=== PATIENT | female | born 1940 | race Caucasian/White ===

== ENCOUNTER 2017-04-21 15:05 | Inpatient (IN) | payer MEDICARE ==
[~2017-04-21] VITALS: Ht 162.6 cm; Wt 68.5 kg
[~2017-04-21 15:05] MED LIST: CYCL5TAB PO; HYDR12.56 PO; OXYC-360 PO; SULF500 PO; VERA40TA PO
[2017-04-25] MEDS ORDERED: FERR325T8 PO (09:47)
[2017-04-25] MEDS ORDERED: POTA10CA PO (09:47)
[2017-04-25] MEDS ORDERED: ASAC800T PO (09:47)
[2017-04-25] MEDS ORDERED: HYDR25TA5 PO (09:47)
[2017-04-25] MEDS ORDERED: TIMO0.5S30 EACH EYE (09:47)
[2017-04-25] MEDS ORDERED: VERA180C3 PO (09:47)
[2017-04-25] MEDS ORDERED: CARV6.252 PO (09:47)
[2017-04-25] MEDS ORDERED: ALPR0.25 PO (09:47)
[2017-04-25] MEDS ORDERED: FURO40TA PO (09:47)
[2017-04-25] MEDS ORDERED: SIMV10TA PO (09:47)
[2017-04-25] MEDS ORDERED: CHLORHEXIDINE GLUCONATE 2 % 1 PACK (2 CLOTHS) TOPICAL PRN (10:00)
[2017-04-25] MEDS ORDERED: INSULIN HUMAN REGULAR 1,000 UNITS/10 ML VIAL SQ PRN (10:00)
[2017-04-25] MEDS ORDERED: POVIDONE IODINE 5% (ANTISEPSIS KIT) 4 APPLICATIONS EACH NARE PRN (10:00)
[2017-04-25] MEDS ORDERED: LACTATED RINGER'S 1000 ML IV PRN (10:00)
[2017-04-25] MEDS ORDERED: HEPARIN SODIUM - SQ 10,000 UNITS/ML VIAL SQ PRN (10:00)
[2017-04-25] MEDS ORDERED: METOPROLOL TARTRATE 25 MG TAB PO PRN (10:00)
[2017-04-25] MEDS ORDERED: SODIUM CHLORID 0.9% 500 ML IV PRN (10:00)
[2017-04-25] MEDS ORDERED: ceFAZolin 1,000 MG/NS 100 ML IV SCH ×2 (10:00)
[2017-04-25] MEDS ORDERED: ONDANSETRON HCL 4 MG/2 ML VIAL IV PUSH ONE (10:30)
[2017-04-25] MEDS ORDERED: LACTATED RINGER'S 1000 ML INJ 3,000 ML IV ONE (10:30)
[2017-04-25] MEDS ORDERED: NORMOSOL R INJ 1,000 ML IV ONE (10:30)
[2017-04-25] MEDS ORDERED: ePHEDrine/NS 25 MG/5 ML SYR IV ONE (10:30)
[2017-04-25] MEDS ORDERED: PHENYLEPH/NS 1000 MCG/10 ML SYR IV ONE (10:30)
[2017-04-25] MEDS ORDERED: PROPOFOL 200 MG/20 ML AMP IV ONE (10:30)
[2017-04-25] MEDS ORDERED: ACETAMINOPHEN 1000 MG/100 ML VIAL IV ONE ×2 (10:41→11:21)
[2017-04-25] MEDS ORDERED: SUGAMMADEX SODIUM 200 MG/2 ML VIAL IV PUSH ONE ×2 (11:22)
[2017-04-25] MEDS ORDERED: HYDROmorphone HCL PF 2 MG/ML VIAL ONE (11:22)
[2017-04-25] MEDS ORDERED: DEXAMETHASONE SOD PHOS 4 MG/ML VIAL ONE (11:35)
[2017-04-25] MEDS ORDERED: FAMOTIDINE 20 MG/2 ML VIAL ONE (11:35)
[2017-04-25] MEDS ORDERED: MIDAZOLAM HCL 2 MG/2 ML VIAL ONE (11:35)
[2017-04-25] MEDS: ceFAZolin INJ 1,000 MG VIAL ONE (14:30)
[2017-04-25] MEDS ORDERED: NALOXONE HCL 0.4 MG/ML AMP IV PRN (16:15)
[2017-04-25] MEDS ORDERED: diphenhydrAMINE HCL 25 MG CAP PO PRN (16:15)
--- NOTE | 2017-04-25 16:50 | MP ---
cc: JORDAN ESCOTO DATE OF SURGERY April 25, 2017 PREOPERATIVE DIAGNOSIS Uterine malignancy. POSTOPERATIVE DIAGNOSIS Uterine malignancy involving multiple peritoneal surfaces and mesentery including large positive of invasive disease in the sigmoid colon mesentery. ATTENDING SURGEON Alexandra TURNER ASSISTANCE Dr. Loida Sims ANESTHESIA General. PROCEDURE 1. Open sigmoid resection with primary anastomosis. 2. Open appendectomy. FINDINGS A large deposit of malignancy invading the transverse sigmoid mesocolon with concern for compromise of blood supply or possible impending obstruction. INDICATION FOR PROCEDURE The patient is a 76-year-old female who was recently diagnosed with a large uterine malignancy. The patient was taken to the operating room by Dr. Loida Sims for open hysterectomy and bilateral salpingo-oophorectomy as well as oncologic debulking. Near the completion of his procedure, after these procedures were performed, he noted a large metastatic deposit that was extensively involving the sigmoid colonic mesentery. He asked for intraoperative consultation from Surgical Oncology for evaluation of the mass. On evaluation this mass appeared to be deeply invading the mesentery and there was concern clinically for impending ischemia or obstruction of the sigmoid colon. There was a normal healthy, disease-free sigmoid colon proximal and distal to this area. He felt that resection of this with primary anastomosis was appropriate for this patient and that the patient's goal was of debulking as well as to prevent possible ischemia and obstruction. PROCEDURE After completion of Dr. Sims' hysterectomy (please see his separate dictated note), prior to closure I was asked to come to the operating room suite to evaluate the sigmoid colon. Upon evaluation and after scrubbing and gowning, it was clear that there was a large metastatic deposit involving the sigmoid mesocolon. The colon appeared to be viable. The deposit was deeply invasive and broadly into the mesocolon, almost completely through the mesocolon, concerning for possible impending ischemia as well as obstruction. The mass had contracted the colon down to sort of a kink or almost a stricture type shape and this also appeared to be concerning for impending obstruction as well. I did recommend to Dr. Sims that this be removed for the above reasons and we turned our attention towards resection. We did divide the distal sigmoid and the proximal sigmoid with a blue load on a GI-70 linear stapler cutter. We used the Enseal device to take the mesentery and the mass in the completely. The superior rectal vessel was tied over a Loida clamp. The specimen was passed off for permanent processing as the sigmoid colon. We did easily identify the left ureter and this was out of our field. We did mobilize the white line of Toldt as well but not all the way up to the splenic flexure. We did not mobilize the splenic flexure. We then managed to still have ample bowel to perform primary anastomosis as she had a fairly redundant sigmoid colon. We were able form a [id number]-qb-hebt functional end-to-end anastomosis over the antimesenteric tinea of the proximal and distal sigmoid. This was done with a GI-55 linear stapler cutter with a blue load and the staple defect was closed with a TA staple. We placed crotch sutures proximal and distal on the staple lines. At this point in time, I did assist Dr. Sims with performing a few remaining resections of metastatic deposits along the mesentery and we did perform appendectomy as well. We used the Enseal to divide the appendiceal mesentery and the base of the appendix as it splayed into the cecum. The specimen was passed off for permanent processing. We placed a Z-stitch, followed by a Lembert suture using 3-0 Vicryl suture to close the appendiceal stump. At this point in time we felt that the procedures were complete and we had a good technical result. The anastomosis of the sigmoid colon was widely patent and pink and viable. Evicel was placed along the anastomosis as well as in the pelvis to assist with hemostasis. Dr. Sims did perform the closure at the completion of the procedure. Again, please refer to his separate dictated note, as mentioned above. I was present and scrubbed throughout the entire above procedures. The patient tolerated the procedure well, no apparent complications during this period the operation. MD NICOL Quevedo/GISELLA /3:38 PM /4:30 PM
[2017-04-25] MEDS ORDERED: DO NOT ADM ANY ANTICOAGULANT DRUGS PRN (17:00)
[2017-04-25] MEDS ORDERED: fentaNYL CITRATE 250 MCG/5 ML AMP ONE (17:08)
[2017-04-25] MEDS: D5-1/2 NS + KCL 20 MEQ INJ 1,000 ML IV SCH (17:32)
[2017-04-25] MEDS: MORPHINE SULFATE 30 MG/30 ML PCA IV SCH (17:33)
[2017-04-25] MEDS: KETOROLAC TROMETHAMINE 30 MG/ML (IVP) VIAL IVP SCH (17:47)
[2017-04-25 18:15] LABS: HEMATOCRIT 40.8 % (35.0-46.0); MEAN CELL VOLUME 85.5 FL (80.0-100.0); MEAN CORPUSCULAR HEMOGLOBIN 28.4 PG (27.0-34.0); MEAN CORPUSCULAR HGB CONC 33.2 % (32.0-36.0); PLATELET COUNT 379 TH/MM3 (150-450); RED BLOOD COUNT 4.78 MIL/MM3 (4.00-5.30); RED CELL DISTRIBUTION WIDTH 15.1 % (11.6-17.2); REVIEW FLAG FINAL; WHITE BLOOD COUNT 13.1 TH/MM3 (4.0-11.0)
[2017-04-25 18:44] LABS: BICARBONATE 20.4 MEQ/L (21.0-32.0); POTASSIUM 3.4 MEQ/L (3.5-5.1)
[2017-04-25 20:00] VITALS: BP 97/57; PULSE 76; RESP 17; TEMP 97.6; O2SAT 97
[2017-04-25] MEDS: SODIUM CHLORIDE 0.9% FLUSH 10 ML FLUSH IV FLUSH SCH (20:12)
[2017-04-25] MEDS: ONDANSETRON HCL 4 MG/2 ML VIAL IVP PRN (20:12)
[2017-04-25] MEDS: MESALAMINE HD 800 MG DELAYED RELEASE TAB PO SCH (20:17)
[2017-04-25] MEDS: PCA - TOTAL MG MORPHINE DELIVERED PER SHIFT SCH (22:00)
[2017-04-26] VITALS (8 sets, daily range): BP systolic 95–115; BP diastolic 55–59; PULSE 73–79; RESP 16–18; TEMP 96–97.8; O2SAT 91–98
[2017-04-26] MEDS: KETOROLAC TROMETHAMINE 30 MG/ML (IVP) VIAL IVP SCH ×4 (00:13→18:27)
[2017-04-26] MEDS: PCA - TOTAL MG MORPHINE DELIVERED PER SHIFT SCH ×3 (06:00→22:04)
[2017-04-26] MEDS: D5-1/2 NS + KCL 20 MEQ INJ 1,000 ML IV SCH ×3 (06:12→22:15)
--- NOTE | 2017-04-26 07:14 | MP ---
cc: JORDAN ESCOTO KELLY L. MD EHRINGER, GEORGE P. M.D. DATE OF SURGERY 04/25/2017 PREOPERATIVE DIAGNOSIS Large uterine mass. POSTOPERATIVE DIAGNOSES 1. Large uterine mass with large uterine tumor with invasion into sigmoid mesentery. 2. Metastatic disease in the omentum and mesentery. 3. Dense pelvic adhesions. PROCEDURE Exploratory laparotomy, total abdominal hysterectomy, bilateral salpingo-oophorectomy, extensive lysis of adhesions, omentectomy, resection of intraperitoneal tumor. 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 ANESTHESIA General endotracheal anesthesia ESTIMATED BLOOD LOSS 1100 cc. IV FLUIDS 4000 cc. URINE OUTPUT 200 cc. TRANSFUSION 2 units packed red blood cells. INTRAOPERATIVE CONSULT Dr. Jordan Ecsoto, Surgical Oncology. HISTORY A 76-year-old female who in recent weeks has noticed a sense of pelvic pain, pressure and lower abdominal distension which she felt was changing fairly rapidly. Exam and imaging showed her to have a very large central mass in the pelvis thought to be of probable uterine origin. The ovaries could not be separately visualized. It was solid, multilobulated, complex-appearing and extended to the level of the umbilicus and from one abdominopelvic sidewall to the other sidewall. She denied any vaginal bleeding, spotting or blood-tinged discharge. Imaging did not show any overt evidence of intraperitoneal disease or retroperitoneal disease but there were I believe nodules in the liver and in the lung of an undetermined significance. She was counseled regarding these findings and presents now for surgical management. She is seen in the preoperative holding area where these findings are again reviewed. Questions were answered. She expressed good understanding and agrees to move forward with surgery. FINDINGS The uterus markedly enlarged as described, extends above the level of the umbilicus and extending from sidewall to sidewall, hemorrhagic in appearance. The sigmoid colon was stuck to the posterior fundal region as there was tumor invading into the mesentery of this bowel. There were adhesions to loops of small bowel and colon posteriorly and along the fundus and along the left pelvic sidewall. Additionally the omentum had visible nodules in it, estimated to be about 5-10 mm in diameter. A couple of these were removed and were sent for frozen section analysis showing a high-grade malignancy, not otherwise specified. The small bowel mesentery had implants ranging from 3 mm to approximately 12 mm. The right tube and ovary grossly appeared normal. The left tube and ovary appeared to be distorted or continuous with the uterine mass as they were not clearly from this mass. At the conclusion of the case all grossly detectable tumor had been removed. STATEMENT OF COMPLEXITY/MODIFIER The complexly of this case was significantly increased due to the markedly enlarged uterus as well as extensive adhesions increasing surgical complexly and operative time significantly and modifier should be applied accordingly. PROCEDURE She was taken to the operating room, placed in dorsal lithotomy position after general endotracheal anesthesia was administered. A time-out was undertaken. She was identified by sight recognition and hospital ID braarti and the proposed procedure was reviewed and confirmed. She was carefully positioned in padded Grzegorz stirrups. Her arms were secured out. She was prepped and draped in sterile fashion, a Flannery catheter placed in the bladder. Ioban was placed over the abdomen and midline incision was made from the symphysis to the umbilicus, carried down to the fascia. The fascia was in the midline. The rectus muscles were . The peritoneal cavity was entered and the peritoneal incision was extended the length of the skin incision. Adhesions were taken down with sharp and blunt dissection. The preliminary anatomy was explored with findings as described above. The mass could not be adequately assessed with this incision and the posterior and lateral adhesions precluded mobilization of the mass through the abdominal incision so the incision was extended up and around the left side of the umbilicus and several centimeters above the umbilicus. The left round ligament was able to be identified, doubly suture ligated and transected. The anterior and posterior leaves of the broad ligament were opened. What appeared to be the left infundibulopelvic ligament with the vessels were isolated. The left ureter was identified and retracted posteriorly as the intervening peritoneum was opened. The infundibulopelvic ligament was doubly clamped, cut and doubly suture ligated. The tube and ovary were not clearly visualized and appeared to possibly be involved or replaced by this mass. The right round ligament was able to be identified, doubly suture ligated and transected. The anterior and posterior leaves of the broad ligament were opened. The right ureter was identified. The right infundibulopelvic ligament was isolated. The infundibulopelvic ligament was doubly clamped, cut and suture-ligated. All exposure manipulation was with handheld retractors and moving the large uterus from side to side to try to gain exposure. The vesicouterine peritoneum was dissected off the lower uterine segment and additional lysis of adhesion was carried out posteriorly and along the left fundal region of the mass. It was clear at this point the tumor had invaded through the mass into the sigmoid mesentery but this tissue was with blunt and sharp dissection and lap pads were placed to assist with hemostasis. This now allowed some limited mobility of the uterine mass which was elevated. The posterior peritoneum was opened and the pronounced vasculature was isolated bilaterally. The Enseal vessel-sealing device was used isolating the vessels bilaterally with multiple cautery, multiple sealing which caused the uterus to hugo at least partially and then the uterine vessels were cut. Dissection was carried along the left uterus and markedly dilated lower uterine segment where the cardinal, paracervical and uterosacral ligaments were isolated, doubly-sealed and transected in a stepwise fashion until a curved Wilfrido's clamp could be placed below the cervix at the lateral vaginal angle. The specimen was cut and the corner of the vagina was secured with [id number] 0 Vicryl suture. Attention was directed toward the right side where similarly the vessels were isolated, had been sealed multiple times and were transected. Continuing dissection on the cardinal ligament, some fairly active bleeding ensued. The vessels could not immediately be isolated or secured so lap pads were used to pack against the pelvic sidewall and used the pressure of the large uterus for hemostasis against the right side. Attention was then redirected toward the left where the Enseal was used to secure the tissue below the cervix and across the top of the vagina, dissecting from [id number] distal to the cervix until the cervix remained attached at the right corner and then attention was redirected to the right side where the remaining attachments of the paracervical and uterosacral ligaments were isolated, secured and then transected. This allowed removal of the uterus, both tubes and ovaries and the cervix. It was inspected and the entire cervix had been removed. A pack remained in the right pelvis. Attention was directed toward the abdomen. The omentum was isolated from the transverse colon. Nonvascular attachments were taken down with cautery. Vascular attachments were isolated and secured and transected using the Enseal until the infracolic omentum was removed. It had a few small tumor nodules in it. Inspection of the abdominal anatomy, running the bowel from the ileocecal valve to the ligament of Treitz, nodules were found on the mesentery and at one spot on the wall of the small bowel. These were removed with sharp dissection and the area of small bowel was reinforced with interrupted 3-0 Vicryl sutures. At this point Dr. Jordan Escoto had scrubbed in the case at my request as I had placed consult request with him at the start of the case based on the operative findings. At this point we decided surgical objectives should include resection of the sigmoid colon because of the invasive tumor into its mesentery as well as appendectomy due to some periappendiceal adhesions and Dr. Escoto directed resection and reanastomosis of the sigmoid colon as well as appendectomy. Please see his op note for these this portions of the case. I stayed scrubbed from start to finish and acted as his airplane first officer during his procedures. The pelvis packing was removed and we were able to isolate the bleeders and over-sew that with 3-0 delayed absorbable suture in two locations which rendered the vessels hemostatic and the packs were removed. Inspection and copious irrigation were carried out. All lap pads were removed. There were no remaining foreign objects in the peritoneal cavity. Preliminary counts were correct. Copious irrigation of the pelvis and then hemostatic agents of Surgicel SNoW placed across the vaginal cuff and pelvic sidewalls and Evicel sealant placed across the mesenteric dissection anastomosis and lateral pelvic sidewalls. There was complete hemostasis and it was felt that all reasonable surgical objectives had been completed. There was no remaining detectable tumor and attention was directed toward closing. The abdominal wall was closed with 0 looped PDS in a running continuous modified Smead-Fabian fashion starting at apices and meeting in the midpoint where the sutures were tied. The suture knot was buried between the midline fascial openings. Irrigation of subcutaneous tissue, Shayla's fascia reapproximated with interrupted 2-0 Vicryl sutures and a 3-0 Vicryl subcuticular was used to reapproximate the skin. Steri-Strips and dry sterile dressings were placed over these incisions. Final counts were correct. She was returned to dorsal supine position and was pending reversal of anesthesia when I left the operating room to precede her to the Post-Anesthesia Care Unit. MD RENATA Pink /5:38 PM /6:34 AM
[2017-04-26 08:18] LABS: AUTOMATED NEUTROPHIL # 11.4 TH/MM3 (1.8-7.7); BASOPHIL % 0.3 % (0.0-2.0); HEMATOCRIT 36.9 % (35.0-46.0); HEMO FLAGS DIFF FINAL; LYMPH % 9.9 % (9.0-44.0); LYMPHOCYTE # 1.4 TH/MM3 (1.0-4.8); MEAN CELL VOLUME 83.8 FL (80.0-100.0); MEAN CORPUSCULAR HEMOGLOBIN 27.5 PG (27.0-34.0); MEAN CORPUSCULAR HGB CONC 32.8 % (32.0-36.0); MONO % 7.9 % (0.0-8.0); NEUT % 81.9 % (16.0-70.0); PLATELET COUNT 399 TH/MM3 (150-450); RED BLOOD COUNT 4.41 MIL/MM3 (4.00-5.30); RED CELL DISTRIBUTION WIDTH 14.8 % (11.6-17.2); WHITE BLOOD COUNT 13.9 TH/MM3 (4.0-11.0)
[2017-04-26] MEDS: ONDANSETRON HCL 4 MG/2 ML VIAL IVP PRN ×2 (08:39→15:14)
[2017-04-26] MEDS: HYDROCHLOROTHIAZIDE 25 MG TAB PO SCH (08:40)
[2017-04-26] MEDS: VERAPAMIL HCL 180 MG SUSTAINED RELEASE TAB PO SCH (08:40)
[2017-04-26 08:42] LABS: BICARBONATE 25.6 MEQ/L (21.0-32.0); MAGNESIUM 1.6 MG/DL (1.5-2.5); POTASSIUM 3.6 MEQ/L (3.5-5.1)
[2017-04-26] MEDS: MESALAMINE HD 800 MG DELAYED RELEASE TAB PO SCH ×3 (08:42→18:00)
[2017-04-26] MEDS: CARVEDILOL 6.25 MG TAB PO SCH (08:42)
[2017-04-26] MEDS: FUROSEMIDE 40 MG TAB PO SCH (09:00)
[2017-04-26] MEDS: TIMOLOL MALEATE 0.5% OPHT SOLN 5 ML BTL EACH EYE SCH (09:00)
[2017-04-26] MEDS: PRAVASTATIN SOD 20 MG TAB PO SCH (09:00)
[2017-04-26] MEDS: SODIUM CHLORIDE 0.9% FLUSH 10 ML FLUSH IV FLUSH SCH ×2 (09:04→22:05)
[2017-04-26] MEDS: oxyCODONE/ACETAMINOPHEN 5 MG/325 MG TAB PO PRN ×3 (12:46→22:49)
--- NOTE | 2017-04-26 17:38 | HHI.PR ---
Subjective Subjective Notes Resting in bed Little nausea this afternoon Has been OOB to chair this afternoon Objective Vitals/I&O Vital Signs Date Time Temp Pulse Resp B/P (MAP) Pulse Ox O2 Delivery O2 Flow Rate FiO2 04/26/17 12:00 97.8 74 16 104/56 (72) 96 04/26/17 09:51 Nasal Cannula 1.00 Labs Laboratory Tests Test 04/26/17 07:19 White Blood Count 13.9 Red Blood Count 4.41 Hemoglobin 12.1 Hematocrit 36.9 Mean Corpuscular Volume 83.8 Mean Corpuscular Hemoglobin 27.5 Mean Corpuscular Hemoglobin Concent 32.8 Red Cell Distribution Width 14.8 Platelet Count 399 Mean Platelet Volume 8.5 Neutrophils (%) (Auto) 81.9 Lymphocytes (%) (Auto) 9.9 Monocytes (%) (Auto) 7.9 Eosinophils (%) (Auto) 0.0 Basophils (%) (Auto) 0.3 Neutrophils # (Auto) 11.4 Lymphocytes # (Auto) 1.4 Monocytes # (Auto) 1.1 Eosinophils # (Auto) 0.0 Basophils # (Auto) 0.0 CBC Comment DIFF FINAL Differential Comment Blood Urea Nitrogen 7 Creatinine 0.39 Random Glucose 200 Calcium Level 8.0 Phosphorus Level 3.1 Magnesium Level 1.6 Sodium Level 140 Potassium Level 3.6 Chloride Level 106 Carbon Dioxide Level 25.6 Anion Gap 8 Estimat Glomerular Filtration Rate 159 Cardiovascular: Regular Lungs: Clear Abdomen: Other (abdomen mildly tender; mildly distended; dressing in place without drainage ) Extremities: No edema A/P Assessment and Plan 76 year old female POD1 Exploratory laparotomy, total abdominal hysterectomy, bilateral salpingo-oophorectomy, extensive lysis of adhesions, omentectomy, open sigmoid resection with primary anastomosis and open appendectomy. -Sips of clears only -OOB and tolerated -IVF -VESSEL OPERATOR for pain control -Await pathology report Attending Statement The exam, history, and the medical decision-making described in the above note were completed with the assistance of the mid-level provider. I reviewed and agree with the findings presented. I attest that I had a [id number] encounter with the patient on the same day, and personally performed and documented my assessment and findings in the medical record. Abdominal exam: soft, non-distended, no rebound tenderness, postoperative incisional pain, incisions clean, dry, intact await bowel function Shannon Ocampo Apr 26, 2017 17:38 Blayne Morris MD May 04, 2017 14:47
[2017-04-27] VITALS (8 sets, daily range): BP systolic 96–123; BP diastolic 53–66; PULSE 66–87; RESP 14–18; TEMP 96.2–97.7; O2SAT 90–99
[2017-04-27] MEDS: KETOROLAC TROMETHAMINE 30 MG/ML (IVP) VIAL IVP SCH ×5 (00:12→20:15)
[2017-04-27] MEDS: MORPHINE SULFATE 30 MG/30 ML PCA IV SCH (05:20)
[2017-04-27] MEDS: PCA - TOTAL MG MORPHINE DELIVERED PER SHIFT SCH (05:36)
--- NOTE | 2017-04-27 08:15 | PD.ONC.PN ---
Subjective Subjective Remarks POD #2 pt is resting in bed has been OOB to use bedside commode taking in fluids no n/v OOB to chair X 3 yesterday pain controlled using IS Objective Data Date Time Temp Pulse Resp B/P (MAP) Pulse Ox O2 Delivery O2 Flow Rate FiO2 04/27/17 05:36 18 04/27/17 05:29 19 04/27/17 05:20 17 04/27/17 04:00 97.0 87 17 119/57 (77) 93 04/27/17 00:00 96.7 81 17 105/66 (79) 93 04/26/17 22:04 18 04/26/17 20:36 93 21 04/26/17 20:00 96.0 79 18 98/57 (71) 93 04/26/17 16:00 97.5 78 16 115/55 (75) 91 04/26/17 12:00 97.8 74 16 104/56 (72) 96 04/26/17 09:51 95 Nasal Cannula 1.00 04/26/17 08:46 96.5 76 16 95/59 (71) 97 04/27/17 04/27/17 04/27/17 06:59 14:59 22:59 Intake Total 800 ml Output Total 200 ml Balance 600 ml Result Diagram: 04/26/1771804/26/17718 Administered Medications Medications (Trade) Dose Ordered Sig/Marsha Route PRN Reason Start Time Stop Time Status Last Admin Dose Admin Heparin Sodium (Porcine) (Heparin Inj) 5,000 units NET TRAINER PRN SQ TO OR 04/25/17 10:00 04/25/17 10:07 Cefazolin Sodium 1000 mg/Sodium Chloride 100 ml @ 200 mls/hr NET TRAINER IV 04/25/17 10:00 04/28/17 09:59 04/25/17 10:18 Carvedilol (Coreg) 6.25 mg DAILY PO 04/26/17 09:00 04/26/17 08:42 Hydrochlorothiazide (Hydrodiuril) 25 mg DAILY PO 04/26/17 09:00 04/26/17 08:40 Mesalamine (Asacol Hd Dr) 800 mg TID PO 04/25/17 18:00 04/26/17 18:00 Verapamil HCl (Isoptin Sr) 180 mg DAILY PO 04/26/17 09:00 04/26/17 08:40 Pravastatin Sodium (Pravachol) 20 mg DAILY PO 04/26/17 09:00 04/26/17 09:00 Potassium Chloride/Dextrose/ Sod Cl 1,000 ml @ 100 mls/hr Q10H IV 04/25/17 16:12 04/26/17 22:15 Sodium Chloride (NS Flush) 2 ml BID IV FLUSH 04/25/17 21:00 04/26/17 09:04 Ketorolac Tromethamine (Toradol Inj) 15 mg Q6H IVP 04/25/17 18:00 04/28/17 12:01 04/27/17 05:40 Oxycodone/ Acetaminophen (Percocet 5-325 Mg) 2 tab Q4H PRN PO PAIN SCALE 6 TO 10 04/25/17 16:15 04/26/17 22:49 Ondansetron HCl (Zofran Inj) 4 mg Q6H PRN IVP NAUSEA OR VOMITING 04/25/17 16:15 04/26/17 15:14 Morphine Sulfate (Morphine 1 Mg/ ml CURRICULUM AND INSTRUCTION SPECIALIST) 30 mg UNSCH IV 04/25/17 16:15 04/27/17 05:20 CURRICULUM AND INSTRUCTION SPECIALIST Dosage Infused (Pha) 1 Q8HR .XX 04/25/17 22:00 04/27/17 05:36 Objective Remarks GENERAL: Well-nourished, well-developed patient. SKIN: Warm and dry. HEAD: Normocephalic. EYES: No scleral icterus. No injection or drainage. CARDIOVASCULAR: Regular rate and rhythm without murmurs. RESPIRATORY: Breath sounds equal bilaterally. No accessory muscle use. GASTROINTESTINAL: Abdomen soft, BS X 4, dressing c/d/i EXTREMITIES: teds and scds MUSCULOSKELETAL: Adequate muscle tone. NEUROLOGICAL: No obvious focal deficit. Awake, alert, and oriented x3. PSYCHIATRIC: Appropriate mood and affect; insight and judgment normal. Assessment/Plan Problem List: (1) Postoperative state ICD Codes: Z98.890 - Other specified postprocedural states Plan: POD #2 s/p XLap hyst with BSO, omentectomy with sigmoid resection and reanastomosis D/C IVF full liquid diet today D/C CURRICULUM AND INSTRUCTION SPECIALIST and change to Percocet OOB to chair ambulate today IS at bedside and pt using anticipate discharge in the next 24-48 hours recheck CBC with diff and BMP this AM Attending Statement Discussed with Dr. Sims and he is in agreement with plan of care. Jalil Olivo Apr 27, 2017 08:15
[2017-04-27] MEDS: VERAPAMIL HCL 180 MG SUSTAINED RELEASE TAB PO SCH (08:19)
[2017-04-27] MEDS: CARVEDILOL 6.25 MG TAB PO SCH (08:19)
[2017-04-27] MEDS: MESALAMINE HD 800 MG DELAYED RELEASE TAB PO SCH ×3 (08:19→18:27)
[2017-04-27] MEDS: HYDROCHLOROTHIAZIDE 25 MG TAB PO SCH (08:19)
[2017-04-27] MEDS: oxyCODONE/ACETAMINOPHEN 5 MG/325 MG TAB PO PRN ×2 (08:19→18:30)
[2017-04-27] MEDS: SODIUM CHLORIDE 0.9% FLUSH 10 ML FLUSH IV FLUSH SCH ×2 (08:20→20:12)
[2017-04-27] MEDS: PRAVASTATIN SOD 20 MG TAB PO SCH (09:00)
[2017-04-27] MEDS: TIMOLOL MALEATE 0.5% OPHT SOLN 5 ML BTL EACH EYE SCH (09:00)
[2017-04-27] MEDS: FUROSEMIDE 40 MG TAB PO SCH (09:00)
[2017-04-27 10:10] LABS: AUTOMATED NEUTROPHIL # 12.4 TH/MM3 (1.8-7.7); BASOPHIL # 0.1 TH/MM3 (0-0.2); BASOPHIL % 0.4 % (0.0-2.0); EOSINOPHIL # 0.4 TH/MM3 (0-0.4); EOSINOPHIL % 2.4 % (0.0-4.0); HEMATOCRIT 34.9 % (35.0-46.0); HEMO FLAGS DIFF FINAL; LYMPH % 9.9 % (9.0-44.0); LYMPHOCYTE # 1.6 TH/MM3 (1.0-4.8); MEAN CELL VOLUME 85.3 FL (80.0-100.0); MEAN CORPUSCULAR HEMOGLOBIN 27.1 PG (27.0-34.0); MEAN CORPUSCULAR HGB CONC 31.8 % (32.0-36.0); NEUT % 78.3 % (16.0-70.0); PLATELET COUNT 434 TH/MM3 (150-450); RED BLOOD COUNT 4.08 MIL/MM3 (4.00-5.30); RED CELL DISTRIBUTION WIDTH 15.2 % (11.6-17.2); WHITE BLOOD COUNT 15.8 TH/MM3 (4.0-11.0)
[2017-04-27 10:29] LABS: BICARBONATE 24.2 MEQ/L (21.0-32.0); POTASSIUM 3.7 MEQ/L (3.5-5.1)
--- NOTE | 2017-04-27 11:21 | HHI.PR ---
Subjective Subjective Notes Resting in bed UP a few times overnight due to go to restroom Daughter at bedside Objective Vitals/I&O Vital Signs Date Time Temp Pulse Resp B/P (MAP) Pulse Ox O2 Delivery O2 Flow Rate FiO2 04/27/17 08:00 96.2 78 18 105/55 (72) 90 04/26/17 20:36 21 04/26/17 09:51 Nasal Cannula 1.00 Labs Laboratory Tests Test 04/27/17 09:40 White Blood Count 15.8 Red Blood Count 4.08 Hemoglobin 11.1 Hematocrit 34.9 Mean Corpuscular Volume 85.3 Mean Corpuscular Hemoglobin 27.1 Mean Corpuscular Hemoglobin Concent 31.8 Red Cell Distribution Width 15.2 Platelet Count 434 Mean Platelet Volume 8.0 Neutrophils (%) (Auto) 78.3 Lymphocytes (%) (Auto) 9.9 Monocytes (%) (Auto) 9.0 Eosinophils (%) (Auto) 2.4 Basophils (%) (Auto) 0.4 Neutrophils # (Auto) 12.4 Lymphocytes # (Auto) 1.6 Monocytes # (Auto) 1.4 Eosinophils # (Auto) 0.4 Basophils # (Auto) 0.1 CBC Comment DIFF FINAL Differential Comment Blood Urea Nitrogen 7 Creatinine 0.47 Random Glucose 105 Calcium Level 8.0 Sodium Level 138 Potassium Level 3.7 Chloride Level 106 Carbon Dioxide Level 24.2 Anion Gap 8 Estimat Glomerular Filtration Rate 128 Cardiovascular: Regular Lungs: Clear Abdomen: Other (midline incision with bandage c/d/i; minimally tender; mildly distended ) Extremities: No edema A/P Assessment and Plan 76 year old female POD2 Exploratory laparotomy, total abdominal hysterectomy, bilateral salpingo-oophorectomy, extensive lysis of adhesions, omentectomy, open sigmoid resection with primary anastomosis and open appendectomy. -Clear liquids; advance to fulls as tolerated -OOB and tolerated -IVF -MAINTENANCE GROUNDMAN for pain control -Await pathology report Shannon Ocampo Apr 27, 2017 11:21
[2017-04-27] MEDS: ONDANSETRON HCL 4 MG/2 ML VIAL IVP PRN (12:26)
[2017-04-27] MEDS: SODIUM CHLORIDE 0.9% FLUSH 10 ML FLUSH IV FLUSH PRN (12:28)
[2017-04-28] VITALS (10 sets, daily range): BP systolic 58–142; BP diastolic 45–81; PULSE 79–104; RESP 17–20; TEMP 96.4–100.3; O2SAT 90–96
[2017-04-28] MEDS: KETOROLAC TROMETHAMINE 30 MG/ML (IVP) VIAL IVP SCH ×3 (00:10→14:40)
[2017-04-28] MEDS: oxyCODONE/ACETAMINOPHEN 5 MG/325 MG TAB PO PRN ×3 (07:34→21:36)
[2017-04-28] MEDS: FUROSEMIDE 40 MG TAB PO SCH (09:00)
[2017-04-28] MEDS: TIMOLOL MALEATE 0.5% OPHT SOLN 5 ML BTL EACH EYE SCH (09:00)
[2017-04-28] MEDS: MESALAMINE HD 800 MG DELAYED RELEASE TAB PO SCH ×3 (09:57→18:47)
[2017-04-28] MEDS: HYDROCHLOROTHIAZIDE 25 MG TAB PO SCH (09:58)
[2017-04-28] MEDS: CARVEDILOL 6.25 MG TAB PO SCH (09:58)
[2017-04-28] MEDS: VERAPAMIL HCL 180 MG SUSTAINED RELEASE TAB PO SCH (09:59)
[2017-04-28] MEDS: SODIUM CHLORIDE 0.9% FLUSH 10 ML FLUSH IV FLUSH SCH ×2 (10:03→21:39)
--- NOTE | 2017-04-28 12:20 | HHI.PR ---
Subjective Subjective Notes Resting in bed ERICH nelson Flannery Mrs. Gaytan fell last night but did not have any injuries Objective Vitals/I&O Vital Signs Date Time Temp Pulse Resp B/P (MAP) Pulse Ox O2 Delivery O2 Flow Rate FiO2 04/28/17 08:00 100.3 104 20 127/65 (85) 93 04/27/17 13:00 Nasal Cannula 2.00 04/26/17 20:36 21 Cardiovascular: Regular Lungs: Clear Abdomen: Other (midline incision without any drainage; abdomen soft; minimally tender ) Extremities: No edema A/P Assessment and Plan 76 year old female POD3 Exploratory laparotomy, total abdominal hysterectomy, bilateral salpingo-oophorectomy, extensive lysis of adhesions, omentectomy, open sigmoid resection with primary anastomosis and open appendectomy. -Full liquids -OOB and tolerated--with assistance -PT consult -IVF -CRUDE TESTER for pain control -Await pathology report Shannon OcampoP Apr 28, 2017 12:19
[2017-04-28] MEDS: PRAVASTATIN SOD 20 MG TAB PO SCH (14:40)
[2017-04-29] VITALS (7 sets, daily range): BP systolic 98–149; BP diastolic 48–73; PULSE 82–119; RESP 16–18; TEMP 96.6–99; O2SAT 92–96
[2017-04-29] MEDS ORDERED: FUROSEMIDE 20 MG/2 ML VIAL IV PUSH ONE (08:30)
[2017-04-29] MEDS: TIMOLOL MALEATE 0.5% OPHT SOLN 5 ML BTL EACH EYE SCH (08:30)
--- NOTE | 2017-04-29 09:49 | RADRPT ---
EXAM DATE/TIME: 04/29/2017 09:24 [facility] COMPARISON: No previous studies available for comparison. INDICATIONS : Wheezing. MEDICAL HISTORY : None. SURGICAL HISTORY : Hysterectomy. Mass removed . ENCOUNTER: Subsequent ACUITY: 3 days PAIN SCORE: 0/10 LOCATION: Bilateral chest FINDINGS: Large amount of free air noted below both diaphragms. Small left pleural effusion with mild bibasilar airspace disease. Minimal interstitial prominence exaggerated by low lung volumes. Cardiac and he sa w contours are within normal limits bony thorax is grossly intact. CONCLUSION: 1. Large amount of free air. Patient is reportedly status post exploratory laparoscopy on Tuesday. Deg ree of free air is in the upper limits of expected given postop day #5. 2. Small left pleural effusion with bibasilar airspace disease, likely atelectasis. Findings were personally discussed with Dr. Sims. Dk Haley MD on April 29, 2017 at 9:38 Board Certified Radiologist. This report was verified electronically.
--- NOTE | 2017-04-29 09:55 | HHI.PR ---
Subjective Subjective Notes C/o wheezing Going to CXR today Objective Vitals/I&O Vital Signs Date Time Temp Pulse Resp B/P (MAP) Pulse Ox O2 Delivery O2 Flow Rate FiO2 04/29/17 08:45 92 Nasal Cannula 3.00 04/29/17 08:00 96.7 82 18 118/55 (76) 04/26/17 20:36 21 Cardiovascular: Regular Lungs: Clear Abdomen: Other (midline incision with steri strips in place; abdomen minimally tender; slightly distended ) Extremities: Other (mild BLE edema ) A/P Assessment and Plan 76 year old female POD4 Exploratory laparotomy, total abdominal hysterectomy, bilateral salpingo-oophorectomy, extensive lysis of adhesions, omentectomy, open sigmoid resection with primary anastomosis and open appendectomy. -Continue full liquids -CXR this AM -OOB and tolerated--with assistance -PT consult -IVF -HIGH CLIMBER for pain control Shannon Ocampo Apr 29, 2017 09:55
[2017-04-29] MEDS: SODIUM CHLORIDE 0.9% FLUSH 10 ML FLUSH IV FLUSH SCH ×2 (10:24→21:13)
[2017-04-29] MEDS: PRAVASTATIN SOD 20 MG TAB PO SCH (10:25)
[2017-04-29] MEDS: HYDROCHLOROTHIAZIDE 25 MG TAB PO SCH ×2 (10:25→11:10)
[2017-04-29] MEDS: MESALAMINE HD 800 MG DELAYED RELEASE TAB PO SCH ×3 (10:25→17:34)
[2017-04-29] MEDS: FUROSEMIDE 40 MG TAB PO SCH (10:25)
[2017-04-29] MEDS: VERAPAMIL HCL 180 MG SUSTAINED RELEASE TAB PO SCH (10:25)
[2017-04-29] MEDS: CARVEDILOL 6.25 MG TAB PO SCH (10:26)
--- NOTE | 2017-04-29 12:00 | HHI.FF ---
Face to Face Verification Diagnosis: (1) Postoperative state Physical Therapy Order: Evaluate and Treat, Improve ambulation, Strength and gait training Instructions: Patient is s/p X lap hysterectomy with BSO and small bowel resection with reanastomosis. She had a fall in the hospital and has been receiving PT during her stay. Home Health Nursing Order: Wound care and dressing changes Instructions: wound checks to X Lap incision I have seen patient Eladia Gaytan on 04/29/17. My clinical findings support the need for the requested home health care services because: Deconditioned w/ increased weakness High risk of falls I certify that my clinical findings support that this patient is homebound because: Post-op weakness Jalil Olivo Apr 29, 2017 12:00
--- NOTE | 2017-04-29 12:40 | PD.CONS ---
HPI Service [facility] Hospitalists Consult Requested By Dr. José Reason for Consult Hypoxia Primary Care Physician Sonny Mckeon M.D. Diagnoses: History of Present Illness 76 years old female who was admitted under Dr. José service for hysterectomy, she is POD4 Exploratory laparotomy, total abdominal hysterectomy, bilateral salpingo-oophorectomy, extensive lysis of adhesions, omentectomy, open sigmoid resection with primary anastomosis and open appendectomy, hospitalist service requested to see the patient regarding postop hypoxia, patient told me she quit smoking 33 years ago but she smoked for 15 years about one pack every week, patient also stated she saw Dr. Harrison about 5 years ago for what it looks like she had a pneumonia. Patient stated she does have a degree of COPD, but she does not use inhalers. Chest x-ray has been done which showed a large amount of free air in the abdomen which most likely affected the lung. She does have a dry cough, she is on O2 nasal cannula 3 L, no chest pain , tolerable abdominal sources postop, no fever or chills. She has mild leukocytosis 15,000 mostly postop him I discussed with the patient and her daughter at the bedside Review of Systems All systems reviewed and was positive for what is mentioned in history of present illness otherwise negative Past Family Social History Allergies: Coded Allergies: No Known Allergies (Verified , 04/25/17) Past Medical History Hypertension, hyperlipidemia, anxiety, ulcerative colitis Family History Review with the patient,not aware of significant medical history runs in his family Social History She had a drink on a weekend, quit smoking 33 years ago, no illicit drug abuse Physical Exam Vital Signs Vital Signs Date Time Temp Pulse Resp B/P (MAP) Pulse Ox O2 Delivery O2 Flow Rate FiO2 04/29/17 12:00 96.6 85 18 149/62 (91) 92 04/29/17 08:45 92 Nasal Cannula 3.00 04/29/17 08:00 96.7 82 18 118/55 (76) 94 04/29/17 04:00 98.1 85 16 108/48 (68) 93 04/29/17 00:00 99.0 83 16 98/49 (65) 95 04/28/17 22:35 16 04/28/17 21:43 92 Nasal Cannula 3.00 04/28/17 20:00 96.4 89 17 101/45 (63) 91 04/28/17 16:07 98.3 79 20 142/81 (101) 93 04/28/17 14:37 88/64 (72) 04/28/17 13:25 94 Nasal Cannula 2.00 Physical Exam - - GENERAL: This is a well-nourished, well-developed patient, in no apparent distress. SKIN: No rashes, warm and dry HEAD: Atraumatic. Normocephalic. EYES: Pupils equal round and reactive. Extraocular motions intact. No scleral icterus. ENT: Nose without bleeding, or drainage, Airway patent. NECK: Trachea midline. Supple CARDIOVASCULAR: Regular rate and rhythm without murmurs, gallops, or rubs. RESPIRATORY: Fair air entry bilaterally. No wheezes, rales, or rhonchi. GASTROINTESTINAL: Abdomen longitudinal scar looks clean, minimally distended, nontender to light touch, we avoided deep palpation MUSCULOSKELETAL: Extremities without clubbing, cyanosis, or edema. Pedal pulses appreciated NEUROLOGICAL: Awake and alert. Moves all extremity. Normal speech.no focal neurological deficit Result Diagram: 04/27/17 0940 04/27/17 0940 Imaging Last Impressions Chest X-Ray 04/29/17 0000 Signed Impressions: Service Date/Time: Saturday, April 29, 2017 09:24 - CONCLUSION: 1. Large amount of free air. Patient is reportedly status post exploratory laparoscopy on Tuesday. Degree of free air is in the upper limits of expected given postop day #5. 2. Small left pleural effusion with bibasilar airspace disease, likely atelectasis. Findings were personally discussed with Dr. Sims. Dk Haley MD Assessment and Plan Assessment and Plan 76 years old female who is POD4 Exploratory laparotomy, total abdominal hysterectomy, bilateral salpingo-oophorectomy, extensive lysis of adhesions, omentectomy, open sigmoid resection with primary anastomosis and open appendectomy, having hypoxia mostly due to bilateral atelectasis due to free air in the abdomen, I educated the patient and advised her to frequently used incentive spirometer, will grow monitor her CBC temperature if she produce any cough or phlegm. At this point I don't see need to start any antibiotic, I will order DuoNeb as needed, wean down oxygen, increase ambulation. Discussed Condition With Patient and her daughter Richard Pike MD Apr 29, 2017 12:40
[2017-04-29] MEDS ORDERED: RESP: ALBUTEROL 2.5 MG/IPRATROPIUM 0.5 MG NEB (PRN) NEB (12:45)
[2017-04-29] MEDS ORDERED: PERC5TAB12 PO (15:09)
--- NOTE | 2017-04-29 15:32 | HHI.DS ---
Discharge Summary Admission Date Apr 25, 2017 at 08:40 Discharge Date: Apr 30, 2017 Admitting Diagnosis Endometrial cancer (1) Endometrial cancer Diagnosis: Principal ICD Codes: C54.1 - Malignant neoplasm of endometrium (2) Postoperative state Diagnosis: Principal ICD Codes: Z98.890 - Other specified postprocedural states Procedures X Lap for abdominal hysterectomy with BSO, omentectomy and small bowel resection with reanastomosis. Brief History This is a 76 year old female who was seen and evaluated for pelvic pain. Imaging shown mass to central pelvis thought to be probable uterine origin. She presented for surgery on 04/25/17. CBC/BMP: 04/27/17 0940 04/27/17 0940 Significant Findings Laboratory Tests Test 04/27/17 09:40 White Blood Count 15.8 TH/MM3 (4.0-11.0) Hemoglobin 11.1 GM/DL (11.6-15.3) Hematocrit 34.9 % (35.0-46.0) Mean Corpuscular Hemoglobin Concent 31.8 % (32.0-36.0) Neutrophils (%) (Auto) 78.3 % (16.0-70.0) Monocytes (%) (Auto) 9.0 % (0.0-8.0) Neutrophils # (Auto) 12.4 TH/MM3 (1.8-7.7) Monocytes # (Auto) 1.4 TH/MM3 (0-0.9) Creatinine 0.47 MG/DL (0.50-1.00) Calcium Level 8.0 MG/DL (8.5-10.1) Imaging Last Impressions Chest X-Ray 04/29/17 0000 Signed Impressions: Service Date/Time: Tuesday, April 29, 2017 09:24 - CONCLUSION: 1. Large amount of free air. Patient is reportedly status post exploratory laparoscopy on Tuesday. Degree of free air is in the upper limits of expected given postop day #5. 2. Small left pleural effusion with bibasilar airspace disease, likely atelectasis. Findings were personally discussed with Dr. Sims. Dk Haley MD Hospital Course Patient was seen transferred from PACU to [facility]. She was started on a BUSINESS INFORMATION ANALYST pump for pain but oral Percocet was helping to control her pain better so BUSINESS INFORMATION ANALYST was discontinued on POD #2, IV fluids stopped and Flannery removed. She had little nausea and diet was advance slowly d/t her small bowel resection and reanastomosis. The early moring of POD #3 she was up at aprox 1 am and fell after moving from bedside commode. She had no injury and did not hit or head. During morning rounds on POD #3 Dr. iSms placed an order to replace her Flannery because he was concerned about fluid overload and gave her Lasix. During the night her sats decreased some and she was restarted on 3 liters NC. On POD #4 overall she had improved, Dr. Sims did consult medicine because of her need for oxygen overnight. It is notable medicine team felt that contributing could be her PMH of smoking for 15 years, COPD, and CXR showing large amount of air in the abdomen and small left plural effusion. Dr. Pike felt she did not need ABX and ordered DuoNeb as needed along with giving further education on use of IS in order to wean oxygen. Pt Condition on Discharge: Good Discharge Disposition: Disch w/ Home Health Serv Discharge Instructions DIET: Follow Instructions for: As Tolerated, No Restrictions Activities you can perform: Pelvic Rest Activities to avoid: Lifting/Bending, Strenuous Activity, Sexual Activity Additional Activity Instructio: no lifting/pushing or pulling > 5 pounds Follow up Referrals: Appointment for Follow Up - 2 Weeks with cody New Medications: Oxycodone-Acetaminophen (Percocet) 5-325 mg Tab 1 TAB PO Q4H PRN for PAIN, #24 TAB 0 Refills Continued Medications: Alprazolam (Alprazolam) 0.25 Mg Tab 0.25 MG PO DAILY PRN for ANXIETY, TAB 0 Refills Carvedilol (Carvedilol) 6.25 Mg Tab 6.25 MG PO DAILY, TAB 0 Refills Ferrous Sulfate (Ferrous Sulfate) 325 Mg (65 Mg Iron) Tablet 325 MG PO BIDPC for Nutritional Supplement, #60 TAB 0 Refills Furosemide (Furosemide) 40 Mg Tab 40 MG PO PRN for edema, TAB 0 Refills Hydrochlorothiazide (Hydrochlorothiazide) 25 Mg Tab 25 MG PO DAILY, TAB [address] (Asacol HD) 800 Mg Tab 800 MG PO TID for Ulcerative colitis, TAB 0 Refills Swallow whole. Take on an empty stomach. Potassium Chloride ER (Potassium Chloride ER) 10 Meq Cap 10 MEQ PO DAILY PRN for edema, CAP 0 Refills Simvastatin (Simvastatin) 10 Mg Tab 10 MG PO DAILY for Cholesterol Management, TAB 0 Refills Timolol Opth Drops (Timolol Opth Drops) 0.5 % Soln 1 DROP EACH EYE DAILY for Glaucoma, BOTTLE 0 Refills Verapamil SR (Verapamil SR) 180 Mg Cap 180 MG PO DAILY, CAP 0 Refills Jalil Olivo Apr 29, 2017 15:32
[2017-04-29] MEDS: ONDANSETRON HCL 4 MG/2 ML VIAL IVP PRN (17:32)
[2017-04-29] MEDS: oxyCODONE/ACETAMINOPHEN 5 MG/325 MG TAB PO PRN (17:34)
[2017-04-30] VITALS (7 sets, daily range): BP systolic 99–129; BP diastolic 55–81; PULSE 71–123; RESP 16–18; TEMP 96.4–98; O2SAT 92–95
[2017-04-30] MEDS: oxyCODONE/ACETAMINOPHEN 5 MG/325 MG TAB PO PRN ×2 (06:56→11:13)
[2017-04-30 08:10] LABS: AUTOMATED NEUTROPHIL # 17.4 TH/MM3 (1.8-7.7); BASOPHIL % 0.1 % (0.0-2.0); EOSINOPHIL % 0.1 % (0.0-4.0); HEMATOCRIT 35.7 % (35.0-46.0); LYMPHOCYTE # 1.6 TH/MM3 (1.0-4.8); MEAN CELL VOLUME 83.9 FL (80.0-100.0); MEAN CORPUSCULAR HGB CONC 33.4 % (32.0-36.0); MONO % 3.8 % (0.0-8.0); PLATELET COUNT 590 TH/MM3 (150-450); RED BLOOD COUNT 4.26 MIL/MM3 (4.00-5.30); RED CELL DISTRIBUTION WIDTH 15.5 % (11.6-17.2); WHITE BLOOD COUNT 19.7 TH/MM3 (4.0-11.0)
[2017-04-30 08:17] LABS: HEMO FLAGS AUTO DIFF
[2017-04-30] MEDS: VERAPAMIL HCL 180 MG SUSTAINED RELEASE TAB PO SCH (09:12)
[2017-04-30] MEDS: CARVEDILOL 6.25 MG TAB PO SCH (09:12)
[2017-04-30] MEDS: HYDROCHLOROTHIAZIDE 25 MG TAB PO SCH (09:13)
[2017-04-30] MEDS: MESALAMINE HD 800 MG DELAYED RELEASE TAB PO SCH ×3 (09:13→19:48)
[2017-04-30] MEDS: PRAVASTATIN SOD 20 MG TAB PO SCH (09:14)
[2017-04-30] MEDS: FUROSEMIDE 40 MG TAB PO SCH (09:14)
[2017-04-30] MEDS: SODIUM CHLORIDE 0.9% FLUSH 10 ML FLUSH IV FLUSH SCH ×2 (09:16→20:32)
[2017-04-30] MEDS: TIMOLOL MALEATE 0.5% OPHT SOLN 5 ML BTL EACH EYE SCH (09:17)
--- NOTE | 2017-04-30 09:31 | HHI.PR ---
Subjective Subjective Notes hungry, wants food. reports bloody BM, no nausea Objective Vitals/I&O Vital Signs Date Time Temp Pulse Resp B/P (MAP) Pulse Ox O2 Delivery O2 Flow Rate FiO2 04/30/17 08:10 17 04/30/17 08:00 97.4 123 99/61 (74) 92 04/30/17 03:33 Nasal Cannula 3.00 04/26/17 20:36 21 Labs Laboratory Tests Test 04/30/17 06:22 White Blood Count 19.7 Red Blood Count 4.26 Hemoglobin 11.9 Hematocrit 35.7 Mean Corpuscular Volume 83.9 Mean Corpuscular Hemoglobin 28.0 Mean Corpuscular Hemoglobin Concent 33.4 Red Cell Distribution Width 15.5 Platelet Count 590 Mean Platelet Volume 8.2 Neutrophils (%) (Auto) 88.0 Lymphocytes (%) (Auto) 8.0 Monocytes (%) (Auto) 3.8 Eosinophils (%) (Auto) 0.1 Basophils (%) (Auto) 0.1 Neutrophils # (Auto) 17.4 Lymphocytes # (Auto) 1.6 Monocytes # (Auto) 0.7 Eosinophils # (Auto) 0.0 Basophils # (Auto) 0.0 CBC Comment AUTO DIFF Cardiovascular: Regular Lungs: Clear Abdomen: Non-distended, Post-op tenderness, BS normal Wound Wound : Wound Location: Abdomen Dressing: Dry A/P Assessment and Plan POD5 exp lap doing well advance diet. Osbaldo Shah MD Apr 30, 2017 09:31
[2017-04-30 10:33] LABS: BANDS 18 % (0-6); NEUTROPHIL # MANUAL DIFF 17.7 TH/MM3 (1.8-7.7); OVALOCYTES 1+ (NORMAL); POLYS (SEG NEUTROPHILS) 72 % (16-70); WBC DIFF SAMPLE 100
[2017-04-30 10:34] LABS: PLATELET ESTIMATE SMEAR HIGH (NORMAL); PLATELET MORPHOLOGY NORMAL (NORMAL); SCAN/DIFF FINAL DIFF MANUAL
--- NOTE | 2017-04-30 11:34 | PD.ONC.PN ---
Subjective Subjective Remarks Pt reports blood running down her leg this morning. She feels weak, hasn't been up ambulating much Objective Data Date Time Temp Pulse Resp B/P (MAP) Pulse Ox O2 Delivery O2 Flow Rate FiO2 04/30/17 08:10 17 04/30/17 08:00 97.4 123 18 99/61 (74) 92 04/30/17 04:00 97.1 101 18 129/69 (89) 92 04/30/17 03:33 95 Nasal Cannula 3.00 04/30/17 00:00 96.4 102 18 114/61 (78) 95 04/30/17 00:00 18 04/29/17 20:00 96.6 119 18 105/58 (74) 96 04/29/17 16:00 96.9 88 18 129/73 (91) 92 04/29/17 12:00 96.6 85 18 149/62 (91) 92 04/30/17 04/30/17 04/30/17 07:00 15:00 23:00 Intake Total 120 ml Output Total 100 ml Balance 20 ml Result Diagram: 04/30/17 0622 04/27/17 0940 Laboratory Results Laboratory Tests Test 04/30/17 06:22 White Blood Count 19.7 TH/MM3 Red Blood Count 4.26 MIL/MM3 Hemoglobin 11.9 GM/DL Hematocrit 35.7 % Mean Corpuscular Volume 83.9 FL Mean Corpuscular Hemoglobin 28.0 PG Mean Corpuscular Hemoglobin Concent 33.4 % Red Cell Distribution Width 15.5 % Platelet Count 590 TH/MM3 Mean Platelet Volume 8.2 FL Neutrophils (%) (Auto) 88.0 % Lymphocytes (%) (Auto) 8.0 % Monocytes (%) (Auto) 3.8 % Eosinophils (%) (Auto) 0.1 % Basophils (%) (Auto) 0.1 % Neutrophils # (Auto) 17.4 TH/MM3 Lymphocytes # (Auto) 1.6 TH/MM3 Monocytes # (Auto) 0.7 TH/MM3 Eosinophils # (Auto) 0.0 TH/MM3 Basophils # (Auto) 0.0 TH/MM3 CBC Comment AUTO DIFF Differential Total Cells Counted 100 Neutrophils % (Manual) 72 % Band Neutrophils % 18 % Lymphocytes % 5 % Monocytes % 5 % Neutrophils # (Manual) 17.7 TH/MM3 Differential Comment FINAL DIFF MANUAL Platelet Estimate HIGH Platelet Morphology Comment NORMAL Ovalocytes 1+ Administered Medications Medications (Trade) Dose Ordered Sig/Marsha Route PRN Reason Start Time Stop Time Status Last Admin Dose Admin Heparin Sodium (Porcine) (Heparin Inj) 5,[address] MANAGER PRN SQ TO OR 04/25/17 10:00 04/25/17 10:07 Carvedilol (Coreg) 6.25 mg DAILY PO 04/26/17 09:00 04/30/17 09:12 Furosemide (Lasix) 40 mg DAILY PO 04/26/17 09:00 04/30/17 09:14 Hydrochlorothiazide (Hydrodiuril) 25 mg DAILY PO 04/26/17 09:00 04/30/17 09:13 Mesalamine (Asacol Hd Dr) 800 mg TID PO 04/25/17 18:00 04/30/17 09:13 Timolol Maleate (Timoptic 0.5% Opt Soln) 1 drop DAILY EACH EYE 04/26/17 09:00 04/30/17 09:17 Verapamil HCl (Isoptin Sr) 180 mg DAILY PO 04/26/17 09:00 04/30/17 09:12 Pravastatin Sodium (Pravachol) 20 mg DAILY PO 04/26/17 09:00 04/30/17 09:14 Sodium Chloride (NS Flush) 2 ml UNSCH PRN IV FLUSH FLUSH AFTER USING IV ACCESS 04/25/17 16:15 04/27/17 12:28 Sodium Chloride (NS Flush) 2 ml BID IV FLUSH 04/25/17 21:00 04/30/17 09:16 Oxycodone/ Acetaminophen (Percocet 5-325 Mg) 1 tab Q4H PRN PO PAIN SCALE 1 TO 5 04/25/17 16:15 04/30/17 11:13 Oxycodone/ Acetaminophen (Percocet 5-325 Mg) 2 tab Q4H PRN PO PAIN SCALE 6 TO 10 04/25/17 16:15 04/30/17 06:56 Ondansetron HCl (Zofran Inj) 4 mg Q6H PRN IVP NAUSEA OR VOMITING 04/25/17 16:15 04/29/17 17:32 Objective Remarks GENERAL: Weak appearing older female resting in bed in no acute distress SKIN: Warm and dry. HEAD: Normocephalic. EYES: No injection or drainage. NECK: Supple, trachea midline. CARDIOVASCULAR: Regular rate and rhythm without murmurs. RESPIRATORY: Diminished breath sounds. On 2 L nasal cannula. GASTROINTESTINAL: Abdomen soft, non-tender, nondistended. EXTREMITIES: No cyanosis, or edema. NEUROLOGICAL: No obvious focal deficit. Awake, alert, and oriented x3. Assessment/Plan Plan 1. The patient and her daughter are apprehensive about being discharged today. 2. She reported some bleeding, therefore we will keep her 1 more day and check a CBC in a.m. 3. Will discuss with physical therapy to come see the patient today. 4. Dr. Platt has discussed with Dr. Sims and he is agrees. The exam, history, and the medical decision-making described in the above note were completed with the assistance of the mid-level provider. I reviewed and agree with the findings presented. I attest that I had a [id number] encounter with the patient on the same day, and personally performed and documented my assessment and findings in the medical record. she is frail, on oxygen and not ambulatory. will hold on discharge, proceed with physical therapy , check cbc plat in am and reevaluate in AM. Sarina Swian Apr 30, 2017 11:34 Fady Platt MD May 04, 2017 18:55
[2017-04-30] MEDS: ONDANSETRON HCL 4 MG/2 ML VIAL IVP PRN (12:10)
--- NOTE | 2017-04-30 13:31 | HHI.PR ---
Subjective Remarks Patient resting in bed, still on O2 nasal cannula 1 L, no chest anal dizziness or lightheaded, she told me she was trying to sleep WBC increased to 15.8-19.7 platelet increased to 590 patient is on Lasix and hydrochlorothiazide possible volume depletion Objective Vitals Vital Signs Date Time Temp Pulse Resp B/P (MAP) Pulse Ox O2 Delivery O2 Flow Rate FiO2 04/30/17 12:15 16 04/30/17 12:00 98.0 74 16 103/81 (88) 94 04/30/17 08:10 17 04/30/17 08:00 97.4 123 18 99/61 (74) 92 04/30/17 04:00 97.1 101 18 129/69 (89) 92 04/30/17 03:33 95 Nasal Cannula 3.00 04/30/17 00:00 96.4 102 18 114/61 (78) 95 04/30/17 00:00 18 04/29/17 20:00 96.6 119 18 105/58 (74) 96 04/29/17 16:00 96.9 88 18 129/73 (91) 92 I/O 04/29/17 04/29/17 04/29/17 04/30/17 04/30/17 04/30/17 07:00 15:00 23:00 07:00 15:00 23:00 Intake Total 60 ml 960 ml 240 ml 120 ml Output Total 150 ml 1100 ml 1250 ml 100 ml Balance -90 ml -140 ml -1010 ml 20 ml Intake Oral 60 ml 960 ml 240 ml 120 ml Output Urine Total 150 ml 1100 ml 1250 ml 100 ml # Bowel Movements 0 Result Diagram: 04/30/17 0622 04/27/17 0940 Objective Remarks - - GENERAL: This is a well-nourished, well-developed patient, in no apparent distress. SKIN: No rashes, warm and dry HEAD: Atraumatic. Normocephalic. EYES: Pupils equal round and reactive. Extraocular motions intact. No scleral icterus. ENT: Nose without bleeding, or drainage, Airway patent. NECK: Trachea midline. Supple CARDIOVASCULAR: Regular rate and rhythm without murmurs, gallops, or rubs. RESPIRATORY: Fair air entry bilaterally. No wheezes, rales, or rhonchi. GASTROINTESTINAL: Abdomen longitudinal scar looks clean, minimally distended, nontender to light touch, we avoided deep palpation MUSCULOSKELETAL: Extremities without clubbing, cyanosis, or edema. Pedal pulses appreciated NEUROLOGICAL: Awake and alert. Moves all extremity. Normal speech.no focal neurological deficit A/P Problem List: (1) Endometrial cancer ICD Code: C54.1 - Malignant neoplasm of endometrium (2) Postoperative state ICD Code: Z98.890 - Other specified postprocedural states Assessment and Plan 76 years old female who is POD4 Exploratory laparotomy, total abdominal hysterectomy, bilateral salpingo-oophorectomy, extensive lysis of adhesions, omentectomy, open sigmoid resection with primary anastomosis and open appendectomy, having hypoxia mostly due to bilateral atelectasis due to free air in the abdomen, I educated the patient and advised her to frequently used incentive spirometer, will grow monitor her CBC temperature if she produce any cough or phlegm. Continue DuoNeb as needed, wean down oxygen, increase ambulation. Leukocytosis 19.7: Repeat chest x-ray, possibly post op, no cough or phlegm production Thrombocytosis platelet 590: Possibly volume depletion, patient on Lasix and hydrochlorothiazide, recommending holding it and repeat BMP in a.m. Richard Pike MD Apr 30, 2017 13:31
[2017-05-01] VITALS (10 sets, daily range): BP systolic 86–125; BP diastolic 48–61; PULSE 68–79; RESP 16–20; TEMP 96–97.5; O2SAT 93–95
[2017-05-01] MEDS: ONDANSETRON HCL 4 MG/2 ML VIAL IVP PRN ×3 (04:15→18:33)
[2017-05-01] MEDS: oxyCODONE/ACETAMINOPHEN 5 MG/325 MG TAB PO PRN ×4 (04:17→23:00)
[2017-05-01 07:51] LABS: AUTOMATED NEUTROPHIL # 11.2 TH/MM3 (1.8-7.7); BASOPHIL % 0.3 % (0.0-2.0); EOSINOPHIL # 0.2 TH/MM3 (0-0.4); EOSINOPHIL % 1.4 % (0.0-4.0); LYMPH % 6.1 % (9.0-44.0); LYMPHOCYTE # 0.8 TH/MM3 (1.0-4.8); MEAN CELL VOLUME 83.2 FL (80.0-100.0); MEAN CORPUSCULAR HEMOGLOBIN 27.9 PG (27.0-34.0); MEAN CORPUSCULAR HGB CONC 33.5 % (32.0-36.0); MONO % 4.7 % (0.0-8.0); NEUT % 87.5 % (16.0-70.0); PLATELET COUNT 518 TH/MM3 (150-450); RED BLOOD COUNT 3.97 MIL/MM3 (4.00-5.30); RED CELL DISTRIBUTION WIDTH 15.5 % (11.6-17.2); WHITE BLOOD COUNT 12.8 TH/MM3 (4.0-11.0)
[2017-05-01 08:00] LABS: HEMO FLAGS AUTO DIFF
[2017-05-01 08:13] LABS: BICARBONATE 28.7 MEQ/L (21.0-32.0)
[2017-05-01 08:17] LABS: POTASSIUM 2.2 MEQ/L (3.5-5.1)
[2017-05-01] MEDS: PRAVASTATIN SOD 20 MG TAB PO SCH (09:00)
[2017-05-01] MEDS: TIMOLOL MALEATE 0.5% OPHT SOLN 5 ML BTL EACH EYE SCH (09:20)
[2017-05-01] MEDS: MESALAMINE HD 800 MG DELAYED RELEASE TAB PO SCH ×3 (09:21→18:29)
[2017-05-01] MEDS: CARVEDILOL 6.25 MG TAB PO SCH (09:22)
[2017-05-01] MEDS: VERAPAMIL HCL 180 MG SUSTAINED RELEASE TAB PO SCH (09:22)
[2017-05-01] MEDS: SODIUM CHLORIDE 0.9% FLUSH 10 ML FLUSH IV FLUSH SCH ×2 (09:24→21:00)
[2017-05-01 09:33] LABS: BANDS 27 % (0-6); EOSINOPHILS 1 % (0-4); NEUTROPHIL # MANUAL DIFF 12.2 TH/MM3 (1.8-7.7); OVALOCYTES 1+ (NORMAL); PLATELET ESTIMATE SMEAR HIGH (NORMAL); POLYS (SEG NEUTROPHILS) 68 % (16-70); WBC DIFF SAMPLE 100
[2017-05-01 09:34] LABS: PLATELET MORPHOLOGY NORMAL (NORMAL); SCAN/DIFF FINAL DIFF MANUAL
[2017-05-01] MEDS ORDERED: POTASSIUM CHLORIDE 20 MEQ CONTROLLED RELEASE TAB PO ONE ×2 (09:45→10:45)
[2017-05-01] MEDS ORDERED: POTASSIUM CHLOR 40 MEQ PREMIX 100 ML IV ONE ×2 (09:45→15:30)
--- NOTE | 2017-05-01 09:55 | RADRPT ---
EXAM DATE/TIME: 05/01/2017 09:44 [facility] COMPARISON: CHEST PA & LAT, April 29, 2017, 9:24. INDICATIONS : Short of breath and chest pain. MEDICAL HISTORY : None. SURGICAL HISTORY : None. ENCOUNTER: Subsequent ACUITY: 2 days PAIN SCORE: 2/10 LOCATION: Bilateral chest FINDINGS: PA lateral views the chest again demonstrate a large amount of free air underneath the bilateral hill diaphragms. There is bilateral pleural effusions which appear slightly decreased in size as compared to the prior exam. There is overlying atelectasis present. The lung apices are clear. Heart size is n ormal. Osseous structures are unremarkable. CONCLUSION: Persistent large amount of free air identified within the abdomen. Pleural effusions which are slight ly decreased in size as compared to the prior exam. Rebekah Quick MD on May 01, 2017 at 9:52 Board Certified Radiologist. This report was verified electronically.
--- NOTE | 2017-05-01 11:01 | PD.ONC.PN ---
Subjective Subjective Remarks Patient reports she is no longer wheezing Reports having some left-sided chest discomfort She is waiting on someone to bring her something for pain Lab resulted a potassium of 2.2 this a.m. Objective Data Date Time Temp Pulse Resp B/P (MAP) Pulse Ox O2 Delivery O2 Flow Rate FiO2 05/01/17 07:50 96.0 75 20 125/60 (81) 94 05/01/17 04:00 97.5 75 16 117/61 (79) 93 05/01/17 00:00 96.0 76 16 115/56 (75) 94 04/30/17 20:00 96.4 71 17 107/55 (72) 92 04/30/17 16:00 97.2 95 18 102/77 (85) 95 04/30/17 12:15 16 04/30/17 12:00 98.0 74 16 103/81 (88) 94 05/01/17 05/01/17 05/01/17 07:00 15:00 23:00 Intake Total 360 ml Output Total 1300 ml Balance -940 ml Result Diagram: 05/01/17 0616 05/01/17 0616 Laboratory Results Laboratory Tests Test 05/01/17 06:16 White Blood Count 12.8 TH/MM3 Red Blood Count 3.97 MIL/MM3 Hemoglobin 11.1 GM/DL Hematocrit 33.0 % Mean Corpuscular Volume 83.2 FL Mean Corpuscular Hemoglobin 27.9 PG Mean Corpuscular Hemoglobin Concent 33.5 % Red Cell Distribution Width 15.5 % Platelet Count 518 TH/MM3 Mean Platelet Volume 8.1 FL Neutrophils (%) (Auto) 87.5 % Lymphocytes (%) (Auto) 6.1 % Monocytes (%) (Auto) 4.7 % Eosinophils (%) (Auto) 1.4 % Basophils (%) (Auto) 0.3 % Neutrophils # (Auto) 11.2 TH/MM3 Lymphocytes # (Auto) 0.8 TH/MM3 Monocytes # (Auto) 0.6 TH/MM3 Eosinophils # (Auto) 0.2 TH/MM3 Basophils # (Auto) 0.0 TH/MM3 CBC Comment AUTO DIFF Differential Total Cells Counted 100 Neutrophils % (Manual) 68 % Band Neutrophils % 27 % Monocytes % 4 % Eosinophils % 1 % Neutrophils # (Manual) 12.2 TH/MM3 Differential Comment FINAL DIFF MANUAL Platelet Estimate HIGH Platelet Morphology Comment NORMAL Ovalocytes 1+ Blood Urea Nitrogen 13 MG/DL Creatinine 0.49 MG/DL Random Glucose 104 MG/DL Calcium Level 8.4 MG/DL Sodium Level 136 MEQ/L Potassium Level 2.2 MEQ/L Chloride Level 95 MEQ/L Carbon Dioxide Level 28.7 MEQ/L Anion Gap 12 MEQ/L Estimat Glomerular Filtration Rate 122 ML/MIN Imaging Studies Last 24 hours Impressions Chest X-Ray 05/01/17 0600 Signed Impressions: Service Date/Time: Monday, May 01, 2017 09:44 - CONCLUSION: Persistent large amount of free air identified within the abdomen. Pleural effusions which are slightly decreased in size as compared to the prior exam. Rebekah Quick MD Administered Medications Medications (Trade) Dose Ordered Sig/Marsha Route PRN Reason Start Time Stop Time Status Last Admin Dose Admin Heparin Sodium (Porcine) (Heparin Inj) 5,000 units SAFETY SECURITY OFFICER PRN SQ TO OR 04/25/17 10:00 04/25/17 10:07 Carvedilol (Coreg) 6.25 mg DAILY PO 04/26/17 09:00 05/01/17 09:22 Mesalamine (Asacol Hd Dr) 800 mg TID PO 04/25/17 18:00 05/01/17 09:21 Timolol Maleate (Timoptic 0.5% Opt Soln) 1 drop DAILY EACH EYE 04/26/17 09:00 05/01/17 09:20 Verapamil HCl (Isoptin Sr) 180 mg DAILY PO 04/26/17 09:00 05/01/17 09:22 Pravastatin Sodium (Pravachol) 20 mg DAILY PO 04/26/17 09:00 05/01/17 09:00 Sodium Chloride (NS Flush) 2 ml UNSCH PRN IV FLUSH FLUSH AFTER USING IV ACCESS 04/25/17 16:15 04/27/17 12:28 Sodium Chloride (NS Flush) 2 ml BID IV FLUSH 04/25/17 21:00 05/01/17 09:24 Oxycodone/ Acetaminophen (Percocet 5-325 Mg) 1 tab Q4H PRN PO PAIN SCALE 1 TO 5 04/25/17 16:15 05/01/17 04:17 Oxycodone/ Acetaminophen (Percocet 5-325 Mg) 2 tab Q4H PRN PO PAIN SCALE 6 TO 10 04/25/17 16:15 04/30/17 06:56 Ondansetron HCl (Zofran Inj) 4 mg Q6H PRN IVP NAUSEA OR VOMITING 04/25/17 16:15 05/01/17 04:15 Objective Remarks GENERAL: Weak appearing older female sitting up on bedside commode in no acute distress SKIN: Warm and dry. HEAD: Normocephalic. EYES: No injection or drainage. NECK: Supple, trachea midline. CARDIOVASCULAR: Regular rate and rhythm without murmurs. RESPIRATORY: Diminished breath sounds. On 2 L nasal cannula. GASTROINTESTINAL: Abdomen soft, protuberant. Vertical incision with sutures. No oozing. EXTREMITIES: No cyanosis, or edema. NEUROLOGICAL: No obvious focal deficit. Awake, alert, and oriented x3. Assessment/Plan Plan 1. The patient is with severe hypokalemia and mild left-sided chest pain; we will obtain an EKG and troponin along with repeat electrolytes. 2. Cardiac telemetry, repeat labs, potassium replacement ordered by hospitalist. 3. Monitor for results. Attending Statement The exam, history, and the medical decision-making described in the above note were completed with the assistance of the mid-level provider. I reviewed and agree with the findings presented. I attest that I had a [id number] encounter with the patient on the same day, and personally performed and documented my assessment and findings in the medical record. stronger today. will need K replaced (currently being done) and continued physical therapy. hopefully home in several days. Chest film reviewed and has air under the diaphragm which is unchanged from previous film. Sarina Swain May 01, 2017 11:01 Fady Platt MD May 01, 2017 15:44
[2017-05-01] MEDS ORDERED: POTASSIUM CHLORIDE INJ 40 MEQ in SODIUM CHLORID 0.9% 500 ML INJ 500 ML IV SCH (11:30)
[2017-05-01 12:27] LABS: MAGNESIUM 1.6 MG/DL (1.5-2.5)
[2017-05-01 12:30] LABS: POTASSIUM 2.4 MEQ/L (3.5-5.1)
--- NOTE | 2017-05-01 16:06 | HHI.PR ---
Subjective Remarks patient resting well in bed she looked comfortable still on 2 L nasal cannula Chest x-ray still showing free air under diaphragm, discussed with Dr. Platt Significant hypokalemia today, she denied any diarrhea No fever or chills Objective Vitals Vital Signs Date Time Temp Pulse Resp B/P (MAP) Pulse Ox O2 Delivery O2 Flow Rate FiO2 05/01/17 12:00 14 05/01/17 11:30 97.4 79 20 111/58 (75) 95 05/01/17 07:50 96.0 75 20 125/60 (81) 94 05/01/17 04:00 97.5 75 16 117/61 (79) 93 05/01/17 00:00 96.0 76 16 115/56 (75) 94 04/30/17 20:00 96.4 71 17 107/55 (72) 92 I/O 04/30/17 04/30/17 04/30/17 05/01/17 05/01/17 05/01/17 07:00 15:00 23:00 07:00 15:00 23:00 Intake Total 120 ml 720 ml 240 ml 360 ml Output Total 100 ml 600 ml 1300 ml Balance 20 ml 720 ml -360 ml -940 ml Intake Oral 120 ml 720 ml 240 ml 360 ml Output Urine Total 100 ml 600 ml 1300 ml # Voids 2 # Bowel Movements 0 Result Diagram: 05/01/17 0616 05/01/17 1150 Objective Remarks - - GENERAL: This is a well-nourished, well-developed patient, in no apparent distress. SKIN: No rashes, warm and dry HEAD: Atraumatic. Normocephalic. ENT: Nose without bleeding, or drainage, Airway patent. NECK: Trachea midline. Supple CARDIOVASCULAR: Regular rate and rhythm without murmurs, gallops, or rubs. RESPIRATORY: Decreased breath sounds bibasilar GASTROINTESTINAL: Abdomen longitudinal scar looks clean, minimally distended, nontender to light touch, we avoided deep palpation MUSCULOSKELETAL: Extremities without clubbing, cyanosis, or edema. Pedal pulses appreciated NEUROLOGICAL: Awake and alert. Moves all extremity. Normal speech.no focal neurological deficit A/P Problem List: (1) Endometrial cancer ICD Code: C54.1 - Malignant neoplasm of endometrium (2) Postoperative state ICD Code: Z98.890 - Other specified postprocedural states Assessment and Plan 76 years old female who is POD4 Exploratory laparotomy, total abdominal hysterectomy, bilateral salpingo-oophorectomy, extensive lysis of adhesions, omentectomy, open sigmoid resection with primary anastomosis and open appendectomy, having hypoxia mostly due to bilateral atelectasis due to free air in the abdomen, I educated the patient and advised her to frequently used incentive spirometer, will grow monitor her CBC temperature if she produce any cough or phlegm. Continue DuoNeb as needed, wean down oxygen, increase ambulation. Severe hypokalemia: 2.4, no diarrhea, replace aggressively iv nothing by mouth, will check magnesium level and replace accordingly, repeat BMP in a.m. Leukocytosis trending down 12.2 : Repeat chest x-ray no infiltrate, mostly postop reaction, no cough or phlegm production Thrombocytosis platelet 590>>518: Mostly volume depletion, Lasix and hydrochlorothiazide on hold, monitor CBC and BMP Discussed with Dr. Platt oncologist covering for Richard Elizabeth MD May 01, 2017 16:06
[2017-05-01] MEDS: D5-1/2 NS + KCL 40 MEQ INJ 1,000 ML IV SCH (17:00)
--- NOTE | 2017-05-01 17:29 | HHI.PR ---
Subjective Subjective Notes feels better Objective Vitals/I&O Vital Signs Date Time Temp Pulse Resp B/P (MAP) Pulse Ox O2 Delivery O2 Flow Rate FiO2 05/01/17 15:30 96.9 70 20 94/56 (69) 93 04/30/17 03:33 Nasal Cannula 3.00 Labs Laboratory Tests Test 05/01/17 06:16 05/01/17 11:50 White Blood Count 12.8 Red Blood Count 3.97 Hemoglobin 11.1 Hematocrit 33.0 Mean Corpuscular Volume 83.2 Mean Corpuscular Hemoglobin 27.9 Mean Corpuscular Hemoglobin Concent 33.5 Red Cell Distribution Width 15.5 Platelet Count 518 Mean Platelet Volume 8.1 Neutrophils (%) (Auto) 87.5 Lymphocytes (%) (Auto) 6.1 Monocytes (%) (Auto) 4.7 Eosinophils (%) (Auto) 1.4 Basophils (%) (Auto) 0.3 Neutrophils # (Auto) 11.2 Lymphocytes # (Auto) 0.8 Monocytes # (Auto) 0.6 Eosinophils # (Auto) 0.2 Basophils # (Auto) 0.0 CBC Comment AUTO DIFF Differential Total Cells Counted 100 Neutrophils % (Manual) 68 Band Neutrophils % 27 Monocytes % 4 Eosinophils % 1 Neutrophils # (Manual) 12.2 Differential Comment FINAL DIFF MANUAL Platelet Estimate HIGH Platelet Morphology Comment NORMAL Ovalocytes 1+ Blood Urea Nitrogen 13 Creatinine 0.49 Random Glucose 104 Calcium Level 8.4 Sodium Level 136 Potassium Level 2.2 2.4 Chloride Level 95 Carbon Dioxide Level 28.7 Anion Gap 12 Estimat Glomerular Filtration Rate 122 Magnesium Level 1.6 Troponin I LESS THAN 0.02 Abdomen: Non-distended, Non-tender A/P Assessment and Plan 76yo POD#6 Hysterectomy and colon resection, passing flatus, no BM, abdomen mildly distended, non-surgical. continue OOB, await bowel function. Blayne Morris MD May 01, 2017 17:29
[2017-05-01] MEDS: POTASSIUM CHLOR 20 MEQ PREMIX 100 ML IV SCH (19:16)
[2017-05-02] VITALS (10 sets, daily range): BP systolic 92–133; BP diastolic 55–72; PULSE 69–93; RESP 14–20; TEMP 95.3–99.4; O2SAT 90–94
[2017-05-02] MEDS: POTASSIUM CHLOR 20 MEQ PREMIX 100 ML IV SCH ×2 (00:06→02:37)
[2017-05-02] MEDS: MAGNESIUM SULFATE 1 GM PREMIX 100 ML IV SCH ×2 (05:32→06:36)
[2017-05-02] MEDS: ONDANSETRON HCL 4 MG/2 ML VIAL IVP PRN (06:22)
[2017-05-02] MEDS: oxyCODONE/ACETAMINOPHEN 5 MG/325 MG TAB PO PRN (06:23)
[2017-05-02] MEDS: D5-1/2 NS + KCL 40 MEQ INJ 1,000 ML IV SCH ×3 (07:36→23:19)
--- NOTE | 2017-05-02 08:30 | PD.ONC.PN ---
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: POD #7 pt resting in bed reports last BM was over 24 hours ago abdominal pain and distention denies any N/V denies any fevers concern for anastomotic leak d/t air in abd and distention will get stat CT of ab/pelvis with IV and oral contrast if + for fluid in abd will have IR place drain and start ABX general surgery following Objective Data Date Time Temp Pulse Resp B/P (MAP) Pulse Ox O2 Delivery O2 Flow Rate FiO2 05/02/17 04:16 83 05/02/17 04:00 97.0 86 18 121/65 (83) 92 05/02/17 00:00 76 05/02/17 00:00 95.3 74 20 108/59 (75) 94 05/02/17 00:00 95.3 74 20 108/59 (75) 94 05/01/17 21:00 70 101/53 (69) 05/01/17 20:00 71 05/01/17 20:00 96.1 74 18 94 05/01/17 17:31 93 Nasal Cannula 1.50 05/01/17 15:55 68 05/01/17 15:30 96.9 70 20 94/56 (69) 93 05/01/17 13:22 72 05/01/17 12:00 14 05/01/17 11:30 97.4 79 20 111/58 (75) 95 05/02/17 05/02/17 05/02/17 07:00 15:00 23:00 Intake Total 200 ml Balance 200 ml Result Diagram: 05/01/17 0616 05/01/17 1150 Laboratory Results Laboratory Tests Test 05/01/17 11:50 Potassium Level 2.4 MEQ/L Magnesium Level 1.6 MG/DL Troponin I LESS THAN 0.02 NG/ML Administered Medications Medications (Trade) Dose Ordered Sig/Marsha Route PRN Reason Start Time Stop Time Status Last Admin Dose Admin Heparin Sodium (Porcine) (Heparin Inj) 5,000 units MOTOR GRADER OPERATOR PRN SQ TO OR 04/25/17 10:00 04/25/17 10:07 Carvedilol (Coreg) 6.25 mg DAILY PO 04/26/17 09:00 05/01/17 09:22 Mesalamine (Asacol Hd Dr) 800 mg TID PO 04/25/17 18:00 05/01/17 18:29 Timolol Maleate (Timoptic 0.5% Opth Soln) 1 drop DAILY EACH EYE 04/26/17 09:00 05/01/17 09:20 Verapamil HCl (Isoptin Sr) 180 mg DAILY PO 04/26/17 09:00 05/01/17 09:22 Pravastatin Sodium (Pravachol) 20 mg DAILY PO 04/26/17 09:00 05/01/17 09:00 Sodium Chloride (NS Flush) 2 ml UNSCH PRN IV FLUSH FLUSH AFTER USING IV ACCESS 04/25/17 16:15 04/27/17 12:28 Sodium Chloride (NS Flush) 2 ml BID IV FLUSH 04/25/17 21:00 05/01/17 09:24 Oxycodone/ Acetaminophen (Percocet 5-325 Mg) 1 tab Q4H PRN PO PAIN SCALE 1 TO 5 04/25/17 16:15 05/01/17 18:30 Oxycodone/ Acetaminophen (Percocet 5-325 Mg) 2 tab Q4H PRN PO PAIN SCALE 6 TO 10 04/25/17 16:15 05/02/17 06:23 Ondansetron HCl (Zofran Inj) 4 mg Q6H PRN IVP NAUSEA OR VOMITING 04/25/17 16:15 05/02/17 06:22 Potassium Chloride/Dextrose/ Sod Cl 1,000 ml @ 100 mls/hr Q10H IV 05/01/17 17:00 05/02/17 07:36 Objective Remarks GENERAL: Well-nourished, frail in NAD SKIN: Warm and dry. HEAD: Normocephalic. EYES: No scleral icterus. No injection or drainage. CARDIOVASCULAR: Regular rate and rhythm without murmurs. RESPIRATORY: Breath sounds equal bilaterally. No accessory muscle use. GASTROINTESTINAL: abd distended, + BS x 4 EXTREMITIES:teds MUSCULOSKELETAL: Adequate muscle tone. NEUROLOGICAL: No obvious focal deficit. Awake, alert, and oriented x3. PSYCHIATRIC: Appropriate mood and affect; insight and judgment normal. 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
[2017-05-02] MEDS: SODIUM CHLORIDE 0.9% FLUSH 10 ML FLUSH IV FLUSH SCH ×2 (09:00→21:00)
[2017-05-02] MEDS: VERAPAMIL HCL 180 MG SUSTAINED RELEASE TAB PO SCH (09:07)
[2017-05-02] MEDS: TIMOLOL MALEATE 0.5% OPHT SOLN 5 ML BTL EACH EYE SCH (09:07)
[2017-05-02] MEDS: MESALAMINE HD 800 MG DELAYED RELEASE TAB PO SCH ×3 (09:07→18:55)
[2017-05-02] MEDS: CARVEDILOL 6.25 MG TAB PO SCH (09:07)
[2017-05-02] MEDS: PRAVASTATIN SOD 20 MG TAB PO SCH (09:08)
[2017-05-02] MEDS ORDERED: DIATRIZOATE MEGLUM/DIATRIZOATE SOD 9 ML CUP PO ONE (10:15)
[2017-05-02 11:31] LABS: BICARBONATE 29.7 MEQ/L (21.0-32.0); MAGNESIUM 2.5 MG/DL (1.5-2.5); POTASSIUM 3.8 MEQ/L (3.5-5.1)
--- NOTE | 2017-05-02 11:34 | HHI.PR ---
Subjective Remarks patient sitting on the commode still on oxygen 2 L nasal cannula About to go for CT abdomen rule out leakage due to persistent free air under diaphragm She denied abdominal pain fever chills Objective Vitals Vital Signs Date Time Temp Pulse Resp B/P (MAP) Pulse Ox O2 Delivery O2 Flow Rate FiO2 05/02/17 09:26 97.0 81 16 118/61 (80) 92 05/02/17 08:00 78 05/02/17 04:16 83 05/02/17 04:00 97.0 86 18 121/65 (83) 92 05/02/17 00:00 76 05/02/17 00:00 95.3 74 20 108/59 (75) 94 05/02/17 00:00 95.3 74 20 108/59 (75) 94 05/01/17 21:00 70 101/53 (69) 05/01/17 20:00 71 05/01/17 20:00 96.1 74 18 94 05/01/17 17:31 93 Nasal Cannula 1.50 05/01/17 15:55 68 05/01/17 15:30 96.9 70 20 94/56 (69) 93 05/01/17 13:22 72 05/01/17 12:00 14 I/O 05/01/17 05/01/17 05/01/17 05/02/17 05/02/17 05/02/17 07:00 15:00 23:00 07:00 15:00 23:00 Intake Total 360 ml 720 ml 200 ml Output Total 1300 ml 600 ml 100 ml Balance -940 ml 120 ml 200 ml -100 ml Intake Oral 360 ml 720 ml IV Total 200 ml Output Urine Total 1300 ml 600 ml 100 ml # Voids 5 2 # Bowel Movements 0 Result Diagram: 05/01/17 0616 05/01/17 1150 Objective Remarks - - GENERAL: This is a well-nourished, well-developed patient, in no apparent distress. SKIN: No rashes, warm and dry HEAD: Atraumatic. Normocephalic. ENT: Nose without bleeding, or drainage, Airway patent. NECK: Trachea midline. Supple CARDIOVASCULAR: Regular rate and rhythm without murmurs, gallops, or rubs. RESPIRATORY: Decreased breath sounds bibasilar GASTROINTESTINAL: Abdomen longitudinal scar looks clean, minimally distended, nontender to light touch, we avoided deep palpation MUSCULOSKELETAL: Extremities without clubbing, cyanosis, or edema. Pedal pulses appreciated NEUROLOGICAL: Awake and alert. Moves all extremity. Normal speech.no focal neurological deficit A/P Problem List: (1) Endometrial cancer ICD Code: C54.1 - Malignant neoplasm of endometrium (2) Postoperative state ICD Code: Z98.890 - Other specified postprocedural states Assessment and Plan 76 years old female who is POD4 Exploratory laparotomy, total abdominal hysterectomy, bilateral salpingo-oophorectomy, extensive lysis of adhesions, omentectomy, open sigmoid resection with primary anastomosis and open appendectomy, having hypoxia mostly due to bilateral atelectasis due to free air in the abdomen, I educated the patient and advised her to frequently used incentive spirometer, will grow monitor her CBC temperature if she produce any cough or phlegm. Continue DuoNeb as needed, wean down oxygen, increase ambulation. Severe hypokalemia: 2.4 resolved, 3.8 today, magnesium and phosphorus level within normal range Leukocytosis trending down 12.2 : Repeat chest x-ray no infiltrate, mostly postop reaction, no cough or phlegm production Free air under diaphragm postop: CT of the abdomen and pelvic today, rule out leakage, Dr. José following Thrombocytosis platelet 590>>518: Mostly volume depletion, Lasix and hydrochlorothiazide on hold, monitor CBC and BMP Richard Pike MD May 02, 2017 11:34
--- NOTE | 2017-05-02 13:56 | HHI.PR ---
Subjective Subjective Notes no acute issues, tolerating diet, mild abdominal pain, no bm Objective Vitals/I&O Vital Signs Date Time Temp Pulse Resp B/P (MAP) Pulse Ox O2 Delivery O2 Flow Rate FiO2 05/02/17 13:01 97.0 81 16 118/61 (80) 92 05/02/17 09:45 Nasal Cannula 2.00 Labs Laboratory Tests Test 05/02/17 10:20 Blood Urea Nitrogen 17 Creatinine 0.73 Random Glucose 155 Calcium Level 8.1 Phosphorus Level 2.7 Magnesium Level 2.5 Sodium Level 139 Potassium Level 3.8 Chloride Level 100 Carbon Dioxide Level 29.7 Anion Gap 9 Estimat Glomerular Filtration Rate 77 Cardiovascular: Regular Lungs: Clear Abdomen: Other (soft distended) A/P Assessment and Plan 76yo s/p Hysterectomy and colon resection, passing flatus, no BM, abdomen mildly distended, cxr with large abdominal air wbc trending down PLAN CT a/p pending add abx continue OOB await bowel function. CT showed air and fluid collection in pelvis, discussed with Dr. Sims and Dr. Morris plan for IR drainage. Further discussed with patient and daughter at bedside Will transfer to ICU/ISC for close monitoring, Patent is clinically stable with normal vitals signs. If change in clinical status will take to OR for further intervention. Donn Poon MD May 02, 2017 13:56
--- NOTE | 2017-05-02 16:01 | EKG ---
Date Performed: 05/01/2017 Time Performed: 14:19:42 PTAGE: 76 years EKG: Sinus rhythm POSSIBLE LEFT ATRIAL ENLARGEMENT POSSIBLE INFERIOR MYOCARDIAL INFARCTION , PROBABLY OLD When compare d to previous tracing, prior inferior infarct pattern is Slightly more prominant. BORDERLINE ECG PREVIOUS TRACING : 04/19/2017 11.02 DOCTOR: Solomon Benton Interpretating Date/Time 05/02/2017 16:00:35
[2017-05-02] MEDS ORDERED: IOHEXOL 350 MG/ML 10 ML VIAL (for RAD DIAG) IVCONTRAST ONE (17:03)
--- NOTE | 2017-05-02 17:17 | RADRPT ---
EXAM DATE/TIME: 05/02/2017 16:53 [facility] COMPARISON: CHEST PA & LAT, May 01, 2017, 9:44. INDICATIONS : Evaluate abdominal pain, post surgery 1 week. IV CONTRAST: 80 cc Omnipaque 350 (iohexol) IV ORAL CONTRAST: Prescribed oral contrast ingested. RADIATION DOSE: 11.52 CTDIvol (mGy) MEDICAL HISTORY : Cardiovascular disease. Hypertension. SURGICAL HISTORY : Tubal ligation. Hysterectomy.omentectomy with sigmoid resection ENCOUNTER: Initial ACUITY: 1 day PAIN SCALE: 7/10 LOCATION: abdomen TECHNIQUE: Volumetric scanning of the abdomen and pelvis was performed. Using automated exposure control and ad justment of the mA and/or kV according to patient size, radiation dose was kept as low as reasonably achievable to obtain optimal diagnostic quality images. DICOM format image data is available electro nically for review and comparison. FINDINGS: Small bilateral pleural effusions are noted with minimal changes in both lung base. There is significant pneumoperitoneum as described previously. The liver spleen pancreas unremarkabl e. Gallbladder is distended. There is symmetrical renal function. There is no renal obstruction. In the pelvis there is large abscess adjacent to the staple line with what may be very small amount o f extraluminal contrast. This would be amenable to percutaneous drainage. CONCLUSION: Large pneumoperitoneum with abscess in the pelvis adjacent to the suture line. This would be amenable to percutaneous drainage. Coleman Reardon MD FACR on May 02, 2017 at 17:11 Board Certified Radiologist. This report was verified electronically.
--- NOTE | 2017-05-02 18:23 | PD.RAD ---
Post CT Procedure Prog Note Procedure Date: May 02, 2017 Supervising Radiologist: Hipolito Talbot Plan of Activity See PACS Report for procedural detail/treatment Drainage Procedure Procedure 1 Imaging Guidance: CT Side: Left Procedure Type: Abscess Drainage Procedure: Placement English: 12 Drainage: Suction Fluid Removal (CCs): 15 Fluid Description: Purulent Hipolito Talbot MD May 02, 2017 18:23
[2017-05-02] MEDS: FLUCONAZOLE 400 MG PREMIX BAG 200 ML IV SCH (18:56)
[2017-05-02 21:51] LABS: AUTOMATED NEUTROPHIL # 13.8 TH/MM3 (1.8-7.7); BASOPHIL % 0.1 % (0.0-2.0); EOSINOPHIL # 0.4 TH/MM3 (0-0.4); EOSINOPHIL % 2.4 % (0.0-4.0); HEMATOCRIT 31.6 % (35.0-46.0); LYMPH % 5.9 % (9.0-44.0); LYMPHOCYTE # 0.9 TH/MM3 (1.0-4.8); MEAN CELL VOLUME 83.5 FL (80.0-100.0); MEAN CORPUSCULAR HEMOGLOBIN 27.3 PG (27.0-34.0); MEAN CORPUSCULAR HGB CONC 32.7 % (32.0-36.0); MONO % 3.8 % (0.0-8.0); NEUT % 87.8 % (16.0-70.0); PLATELET COUNT 507 TH/MM3 (150-450); RED BLOOD COUNT 3.78 MIL/MM3 (4.00-5.30); RED CELL DISTRIBUTION WIDTH 16.2 % (11.6-17.2); WHITE BLOOD COUNT 15.7 TH/MM3 (4.0-11.0)
[2017-05-02 22:00] LABS: HEMO FLAGS AUTO DIFF
[2017-05-02 22:34] LABS: BANDS 12 % (0-6); BASOPHILS 1 % (0-2); EOSINOPHILS 1 % (0-4); NEUTROPHIL # MANUAL DIFF 14.9 TH/MM3 (1.8-7.7); POLYS (SEG NEUTROPHILS) 83 % (16-70); WBC DIFF SAMPLE 100
[2017-05-02 22:36] LABS: OVALOCYTES 1+ (NORMAL); PLATELET ESTIMATE SMEAR HIGH (NORMAL); PLATELET MORPHOLOGY NORMAL (NORMAL); SCAN/DIFF FINAL DIFF MANUAL
--- NOTE | 2017-05-02 22:52 | PD.CONS ---
[facility] Service Critical Care Medicine Consult Requested By Primary Care Physician Sonny Mckeon M.D. History of Present Illness 76 years old female who was admitted under Dr. José service for hysterectomy due to Uterine malignancy involving multiple peritoneal surfaces and mesentery including large positive of invasive disease in the sigmoid colon mesentery. She is POD7 Exploratory laparotomy, total abdominal hysterectomy, bilateral salpingo-oophorectomy, extensive lysis of adhesions, omentectomy, open sigmoid resection with primary anastomosis and open appendectomy. Today 05/02 she was doing fairly well, passing flatus, no BM, however her abdomen was mildly distended, KUB documented large abdominal air and CT showed air and fluid collection in pelvis. Dr. Sims and Dr. Morris planed for IR drainage. Review of Systems Constitutional: DENIES: Diaphoretic episodes, Fatigue, Fever, Weight gain, Weight loss, Chills, Dizziness, Change in appetite, Night Sweats Endocrine: DENIES: Abnorml menstrual pattern, Heat/cold intolerance, Polydipsia , Polyuria, Polyphagia Eyes: DENIES: Blurred vision, Diplopia, Eye inflammation, Eye pain, Vision loss , Photosensitivity, Double Vision Ears, nose, mouth, throat: DENIES: Tinnitus, Hearing loss, Vertigo, Nasal discharge, Oral lesions, Throat pain, Hoarseness, Ear Pain, Running Nose, Epistaxis, Sinus Pain, Toothache, Odynophagia Respiratory: DENIES: Apneas, Cough, Snoring, Wheezing, Hemoptysis, Sputum production, Shortness of breath Cardiovascular: DENIES: Chest pain, Palpitations, Syncope, Dyspnea on Exertion , PND, Lower Extremity Edema, Orthopnea, Claudication Gastrointestinal: COMPLAINS OF: Abdominal pain, DENIES: Black stools, Bloody stools, Constipation, Diarrhea, Nausea, Vomiting, Difficulty Swallowing, Anorexia Genitourinary: DENIES: Abnormal vaginal bleeding, Dysmenorrhea, Dyspareunia, Sexual dysfunction, Urinary frequency, Urinary incontinence, Urgency, Hematuria , Dysuria, Nocturia, Vaginal discharge Musculoskeletal: DENIES: Joint pain, Muscle aches, Stiffness, Joint Swelling, Back pain, Neck pain Integumentary: DENIES: Abnormal pigmentation, Pruritus, Rash, Nail changes, Breast masses, Breast skin changes, Nipple discharge Hematologic/lymphatic: DENIES: Bruising, Lymphadenopathy Immunologic/allergic: DENIES: Eczema, Urticaria Neurologic: DENIES: Abnormal gait, Headache, Localized weakness, Paresthesias, Seizures, Speech Problems, Tremor, Poor Balance Psychiatric: DENIES: Anxiety, Confusion, Mood changes, Depression, Hallucinations, Agitation, Suicidal Ideation, Homicidal Ideation, Delusions Past Family Social History Allergies: Coded Allergies: No Known Allergies (Verified , 04/25/17) Past Medical History Hypertension, Hyperlipidemia, Anxiety Ulcerative colitis Past Surgical History Bronchoscopy Colonoscopy Tubal ligation Reported Medications Reported Meds & Active Scripts Active Reported Alprazolam 0.25 Mg Tab 0.25 Mg PO DAILY PRN Furosemide 40 Mg Tab 40 Mg PO PRN Ferrous Sulfate 325 Mg (65 Mg Iron) Tablet 325 Mg PO BIDPC Potassium Chloride ER (Potassium Chloride) 10 Meq Cap 10 Meq PO DAILY PRN Carvedilol 6.25 Mg Tab 6.25 Mg PO DAILY Timolol Opth Drops 0.5 % Soln 1 Drop EACH EYE DAILY Asacol HD (Mesalamine) 800 Mg Tab 800 Mg PO TID Swallow whole. Take on an empty stomach. Simvastatin 10 Mg Tab 10 Mg PO DAILY Hydrochlorothiazide 25 Mg Tab 25 Mg PO DAILY Verapamil SR (Verapamil HCl) 180 Mg Cap 180 Mg PO DAILY Active Ordered Medications Current Medications Medications (Trade) Dose Ordered Sig/Marsha Route PRN Reason Start Time Stop Time Status Last Admin Dose Admin Heparin Sodium (Porcine) (Heparin Inj) 5,000 units IMAGING AIDE PRN SQ TO OR 04/25/17 10:00 04/25/17 10:07 Carvedilol (Coreg) 6.25 mg DAILY PO 04/26/17 09:00 05/02/17 09:07 Mesalamine (Asacol Hd Dr) 800 mg TID PO 04/25/17 18:00 05/02/17 13:18 Timolol Maleate (Timoptic 0.5% Opth Soln) 1 drop DAILY EACH EYE 04/26/17 09:00 05/02/17 09:07 Verapamil HCl (Isoptin Sr) 180 mg DAILY PO 04/26/17 09:00 05/02/17 09:07 Pravastatin Sodium (Pravachol) 20 mg DAILY PO 04/26/17 09:00 05/02/17 09:08 Sodium Chloride (NS Flush) 2 ml UNSCH PRN IV FLUSH FLUSH AFTER USING IV ACCESS 04/25/17 16:15 04/27/17 12:28 Sodium Chloride (NS Flush) 2 ml BID IV FLUSH 04/25/17 21:00 05/01/17 09:24 Oxycodone/ Acetaminophen (Percocet 5-325 Mg) 1 tab Q4H PRN PO PAIN SCALE 1 TO 5 04/25/17 16:15 05/03/17 00:15 Oxycodone/ Acetaminophen (Percocet 5-325 Mg) 2 tab Q4H PRN PO PAIN SCALE 6 TO 10 04/25/17 16:15 05/02/17 06:23 Diphenhydramine HCl (Benadryl) 25 mg Q6H PRN PO ITCHING 04/25/17 16:15 Ondansetron HCl (Zofran Inj) 4 mg Q6H PRN IVP NAUSEA OR VOMITING 04/25/17 16:15 05/02/17 06:22 Lorazepam (Ativan) 0.25 mg Q8H PRN PO ANXIETY 04/25/17 16:15 Calcium Carbonate (Tums Chew) 500 mg Q4H PRN PO HEARTBURN 04/27/17 19:45 Albuterol/ Ipratropium (Duoneb Neb) 1 ampule Q4HR NEB PRN NEB short of breath 04/29/17 12:45 Potassium Chloride/Dextrose/ Sod Cl 1,000 ml @ 100 mls/hr Q10H IV 05/01/17 17:00 05/02/17 23:19 Piperacillin Sod/ Tazobactam Sod 50 ml @ 100 mls/hr Q8H IV 05/02/17 18:00 05/03/17 01:35 Fluconazole/ Sodium Chloride 200 ml @ 100 mls/hr Q24H IV 05/02/17 17:00 05/02/17 18:56 Dextrose (D50w (Vial) Inj) 50 ml UNSCH PRN IV HYPOGLYCEMIA-SEE COMMENTS 05/02/17 23:00 Glucagon (Glucagon Inj) 1 mg UNSCH PRN OTHER HYPOGLYCEMIA-SEE COMMENTS 05/02/17 23:00 Insulin Aspart (NovoLOG SUPPLEMENTAL SCALE) 1 ACHS SLIDING SCALE SQ 05/03/17 07:00 Family History Review with the patient,not aware of significant medical history runs in his family Social History She had a drink on a weekend, quit smoking 33 years ago, no illicit drug abuse Physical Exam Vital Signs Vital Signs Date Time Temp Pulse Resp B/P (MAP) Pulse Ox O2 Delivery O2 Flow Rate FiO2 05/02/17 16:47 97.1 73 16 133/72 (92) 94 05/02/17 13:01 97.0 81 16 118/61 (80) 92 05/02/17 12:00 69 05/02/17 09:45 92 Nasal Cannula 2.00 05/02/17 09:26 97.0 81 16 118/61 (80) 92 05/02/17 08:00 78 05/02/17 04:16 83 05/02/17 04:00 97.0 86 18 121/65 (83) 92 05/02/17 00:00 76 05/02/17 00:00 95.3 74 20 108/59 (75) 94 05/02/17 00:00 95.3 74 20 108/59 (75) 94 Physical Exam GENERAL: Well-nourished, well-developed patient. SKIN: Warm and dry. HEAD: Normocephalic. EYES: No scleral icterus. No injection or drainage. NECK: Supple, trachea midline. No JVD or lymphadenopathy. CARDIOVASCULAR: Regular rate and rhythm without murmurs, gallops, or rubs. RESPIRATORY: Breath sounds equal bilaterally. No accessory muscle use. GASTROINTESTINAL: Abdomen soft, non-tender, nondistended. MUSCULOSKELETAL: No cyanosis, or edema. BACK: Nontender without obvious deformity. NEURO EXAM: GCS: M6 V5 E4 Mental Status: The patient is alert and oriented to person, place, and time with normal speech. Cranial Nerves: Pupils are round, reactive to light. Reflexes: Biceps, patellar, and Achilles are 2/4 bilaterally. No clonus. Sensation: Sensation is intact bilaterally to pain and light touch. Two-point discrimination is intact. Motor: Good muscle tone. Strength is 5/5 bilaterally. Laboratory Laboratory Tests Test 05/02/17 10:20 05/02/17 21:15 Blood Urea Nitrogen 17 Creatinine 0.73 Random Glucose 155 Calcium Level 8.1 Phosphorus Level 2.7 Magnesium Level 2.5 Sodium Level 139 Potassium Level 3.8 Chloride Level 100 Carbon Dioxide Level 29.7 Anion Gap 9 Estimat Glomerular Filtration Rate 77 White Blood Count 15.7 Red Blood Count 3.78 Hemoglobin 10.3 Hematocrit 31.6 Mean Corpuscular Volume 83.5 Mean Corpuscular Hemoglobin 27.3 Mean Corpuscular Hemoglobin Concent 32.7 Red Cell Distribution Width 16.2 Platelet Count 507 Mean Platelet Volume 7.1 Neutrophils (%) (Auto) 87.8 Lymphocytes (%) (Auto) 5.9 Monocytes (%) (Auto) 3.8 Eosinophils (%) (Auto) 2.4 Basophils (%) (Auto) 0.1 Neutrophils # (Auto) 13.8 Lymphocytes # (Auto) 0.9 Monocytes # (Auto) 0.6 Eosinophils # (Auto) 0.4 Basophils # (Auto) 0.0 CBC Comment AUTO DIFF Differential Total Cells Counted 100 Neutrophils % (Manual) 83 Band Neutrophils % 12 Lymphocytes % 2 Monocytes % 1 Eosinophils % 1 Basophils % 1 Neutrophils # (Manual) 14.9 Differential Comment FINAL DIFF MANUAL Platelet Estimate HIGH Platelet Morphology Comment NORMAL Ovalocytes 1+ Date/Time Source Procedure Growth Status 05/02/17 17:50 Abscess Abdomen Gram Stain Pending Received 05/02/17 17:50 Abscess Abdomen Wound Culture Pending Received Result Diagram: 05/02/17 2115 05/02/17 1020 Assessment and Plan Assessment and Plan Uterine malignancy - Status post hysterectomy - Colon resection and other procedures - Postop day 7 - Followed up by hematology oncology OB and general surgery Anastomotic leak with peritonitis - Status post drain placement by IR - Management per Dr. Kern general surgery - Zosyn and Diflucan - Infectious disease consult Hypertension - Currently hypotensive - Aggressive IV fluid resuscitation - Hold all antihypertensive meds Hyperlipidemia - Atorvastatin Anxiety - Lorazepam when necessary Ulcerative colitis - Asacol DVT GI prophylaxis - Teds SCDs - Subcutaneous heparin and Pepcid Critical Care: The total critical care time was 35 minutes. Time to perform other separately billable procedures was not included in the critical care time. Andrez Gutierrez MD May 02, 2017 10:52 pm
[2017-05-02] MEDS ORDERED: DEXTROSE 50% IN WATER 50 ML VIAL(D50) IV PRN (23:00)
[2017-05-02] MEDS ORDERED: GLUCAGON 1 MG/ML VIAL OTHER PRN (23:00)
[2017-05-03] VITALS (16 sets, daily range): BP systolic 88–135; BP diastolic 51–69; PULSE 69–86; RESP 16–24; TEMP 98.1–99.3; O2SAT 90–98
[2017-05-03] MEDS: oxyCODONE/ACETAMINOPHEN 5 MG/325 MG TAB PO PRN (00:15)
[2017-05-03] MEDS: PIPERACIL-TAZO 3.375 GM PREMIX 50 ML IV SCH ×4 (01:35→22:12)
[2017-05-03] MEDS ORDERED: SODIUM CHLOR 0.9% 1000 ML INJ 1,000 ML IV ONE ×3 (02:30)
[2017-05-03] MEDS: LORazepam 0.5 MG TAB PO PRN ×2 (04:02→20:46)
[2017-05-03 05:04] LABS: HEMATOCRIT 27.7 % (35.0-46.0); MEAN CELL VOLUME 84.3 FL (80.0-100.0); MEAN CORPUSCULAR HEMOGLOBIN 27.2 PG (27.0-34.0); MEAN CORPUSCULAR HGB CONC 32.2 % (32.0-36.0); PLATELET COUNT 431 TH/MM3 (150-450); RED BLOOD COUNT 3.29 MIL/MM3 (4.00-5.30); RED CELL DISTRIBUTION WIDTH 16.3 % (11.6-17.2); WHITE BLOOD COUNT 16.2 TH/MM3 (4.0-11.0)
[2017-05-03 05:15] LABS: HEMO FLAGS AUTO DIFF
[2017-05-03 05:27] LABS: BICARBONATE 24.2 MEQ/L (21.0-32.0); POTASSIUM 3.8 MEQ/L (3.5-5.1)
[2017-05-03 05:39] LABS: CALCIUM-PROTEIN CORRECTED 7.9 MG/DL (8.5-10.1)
[2017-05-03 06:34] LABS: BANDS 13 % (0-6); EOSINOPHILS 2 % (0-4); METAMYELOCYTES 3 % (0-1); NEUTROPHIL # MANUAL DIFF 13.9 TH/MM3 (1.8-7.7); POLYS (SEG NEUTROPHILS) 70 % (16-70); WBC DIFF SAMPLE 100
[2017-05-03 06:35] LABS: SCAN/DIFF FINAL DIFF MANUAL
[2017-05-03 06:36] LABS: OVALOCYTES 1+ (NORMAL); PLATELET ESTIMATE SMEAR NORMAL (NORMAL); PLATELET MORPHOLOGY NORMAL (NORMAL); TOXIC VACUOLATION PRESENT (NONE SEEN)
[2017-05-03] MEDS: FAMOTIDINE 20 MG/2 ML VIAL IV PUSH SCH ×2 (06:49→17:18)
[2017-05-03] MEDS: INSULIN ASPART SUPPLEMENTAL SCALE SQ SCH ×4 (06:57→21:00)
[2017-05-03] MEDS: TIMOLOL MALEATE 0.5% OPHT SOLN 5 ML BTL EACH EYE SCH (07:57)
[2017-05-03] MEDS: SODIUM CHLORIDE 0.9% FLUSH 10 ML FLUSH IV FLUSH SCH ×2 (07:58→20:14)
[2017-05-03] MEDS: MESALAMINE HD 800 MG DELAYED RELEASE TAB PO SCH ×3 (07:58→17:18)
[2017-05-03] MEDS: PRAVASTATIN SOD 20 MG TAB PO SCH (08:00)
--- NOTE | 2017-05-03 09:14 | HHI.PR ---
Subjective Subjective Notes hypotension overnight, neurologically appropriate, c/o minimal pain Objective Vitals/I&O Vital Signs Date Time Temp Pulse Resp B/P (MAP) Pulse Ox O2 Delivery O2 Flow Rate FiO2 05/03/17 06:00 69 05/03/17 04:00 98.1 22 88/51 (63) 90 05/03/17 03:30 Nasal Cannula 4.00 Labs Laboratory Tests Test 05/02/17 10:20 05/02/17 21:15 05/03/17 02:50 05/03/17 04:19 Blood Urea Nitrogen 17 9 Creatinine 0.73 0.36 Random Glucose 155 93 Calcium Level 8.1 6.6 Phosphorus Level 2.7 Magnesium Level 2.5 Sodium Level 139 139 Potassium Level 3.8 3.8 Chloride Level 100 110 Carbon Dioxide Level 29.7 24.2 Anion Gap 9 5 Estimat Glomerular Filtration Rate 77 175 White Blood Count 15.7 16.2 Red Blood Count 3.78 3.29 Hemoglobin 10.3 8.9 Hematocrit 31.6 27.7 Mean Corpuscular Volume 83.5 84.3 Mean Corpuscular Hemoglobin 27.3 27.2 Mean Corpuscular Hemoglobin Concent 32.7 32.2 Red Cell Distribution Width 16.2 16.3 Platelet Count 507 431 Mean Platelet Volume 7.1 7.4 Neutrophils (%) (Auto) 87.8 Lymphocytes (%) (Auto) 5.9 Monocytes (%) (Auto) 3.8 Eosinophils (%) (Auto) 2.4 Basophils (%) (Auto) 0.1 Neutrophils # (Auto) 13.8 Lymphocytes # (Auto) 0.9 Monocytes # (Auto) 0.6 Eosinophils # (Auto) 0.4 Basophils # (Auto) 0.0 CBC Comment AUTO DIFF AUTO DIFF Differential Total Cells Counted 100 100 Neutrophils % (Manual) 83 70 Band Neutrophils % 12 13 Lymphocytes % 2 8 Monocytes % 1 4 Eosinophils % 1 2 Basophils % 1 Neutrophils # (Manual) 14.9 13.9 Differential Comment FINAL DIFF MANUAL FINAL DIFF MANUAL Platelet Estimate HIGH NORMAL Platelet Morphology Comment NORMAL NORMAL Ovalocytes 1+ 1+ Nasal Screen MRSA (PCR) MRSA NOT DETECTED Metamyelocytes 3 Toxic Vacuolation PRESENT Total Protein 4.5 Protein Corrected Calcium 7.9 Date/Time Source Procedure Growth Status 05/02/17 17:50 Abscess Abdomen Gram Stain Pending Received 05/02/17 17:50 Abscess Abdomen Wound Culture Pending Received Lungs: Clear Abdomen: Other (distended, piper with gordon brown) A/P Assessment and Plan 76yo s/p Hysterectomy and colon resection, passing flatus, no BM, abdomen mildly distended, cxr with large abdominal air , wbc up, ct with air and abscess s/p ir drain, good uop PLAN npo ivf bolus abx drain to leg bag will discuss operative intervention planning vs observation, Discussed with Donn Sloan MD May 03, 2017 09:14
[2017-05-03] MEDS ORDERED: SODIUM CHLOR 0.9% 250 ML INJ 250 ML IV ONE (09:45)
[2017-05-03] MEDS: DEXT 5%-NACL 0.9% 1000 ML INJ 1,000 ML IV SCH ×2 (10:29→20:14)
--- NOTE | 2017-05-03 10:37 | MB ---
cc: ORESTES POON MD, ANDREW MOLPUS,YUVAL OCONNOR,ISRRAEL Varela M.D. DATE OF CONSULTATION 05/02/2017 REASON FOR CONSULTATION Patient is seen in conjunction with Orestes Poon of general surgery. Our concern was abdominal distension, persistent air in the peritoneal cavity despite being postop day number seven and whereas a white count improved down to 12.9, she was afebrile and hemodynamically stable. She was still feeling poorly and not progressing satisfactorily. Furthermore, there was some purulent feculent drainage from the lower portion of the incision. CT scan was ordered and prior to CT scan. We have also talked about the possible need for re-exploration which may, as we are concerned about an intraperitoneal drainage, the most likely source being and an anastomotic leak given her recent sigmoid resection and reanastomosis. She was counseled in the presence of her daughter regarding the potential need for surgery, potential need for bowel resection, ileostomy or colostomy which could be permanent or may possibly be able to be reduced down the line depending on her status and the status of the metastatic sarcoma. Alternatively, it is hoped in our discussion that interventional radiology could successfully placed a drain to help drain the abscess site and start her on broad-spectrum antibiotics in an effort to try to get her to heal in that regard and an effort to try to prevent additional surgery. She expressed a good understanding and consented and was able to be move forward and have a drain placed by interventional radiology which she tolerated successfully. It has had a high volume of output since then. Currently the bag and approximately 300 cc of purulent feculent fluid in it. PHYSICAL EXAM On exam this morning, 05/03/2017, she is alert and oriented x3. She has some discomfort, but all-in-all was doing reasonably well in no acute distress. VITAL SIGNS: She remains afebrile, temperature 98, pulse 71, blood pressure has varied from 88/51 to 133/72, O2 saturations are 90% while asleep on three liters, 96% while awake. In's and out's 820/1275. LABORATORY DATA The labs this morning showed an H&H of 8.9 and 27.7, white count 16.2. Electrolytes notable for a BUN and creatinine and 9 and 0.36, potassium has been corrected to 3.8, corrected calcium 7.9. PHYSICAL EXAM On exam, she is alert and which x3 in no acute distress. LUNGS: Her lungs are clear. Scant rales at the bases. CARDIOVASCULAR: Regular rate and rhythm. BACK: No CVA tenderness or spinal point tenderness. The drain site is clear. There is less drainage noted from the lower portion of the incision, but the drains itself is removing high volume fluid. EXTREMITIES: No palpable cords. DISCUSSION Time was spent in discussion with her and her daughter reviewing the findings in her case to date, answering questions and discussing plan. Blood cultures will be ordered. Infectious disease consult has been ordered. We will continue physical therapy and she is currently in the intensive care unit with oversight of care by the class b driver. More questions were answered and this note serves as a synopsis for the last 12-24 hours. MD ORLANDO Pink/JACKY /8:27 AM /10:25 AM
--- NOTE | 2017-05-03 10:42 | RADRPT ---
EXAM DATE/TIME: 05/02/2017 17:42 [facility] COMPARISON: No previous studies available for comparison. INDICATIONS : fluid after surgery. MEDICATION(S): 1.) 200 mcg fentanyl (Sublimaze) IV DEVICE(S): 1.) 12 Fr [place] FLUID: Total volume of 13 cc of gordon fluid was removed. Fluid was sent for laboratory ordered studies. MEDICAL HISTORY : Cardiovascular disease. Hypertension. SURGICAL HISTORY : Tubal ligation. Hysterectomy. Omenrtectomy with sigmoid resection ENCOUNTER: Initial ACUITY: 1 day PAIN SCORE: 0/10 LOCATION: pelvis PROCEDURE: 1.) Conscious sedation with continuous EKG and oximetry monitoring. PROCEDURE : 1. CT guided drainage of the abdominal abscess 2. Conscious sedation with continuous EKG and oximetry monitoring. The risks, benefits and alternatives to the procedure were explained and verbal and written consent w as obtained. Using automated exposure control and adjustment of the mA and/or kV according to patient size, radiation dose was kept as low as reasonably achievable to obtain optimal diagnostic quality i mages. The site was prepped in sterile fashion. Full sterile technique was used, including cap, ma sk, sterile gloves and gown and a large sterile sheet. Hand hygiene and 2% chlorhexidine and/or beta dine/alcohol prep was utilized per protocol for cutaneous antisepsis. The skin and subcutaneous tiss ues were infiltrated with local anesthetic solution. DICOM format image data is available electronic ally for review and comparison. Using CT guidance the prescribed site was localized. Drainage was performed using the prescribed cat heter The patient tolerated the procedure well and there were no complications. Conscious sedation was per formed with the prescribed dosages and duration as above in the presence of an independent trained ra diology nurse to assist in the monitoring of the patient. EKG and oximetry remained stable throughou t the procedure. The patient tolerated the procedure well and there were no complications. The patient was sent to pos t anesthesia recovery in stable condition. CONCLUSION: Uncomplicated CT guided drainage. Hipolito Talbot MD on May 03, 2017 at 10:32 Board Certified Radiologist. This report was verified electronically.
--- NOTE | 2017-05-03 15:59 | PD.ID.CON ---
History of Present Illness Service ID Consult Requested By Dr Haywood Reason for Consult peritonitis Primary Care Physician Sonny Mckeon M.D. 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 SHe underwent hysterectomy and salpingoopharectomy by Dr Sims on 04/25 Margins were positive She apparently hs drainage from the lower part of her incision for days No fever + leukocytosis, fluctuating 2 days ago pt had CT to evaluate for her abdominal pain and sitention and it showed large pneumoperitoneum with abscess in the pelvis adjacent to the suture line Sp CT guided showed MANY WBC'S and HEAVY MIXED DELFINO WITH NO PREDOMINANT MORPHOLOGY Pt is on broad spectrum abx Tody pt is afebrile, vss are stable, pt is planned to got o OR for revision of anastomosis Pt has durant placed 2/2 urinary retention Review of Systems Except as stated in HPI: all other systems reviewed are Neg Past Family Social History Allergies: Coded Allergies: ciprofloxacin (Verified Allergy, Unknown, 05/06/17) doxycycline (Verified Allergy, Unknown, 05/06/17) Past Medical History Hypertension, Hyperlipidemia, Anxiety Ulcerative colitis Past Surgical History 04/25/2017 Exploratory laparotomy, total abdominal hysterectomy, bilateral salpingo-oophorectomy, extensive lysis of adhesions, omentectomy, open sigmoid resection with primary anastomosis and open appendectomy. Bronchoscopy Colonoscopy Tubal ligation Active Ordered Medications Medications where reviewed in EMR Antibiotics Include: zosyn fluconazole Family History Reviewed, non contributory Social History She had a drink on a weekend, quit smoking 33 years ago, no illicit drug abuse Physical Exam Vital Signs Vital Signs Date Time Temp Pulse Resp B/P (MAP) Pulse Ox O2 Delivery O2 Flow Rate FiO2 05/03/17 14:00 86 05/03/17 12:00 98.3 77 17 102/58 (73) 93 05/03/17 12:00 77 05/03/17 10:26 98 Nasal Cannula 4.00 05/03/17 10:00 71 05/03/17 08:00 72 05/03/17 08:00 98.2 74 20 92/55 (67) 92 05/03/17 07:00 92 Nasal Cannula 4.00 21 05/03/17 06:00 69 05/03/17 04:00 98.1 71 22 88/51 (63) 90 05/03/17 04:00 71 05/03/17 03:30 94 Nasal Cannula 4.00 05/03/17 02:00 71 05/03/17 01:31 94 Nasal Cannula 4.00 05/03/17 01:00 87 Nasal Cannula 4.00 05/03/17 00:16 96 Nasal Cannula 3.00 05/03/17 00:00 80 05/03/17 00:00 99.3 80 16 92/55 (67) 92 05/02/17 22:30 92 05/02/17 22:30 99.4 93 14 115/62 (79) 90 05/02/17 22:10 90 Nasal Cannula 3.00 05/02/17 16:47 97.1 73 16 133/72 (92) 94 Physical Exam CONSTITUTIONAL/GENERAL: This is an adequately nourished patient, in no apparent distress. Ill appearing but non toxic TUBES/LINES/DRAINS: SKIN: No jaundice, rashes, or lesions. Ecchymoses on upper extremities. No wounds seen anteriorly. Skin temperature appropriate. Not diaphoretic. HEAD: Atraumatic. Normocephalic. EYES: Pupils equal and round and reactive. Extraocular motions intact. No scleral icterus. No injection or drainage. Fundi not examined. ENT: Hearing grossly normal. Nose without bleeding or purulent drainage. Oral mucosae druyish NECK: Trachea midline. Supple, nontender. CARDIOVASCULAR: Regular rate and rhythm without murmurs, gallops, or rubs. No JVD. Peripheral pulses symmetric. RESPIRATORY/CHEST: Symmetric, unlabored respirations. Clear to auscultation. Breath sounds equal bilaterally. No wheezes, rales, or rhonchi. GASTROINTESTINAL: Abdomen fairly soft, quit -tender, modertely distended. No hepato-splenomegaly, or palpable masses. No guarding. Bowel sounds not audible Accordeon drain in place LLQ with purulent feculent material Sh is also draining large amount of purosaungios fluid from the lower aspet of incision with fouls smell stirry strups in place GENITOURINARY: Without palpable bladder distension. Durant catheter in place with clear yellow urine MUSCULOSKELETAL: Extremities without clubbing, cyanosis, + 1 edema. No joint tenderness or effusion noted. No calf tenderness. No mottling or clubbing. NEUROLOGICAL: Awake and alert. Motor and sensory grossly within normal limits. Follows commands. Clear speech. Moves all extremities. PSYCHIATRIC: No obvious anxiety/depression. no apparent hallucinations or other psychotic thought process. Laboratory Laboratory Tests Test 05/02/17 21:15 05/03/17 02:50 05/03/17 04:19 White Blood Count 15.7 16.2 Red Blood Count 3.78 3.29 Hemoglobin 10.3 8.9 Hematocrit 31.6 27.7 Mean Corpuscular Volume 83.5 84.3 Mean Corpuscular Hemoglobin 27.3 27.2 Mean Corpuscular Hemoglobin Concent 32.7 32.2 Red Cell Distribution Width 16.2 16.3 Platelet Count 507 431 Mean Platelet Volume 7.1 7.4 Neutrophils (%) (Auto) 87.8 Lymphocytes (%) (Auto) 5.9 Monocytes (%) (Auto) 3.8 Eosinophils (%) (Auto) 2.4 Basophils (%) (Auto) 0.1 Neutrophils # (Auto) 13.8 Lymphocytes # (Auto) 0.9 Monocytes # (Auto) 0.6 Eosinophils # (Auto) 0.4 Basophils # (Auto) 0.0 CBC Comment AUTO DIFF AUTO DIFF Differential Total Cells Counted 100 100 Neutrophils % (Manual) 83 70 Band Neutrophils % 12 13 Lymphocytes % 2 8 Monocytes % 1 4 Eosinophils % 1 2 Basophils % 1 Neutrophils # (Manual) 14.9 13.9 Differential Comment FINAL DIFF MANUAL FINAL DIFF MANUAL Platelet Estimate HIGH NORMAL Platelet Morphology Comment NORMAL NORMAL Ovalocytes 1+ 1+ Nasal Screen MRSA (PCR) MRSA NOT DETECTED Metamyelocytes 3 Toxic Vacuolation PRESENT Blood Urea Nitrogen 9 Creatinine 0.36 Random Glucose 93 Total Protein 4.5 Calcium Level 6.6 Sodium Level 139 Potassium Level 3.8 Chloride Level 110 Carbon Dioxide Level 24.2 Anion Gap 5 Estimat Glomerular Filtration Rate 175 Protein Corrected Calcium 7.9 Date/Time Source Procedure Growth Status 05/02/17 17:50 Abscess Abdomen Gram Stain - Final Resulted 05/02/17 17:50 Abscess Abdomen Wound Culture Pending Resulted Result Diagram: 05/03/17 0419 05/03/17 0419 Imaging Last Impressions Abscess Drainage CT 05/02/17 0000 Signed Impressions: Service Date/Time: Tuesday, May 02, 2017 17:42 - CONCLUSION: Uncomplicated CT guided drainage. Hipolito Talbot MD Abdomen/Pelvis CT 05/02/17 0000 Signed Impressions: Service Date/Time: Tuesday, May 02, 2017 16:53 - CONCLUSION: Large pneumoperitoneum with abscess in the pelvis adjacent to the suture line. This would be amenable to percutaneous drainage. Coleman Reardon MD FACR Chest X-Ray 05/01/17 0600 Signed Impressions: Service Date/Time: Monday, May 01, 2017 09:44 - CONCLUSION: Persistent large amount of free air identified within the abdomen. Pleural effusions which are slightly decreased in size as compared to the prior exam. Rebekah Quick MD Assessment and Plan Assessment and Plan Leyomyosarcoma of the uterus u=invading sigmoid colon SP resection Margins not cleaned Large intraabdominal abscess IAA, probably related to anastomotic leak - polimicrobial Leukocytosis, bandemia cont broad spectrum abx and antifungals fu clx chk UA, C+S Discussed Condition With Dr Poon RN dgtr @ b/s in details. Multiple questions were answered to full satisfaction Rosalinda Hussein MD May 03, 2017 15:59
[2017-05-03] MEDS: FLUCONAZOLE 400 MG PREMIX BAG 200 ML IV SCH (16:47)
[2017-05-03 17:33] LABS: APTT (PATIENT) 37.3 SEC (24.3-30.1); PROTHROMBIN TIME - PATIENT 11.4 SEC (9.8-11.6)
[2017-05-03 17:44] LABS: AUTOMATED NEUTROPHIL # 14.5 TH/MM3 (1.8-7.7); BASOPHIL % 0.2 % (0.0-2.0); EOSINOPHIL # 0.2 TH/MM3 (0-0.4); EOSINOPHIL % 1.2 % (0.0-4.0); HEMATOCRIT 32.8 % (35.0-46.0); HEMO FLAGS DIFF FINAL; LYMPH % 6.3 % (9.0-44.0); LYMPHOCYTE # 1.1 TH/MM3 (1.0-4.8); MEAN CELL VOLUME 84.2 FL (80.0-100.0); MEAN CORPUSCULAR HEMOGLOBIN 27.4 PG (27.0-34.0); MEAN CORPUSCULAR HGB CONC 32.5 % (32.0-36.0); MONO % 6.1 % (0.0-8.0); NEUT % 86.2 % (16.0-70.0); PLATELET COUNT 493 TH/MM3 (150-450); RED BLOOD COUNT 3.89 MIL/MM3 (4.00-5.30); RED CELL DISTRIBUTION WIDTH 16.7 % (11.6-17.2); WHITE BLOOD COUNT 16.8 TH/MM3 (4.0-11.0)
[2017-05-03 17:52] LABS: ALKALINE PHOSPHATASE 117 U/L (45-117); ALT (GPT) 13 U/L (10-53); ANION GAP 7 MEQ/L (5-15); AST (GOT) 22 U/L (15-37); BICARBONATE 23.6 MEQ/L (21.0-32.0); BLOOD UREA NITROGEN 8 MG/DL (7-18); CHLORIDE 106 MEQ/L (98-107); GLOMERULAR FILTRATION RATE 146 ML/MIN (>89); MAGNESIUM 1.9 MG/DL (1.5-2.5); POTASSIUM 3.8 MEQ/L (3.5-5.1); SODIUM (NA) 137 MEQ/L (136-145); TOTAL BILIRUBIN ADULT 0.3 MG/DL (0.2-1.0)
--- NOTE | 2017-05-03 19:24 | HHI.CCPN ---
Subjective Remarks/Hospital Course 05/02: 76 years old female who was admitted under Dr. José service for hysterectomy due to Uterine malignancy involving multiple peritoneal surfaces and mesentery including large positive of invasive disease in the sigmoid colon mesentery. She is POD7 Exploratory laparotomy, total abdominal hysterectomy, bilateral salpingo-oophorectomy, extensive lysis of adhesions, omentectomy, open sigmoid resection with primary anastomosis and open appendectomy. Today 05/02 she was doing fairly well, passing flatus, no BM, however her abdomen was mildly distended, KUB documented large abdominal air and CT showed air and fluid collection in pelvis. Dr. Sims and Dr. Morris planned for IR drainage. 05/03: Resting in bed comfortably. Feculent material being drained from percutaneous drain is by interventional radiology on 05/02. Denies any shortness of breath. She did receive 3 L crystalloid boluses overnight. Awaiting reexploration for perforated viscus. Antibiotics being managed by ID. Objective Vital Signs Date Time Temp Pulse Resp B/P (MAP) Pulse Ox O2 Delivery O2 Flow Rate FiO2 05/03/17 18:00 82 05/03/17 16:00 98.3 23 127/69 (88) 92 05/03/17 10:26 Nasal Cannula 4.00 05/03/17 07:00 21 Intake and Output 05/03/17 05/03/17 05/04/17 08:00 16:00 00:00 Intake Total 6920 ml 447 ml 1622 ml Output Total 1175 ml 500 ml Balance 5745 ml 447 ml 1122 ml Result Diagram: 05/03/17 1630 05/03/17 1630 Objective Remarks GENERAL: Well-nourished, well-developed patient. SKIN: Warm and dry. HEAD: Normocephalic. EYES: No scleral icterus. No injection or drainage. NECK: Supple, trachea midline. No JVD or lymphadenopathy. CARDIOVASCULAR: Regular rate and rhythm without murmurs, gallops, or rubs. RESPIRATORY: Breath sounds equal bilaterally. No accessory muscle use. GASTROINTESTINAL: Abdomen soft, non-tender, awilda over incision site. Percutaneous drain noted with feculent drainage. MUSCULOSKELETAL: No cyanosis, or edema. BACK: Nontender without obvious deformity. NEURO EXAM: Awake alert oriented 3, grossly nonfocal. A/P Assessment and Plan Uterine malignancy - Status post hysterectomy - Colon resection and other procedures - Postop day 8 - Followed up by hematology oncology , [employer]-onc and general surgery Anastomotic leak with peritonitis - Status post drain placement by IR -Discussed with Dr. Kern general surgery - Dr. Morris planning taking patient to the OR tonight for repair of anastomotic leak and washout. - Zosyn and Diflucan - Infectious disease consulted, Dr. Hussein following. Hypertension - Currently hypotensive - Aggressive IV fluid resuscitation - Hold all antihypertensive meds Hyperlipidemia - Atorvastatin Anxiety - Lorazepam when necessary Ulcerative colitis - Asacol DVT GI prophylaxis - Teds SCDs - Subcutaneous heparin and Pepcid Tulio Ness MD May 03, 2017 19:24
[2017-05-03] MEDS ORDERED: POTASSIUM CHLOR 40 MEQ PREMIX 100 ML IV PRN ×2 (19:30)
[2017-05-03] MEDS ORDERED: POTASSIUM PHOSPHATE INJ 30 MMOL in SODIUM CHLOR 0.9% 250 ML INJ 250 ML IV PRN (19:30)
[2017-05-03] MEDS ORDERED: POTASSIUM CHLORIDE 25 MEQ EFFERVESCENT TAB PO PRN (19:30)
[2017-05-03] MEDS ORDERED: MAGNESIUM OXIDE 400 MG TAB PO PRN (19:30)
[2017-05-03] MEDS ORDERED: SODIUM PHOSPHATE INJ 30 MMOL in SODIUM CHLOR 0.9% 250 ML INJ 240 ML IV PRN (19:30)
[2017-05-03] MEDS ORDERED: POTASSIUM PHOSPHATE MONOBASIC 500 MG TAB PO/TUBE PRN (19:30)
[2017-05-03] MEDS ORDERED: MAGNESIUM SULFATE INJ 2 GM in SODIUM CHLORIDE 0.9% INJ 96 ML IV PRN (19:30)
[2017-05-03] MEDS ORDERED: POTASSIUM PHOSPHATE MONOBASIC 500 MG TAB PO PRN (19:30)
[2017-05-03] MEDS ORDERED: MAGNESIUM SULFATE INJ 4 GM in SODIUM CHLORIDE 0.9% INJ 92 ML IV PRN (19:30)
[2017-05-04] VITALS (14 sets, daily range): BP systolic 101–139; BP diastolic 56–85; PULSE 72–128; RESP 18–35; TEMP 97.6–98.5; O2SAT 92–99
[2017-05-04] MEDS: DEXT 5%-NACL 0.9% 1000 ML INJ 1,000 ML IV SCH ×3 (04:38→19:45)
[2017-05-04] MEDS: FAMOTIDINE 20 MG/2 ML VIAL IV PUSH SCH ×2 (05:14→18:00)
[2017-05-04] MEDS: PIPERACIL-TAZO 3.375 GM PREMIX 50 ML IV SCH ×4 (05:14→22:26)
[2017-05-04 05:41] LABS: AUTOMATED NEUTROPHIL # 12.3 TH/MM3 (1.8-7.7); BASOPHIL % 0.3 % (0.0-2.0); EOSINOPHIL # 0.3 TH/MM3 (0-0.4); EOSINOPHIL % 1.8 % (0.0-4.0); LYMPH % 6.3 % (9.0-44.0); LYMPHOCYTE # 0.9 TH/MM3 (1.0-4.8); MEAN CELL VOLUME 84.6 FL (80.0-100.0); MEAN CORPUSCULAR HGB CONC 31.9 % (32.0-36.0); MONO % 5.3 % (0.0-8.0); NEUT % 86.3 % (16.0-70.0); PLATELET COUNT 481 TH/MM3 (150-450); RED BLOOD COUNT 3.66 MIL/MM3 (4.00-5.30); RED CELL DISTRIBUTION WIDTH 16.6 % (11.6-17.2); WHITE BLOOD COUNT 14.3 TH/MM3 (4.0-11.0)
[2017-05-04 05:54] LABS: HEMO FLAGS AUTO DIFF
[2017-05-04] MEDS: LORazepam 0.5 MG TAB PO PRN ×2 (05:58→08:45)
[2017-05-04 06:09] LABS: BICARBONATE 22.4 MEQ/L (21.0-32.0); CALCIUM-PROTEIN CORRECTED 8.4 MG/DL (8.5-10.1); MAGNESIUM 1.8 MG/DL (1.5-2.5); POTASSIUM 3.7 MEQ/L (3.5-5.1); TOTAL BILIRUBIN ADULT 0.2 MG/DL (0.2-1.0)
[2017-05-04] MEDS: INSULIN ASPART SUPPLEMENTAL SCALE SQ SCH ×4 (06:22→19:57)
[2017-05-04 07:16] LABS: BURR CELLS 1+ (NORMAL); OVALOCYTES 1+ (NORMAL)
[2017-05-04 07:17] LABS: PLATELET ESTIMATE SMEAR HIGH (NORMAL); PLATELET MORPHOLOGY NORMAL (NORMAL); SCAN/DIFF FINAL DIFF MANUAL
[2017-05-04] MEDS: oxyCODONE/ACETAMINOPHEN 5 MG/325 MG TAB PO PRN ×2 (08:44→16:20)
[2017-05-04] MEDS: SODIUM CHLORIDE 0.9% FLUSH 10 ML FLUSH IV FLUSH SCH ×2 (09:00→19:45)
[2017-05-04] MEDS: MESALAMINE HD 800 MG DELAYED RELEASE TAB PO SCH ×3 (09:00→18:00)
--- NOTE | 2017-05-04 09:19 | PD.ONC.PN ---
Subjective Subjective Remarks room service associate/onc progress note POD # 9 Pt seen with daughter at bedside Pt states she is feeling better today, feels hungry Dr. Morris came in and explained to family he feels hopeful that she can heal without additional surgery. he is ok with her getting OOB to chair and clear liquid diet. he opened a small area to lower incision to help drain possible local wound infection vs. possible fistula forming. He requested wound care to follow. Objective Data Date Time Temp Pulse Resp B/P (MAP) Pulse Ox O2 Delivery O2 Flow Rate FiO2 05/04/17 06:00 84 05/04/17 04:03 99 Nasal Cannula 2.00 05/04/17 04:00 76 05/04/17 04:00 98.3 76 21 101/56 (71) 94 05/04/17 02:00 80 05/04/17 00:00 82 05/04/17 00:00 98.5 82 26 137/69 (91) 94 05/03/17 22:00 84 05/03/17 20:00 84 05/03/17 20:00 98.4 84 24 135/65 (88) 94 05/03/17 19:00 94 Nasal Cannula 4.00 05/03/17 18:00 82 05/03/17 16:00 84 05/03/17 16:00 98.3 84 23 127/69 (88) 92 05/03/17 14:00 86 05/03/17 12:00 98.3 77 17 102/58 (73) 93 05/03/17 12:00 77 05/03/17 10:26 98 Nasal Cannula 4.00 05/03/17 10:00 71 05/04/17 05/04/17 05/04/17 06:59 14:59 22:59 Intake Total 1360 ml Output Total 850 ml Balance 510 ml Result Diagram: 05/04/17 0450 05/04/17 0450 Laboratory Results Laboratory Tests Test 05/03/17 16:30 05/04/17 04:50 White Blood Count 16.8 TH/MM3 14.3 TH/MM3 Red Blood Count 3.89 MIL/MM3 3.66 MIL/MM3 Hemoglobin 10.7 GM/DL 9.9 GM/DL Hematocrit 32.8 % 31.0 % Mean Corpuscular Volume 84.2 FL 84.6 FL Mean Corpuscular Hemoglobin 27.4 PG 27.0 PG Mean Corpuscular Hemoglobin Concent 32.5 % 31.9 % Red Cell Distribution Width 16.7 % 16.6 % Platelet Count 493 TH/MM3 481 TH/MM3 Mean Platelet Volume 7.7 FL 7.2 FL Neutrophils (%) (Auto) 86.2 % 86.3 % Lymphocytes (%) (Auto) 6.3 % 6.3 % Monocytes (%) (Auto) 6.1 % 5.3 % Eosinophils (%) (Auto) 1.2 % 1.8 % Basophils (%) (Auto) 0.2 % 0.3 % Neutrophils # (Auto) 14.5 TH/MM3 12.3 TH/MM3 Lymphocytes # (Auto) 1.1 TH/MM3 0.9 TH/MM3 Monocytes # (Auto) 1.0 TH/MM3 0.8 TH/MM3 Eosinophils # (Auto) 0.2 TH/MM3 0.3 TH/MM3 Basophils # (Auto) 0.0 TH/MM3 0.0 TH/MM3 CBC Comment DIFF FINAL AUTO DIFF Differential Comment FINAL DIFF MANUAL Prothrombin Time 11.4 SEC Prothromb Time International Ratio 1.0 RATIO Activated Partial Thromboplast Time 37.3 SEC Blood Urea Nitrogen 8 MG/DL 6 MG/DL Creatinine 0.42 MG/DL 0.36 MG/DL Random Glucose 146 MG/DL 112 MG/DL Total Protein 5.4 GM/DL 4.9 GM/DL Albumin 1.3 GM/DL 1.2 GM/DL Calcium Level 7.5 MG/DL 7.2 MG/DL Phosphorus Level 1.8 MG/DL 2.0 MG/DL Magnesium Level 1.9 MG/DL 1.8 MG/DL Alkaline Phosphatase 117 U/L 110 U/L Aspartate Amino Transf (AST/SGOT) 22 U/L 27 U/L Alanine Aminotransferase (ALT/SGPT) 13 U/L 12 U/L Total Bilirubin 0.3 MG/DL 0.2 MG/DL Sodium Level 137 MEQ/L 140 MEQ/L Potassium Level 3.8 MEQ/L 3.7 MEQ/L Chloride Level 106 MEQ/L 109 MEQ/L Carbon Dioxide Level 23.6 MEQ/L 22.4 MEQ/L Anion Gap 7 MEQ/L 9 MEQ/L Estimat Glomerular Filtration Rate 146 ML/MIN 175 ML/MIN Lactic Acid Level 1.7 mmol/L Platelet Estimate HIGH Platelet Morphology Comment NORMAL Ovalocytes 1+ [place] Cells 1+ Protein Corrected Calcium 8.4 MG/DL Culture Results Microbiology Date/Time Source Procedure Growth Status 05/03/17 16:35 Blood Peripheral Aerobic Blood Culture Pending Received 05/03/17 16:35 Blood Peripheral Anaerobic Blood Culture Pending Received 05/03/17 16:30 Blood Peripheral Aerobic Blood Culture Pending Received 05/03/17 16:30 Blood Peripheral Anaerobic Blood Culture Pending Received 05/02/17 17:50 Abscess Abdomen Gram Stain - Final Resulted 05/02/17 17:50 Abscess Abdomen Wound Culture - Preliminary Resulted 05/02/17 16:00 Wound Abdomen Gram Stain - Final Resulted 05/02/17 16:00 Wound Abdomen Wound Culture - Preliminary Resulted Imaging Studies Last Impressions Abscess Drainage CT 05/02/17 0000 Signed Impressions: Service Date/Time: Tuesday, May 02, 2017 17:42 - CONCLUSION: Uncomplicated CT guided drainage. Hipolito Talbot MD Abdomen/Pelvis CT 05/02/17 0000 Signed Impressions: Service Date/Time: Tuesday, May 02, 2017 16:53 - CONCLUSION: Large pneumoperitoneum with abscess in the pelvis adjacent to the suture line. This would be amenable to percutaneous drainage. Coleman Reardon MD FACR Chest X-Ray 05/01/17 0600 Signed Impressions: Service Date/Time: Monday, May 01, 2017 09:44 - CONCLUSION: Persistent large amount of free air identified within the abdomen. Pleural effusions which are slightly decreased in size as compared to the prior exam. Rebekah Qucik MD Administered Medications Medications (Trade) Dose Ordered Sig/Marsha Route PRN Reason Start Time Stop Time Status Last Admin Dose Admin Carvedilol (Coreg) 6.25 mg DAILY PO 04/26/17 09:00 Future Hold 05/02/17 09:07 Mesalamine (Asacol Hd Dr) 800 mg TID PO 04/25/17 18:00 05/03/17 17:18 Timolol Maleate (Timoptic 0.5% Opt Soln) 1 drop DAILY EACH EYE 04/26/17 09:00 05/03/17 07:57 Verapamil HCl (Isoptin Sr) 180 mg DAILY PO 04/26/17 09:00 Future Hold 05/02/17 09:07 Pravastatin Sodium (Pravachol) 20 mg DAILY PO 04/26/17 09:00 05/03/17 08:00 Sodium Chloride (NS Flush) 2 ml UNSCH PRN IV FLUSH FLUSH AFTER USING IV ACCESS 04/25/17 16:15 04/27/17 12:28 Sodium Chloride (NS Flush) 2 ml BID IV FLUSH 04/25/17 21:00 05/03/17 07:58 Oxycodone/ Acetaminophen (Percocet 5-325 Mg) 1 tab Q4H PRN PO PAIN SCALE 1 TO 5 04/25/17 16:15 05/04/17 08:44 Oxycodone/ Acetaminophen (Percocet 5-325 Mg) 2 tab Q4H PRN PO PAIN SCALE 6 TO 10 04/25/17 16:15 05/02/17 06:23 Ondansetron HCl (Zofran Inj) 4 mg Q6H PRN IVP NAUSEA OR VOMITING 04/25/17 16:15 05/02/17 06:22 Lorazepam (Ativan) 0.25 mg Q8H PRN PO ANXIETY 04/25/17 16:15 05/04/17 08:45 Fluconazole/ Sodium Chloride 200 ml @ 100 mls/hr Q24H IV 05/02/17 17:00 05/03/17 16:47 Famotidine (Pepcid Inj) 20 mg Q12H IV PUSH 05/03/17 06:00 05/04/17 05:14 Dextrose/Sodium Chloride 1,000 ml @ 125 mls/hr Q8H IV 05/03/17 11:00 05/04/17 04:38 Piperacillin Sod/ Tazobactam Sod 50 ml @ 100 mls/hr Q6H IV 05/03/17 17:00 05/17/17 16:59 05/04/17 05:14 Sodium Phosphate 30 mmol/Sodium Chloride 250 ml @ 42 mls/hr UNSCH PRN IV For Phosphorus < 2.5 mg/dL 05/03/17 19:30 05/04/17 08:21 Objective Remarks GENERAL: Well-nourished, well-developed patient. SKIN: Warm and dry. HEAD: Normocephalic. EYES: No scleral icterus. No injection or drainage. CARDIOVASCULAR: Regular rate and rhythm GASTROINTESTINAL: tender, with drain at left abd, midline incision some SS removed, brown mucoid drainage noted from lower aspect EXTREMITIES: scds MUSCULOSKELETAL: Adequate muscle tone. NEUROLOGICAL: No obvious focal deficit. Awake, alert, and oriented x3. PSYCHIATRIC: Appropriate mood and affect; insight and judgment normal. Assessment/Plan Problem List: (1) Postoperative state ICD Codes: Z98.890 - Other specified postprocedural states Plan: POD #9 s/p XLap hyst with BSO, omentectomy with sigmoid resection and reanastomosis anastomotic leak pt with abd drain patent clear liquids and OOB to chair OK per general surgery ABX per iD blood culture pending U/A general surgery following and feels surgery not needed at this time continue supportive care IS at bedside Ok for PT per general surgery Plan POD # 7 X Lap hysterectomy with BSO, omentectomy with bowel resection and reanastomosis Pt with lots of air in abd per xray will have stat CT abd/pelivs with IV and oral contrast treatment based on results of CT PT to help with ambulation, pt at risk for falls low potassium noted over the weekend and replacement given...labs pending IVF Percocet for pain general surgery following Jalil Olivo May 04, 2017 09:19
[2017-05-04] MEDS: TIMOLOL MALEATE 0.5% OPHT SOLN 5 ML BTL EACH EYE SCH (09:49)
[2017-05-04] MEDS: PRAVASTATIN SOD 20 MG TAB PO SCH (09:50)
--- NOTE | 2017-05-04 09:55 | HHI.CCPN ---
Subjective Remarks/Hospital Course 05/02: 76 years old female who was admitted under Dr. José service for hysterectomy due to Uterine malignancy involving multiple peritoneal surfaces and mesentery including large positive of invasive disease in the sigmoid colon mesentery. She is POD7 Exploratory laparotomy, total abdominal hysterectomy, bilateral salpingo-oophorectomy, extensive lysis of adhesions, omentectomy, open sigmoid resection with primary anastomosis and open appendectomy. Today 05/02 she was doing fairly well, passing flatus, no BM, however her abdomen was mildly distended, KUB documented large abdominal air and CT showed air and fluid collection in pelvis. Dr. Sims and Dr. Morris planned for IR drainage. 05/03: Resting in bed comfortably. Feculent material being drained from percutaneous drain is by interventional radiology on 05/02. Denies any shortness of breath. She did receive 3 L crystalloid boluses overnight. Awaiting reexploration for perforated viscus. Antibiotics being managed by ID. 05/04: clinically improving, WBC count is trending down was 16.[address] 14.[address]. Dr[address] Morris recommending continued conservative management at this time. Patient c/o abdominal pain with exam. L accordion drain 125 ml output in 24 hours Objective Vital Signs Date Time Temp Pulse Resp B/P (MAP) Pulse Ox O2 Delivery O2 Flow Rate FiO2 05/04/17 06:00 84 05/04/17 04:03 99 Nasal Cannula 2.00 05/04/17 04:00 98.3 21 101/56 (71) 05/03/17 07:00 21 Intake and Output 05/04/17 05/04/17 05/05/17 08:00 16:00 00:00 Intake Total 1360 ml Output Total 850 ml Balance 510 ml Result Diagram: 05/04/17 0450 05/04/17 0450 Objective Remarks GENERAL: Well-nourished, well-developed patient. Mild distress SKIN: Warm and dry. HEAD: Normocephalic. EYES: No scleral icterus. No injection or drainage. NECK: Supple, trachea midline. No JVD or lymphadenopathy. CARDIOVASCULAR: Regular rate and rhythm without murmurs, gallops, or rubs. RESPIRATORY: Breath sounds equal bilaterally. No accessory muscle use. GASTROINTESTINAL: Abdomen soft, mildly tender to palpation, awilda over incision site. Percutaneous drain noted with feculent drainage. MUSCULOSKELETAL: No cyanosis, or edema. BACK: Nontender without obvious deformity. NEURO EXAM: Awake alert oriented 3, grossly nonfocal. A/P Assessment and Plan Uterine malignancy - Status post hysterectomy - Colon resection and other procedures - Followed up by hematology oncology , [employer]-onc and general surgery Anastomotic leak with peritonitis - Status post drain placement by IR -Discussed with Dr. Kern general surgery - Dr. Morris planning taking patient to the OR tonight for repair of anastomotic leak and washout. - Zosyn and Diflucan - Infectious disease consulted, Dr. Hussein following. Hypertension - Currently hypotensive - Aggressive IV fluid resuscitation - Hold all antihypertensive meds Hyperlipidemia - Atorvastatin Anxiety - Lorazepam when necessary Ulcerative colitis - Asacol DVT GI prophylaxis - Teds SCDs - Subcutaneous heparin and Pepcid Jos Gonzalez MD May 04, 2017 09:55
[2017-05-04] MEDS: FLUCONAZOLE 400 MG PREMIX BAG 200 ML IV SCH (17:00)
--- NOTE | 2017-05-04 17:35 | HHI.PR ---
Subjective Subjective Notes feels better Objective Vitals/I&O Vital Signs Date Time Temp Pulse Resp B/P (MAP) Pulse Ox O2 Delivery O2 Flow Rate FiO2 05/04/17 14:00 82 05/04/17 10:12 94 Nasal Cannula 4.00 05/04/17 04:00 98.3 21 101/56 (71) 05/03/17 07:00 21 Labs Laboratory Tests Test 05/04/17 04:50 White Blood Count 14.3 Red Blood Count 3.66 Hemoglobin 9.9 Hematocrit 31.0 Mean Corpuscular Volume 84.6 Mean Corpuscular Hemoglobin 27.0 Mean Corpuscular Hemoglobin Concent 31.9 Red Cell Distribution Width 16.6 Platelet Count 481 Mean Platelet Volume 7.2 Neutrophils (%) (Auto) 86.3 Lymphocytes (%) (Auto) 6.3 Monocytes (%) (Auto) 5.3 Eosinophils (%) (Auto) 1.8 Basophils (%) (Auto) 0.3 Neutrophils # (Auto) 12.3 Lymphocytes # (Auto) 0.9 Monocytes # (Auto) 0.8 Eosinophils # (Auto) 0.3 Basophils # (Auto) 0.0 CBC Comment AUTO DIFF Differential Comment FINAL DIFF MANUAL Platelet Estimate HIGH Platelet Morphology Comment NORMAL Ovalocytes 1+ [place] Cells 1+ Blood Urea Nitrogen 6 Creatinine 0.36 Random Glucose 112 Total Protein 4.9 Albumin 1.2 Calcium Level 7.2 Phosphorus Level 2.0 Magnesium Level 1.8 Alkaline Phosphatase 110 Aspartate Amino Transf (AST/SGOT) 27 Alanine Aminotransferase (ALT/SGPT) 12 Total Bilirubin 0.2 Sodium Level 140 Potassium Level 3.7 Chloride Level 109 Carbon Dioxide Level 22.4 Anion Gap 9 Estimat Glomerular Filtration Rate 175 Protein Corrected Calcium 8.4 Date/Time Source Procedure Growth Status 05/03/17 16:35 Blood Peripheral Aerobic Blood Culture - Preliminary NO GROWTH IN 1 DAY Resulted 05/03/17 16:35 Blood Peripheral Anaerobic Blood Culture - Preliminary NO GROWTH IN 1 DAY Resulted 05/02/17 17:50 Abscess Abdomen Gram Stain - Final Resulted 05/02/17 17:50 Wound Culture - Preliminary Gram Negative [place] Strep Not A,B D Resulted Abdomen: Non-distended Narrative Exam no peritonitis, drain clear A/P Assessment and Plan 76yo female s/p Hysterectomy and colon resection, stable. - IAA 2/2 anastomotic leak, s/p drain, ABX, doing better - wound infection, opened at bedside, pack TID - OOB - Clears - d/w family , continue non-op management, surgery only if develops worsening sepsis Blayne Morris MD May 04, 2017 17:35
[2017-05-04] MEDS ORDERED: METOPROLOL TARTRATE 5 MG/5 ML VIAL IV PUSH ONE (20:15)
[2017-05-04] MEDS ORDERED: CARVEDILOL 6.25 MG TAB PO ONE (22:00)
[2017-05-05] VITALS (16 sets, daily range): BP systolic 102–119; BP diastolic 56–71; PULSE 71–118; RESP 12–21; TEMP 97.9–98.7; O2SAT 92–98
[2017-05-05] MEDS: DEXT 5%-NACL 0.9% 1000 ML INJ 1,000 ML IV SCH ×3 (04:11→17:27)
[2017-05-05] MEDS: PIPERACIL-TAZO 3.375 GM PREMIX 50 ML IV SCH ×4 (04:56→22:24)
[2017-05-05] MEDS: FAMOTIDINE 20 MG/2 ML VIAL IV PUSH SCH ×2 (04:56→17:26)
[2017-05-05] MEDS: INSULIN ASPART SUPPLEMENTAL SCALE SQ SCH ×4 (06:44→21:00)
--- NOTE | 2017-05-05 07:45 | PD.ONC.PN ---
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 pain controlled. Objective Data Date Time Temp Pulse Resp B/P (MAP) Pulse Ox O2 Delivery O2 Flow Rate FiO2 05/05/17 07:24 94 Nasal Cannula 3.00 05/05/17 06:00 78 05/05/17 04:00 98.1 74 12 111/63 (79) 96 05/05/17 04:00 74 05/05/17 03:34 98 Nasal Cannula 4.00 05/05/17 02:00 86 05/05/17 00:00 72 05/05/17 00:00 97.9 72 12 105/56 (72) 98 05/04/17 22:00 77 05/04/17 20:00 120 05/04/17 20:00 97.9 120 18 132/72 (92) 96 05/04/17 19:00 95 Nasal Cannula 4.00 05/04/17 18:00 128 05/04/17 16:00 97.6 82 21 133/85 (101) 94 05/04/17 16:00 82 05/04/17 14:00 82 05/04/17 12:00 76 05/04/17 12:00 98.3 72 35 139/72 (94) 92 05/04/17 10:12 94 Nasal Cannula 4.00 05/04/17 10:00 84 05/04/17 08:00 98.1 80 22 128/69 (88) 94 05/05/17 05/05/17 05/05/17 07:00 15:00 23:00 Intake Total 1337 ml Output Total 450 ml Balance 887 ml Result Diagram: 05/04/17 0450 05/04/17 0450 Culture Results Microbiology Date/Time Source Procedure Growth Status 05/03/17 16:35 Blood Peripheral Aerobic Blood Culture - Preliminary NO GROWTH IN 1 DAY Resulted 05/03/17 16:35 Blood Peripheral Anaerobic Blood Culture - Preliminary NO GROWTH IN 1 DAY Resulted 05/03/17 16:30 Blood Peripheral Aerobic Blood Culture - Preliminary NO GROWTH IN 1 DAY Resulted 05/03/17 16:30 Blood Peripheral Anaerobic Blood Culture - Preliminary NO GROWTH IN 1 DAY Resulted 05/02/17 17:50 Abscess Abdomen Gram Stain - Final Resulted 05/02/17 17:50 Wound Culture - Preliminary Gram Negative Flako Strep Not A,B D Resulted 05/02/17 16:00 Wound Abdomen Gram Stain - Final Resulted 05/02/17 16:00 Wound Culture - Preliminary Gram Negative Flako Strep Not A,B D Resulted Administered Medications Medications (Trade) Dose Ordered Sig/Marsha Route PRN Reason Start Time Stop Time Status Last Admin Dose Admin Carvedilol (Coreg) 6.25 mg DAILY PO 04/26/17 09:00 Future hold 05/02/17 09:07 Mesalamine (Asacol Hd Dr) 800 mg TID PO 04/25/17 18:00 05/03/17 17:18 Timolol Maleate (Timoptic 0.5% Opt Soln) 1 drop DAILY EACH EYE 04/26/17 09:00 05/04/17 09:49 Verapamil HCl (Isoptin Sr) 180 mg DAILY PO 04/26/17 09:00 Future Hold 05/02/17 09:07 Pravastatin Sodium (Pravachol) 20 mg DAILY PO 04/26/17 09:00 05/04/17 09:50 Sodium Chloride (NS Flush) 2 ml UNSCH PRN IV FLUSH FLUSH AFTER USING IV ACCESS 04/25/17 16:15 04/27/17 12:28 Sodium Chloride (NS Flush) 2 ml BID IV FLUSH 04/25/17 21:00 05/03/17 07:58 Oxycodone/ Acetaminophen (Percocet 5-325 Mg) 1 tab Q4H PRN PO PAIN SCALE 1 TO 5 04/25/17 16:15 05/04/17 08:44 Oxycodone/ Acetaminophen (Percocet 5-325 Mg) 2 tab Q4H PRN PO PAIN SCALE 6 TO 10 04/25/17 16:15 05/04/17 16:20 Ondansetron HCl (Zofran Inj) 4 mg Q6H PRN IVP NAUSEA OR VOMITING 04/25/17 16:15 05/02/17 06:22 Lorazepam (Ativan) 0.25 mg Q8H PRN PO ANXIETY 04/25/17 16:15 05/04/17 05:58 Fluconazole/ Sodium Chloride 200 ml @ 100 mls/hr Q24H IV 05/02/17 17:00 05/04/17 17:00 Famotidine (Pepcid Inj) 20 mg Q12H IV PUSH 05/03/17 06:00 05/05/17 04:56 Dextrose/Sodium Chloride 1,000 ml @ 125 mls/hr Q8H IV 05/03/17 11:00 05/05/17 04:11 Piperacillin Sod/ Tazobactam Sod 50 ml @ 100 mls/hr Q6H IV 05/03/17 17:00 05/17/17 16:59 05/05/17 04:56 Sodium Phosphate 30 mmol/Sodium Chloride 250 ml @ 42 mls/hr UNSCH PRN IV For Phosphorus < 2.5 mg/dL 05/03/17 19:30 05/04/17 08:21 Objective Remarks GENERAL: Well-nourished, well-developed patient. SKIN: Warm and dry. HEAD: Normocephalic. EYES: No scleral icterus. No injection or drainage. CARDIOVASCULAR: Regular rate and rhythm without murmurs. RESPIRATORY: Breath sounds equal bilaterally. No accessory muscle use. GASTROINTESTINAL: Abdomen dressing is clean and dry. drain noted to right abd EXTREMITIES: teds MUSCULOSKELETAL: Adequate muscle tone. NEUROLOGICAL: No obvious focal deficit. Awake, alert, and oriented x3. PSYCHIATRIC: Appropriate mood and affect; insight and judgment normal. Assessment/Plan Problem List: (1) Postoperative state ICD Codes: Z98.890 - Other specified postprocedural states Plan: POD #10 s/p XLap hyst with BSO, omentectomy with sigmoid resection and reanastomosis anastomotic leak pt OOB to chair and PT clear liquids cbc w/ diff, bmp blood culture - X 1 day wound dressing changes TID abd drain ABX, culture shown heavy mixed john ID following Plan 1. The patient and her daughter are apprehensive about being discharged today. 2. She reported some bleeding, therefore we will keep her 1 more day and check a CBC in a.m. 3. Will discuss with physical therapy to come see the patient today. 4. Dr. Platt has discussed with Dr. Sims and he is agrees. The exam, history, and the medical decision-making described in the above note were completed with the assistance of the mid-level provider. I reviewed and agree with the findings presented. I attest that I had a [id number] encounter with the patient on the same day, and personally performed and documented my assessment and findings in the medical record. she is frail, on oxygen and not ambulatory. will hold on discharge, proceed with physical therapy , check cbc plat in am and reevaluate in AM. Jalil Olivo May 05, 2017 07:45
[2017-05-05] MEDS ORDERED: DILTIAZEM HCL 25 MG/5 ML VIAL IV PUSH ONE (08:15)
--- NOTE | 2017-05-05 08:24 | HHI.CCPN ---
Subjective Remarks/Hospital Course 05/02: 76 years old female who was admitted under Dr. José service for hysterectomy due to Uterine malignancy involving multiple peritoneal surfaces and mesentery including large positive of invasive disease in the sigmoid colon mesentery. S/P Exploratory laparotomy, total abdominal hysterectomy, bilateral salpingo-oophorectomy, extensive lysis of adhesions, omentectomy, open sigmoid resection with primary anastomosis and open appendectomy. 05/02 she was doing fairly well, passing flatus, no BM, however her abdomen was mildly distended, KUB documented large abdominal air and CT showed air and fluid collection in pelvis. Dr. Sims and Dr. Morris planned for IR drainage. 05/03: Resting in bed comfortably. Feculent material being drained from percutaneous drain is by interventional radiology on 05/02. Denies any shortness of breath. She did receive 3 L crystalloid boluses overnight. Awaiting reexploration for perforated viscus. Antibiotics being managed by ID. 05/04: clinically improving, WBC count is trending down was 16.8 [address] 14.3. Dr[address] Morris recommending continued conservative management at this time. Patient c/o abdominal pain with exam. L accordion drain 125 ml output in 24 hours 05/05: Patient is a stat she is feeling slightly better pain improving. No labs today. Patient is tachycardic with atrial fibrillation and RVR. Review of her history indicates cardiac dysrhythmia and supra ventricular tachycardia in the past. At home takes carvedilol and verapamil. Not on chronic anticoagulation. Start Cardizem for rate control, increase Coreg to twice a day dosing, consider anticoagulation if persistent. patient requests cardiology consult with Dr. Turcios Objective Vital Signs Date Time Temp Pulse Resp B/P (MAP) Pulse Ox O2 Delivery O2 Flow Rate FiO2 05/05/17 07:24 94 Nasal Cannula 3.00 05/05/17 06:00 78 05/05/17 04:00 98.1 12 111/63 (79) 05/03/17 07:00 21 Intake and Output 05/05/17 05/05/17 05/06/17 08:00 16:00 00:00 Intake Total 1337 ml Output Total 450 ml Balance 887 ml Result Diagram: 05/04/17 0450 05/04/17 0450 Other Results Microbiology Date/Time Source Procedure Growth Status 05/02/17 16:00 Wound Abdomen Gram Stain - Final Complete 05/02/17 16:00 Wound Culture - Final Escherichia Coli Strep Not A,B D Complete Objective Remarks GENERAL: Well-nourished, well-developed patient. Mild distress SKIN: Warm and dry. HEAD: Normocephalic. EYES: No scleral icterus. No injection or drainage. NECK: Supple, trachea midline. No JVD or lymphadenopathy. CARDIOVASCULAR: Atrial fibrillation with RVR without murmurs, gallops, or rubs. RESPIRATORY: Breath sounds equal bilaterally. No accessory muscle use. GASTROINTESTINAL: Abdomen soft, tender to palpation, awilda over incision site- lower wound infection. Percutaneous accordion drain noted with 175 ml output in 24 hrs MUSCULOSKELETAL: No cyanosis, or edema. BACK: Nontender without obvious deformity. NEURO EXAM: Awake alert oriented 3, grossly nonfocal. A/P Assessment and Plan Anastomotic leak with peritonitis - Status post drain placement by IR - Discussed with Dr. Morris 05/04/17. He recommends conservative management at this time unless there is clinical deterioration - Zosyn and Diflucan. Infectious disease consulted, Dr. Hussein following. - E Coli and Strep in abscess culture 05/02. GNR in blood 05/03/17 Uterine malignancy - S/P Exploratory laparotomy, total abdominal hysterectomy, bilateral salpingo- oophorectomy, extensive lysis of adhesions, omentectomy, open sigmoid resection with primary anastomosis and open appendectomy. 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 Vaughan/Dr. Turcios. I placed cardiology consult per patient request - Initiate Cardizem for rate control, check 2-D echo - [id number] score 4, high risk- I have recommended therapeutic anticoagulation-patient requesting cardiology opinion Hypertension - Hypotension has resolved. Carvedilol and verapamil was resume today yesterday , I will increase carvedilol to 6.25 twice a day - IV fluid resuscitation Hyperlipidemia - Atorvastatin Anxiety - Lorazepam when necessary Ulcerative colitis - On mesalamine at home DVT GI prophylaxis - Teds SCDs - Subcutaneous heparin and Pepcid. Recommended therapeutic anticoagulation, patient wants to wait for cardiology input Level 3 Continue ICU care due to ongoing sepsis in atrial fibrillation with RVR Jos Gonzalez MD May 05, 2017 08:24
[2017-05-05] MEDS: TIMOLOL MALEATE 0.5% OPHT SOLN 5 ML BTL EACH EYE SCH (08:46)
[2017-05-05] MEDS: CARVEDILOL 6.25 MG TAB PO SCH ×2 (08:47→20:56)
[2017-05-05] MEDS: SODIUM CHLORIDE 0.9% FLUSH 10 ML FLUSH IV FLUSH SCH ×2 (08:47→21:00)
[2017-05-05] MEDS: MESALAMINE HD 800 MG DELAYED RELEASE TAB PO SCH ×3 (08:47→17:25)
[2017-05-05] MEDS: PRAVASTATIN SOD 20 MG TAB PO SCH (08:48)
[2017-05-05] MEDS ORDERED: DILTIAZEM INJ 125 MG in SODIUM CHLORIDE 0.9% INJ 100 ML IV PRN (09:00)
[2017-05-05] MEDS ORDERED: METOPROLOL TARTRATE 5 MG/5 ML VIAL IV PUSH ONE (09:00)
[2017-05-05 11:52] LABS: AUTOMATED NEUTROPHIL # 13.1 TH/MM3 (1.8-7.7); BASOPHIL # 0.1 TH/MM3 (0-0.2); BASOPHIL % 0.5 % (0.0-2.0); EOSINOPHIL # 0.4 TH/MM3 (0-0.4); EOSINOPHIL % 2.5 % (0.0-4.0); HEMATOCRIT 31.6 % (35.0-46.0); LYMPHOCYTE # 1.2 TH/MM3 (1.0-4.8); MEAN CORPUSCULAR HEMOGLOBIN 27.3 PG (27.0-34.0); MEAN CORPUSCULAR HGB CONC 32.1 % (32.0-36.0); MONO % 4.9 % (0.0-8.0); NEUT % 84.1 % (16.0-70.0); PLATELET COUNT 489 TH/MM3 (150-450); RED BLOOD COUNT 3.72 MIL/MM3 (4.00-5.30); RED CELL DISTRIBUTION WIDTH 16.6 % (11.6-17.2); WHITE BLOOD COUNT 15.5 TH/MM3 (4.0-11.0)
[2017-05-05 11:56] LABS: HEMO FLAGS AUTO DIFF; MAGNESIUM 1.8 MG/DL (1.5-2.5); POTASSIUM 3.5 MEQ/L (3.5-5.1)
[2017-05-05 12:00] LABS: BICARBONATE 20.6 MEQ/L (21.0-32.0); POTASSIUM 3.6 MEQ/L (3.5-5.1)
[2017-05-05 13:02] LABS: CALCIUM-PROTEIN CORRECTED 8.4 MG/DL (8.5-10.1)
[2017-05-05 13:07] LABS: BANDS 5 % (0-6); EOSINOPHILS 4 % (0-4); METAMYELOCYTES 4 % (0-1); MYELOCYTES 3 % (0-0); NEUTROPHIL # MANUAL DIFF 13.5 TH/MM3 (1.8-7.7); POLYS (SEG NEUTROPHILS) 74 % (16-70); PROMYELOCYTES 1 % (0-0); WBC DIFF SAMPLE 100
[2017-05-05 13:09] LABS: ACANTHOCYTES OCC (NORMAL); OVALOCYTES 1+ (NORMAL); PLATELET ESTIMATE SMEAR HIGH (NORMAL)
[2017-05-05 13:10] LABS: PLATELET MORPHOLOGY NORMAL (NORMAL); SCAN/DIFF FINAL DIFF MANUAL
[2017-05-05 14:30] LABS: TOTAL BILIRUBIN ADULT 0.2 MG/DL (0.2-1.0)
--- NOTE | 2017-05-05 14:57 | HHI.PR ---
Subjective Subjective Notes Resting in bed; wants to try some mashed potatoes Daughter at bedside Objective Vitals/I&O Vital Signs Date Time Temp Pulse Resp B/P (MAP) Pulse Ox O2 Delivery O2 Flow Rate FiO2 05/05/17 14:00 75 05/05/17 12:00 98.5 21 115/59 (77) 97 05/05/17 07:24 Nasal Cannula 3.00 05/03/17 07:00 21 Labs Laboratory Tests Test 05/05/17 11:08 White Blood Count 15.5 Red Blood Count 3.72 Hemoglobin 10.2 Hematocrit 31.6 Mean Corpuscular Volume 85.0 Mean Corpuscular Hemoglobin 27.3 Mean Corpuscular Hemoglobin Concent 32.1 Red Cell Distribution Width 16.6 Platelet Count 489 Mean Platelet Volume 7.3 Neutrophils (%) (Auto) 84.1 Lymphocytes (%) (Auto) 8.0 Monocytes (%) (Auto) 4.9 Eosinophils (%) (Auto) 2.5 Basophils (%) (Auto) 0.5 Neutrophils # (Auto) 13.1 Lymphocytes # (Auto) 1.2 Monocytes # (Auto) 0.8 Eosinophils # (Auto) 0.4 Basophils # (Auto) 0.1 CBC Comment AUTO DIFF Differential Total Cells Counted 100 Neutrophils % (Manual) 74 Band Neutrophils % 5 Lymphocytes % 8 Monocytes % 1 Eosinophils % 4 Neutrophils # (Manual) 13.5 Metamyelocytes 4 Myelocytes 3 Promyelocytes 1 Differential Comment FINAL DIFF MANUAL Platelet Estimate HIGH Platelet Morphology Comment NORMAL Ovalocytes 1+ Acanthocytes OCC Blood Urea Nitrogen 6 Creatinine 0.38 Random Glucose 90 Total Protein 5.1 Albumin 1.1 Calcium Level 7.3 Aspartate Amino Transf (AST/SGOT) 28 Total Bilirubin 0.2 Sodium Level 143 Potassium Level 3.6 Chloride Level 112 Carbon Dioxide Level 20.6 Anion Gap 10 Estimat Glomerular Filtration Rate 164 Protein Corrected Calcium 8.4 Magnesium Level 1.8 Date/Time Source Procedure Growth Status 05/03/17 16:35 Blood Peripheral Aerobic Blood Culture - Preliminary NO GROWTH IN 2 DAYS Resulted 05/03/17 16:35 Blood Peripheral Anaerobic Blood Culture - Preliminary NO GROWTH IN 2 DAYS Resulted 05/02/17 17:50 Abscess Abdomen Gram Stain - Final Resulted 05/02/17 17:50 Wound Culture - Preliminary Escherichia Coli Strep Not A,B D Resulted Cardiovascular: Regular Lungs: Clear Abdomen: Other (midline incsiion with packing to open area; wound bed c/d; accordian drain in place without complications; mild tenderness to palpation ) Extremities: No edema A/P Assessment and Plan 76 year old female s/p Exploratory laparotomy, total abdominal hysterectomy, bilateral salpingo-oophorectomy, extensive lysis of adhesions, omentectomy, open sigmoid resection with primary anastomosis and open appendectomy. -Continue full liquids until bowel function returns; okay for mashed potatoes -OOB and tolerated--with assistance -Cardiology following -Continue wound car e -PT consult Attending Statement The exam, history, and the medical decision-making described in the above note were completed with the assistance of the mid-level provider. I reviewed and agree with the findings presented. I attest that I had a [id number] encounter with the patient on the same day, and personally performed and documented my assessment and findings in the medical record. Abdominal exam: stable, no peritonitis, await bowel function Shannon Ocampo May 05, 2017 14:57 Blayne Morris MD Jun 07, 2017 22:53
[2017-05-05] MEDS: oxyCODONE/ACETAMINOPHEN 5 MG/325 MG TAB PO PRN ×2 (15:25→21:05)
--- NOTE | 2017-05-05 16:17 | ECHRPT ---
Indication: Paroxysmal atrial fibrillation CONCLUSIONS The left ventricular systolic function is normal with an estimated ejection fraction in the range of 60-65%. Wall thickness is measured at the upper limits of normal. Normal left ventricular size. There is mild to moderate tricuspid valve regurgitation. The estimated pulmonary arterial pressure is 41 mmHg. A moderate left sided pleural effusion is noted. There is a small pericardial effusion present. BP: 111 / 63 HR: 74 Rhythm: Sinus MEASUREMENTS (Male / Female) Normal Values Technical Quality:Fair 2D ECHO LV Diastolic Diameter PLAX 4.0 cm 4.2 - 5.9 / 3.9 - 5.3 cm LV Systolic Diameter PLAX 2.8 cm IVS Diastolic Thickness 1.2 cm 0.6 - 1.0 / 0.6 - 0.9 cm LVPW Diastolic Thickness 1.2 cm 0.6 - 1.0 / 0.6 - 0.9 cm LV Relative Wall Thickness 0.6 LVOT Diameter 2.0 cm M-MODE Aortic Root Diameter MM 2.6 cm LA Systolic Diameter MM 2.9 cm LA Ao Ratio MM 1.1 AV Cusp Separation MM 1.8 cm DOPPLER AV Peak Velocity 114.0 cm/s AV Peak Gradient 5.2 mmHg LVOT Peak Velocity 84.9 cm/s LVOT Peak Gradient 2.9 mmHg AV Area Cont Eq pk 2.3 cm Mitral E Point Velocity 118.0 cm/s Mitral A Point Velocity 82.9 cm/s Mitral E to A Ratio 1.4 LV E' Lateral Velocity 8.3 cm/s Mitral E to LV E' Lateral Ratio 14.2 LV E' Septal Velocity 9.8 cm/s Mitral E to LV E' Septal Ratio 12.1 TR Peak Velocity 277.0 cm/s TR Peak Gradient 30.7 mmHg PV Peak Velocity 92.3 cm/s PV Peak Gradient 3.4 mmHg FINDINGS LEFT VENTRICLE The left ventricular systolic function is normal with an estimated ejection fraction in the range of 60-65%. Wall thickness is measured at the upper limits of normal. Normal left ventricular size. RIGHT VENTRICLE Normal right ventricular size and systolic function. LEFT ATRIUM The left atrial size is normal. RIGHT ATRIUM The right atrial size is normal. ATRIAL SEPTUM Normal atrial septal thickness without atrial level shunting by limited color doppler interrogation. AORTA The aortic root and proximal ascending aorta are normal in size on limited imaging. MITRAL VALVE Structurally normal mitral valve. No mitral valve stenosis or regurgitation. AORTIC VALVE Trileaflet aortic valve. No aortic valve stenosis or regurgitation. TRICUSPID VALVE There is mild to moderate tricuspid valve regurgitation. The estimated pulmonary arterial pressure is 41 mmHg. PULMONARY VALVE The pulmonary valve is not well visualized. VESSELS The inferior vena cava is normal in size. PERICARDIUM A moderate left sided pleural effusion is noted. There is a small pericardial effusion present. Skyler Almaraz MD, FACC (Electronically Signed) Final Date:05 May 2017 16:15
[2017-05-05] MEDS: FLUCONAZOLE 400 MG PREMIX BAG 200 ML IV SCH (17:26)
[2017-05-05] MEDS ORDERED: DILTIAZEM DRIP 125 MG in NS 125 ML PREMIX DELTONA ONLY IV PRN (17:45)
[2017-05-05] MEDS ORDERED: DILTIAZEM 125 MG/NS 100 ML IV PRN ×2 (17:45)
[2017-05-05] MEDS: LORazepam 0.5 MG TAB PO PRN (18:48)
[2017-05-05 18:58] LABS: HEMATOCRIT 34.2 % (35.0-46.0); MEAN CELL VOLUME 83.3 FL (80.0-100.0); MEAN CORPUSCULAR HEMOGLOBIN 27.3 PG (27.0-34.0); MEAN CORPUSCULAR HGB CONC 32.7 % (32.0-36.0); PLATELET COUNT 507 TH/MM3 (150-450); RED BLOOD COUNT 4.11 MIL/MM3 (4.00-5.30); RED CELL DISTRIBUTION WIDTH 16.3 % (11.6-17.2); REVIEW FLAG FINAL; WHITE BLOOD COUNT 16.3 TH/MM3 (4.0-11.0)
[2017-05-05 19:08] LABS: APTT (PATIENT) 34.1 SEC (24.3-30.1); INTERNATIONAL NORMALIZED RATIO 1.1 RATIO; PROTHROMBIN TIME - PATIENT 11.9 SEC (9.8-11.6)
[2017-05-05] MEDS: HEPARIN-D5W 25,000 U/250 ML 250 ML IV PRN (20:28)
--- NOTE | 2017-05-05 23:04 | MB ---
cc: BERRY DACOSTA MD DATE OF CONSULTATION 05/05/17 DATE OF 39 REASON FOR CONSULTATION I am asked to evaluate patient with atrial fibrillation and rapid ventricular rate. HISTORY OF PRESENT ILLNESS Eladia Gaytan is a pleasant 76 year old woman with past medical history significant for hypertension, hypercholesterolemia, paroxysmal atrial fibrillation and carotid artery disease. She was admitted for abdominal mass. Surgery was performed 04/25/17. A large uterine mass with invasion of the sigmoid colon and omentum and mesentery was found. She reportedly had hysterectomy with sigmoid resection. However, postoperatively she was noted to have anastomotic leak. Last night she went intoaf8 with rapid ventricular rate. She was placed on Cardizem drip for ventricular rate control. She spontaneously converted to sinus rhythm, although intermittently has paroxysms of atrial fibrillation. She denies chest pain suggestive of angina or congestive symptoms of congestive heart failure. Presently, she is asymptomatic sitting in a chair with her daughters at bedside. MEDICATIONS Present, 1. Diltiazem drip 2. Coreg 6.25 mg twice a day 3. Potassium chloride as needed 4. Piperacillin/tazobactam q 6 hrs 5. Femotidine 20 mg q 12 hours 6. Fluconazole q 24 hours 7. Pravastatin 20 mg daily 8. Oxycodone as needed ALLERGIES DOXYCYCLINE CIPROFLOXACIN PAST MEDICAL HISTORY As above. Additionally, 1. History of chronic obstructive pulmonary disease 2. Hyperlipidemia 3. Asthma 4. Colitis PAST SURGICAL HISTORY Status post right carotid endarterectomy SOCIAL HISTORY She does not smoke. She drinks alcohol socially. No illicit drug use. REVIEW OF SYSTEMS As above. 12 point review of systems reviewed and noted. No recent fever, chills, cough or sputum production. No recent gastrointestinal, genitourinary, neurologic symptoms prior to admission. PHYSICAL EXAMINATION VITAL SIGNS: Temperature 98.2, pulse 118, blood pressure 102/71, O2 saturation 93%. HEENT: Anicteric. Pupils equal, round, reactive to light and accommodation. No xanthalmosis. Flat JVD. LUNGS: Clear to auscultation. Irregular rate and rhythm, soft 2/6 systolic murmur left lower systolic border. ABDOMEN: Soft, nontender. EXTREMITIES: Without peripheral edema. LABORATORY DATA Sodium 143, potassium 3.6, chloride 112, BUN 6, creatinine 0.83. Calcium 7.3, magnesium 1.8. Albumin 1.1. IMPRESSION 1. Atrial fibrillation with rapid ventricular rate, spontaneously converted to sinus rhythm. 2. High-risk CHADS vas score based on age, hypertension, history of vascular disease and female gender. 3. Hypertension 4. Hypercholesterolemia 5. Status post extensive surgery, hysterectomy/sigmoid resection for metastatic cancer. PLAN 1. Obtain troponin levels. 2. Start IV Amiodarone with bolus followed by infusion protocol 3. Consider starting IV heparin if okay with ldr nurse and surgery to reduce risk for cerebrovascular accident in light of high risk CHADS vas score and deep venous thrombosis prophylaxis. 4. We will hold Coreg for now and discontinue Cardizem. 5. Verapamil has been placed on hold. Thank you for allowing me to participate in patient's care. Thank you for this consultation. MD JR Paredes/ /5:02 PM /10:32 PM
--- NOTE | 2017-05-05 23:19 | HHI.IDPN ---
Subjective Subjective Remarks richi entry - pt was seen earlier today around [address] guided percutaneous drainage of the abscess on 05/02 No surgery Doing better febrile afebrile WBC up to 15-16 K Antibiotics zosyn fluonazol Allergies: Coded Allergies: No Known Allergies (Verified , 04/25/17) Objective . Vital Signs Date Time Temp Pulse Resp B/P (MAP) Pulse Ox O2 Delivery O2 Flow Rate FiO2 05/05/17 22:05 12 05/05/17 22:00 75 05/05/17 20:00 98.7 82 14 113/62 (79) 96 05/05/17 20:00 72 05/05/17 19:00 97 Nasal Cannula 4.00 05/05/17 18:00 80 05/05/17 16:00 98.6 78 18 119/69 (86) 92 05/05/17 16:00 78 05/05/17 15:00 78 05/05/17 15:00 78 05/05/17 14:00 75 05/05/17 12:00 98.5 78 21 115/59 (77) 97 05/05/17 12:00 78 05/05/17 10:00 80 05/05/17 08:00 98.2 118 14 102/71 (81) 93 05/05/17 08:00 118 05/05/17 07:24 94 Nasal Cannula 3.00 05/05/17 07:00 92 Nasal Cannula 4.00 05/05/17 06:00 78 05/05/17 04:00 98.1 74 12 111/63 (79) 96 05/05/17 04:00 74 05/05/17 03:34 98 Nasal Cannula 4.00 05/05/17 02:00 86 05/05/17 00:00 72 05/05/17 00:00 97.9 72 12 105/56 (72) 98 05/05/17 05/05/17 05/06/17 15:00 23:00 07:00 Intake Total 1855 ml Output Total 350 ml Balance 1505 ml Intake Oral 480 ml IV Total 1375 ml Output Urine Total 325 ml Drainage Total 25 ml # Bowel Movements 0 . Laboratory Tests Test 05/04/17 04:50 05/05/17 11:08 05/05/17 18:25 White Blood Count 14.3 TH/MM3 15.5 TH/MM3 16.3 TH/MM3 Red Blood Count 3.66 MIL/MM3 3.72 MIL/MM3 4.11 MIL/MM3 Hemoglobin 9.9 GM/DL 10.2 GM/DL 11.2 GM/DL Hematocrit 31.0 % 31.6 % 34.2 % Mean Corpuscular Volume 84.6 FL 85.0 FL 83.3 FL Mean Corpuscular Hemoglobin 27.0 PG 27.3 PG 27.3 PG Mean Corpuscular Hemoglobin Concent 31.9 % 32.1 % 32.7 % Red Cell Distribution Width 16.6 % 16.6 % 16.3 % Platelet Count 481 TH/MM3 489 TH/MM3 507 TH/MM3 Mean Platelet Volume 7.2 FL 7.3 FL 7.3 FL Neutrophils (%) (Auto) 86.3 % 84.1 % Lymphocytes (%) (Auto) 6.3 % 8.0 % Monocytes (%) (Auto) 5.3 % 4.9 % Eosinophils (%) (Auto) 1.8 % 2.5 % Basophils (%) (Auto) 0.3 % 0.5 % Neutrophils # (Auto) 12.3 TH/MM3 13.1 TH/MM3 Lymphocytes # (Auto) 0.9 TH/MM3 1.2 TH/MM3 Monocytes # (Auto) 0.8 TH/MM3 0.8 TH/MM3 Eosinophils # (Auto) 0.3 TH/MM3 0.4 TH/MM3 Basophils # (Auto) 0.0 TH/MM3 0.1 TH/MM3 CBC Comment AUTO DIFF AUTO DIFF Differential Comment FINAL DIFF MANUAL FINAL DIFF MANUAL Platelet Estimate HIGH HIGH Platelet Morphology Comment NORMAL NORMAL Ovalocytes 1+ 1+ [place] Cells 1+ Differential Total Cells Counted 100 Neutrophils % (Manual) 74 % Band Neutrophils % 5 % Lymphocytes % 8 % Monocytes % 1 % Eosinophils % 4 % Neutrophils # (Manual) 13.5 TH/MM3 Metamyelocytes 4 % Myelocytes 3 % Promyelocytes 1 % Acanthocytes OCC Laboratory Tests Test 05/04/17 04:50 05/05/17 11:08 Blood Urea Nitrogen 6 MG/DL 6 MG/DL Creatinine 0.36 MG/DL 0.38 MG/DL Random Glucose 112 MG/DL 90 MG/DL Total Protein 4.9 GM/DL 5.1 GM/DL Albumin 1.2 GM/DL 1.1 GM/DL Calcium Level 7.2 MG/DL 7.3 MG/DL Phosphorus Level 2.0 MG/DL Magnesium Level 1.8 MG/DL 1.8 MG/DL Alkaline Phosphatase 110 U/L 106 U/L Aspartate Amino Transf (AST/SGOT) 27 U/L 28 U/L Alanine Aminotransferase (ALT/SGPT) 12 U/L 13 U/L Total Bilirubin 0.2 MG/DL 0.2 MG/DL Sodium Level 140 MEQ/L 143 MEQ/L Potassium Level 3.7 MEQ/L 3.6 MEQ/L Chloride Level 109 MEQ/L 112 MEQ/L Carbon Dioxide Level 22.4 MEQ/L 20.6 MEQ/L Anion Gap 9 MEQ/L 10 MEQ/L Estimat Glomerular Filtration Rate 175 ML/MIN 164 ML/MIN Protein Corrected Calcium 8.4 MG/DL 8.4 MG/DL Troponin I LESS THAN 0.02 NG/ML Microbiology Date/Time Source Procedure Growth Status 05/03/17 16:35 Blood Peripheral Aerobic Blood Culture - Preliminary NO GROWTH IN 2 DAYS Resulted 05/03/17 16:35 Anaerobic Blood Culture - Preliminary Gram Negative [place] Resulted 05/03/17 16:30 Blood Peripheral Aerobic Blood Culture - Preliminary NO GROWTH IN 2 DAYS Resulted 05/03/17 16:30 Anaerobic Blood Culture - Preliminary Gram Negative Flako Resulted Imaging Last Impressions Abscess Drainage CT 05/02/17 0000 Signed Impressions: Service Date/Time: Tuesday, May 02, 2017 17:42 - CONCLUSION: Uncomplicated CT guided drainage. Hipolito Talbot MD Abdomen/Pelvis CT 05/02/17 0000 Signed Impressions: Service Date/Time: Tuesday, May 02, 2017 16:53 - CONCLUSION: Large pneumoperitoneum with abscess in the pelvis adjacent to the suture line. This would be amenable to percutaneous drainage. Coleman Reardon MD FACR Chest X-Ray 05/01/17 0600 Signed Impressions: Service Date/Time: Monday, May 01, 2017 09:44 - CONCLUSION: Persistent large amount of free air identified within the abdomen. Pleural effusions which are slightly decreased in size as compared to the prior exam. Rebekah Quick MD Physical Exam CONSTITUTIONAL/GENERAL: This is an adequately nourished patient, in no apparent distress. Ill appearing but non toxic TUBES/LINES/DRAINS: SKIN: No jaundice, rashes, or lesions. Ecchymoses on upper extremities. No wounds seen anteriorly. Skin temperature appropriate. Not diaphoretic. EYES: Pupils equal and round and reactive. Extraocular motions intact. No scleral icterus. No injection or drainage. Fundi not examined. ENT: Hearing grossly normal. Nose without bleeding or purulent drainage. Oral mucosae druy[place] CARDIOVASCULAR: Regular rate and rhythm without murmurs, gallops, or rubs. No JVD. Peripheral pulses symmetric. RESPIRATORY/CHEST: Symmetric, unlabored respirations. Clear to auscultation. Breath sounds equal bilaterally. No wheezes, rales, or rhonchi. GASTROINTESTINAL: Abdomen fairly soft, quit -tender, moderately distended. No hepato-splenomegaly, or palpable masses. No guarding. Bowel sounds not audible Accordeon drain in place LLQ with purulent feculent material GENITOURINARY: Without palpable bladder distension. Flannery catheter in place with clear yellow urine MUSCULOSKELETAL: Extremities without clubbing, cyanosis, + 1 edema. No joint tenderness or effusion noted. No calf tenderness. No mottling or clubbing. NEUROLOGICAL: Awake and alert. Motor and sensory grossly within normal limits. Follows commands. Clear speech. Moves all extremities. PSYCHIATRIC: No obvious anxiety/depression. no apparent hallucinations or other psychotic thought process. 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 anaerobs cont zosyn dc fluconazole fu blood clx Rosalinda Hussein MD May 05, 2017 23:19
[2017-05-05] MEDS ORDERED: AMIODARONE INJ 450 MG in D5W (EXCEL BAG) INJ 241 ML IV SCH (23:30)
[2017-05-05] MEDS ORDERED: AMIODARONE 150 MG/D5W 97 ML BOLUS 10 MINUTES IV ONE ×2 (23:30)
[2017-05-06] VITALS (18 sets, daily range): BP systolic 103–126; BP diastolic 57–73; PULSE 30–76; RESP 7–17; TEMP 97.3–98.3; O2SAT 95–100
[2017-05-06 01:09] LABS: APTT (PATIENT) 56.9 SEC (24.3-30.1)
[2017-05-06] MEDS: PIPERACIL-TAZO 3.375 GM PREMIX 50 ML IV SCH ×4 (04:07→23:13)
[2017-05-06 04:32] LABS: AUTOMATED NEUTROPHIL # 15.5 TH/MM3 (1.8-7.7); BASOPHIL # 0.1 TH/MM3 (0-0.2); BASOPHIL % 0.7 % (0.0-2.0); EOSINOPHIL # 0.5 TH/MM3 (0-0.4); EOSINOPHIL % 2.5 % (0.0-4.0); HEMATOCRIT 30.1 % (35.0-46.0); HEMO FLAGS AUTO DIFF; LYMPH % 10.7 % (9.0-44.0); LYMPHOCYTE # 2.1 TH/MM3 (1.0-4.8); MEAN CELL VOLUME 82.9 FL (80.0-100.0); MEAN CORPUSCULAR HEMOGLOBIN 27.8 PG (27.0-34.0); MEAN CORPUSCULAR HGB CONC 33.5 % (32.0-36.0); MONO % 5.6 % (0.0-8.0); NEUT % 80.5 % (16.0-70.0); PLATELET COUNT 408 TH/MM3 (150-450); RED BLOOD COUNT 3.63 MIL/MM3 (4.00-5.30); RED CELL DISTRIBUTION WIDTH 16.6 % (11.6-17.2); WHITE BLOOD COUNT 19.3 TH/MM3 (4.0-11.0)
[2017-05-06 05:02] LABS: CORRECTED NUCLEATED RBC 1 /100 WBC (0-0); EOSINOPHILS 5 % (0-4); MYELOCYTES 2 % (0-0); NEUTROPHIL # MANUAL DIFF 14.5 TH/MM3 (1.8-7.7); POLYS (SEG NEUTROPHILS) 73 % (16-70); WBC DIFF SAMPLE 100
[2017-05-06 05:03] LABS: BICARBONATE 20.5 MEQ/L (21.0-32.0); CALCIUM-PROTEIN CORRECTED 8.5 MG/DL (8.5-10.1); MAGNESIUM 1.8 MG/DL (1.5-2.5); OVALOCYTES 1+ (NORMAL); PLATELET ESTIMATE SMEAR NORMAL (NORMAL); PLATELET MORPHOLOGY NORMAL (NORMAL); POTASSIUM 3.4 MEQ/L (3.5-5.1); SCAN/DIFF FINAL DIFF MANUAL; TOTAL BILIRUBIN ADULT 0.2 MG/DL (0.2-1.0)
[2017-05-06] MEDS: FAMOTIDINE 20 MG/2 ML VIAL IV PUSH SCH ×2 (05:51→17:21)
[2017-05-06] MEDS: oxyCODONE/ACETAMINOPHEN 5 MG/325 MG TAB PO PRN (06:39)
[2017-05-06] MEDS: INSULIN ASPART SUPPLEMENTAL SCALE SQ SCH ×4 (07:00→20:46)
--- NOTE | 2017-05-06 07:57 | PD.CARD.PN ---
Subjective Subjective Remarks NO COMPLAINTS OF CHEST PAIN OR SOB TELEMETRY SHOWS SINUS RHYTHM, BRADYCARDIA TROPONIN NEGATIVE FOR ACS X 1 Objective Medications Current Medications Medications (Trade) Dose Ordered Sig/Marsha Route Start Time Stop Time Status Last Admin (Asacol Hd Dr) 800 mg TID PO 04/25/17 18:00 05/05/17 17:25 (Timoptic 0.5% Opth Soln) 1 drop DAILY EACH EYE 04/26/17 09:00 05/05/17 08:46 (Isoptin Sr) 180 mg DAILY PO 04/26/17 09:00 Future Hold 05/02/17 09:07 (Pravachol) 20 mg DAILY PO 04/26/17 09:00 05/05/17 08:48 (NS Flush) 2 ml UNSCH PRN IV FLUSH 04/25/17 16:15 04/27/17 12:28 (NS Flush) 2 ml BID IV FLUSH 04/25/17 21:00 05/05/17 21:00 (Percocet 5-325 Mg) 1 tab Q4H PRN PO 04/25/17 16:15 05/04/17 08:44 (Percocet 5-325 Mg) 2 tab Q4H PRN PO 04/25/17 16:15 05/06/17 06:39 (Benadryl) 25 mg Q6H PRN PO 04/25/17 16:15 (Zofran Inj) 4 mg Q6H PRN IVP 04/25/17 16:15 05/02/17 06:22 (Ativan) 0.25 mg Q8H PRN PO 04/25/17 16:15 05/05/17 18:48 (Tums Chew) 500 mg Q4H PRN PO 04/27/17 19:45 (Duoneb Neb) 1 ampule Q4HR NEB PRN NEB 04/29/17 12:45 (D50w (Vial) Inj) 50 ml UNSCH PRN IV 05/02/17 23:00 (Glucagon Inj) 1 mg UNSCH PRN OTHER 05/02/17 23:00 (NovoLOG SUPPLEMENTAL SCALE) 1 ACHS SLIDING SCALE SQ 05/03/17 07:00 (Pepcid Inj) 20 mg Q12H IV PUSH 05/03/17 06:00 05/06/17 05:51 Dextrose/Sodium Chloride 1,000 ml @ 50 mls/hr Q20H IV 05/03/17 11:00 05/05/17 17:27 Piperacillin Sod/ Tazobactam Sod 50 ml @ 100 mls/hr Q6H IV 05/03/17 17:00 05/17/17 16:59 05/06/17 04:07 Potassium Chloride 100 ml @ 50 mls/hr Q2H PRN IV 05/03/17 19:30 Potassium Chloride 100 ml @ 50 mls/hr Q2H PRN IV 05/03/17 19:30 (K-Lyte Cl Eff) 50 meq UNSCH PRN PO 05/03/17 19:30 Potassium Chloride 100 ml @ 25 mls/hr UNSCH PRN IV 05/03/17 19:30 05/06/17 05:52 Potassium Chloride 100 ml @ 50 mls/hr Q2H PRN IV 05/03/17 19:30 Magnesium Sulfate 4 gm/Sodium Chloride 100 ml @ 50 mls/hr UNSCH PRN IV 05/03/17 19:30 (Mag-Ox) 800 mg UNSCH PRN PO 05/03/17 19:30 Magnesium Sulfate 2 gm/Sodium Chloride 100 ml @ 50 mls/hr UNSCH PRN IV 05/03/17 19:30 (K-Phos) 2,000 mg Q4H PRN PO 05/03/17 19:30 Sodium Phosphate 30 mmol/Sodium Chloride 250 ml @ 42 mls/hr UNSCH PRN IV 05/03/17 19:30 05/04/17 08:21 (K-Phos) 2,000 mg UNSCH PRN PO/TUBE 05/03/17 19:30 Potassium Phosphate 30 mmol/ Sodium Chloride 260 ml @ 42 mls/hr UNSCH PRN IV 05/03/17 19:30 (Coreg) 6.25 mg Q12H PO 05/05/17 09:00 05/05/17 20:56 Heparin Sodium/ Dextrose 250 ml @ 8.424 mls/ hr TITRATE PRN IV 05/05/17 17:00 05/05/17 20:28 Diltiazem HCl 125 mg/Sodium Chloride 125 ml @ 5 mls/hr TITRATE PRN IV 05/05/17 17:45 Amiodarone HCl 450 mg/Dextrose 250 ml @ 33.33 mls/ hr Q7H31M IV 05/05/17 23:30 05/05/17 23:30 Vital Signs / I&O Vital Signs Date Time Temp Pulse Resp B/P (MAP) Pulse Ox O2 Delivery O2 Flow Rate FiO2 05/06/17 07:25 95 Nasal Cannula 3.00 05/06/17 06:00 60 05/06/17 04:00 62 05/06/17 04:00 97.8 62 16 108/68 (81) 99 05/06/17 02:38 97 Nasal Cannula 3.00 05/06/17 02:00 76 05/06/17 00:00 97.7 65 12 103/57 (72) 98 05/06/17 00:00 74 05/05/17 23:38 71 104/65 05/05/17 23:30 78 110/62 05/05/17 23:00 71 05/05/17 23:00 72 05/05/17 22:05 12 05/05/17 22:00 75 05/05/17 20:00 98.7 82 14 113/62 (79) 96 05/05/17 20:00 72 05/05/17 19:00 97 Nasal Cannula 4.00 05/05/17 18:00 80 05/05/17 16:00 98.6 78 18 119/69 (86) 92 05/05/17 16:00 78 05/05/17 15:00 78 05/05/17 15:00 78 05/05/17 14:00 75 05/05/17 12:00 98.5 78 21 115/59 (77) 97 05/05/17 12:00 78 05/05/17 10:00 80 05/05/17 08:00 98.2 118 14 102/71 (81) 93 05/05/17 08:00 118 I/O 05/05/17 05/05/17 05/05/17 05/06/17 05/06/17 05/06/17 06:59 14:59 22:59 06:59 14:59 22:59 Intake Total 1337 ml 1855 ml 360 ml Output Total 450 ml 350 ml 445 ml Balance 887 ml 1505 ml -85 ml Intake Oral 480 ml 360 ml IV Total 1337 ml 1375 ml Output Urine Total 375 ml 325 ml 425 ml Drainage Total 75 ml 25 ml 20 ml # Bowel Movements 0 0 Physical Exam NAD FLAT JVD LUNGS CLEAR REGULAR RATE AND RHYTHM, 1-2/6 LLSB SYSTOLIC MURMUR ABD SOFT EXTR WITHOUT EDEMA Laboratory Laboratory Tests Test 05/05/17 11:08 05/05/17 18:25 05/06/17 00:39 05/06/17 04:11 White Blood Count 15.5 TH/MM3 16.3 TH/MM3 19.3 TH/MM3 Red Blood Count 3.72 MIL/MM3 4.11 MIL/MM3 3.63 MIL/MM3 Hemoglobin 10.2 GM/DL 11.2 GM/DL 10.1 GM/DL Hematocrit 31.6 % 34.2 % 30.1 % Mean Corpuscular Volume 85.0 FL 83.3 FL 82.9 FL Mean Corpuscular Hemoglobin 27.3 PG 27.3 PG 27.8 PG Mean Corpuscular Hemoglobin Concent 32.1 % 32.7 % 33.5 % Red Cell Distribution Width 16.6 % 16.3 % 16.6 % Platelet Count 489 TH/MM3 507 TH/MM3 408 TH/MM3 Mean Platelet Volume 7.3 FL 7.3 FL 7.3 FL Neutrophils (%) (Auto) 84.1 % 80.5 % Lymphocytes (%) (Auto) 8.0 % 10.7 % Monocytes (%) (Auto) 4.9 % 5.6 % Eosinophils (%) (Auto) 2.5 % 2.5 % Basophils (%) (Auto) 0.5 % 0.7 % Neutrophils # (Auto) 13.1 TH/MM3 15.5 TH/MM3 Lymphocytes # (Auto) 1.2 TH/MM3 2.1 TH/MM3 Monocytes # (Auto) 0.8 TH/MM3 1.1 TH/MM3 Eosinophils # (Auto) 0.4 TH/MM3 0.5 TH/MM3 Basophils # (Auto) 0.1 TH/MM3 0.1 TH/MM3 CBC Comment AUTO DIFF AUTO DIFF Differential Total Cells Counted 100 100 Neutrophils % (Manual) 74 % 73 % Band Neutrophils % 5 % Lymphocytes % 8 % 18 % Monocytes % 1 % 2 % Eosinophils % 4 % 5 % Neutrophils # (Manual) 13.5 TH/MM3 14.5 TH/MM3 Metamyelocytes 4 % Myelocytes 3 % 2 % Promyelocytes 1 % Differential Comment FINAL DIFF MANUAL FINAL DIFF MANUAL Platelet Estimate HIGH NORMAL Platelet Morphology Comment NORMAL NORMAL Ovalocytes 1+ 1+ Acanthocytes OCC Blood Urea Nitrogen 6 MG/DL 6 MG/DL Creatinine 0.38 MG/DL 0.33 MG/DL Random Glucose 90 MG/DL 104 MG/DL Total Protein 5.1 GM/DL 4.9 GM/DL Albumin 1.1 GM/DL 1.0 GM/DL Calcium Level 7.3 MG/DL 7.3 MG/DL Alkaline Phosphatase 106 U/L 114 U/L Aspartate Amino Transf (AST/SGOT) 28 U/L 34 U/L Alanine Aminotransferase (ALT/SGPT) 13 U/L 15 U/L Total Bilirubin 0.2 MG/DL 0.2 MG/DL Sodium Level 143 MEQ/L 142 MEQ/L Potassium Level 3.6 MEQ/L 3.4 MEQ/L Chloride Level 112 MEQ/L 111 MEQ/L Carbon Dioxide Level 20.6 MEQ/L 20.5 MEQ/L Anion Gap 10 MEQ/L 11 MEQ/L Estimat Glomerular Filtration Rate 164 ML/MIN 193 ML/MIN Protein Corrected Calcium 8.4 MG/DL 8.5 MG/DL Magnesium Level 1.8 MG/DL 1.8 MG/DL Troponin I LESS THAN 0.02 NG/ML Prothrombin Time 11.9 SEC Prothromb Time International Ratio 1.1 RATIO Activated Partial Thromboplast Time 34.1 SEC 56.9 SEC Nucleated Red Blood Cells 1 /100 WBC Assessment and Plan Assessment and Plan POST-OP PAROXYSMAL ATRIAL FIBRILLATION. REMAINS IN SINUS RHYTHM NEGATIVE TROPONIN FOR ACS HTN CONTROLLED BRADYCARDIA, ASYMPTOMATIC S/P HYSTERECTOMY, COLON RESECTION PLAN: OK TO DC IV AMIODARONE AMIODARONE 200 MG PO BID ON IV HEPARIN HOLD COREG FOR NOW KEEP K+ > 4.5 AND Mg >2.0 Discussed Condition With DAUGHTER Jorge Turcios MD May 06, 2017 07:57
[2017-05-06] MEDS: SODIUM CHLORIDE 0.9% FLUSH 10 ML FLUSH IV FLUSH SCH ×2 (08:20→21:00)
[2017-05-06] MEDS: CARVEDILOL 6.25 MG TAB PO SCH ×2 (08:21→20:46)
[2017-05-06] MEDS: MESALAMINE HD 800 MG DELAYED RELEASE TAB PO SCH ×3 (08:34→17:22)
[2017-05-06] MEDS: AMIODARONE 200 MG TAB PO SCH ×2 (08:34→20:46)
[2017-05-06] MEDS: PRAVASTATIN SOD 20 MG TAB PO SCH (08:34)
[2017-05-06] MEDS: TIMOLOL MALEATE 0.5% OPHT SOLN 5 ML BTL EACH EYE SCH (08:34)
[2017-05-06] MEDS: POTASSIUM CHLOR 20 MEQ PREMIX 100 ML IV PRN (08:35)
--- NOTE | 2017-05-06 11:52 | EKG ---
Date Performed: 05/05/2017 Time Performed: 08:38:56 PTAGE: 76 years EKG: Atrial fibrillation with rapid ventricular response Poor R wave progression - probable norm al variant Anterolateral T wave changes are nonspecific Generalized low QRS voltages, new since prior tracing Abnormal ECG PREVIOUS TRACING : 05/01/2017 14.19 DOCTOR: Kenneth Burt Interpretating Date/Time 05/06/2017 11:50:27
[2017-05-06] MEDS: DEXT 5%-NACL 0.9% 1000 ML INJ 1,000 ML IV SCH (11:54)
[2017-05-06 11:56] LABS: APTT (PATIENT) 61.6 SEC (24.3-30.1)
--- NOTE | 2017-05-06 13:02 | HHI.CCPN ---
Subjective Remarks/Hospital Course 05/02: 76 years old female who was admitted under Dr. José service for hysterectomy due to Uterine malignancy involving multiple peritoneal surfaces and mesentery including large positive of invasive disease in the sigmoid colon mesentery. S/P Exploratory laparotomy, total abdominal hysterectomy, bilateral salpingo-oophorectomy, extensive lysis of adhesions, omentectomy, open sigmoid resection with primary anastomosis and open appendectomy. 05/02 she was doing fairly well, passing flatus, no BM, however her abdomen was mildly distended, KUB documented large abdominal air and CT showed air and fluid collection in pelvis. Dr. Sims and Dr. Morris planned for IR drainage. 05/03: Resting in bed comfortably. Feculent material being drained from percutaneous drain is by interventional radiology on 05/02. Denies any shortness of breath. She did receive 3 L crystalloid boluses overnight. Awaiting reexploration for perforated viscus. Antibiotics being managed by ID. 05/04: clinically improving, WBC count is trending down was 16.[address] 14[address]. [address] Morris recommending continued conservative management at this time. Patient c/o abdominal pain with exam. L accordion drain 125 ml output in 24 hours 05/05: Patient is a stat she is feeling slightly better pain improving. No labs today. Patient is tachycardic with atrial fibrillation and RVR. Review of her history indicates cardiac dysrhythmia and supra ventricular tachycardia in the past. At home takes carvedilol and verapamil. Not on chronic anticoagulation. Start Cardizem for rate control, increase Coreg to twice a day dosing, consider anticoagulation if persistent. patient requests cardiology consult with Dr. Turcios 05/06: Clinically appears to be improving, abdominal pain improved. But WBC count continues to increase yesterday 16.3 today 19.3. Will check CT abd pelvis STAT to evaluate drainage/rule out worsening of intra-abdominal abscess. Discussed with Dr. Hussein. Also left message with Dr. Poon (He in surgery) Objective Vital Signs Date Time Temp Pulse Resp B/P (MAP) Pulse Ox O2 Delivery O2 Flow Rate FiO2 05/06/17 10:00 58 05/06/17 08:00 98.2 7 103/69 (80) 99 05/06/17 07:25 Nasal Cannula 3.00 05/03/17 07:00 21 Intake and Output 05/06/17 05/06/17 05/06/17 07:59 15:59 23:59 Intake Total 375 ml Output Total 445 ml Balance -70 ml Result Diagram: 05/06/1741005/06/17410 Objective Remarks GENERAL: Well-nourished, well-developed patient. No distress SKIN: Warm and dry. HEAD: Normocephalic. EYES: No scleral icterus. No injection or drainage. NECK: Supple, trachea midline. No JVD or lymphadenopathy. CARDIOVASCULAR: Atrial fibrillation with RVR without murmurs, gallops, or rubs. RESPIRATORY: Breath sounds equal bilaterally. No accessory muscle use. GASTROINTESTINAL: Abdomen soft, tender to palpation, awilda over incision site- lower wound infection. Percutaneous accordion drain noted with 45 ml output in 24 hrs, feculent material MUSCULOSKELETAL: No cyanosis, or edema. BACK: Nontender without obvious deformity. NEURO EXAM: Awake alert oriented 3, grossly nonfocal. A/P Assessment and Plan Anastomotic leak with peritonitis - Status post drain placement by IR, now with decreasing drainage, but white count increasing. Concerning for worsening abscess - Check CT of the abdomen and pelvis stat - Discussed with Shannon Ocampo, she will discuss with Dr. Morris. - Continue Zosyn and Diflucan was Dcd 05/05. Infectious disease Dr. Hussein- I have discussed case with her - E Coli, Strep, Haemophilus parainfluenza in abscess culture 05/02. GNR in blood 05/03/17 Uterine malignancy - S/P Exploratory laparotomy, total abdominal hysterectomy, bilateral salpingo- oophorectomy, extensive lysis of adhesions, omentectomy, open sigmoid resection with primary anastomosis and open appendectomy. - Followed up by hematology oncology , [employer]ice-onc and general surgery Atrial fibrillation with rapid ventricular response - Patient's history indicates paroxysmal atrial fibrillation was not on anticoagulation - Appreciate consult from it help desk technician Dr. Turcios. Transition amiodarone IV to PO 200 mg BID - [id number] score 4, high risk- Continue IV Heparin Hypertension - Hypotension has resolved. Carvedilol and verapamil resumed - IV fluid resuscitation Hyperlipidemia - Atorvastatin Anxiety - Lorazepam when necessary Ulcerative colitis - On mesalamine at home DVT GI prophylaxis - Teds SCDs - Subcutaneous heparin and Pepcid. Recommended therapeutic anticoagulation, patient wants to wait for cardiology input Level 3 Continue ICU care due to ongoing sepsis, with worsening white count. Follow-up on CT abdomen pelvis today Jos Gonzalez MD May 06, 2017 13:02
--- NOTE | 2017-05-06 13:52 | RADRPT ---
EXAM DATE/TIME: 05/06/2017 13:06 [facility] COMPARISON: CT ABDOMEN & PELVIS W CONTRAST, May 02, 2017, 16:53. INDICATIONS : Abdominal abscess. ORAL CONTRAST: No oral contrast ingested. RADIATION DOSE: 13.07 CTDIvol (mGy) MEDICAL HISTORY : Cardiovascular disease. Hypertension. Colitis SURGICAL HISTORY : Tubal ligation. ENCOUNTER: Subsequent ACUITY: 3 days PAIN SCALE: 3/10 LOCATION: abdomen. TECHNIQUE: Volumetric scanning of the abdomen and pelvis was performed. Using automated exposure control and ad justment of the mA and/or kV according to patient size, radiation dose was kept as low as reasonably achievable to obtain optimal diagnostic quality images. DICOM format image data is available electro [facility] clinically for review and comparison. FINDINGS: Since the previous examination there has been interval placement of a drainage catheter involving the intraperitoneal aspect of the left lower quadrant with decompression of the air and fluid within the peritoneal space. A small amount of pneumoperitoneum remains. There is a tract that leads to the ant erior abdominal wall wound is filled with some debris. No remaining fluid or abscess observed. Oral c ontrast is seen throughout the colon but I see no extravasation of the contrast a suture line is seen at the sigmoid level. I see no leakage of contrast from that suture line. A small amount of ascitic fluid is seen adjacent to the right lobe of the liver. Moderate-sized bilateral pleural effusions wit h associated atelectasis. The gallbladder is well distended. CONCLUSION: 1. Interval intraperitoneal drainage catheter placement with decompression of the fluid. Small volume pneumoperitoneum remains. 2. No extravasation of the oral contrast to clearly identify perforation of a hollow viscus. 3. Fistula to the anterior abdominal wall wound from the previous collection that was drained. 4. Bilateral pleural effusions with atelectasis. Conrad Raines Jr., MD on May 06, 2017 at 13:45 Board Certified Radiologist. This report was verified electronically.
--- NOTE | 2017-05-06 15:32 | PD.ONC.PN ---
Subjective Subjective Remarks POD # 11 pt is resting in bed with daughter and granddaughter at bedside states she is having less pain but in concerned that with increase in WBC today that drain is not working... small amount of brown fluid noted to drain RN have been repacking and dressing changes to midline abscess she had been OOB to chair. Objective Data Date Time Temp Pulse Resp B/P (MAP) Pulse Ox O2 Delivery O2 Flow Rate FiO2 05/06/17 14:00 65 05/06/17 12:00 98.3 30 11 115/73 (87) 98 05/06/17 12:00 62 05/06/17 10:00 58 05/06/17 08:00 60 05/06/17 08:00 98.2 60 7 103/69 (80) 99 05/06/17 07:25 95 Nasal Cannula 3.00 05/06/17 07:00 61 05/06/17 07:00 99 Nasal Cannula 4.00 05/06/17 07:00 61 05/06/17 06:00 60 05/06/17 04:00 62 05/06/17 04:00 97.8 62 16 108/68 (81) 99 05/06/17 02:38 97 Nasal Cannula 3.00 05/06/17 02:00 76 05/06/17 00:00 97.7 65 12 103/57 (72) 98 05/06/17 00:00 74 05/05/17 23:38 71 104/65 05/05/17 23:30 78 110/62 05/05/17 23:00 71 05/05/17 23:00 72 05/05/17 22:05 12 05/05/17 22:00 75 05/05/17 20:00 98.7 82 14 113/62 (79) 96 05/05/17 20:00 72 05/05/17 19:00 97 Nasal Cannula 4.00 05/05/17 18:00 80 05/05/17 16:00 98.6 78 18 119/69 (86) 92 05/05/17 16:00 78 05/06/17 05/06/17 05/06/17 07:00 15:00 23:00 Intake Total 375 ml Output Total 445 ml Balance -70 ml Result Diagram: 05/06/17 04105/06/17 041 Laboratory Results Laboratory Tests Test 05/05/17 18:25 05/06/17 00:39 05/06/17 04:11 05/06/17 11:10 White Blood Count 16.3 TH/MM3 19.3 TH/MM3 Red Blood Count 4.11 MIL/MM3 3.63 MIL/MM3 Hemoglobin 11.2 GM/DL 10.1 GM/DL Hematocrit 34.2 % 30.1 % Mean Corpuscular Volume 83.3 FL 82.9 FL Mean Corpuscular Hemoglobin 27.3 PG 27.8 PG Mean Corpuscular Hemoglobin Concent 32.7 % 33.5 % Red Cell Distribution Width 16.3 % 16.6 % Platelet Count 507 TH/MM3 408 TH/MM3 Mean Platelet Volume 7.3 FL 7.3 FL Prothrombin Time 11.9 SEC Prothromb Time International Ratio 1.1 RATIO Activated Partial Thromboplast Time 34.1 SEC 56.9 SEC 61.6 SEC Neutrophils (%) (Auto) 80.5 % Lymphocytes (%) (Auto) 10.7 % Monocytes (%) (Auto) 5.6 % Eosinophils (%) (Auto) 2.5 % Basophils (%) (Auto) 0.7 % Neutrophils # (Auto) 15.5 TH/MM3 Lymphocytes # (Auto) 2.1 TH/MM3 Monocytes # (Auto) 1.1 TH/MM3 Eosinophils # (Auto) 0.5 TH/MM3 Basophils # (Auto) 0.1 TH/MM3 CBC Comment AUTO DIFF Differential Total Cells Counted 100 Neutrophils % (Manual) 73 % Lymphocytes % 18 % Monocytes % 2 % Eosinophils % 5 % Neutrophils # (Manual) 14.5 TH/MM3 Myelocytes 2 % Nucleated Red Blood Cells 1 /100 WBC Differential Comment FINAL DIFF MANUAL Platelet Estimate NORMAL Platelet Morphology Comment NORMAL Ovalocytes 1+ Blood Urea Nitrogen 6 MG/DL Creatinine 0.33 MG/DL Random Glucose 104 MG/DL Total Protein 4.9 GM/DL Albumin 1.0 GM/DL Calcium Level 7.3 MG/DL Magnesium Level 1.8 MG/DL Alkaline Phosphatase 114 U/L Aspartate Amino Transf (AST/SGOT) 34 U/L Alanine Aminotransferase (ALT/SGPT) 15 U/L Total Bilirubin 0.2 MG/DL Sodium Level 142 MEQ/L Potassium Level 3.4 MEQ/L Chloride Level 111 MEQ/L Carbon Dioxide Level 20.5 MEQ/L Anion Gap 11 MEQ/L Estimat Glomerular Filtration Rate 193 ML/MIN Protein Corrected Calcium 8.5 MG/DL Culture Results Microbiology Date/Time Source Procedure Growth Status 05/03/17 16:35 Blood Peripheral Aerobic Blood Culture - Preliminary NO GROWTH IN 3 DAYS Resulted 05/03/17 16:35 Anaerobic Blood Culture - Preliminary Gram Negative Flako Resulted 05/03/17 16:30 Blood Peripheral Aerobic Blood Culture - Preliminary NO GROWTH IN 3 DAYS Resulted 05/03/17 16:30 Anaerobic Blood Culture - Preliminary Gram Negative Flako Resulted Imaging Studies Last 24 hours Impressions Abdomen/Pelvis CT 05/06/17 1229 Signed Impressions: Service Date/Time: Saturday, May 06, 2017 13:06 - CONCLUSION: 1. Interval intraperitoneal drainage catheter placement with decompression of the fluid. Small volume pneumoperitoneum remains. 2. No extravasation of the oral contrast to clearly identify perforation of a hollow viscus. 3. Fistula to the anterior abdominal wall wound from the previous collection that was drained. 4. Bilateral pleural effusions with atelectasis. Conrad Raines Jr., MD Administered Medications Medications (Trade) Dose Ordered Sig/Marsha Route PRN Reason Start Time Stop Time Status Last Admin Dose Admin Mesalamine (Asacol Hd Dr) 800 mg TID PO 04/25/17 18:00 05/06/17 11:54 Timolol Maleate (Timoptic 0.5% Opt Sol) 1 drop DAILY EACH EYE 04/26/17 09:00 05/06/17 08:34 Verapamil HCl (Isoptin Sr) 180 mg DAILY PO 04/26/17 09:00 Future Hold 05/02/17 09:07 Pravastatin Sodium (Pravachol) 20 mg DAILY PO 04/26/17 09:00 05/06/17 08:34 Sodium Chloride (NS Flush) 2 ml UNSCH PRN IV FLUSH FLUSH AFTER USING IV ACCESS 04/25/17 16:15 04/27/17 12:28 Sodium Chloride (NS Flush) 2 ml BID IV FLUSH 04/25/17 21:00 05/06/17 08:20 Oxycodone/ Acetaminophen (Percocet 5-325 Mg) 1 tab Q4H PRN PO PAIN SCALE 1 TO 5 04/25/17 16:15 05/04/17 08:44 Oxycodone/ Acetaminophen (Percocet 5-325 Mg) 2 tab Q4H PRN PO PAIN SCALE 6 TO 10 04/25/17 16:15 05/06/17 06:39 Ondansetron HCl (Zofran Inj) 4 mg Q6H PRN IVP NAUSEA OR VOMITING 04/25/17 16:15 05/02/17 06:22 Lorazepam (Ativan) 0.25 mg Q8H PRN PO ANXIETY 04/25/17 16:15 05/05/17 18:48 Famotidine (Pepcid Inj) 20 mg Q12H IV PUSH 05/03/17 06:00 05/06/17 05:51 Dextrose/Sodium Chloride 1,000 ml @ 50 mls/hr Q20H IV 05/03/17 11:00 05/06/17 11:54 Piperacillin Sod/ Tazobactam Sod 50 ml @ 100 mls/hr Q6H IV 05/03/17 17:00 05/17/17 16:59 05/06/17 11:54 Potassium Chloride 100 ml @ 25 mls/hr UNSCH PRN IV For Potassium 3.3 - 3.5 mEq/L 05/03/17 19:30 05/06/17 05:52 Potassium Chloride 100 ml @ 50 mls/hr Q2H PRN IV For Potassium 3.3 - 3.5 mEq/L 05/03/17 19:30 05/06/17 08:35 Sodium Phosphate 30 mmol/Sodium Chloride 250 ml @ 42 mls/hr UNSCH PRN IV For Phosphorus < 2.5 mg/dL 05/03/17 19:30 05/04/17 08:21 Carvedilol (Coreg) 6.25 mg Q12H PO 05/05/17 09:00 05/05/17 20:56 Heparin Sodium/ Dextrose 250 ml @ 8.424 mls/ hr TITRATE PRN IV Coagulation management 05/05/17 17:00 05/05/17 20:28 Amiodarone HCl (Cordarone) 200 mg Q12HR PO 05/06/17 09:00 05/06/17 08:34 Objective Remarks GENERAL: Well-nourished, well-developed patient. SKIN: Warm and dry. HEAD: Normocephalic. EYES: No scleral icterus. No injection or drainage. CARDIOVASCULAR: Regular rate and rhythm RESPIRATORY: Breath sounds equal bilaterally. No accessory muscle use. GASTROINTESTINAL: Abdomen soft, dressing is c/d, drain noted to left abd EXTREMITIES: bilat LE with +1-2 pitting edema MUSCULOSKELETAL: Adequate muscle tone. NEUROLOGICAL: No obvious focal deficit. Awake, alert, and oriented x3.,sleepy PSYCHIATRIC: Appropriate mood and affect; insight and judgment normal. Assessment/Plan Problem List: (1) Postoperative state ICD Codes: Z98.890 - Other specified postprocedural states Plan: POD #11 s/p XLap hyst with BSO, omentectomy with sigmoid resection and reanastomosis anastomotic leak pt OOB to chair and PT overall improvement from surgery standpoint afib overnight changing to oral amiodarone, pt on heparin gtt cardiology following increased WBC with + blood cultures ABX per ID clear liquid diet per general surgery Plan 1. The patient and her daughter are apprehensive about being discharged today. 2. She reported some bleeding, therefore we will keep her 1 more day and check a CBC in a.m. 3. Will discuss with physical therapy to come see the patient today. 4. Dr. Platt has discussed with Dr. Sims and he is agrees. The exam, history, and the medical decision-making described in the above note were completed with the assistance of the mid-level provider. I reviewed and agree with the findings presented. I attest that I had a [id number] encounter with the patient on the same day, and personally performed and documented my assessment and findings in the medical record. she is frail, on oxygen and not ambulatory. will hold on discharge, proceed with physical therapy , check cbc plat in am and reevaluate in AM. Jalil Olivo May 06, 2017 15:32
--- NOTE | 2017-05-06 17:23 | HHI.PR ---
Subjective Subjective Notes Resting in bed ERICH Cruz at bedside Daughter at bedside Objective Vitals/I&O Vital Signs Date Time Temp Pulse Resp B/P (MAP) Pulse Ox O2 Delivery O2 Flow Rate FiO2 05/06/17 14:00 65 05/06/17 12:00 98.3 11 115/73 (87) 98 05/06/17 07:25 Nasal Cannula 3.00 05/03/17 07:00 21 Labs Laboratory Tests Test 05/05/17 18:25 05/06/17 00:39 05/06/17 04:11 05/06/17 11:10 White Blood Count 16.3 19.3 Red Blood Count 4.11 3.63 Hemoglobin 11.2 10.1 Hematocrit 34.2 30.1 Mean Corpuscular Volume 83.3 82.9 Mean Corpuscular Hemoglobin 27.3 27.8 Mean Corpuscular Hemoglobin Concent 32.7 33.5 Red Cell Distribution Width 16.3 16.6 Platelet Count 507 408 Mean Platelet Volume 7.3 7.3 Prothrombin Time 11.9 Prothromb Time International Ratio 1.1 Activated Partial Thromboplast Time 34.1 56.9 61.6 Neutrophils (%) (Auto) 80.5 Lymphocytes (%) (Auto) 10.7 Monocytes (%) (Auto) 5.6 Eosinophils (%) (Auto) 2.5 Basophils (%) (Auto) 0.7 Neutrophils # (Auto) 15.5 Lymphocytes # (Auto) 2.1 Monocytes # (Auto) 1.1 Eosinophils # (Auto) 0.5 Basophils # (Auto) 0.1 CBC Comment AUTO DIFF Differential Total Cells Counted 100 Neutrophils % (Manual) 73 Lymphocytes % 18 Monocytes % 2 Eosinophils % 5 Neutrophils # (Manual) 14.5 Myelocytes 2 Nucleated Red Blood Cells 1 Differential Comment FINAL DIFF MANUAL Platelet Estimate NORMAL Platelet Morphology Comment NORMAL Ovalocytes 1+ Blood Urea Nitrogen 6 Creatinine 0.33 Random Glucose 104 Total Protein 4.9 Albumin 1.0 Calcium Level 7.3 Magnesium Level 1.8 Alkaline Phosphatase 114 Aspartate Amino Transf (AST/SGOT) 34 Alanine Aminotransferase (ALT/SGPT) 15 Total Bilirubin 0.2 Sodium Level 142 Potassium Level 3.4 Chloride Level 111 Carbon Dioxide Level 20.5 Anion Gap 11 Estimat Glomerular Filtration Rate 193 Protein Corrected Calcium 8.5 Date/Time Source Procedure Growth Status 05/03/17 16:35 Blood Peripheral Aerobic Blood Culture - Preliminary NO GROWTH IN 3 DAYS Resulted 05/03/17 16:35 Anaerobic Blood Culture - Preliminary Gram Negative Flako Resulted 05/02/17 17:50 Abscess Abdomen Gram Stain - Final Resulted 05/02/17 17:50 Wound Culture - Preliminary Escherichia Coli Strep Not A,B D Resulted Cardiovascular: Regular Lungs: Clear Abdomen: Other (midline incision with open area----packing removed and replaced ; IR drain with brown drainage ) Extremities: Other (mild BLE edema ) A/P Assessment and Plan 76 year old female s/p Exploratory laparotomy, total abdominal hysterectomy, bilateral salpingo-oophorectomy, extensive lysis of adhesions, omentectomy, open sigmoid resection with primary anastomosis and open appendectomy. -Advance soft diet but avoid seeds, nuts, raw vegetables -OOB and tolerated--with assistance -Cardiology following -Continue wound care -PT consult 7 days a week Attending Statement The exam, history, and the medical decision-making described in the above note were completed with the assistance of the mid-level provider. I reviewed and agree with the findings presented. I attest that I had a [id number] encounter with the patient on the same day, and personally performed and documented my assessment and findings in the medical record. Abdominal exam: stable, no peritonitis, incision clean, dry, intact Shannon Ocampo May 06, 2017 17:23 Blayne Morris MD Jun 07, 2017 22:58
[2017-05-06 22:45] LABS: APTT (PATIENT) 44.1 SEC (24.3-30.1)
--- NOTE | 2017-05-06 22:56 | HHI.IDPN ---
Subjective Subjective Remarks richi Oleary pt was seen earlier today around 1900 afebrile WBC cont to rise now @ 19 K think she feels better co bloating, gas no diarrhea CT showed Interval intraperitoneal drainage catheter placement with decompression of the fluid. Small volume pneumoperitoneum remains. 2. No extravasation of the oral contrast to clearly identify perforation of a hollow viscus. 3. Fistula to the anterior abdominal wall wound from the previous collection that was drained. 4. Bilateral pleural effusions with atelectasis. Not much drainage Antibiotics zosyn Allergies: Coded Allergies: ciprofloxacin (Verified Allergy, Unknown, 05/06/17) doxycycline (Verified Allergy, Unknown, 05/06/17) Objective . Vital Signs Date Time Temp Pulse Resp B/P (MAP) Pulse Ox O2 Delivery O2 Flow Rate FiO2 05/06/17 22:00 76 05/06/17 20:00 70 05/06/17 20:00 97.7 70 17 126/66 (86) 100 05/06/17 19:00 99 Nasal Cannula 4.00 05/06/17 18:00 72 05/06/17 16:00 97.3 71 12 126/66 (86) 99 05/06/17 16:00 71 05/06/17 16:00 71 05/06/17 15:00 70 05/06/17 14:00 65 05/06/17 12:00 98.3 30 11 115/73 (87) 98 05/06/17 12:00 62 05/06/17 10:00 58 05/06/17 08:00 60 05/06/17 08:00 98.2 60 7 103/69 (80) 99 05/06/17 07:25 95 Nasal Cannula 3.00 05/06/17 07:00 61 05/06/17 07:00 99 Nasal Cannula 4.00 05/06/17 07:00 61 05/06/17 06:00 60 05/06/17 04:00 62 05/06/17 04:00 97.8 62 16 108/68 (81) 99 05/06/17 02:38 97 Nasal Cannula 3.00 05/06/17 02:00 76 05/06/17 00:00 97.7 65 12 103/57 (72) 98 05/06/17 00:00 74 05/05/17 23:38 71 104/65 05/05/17 23:30 78 110/62 05/05/17 23:00 71 05/05/17 23:00 72 05/06/17 05/06/17 05/07/17 14:59 22:59 06:59 Intake Total 15 ml 525 ml Output Total 610 ml Balance 15 ml -85 ml Intake Oral 480 ml IV Total 15 ml 45 ml Output Urine Total 600 ml Drainage Total 10 ml # Bowel Movements 0 . Laboratory Tests Test 05/05/17 11:08 05/05/17 18:25 05/06/17 04:11 White Blood Count 15.5 TH/MM3 16.3 TH/MM3 19.3 TH/MM3 Red Blood Count 3.72 MIL/MM3 4.11 MIL/MM3 3.63 MIL/MM3 Hemoglobin 10.2 GM/DL 11.2 GM/DL 10.1 GM/DL Hematocrit 31.6 % 34.2 % 30.1 % Mean Corpuscular Volume 85.0 FL 83.3 FL 82.9 FL Mean Corpuscular Hemoglobin 27.3 PG 27.3 PG 27.8 PG Mean Corpuscular Hemoglobin Concent 32.1 % 32.7 % 33.5 % Red Cell Distribution Width 16.6 % 16.3 % 16.6 % Platelet Count 489 TH/MM3 507 TH/MM3 408 TH/MM3 Mean Platelet Volume 7.3 FL 7.3 FL 7.3 FL Neutrophils (%) (Auto) 84.1 % 80.5 % Lymphocytes (%) (Auto) 8.0 % 10.7 % Monocytes (%) (Auto) 4.9 % 5.6 % Eosinophils (%) (Auto) 2.5 % 2.5 % Basophils (%) (Auto) 0.5 % 0.7 % Neutrophils # (Auto) 13.1 TH/MM3 15.5 TH/MM3 Lymphocytes # (Auto) 1.2 TH/MM3 2.1 TH/MM3 Monocytes # (Auto) 0.8 TH/MM3 1.1 TH/MM3 Eosinophils # (Auto) 0.4 TH/MM3 0.5 TH/MM3 Basophils # (Auto) 0.1 TH/MM3 0.1 TH/MM3 CBC Comment AUTO DIFF AUTO DIFF Differential Total Cells Counted 100 100 Neutrophils % (Manual) 74 % 73 % Band Neutrophils % 5 % Lymphocytes % 8 % 18 % Monocytes % 1 % 2 % Eosinophils % 4 % 5 % Neutrophils # (Manual) 13.5 TH/MM3 14.5 TH/MM3 Metamyelocytes 4 % Myelocytes 3 % 2 % Promyelocytes 1 % Differential Comment FINAL DIFF MANUAL FINAL DIFF MANUAL Platelet Estimate HIGH NORMAL Platelet Morphology Comment NORMAL NORMAL Ovalocytes 1+ 1+ Acanthocytes OCC Nucleated Red Blood Cells 1 /100 WBC Laboratory Tests Test 05/05/17 11:08 05/06/17 04:11 05/06/17 17:25 Blood Urea Nitrogen 6 MG/DL 6 MG/DL Creatinine 0.38 MG/DL 0.33 MG/DL Random Glucose 90 MG/DL 104 MG/DL Total Protein 5.1 GM/DL 4.9 GM/DL Albumin 1.1 GM/DL 1.0 GM/DL Calcium Level 7.3 MG/DL 7.3 MG/DL Alkaline Phosphatase 106 U/L 114 U/L Aspartate Amino Transf (AST/SGOT) 28 U/L 34 U/L Alanine Aminotransferase (ALT/SGPT) 13 U/L 15 U/L Total Bilirubin 0.2 MG/DL 0.2 MG/DL Sodium Level 143 MEQ/L 142 MEQ/L Potassium Level 3.6 MEQ/L 3.4 MEQ/L 3.9 MEQ/L Chloride Level 112 MEQ/L 111 MEQ/L Carbon Dioxide Level 20.6 MEQ/L 20.5 MEQ/L Anion Gap 10 MEQ/L 11 MEQ/L Estimat Glomerular Filtration Rate 164 ML/MIN 193 ML/MIN Protein Corrected Calcium 8.4 MG/DL 8.5 MG/DL Magnesium Level 1.8 MG/DL 1.8 MG/DL Troponin I LESS THAN 0.02 NG/ML Imaging Last Impressions Abdomen/Pelvis CT 05/06/17 1229 Signed Impressions: Service Date/Time: Saturday, May 06, 2017 13:06 - CONCLUSION: 1. Interval intraperitoneal drainage catheter placement with decompression of the fluid. Small volume pneumoperitoneum remains. 2. No extravasation of the oral contrast to clearly identify perforation of a hollow viscus. 3. Fistula to the anterior abdominal wall wound from the previous collection that was drained. 4. Bilateral pleural effusions with atelectasis. Conrad Raines Jr., MD Abscess Drainage CT 05/02/17 0000 Signed Impressions: Service Date/Time: Tuesday, May 02, 2017 17:42 - CONCLUSION: Uncomplicated CT guided drainage. Hipolito Talbot MD Chest X-Ray 05/01/17 0600 Signed Impressions: Service Date/Time: Monday, May 01, 2017 09:44 - CONCLUSION: Persistent large amount of free air identified within the abdomen. Pleural effusions which are slightly decreased in size as compared to the prior exam. Rebekah Quick MD Physical Exam CONSTITUTIONAL/GENERAL: This is an adequately nourished patient, in no apparent distress. Ill appearing but non toxic TUBES/LINES/DRAINS: SKIN: No jaundice, rashes, or lesions. Ecchymoses on upper extremities. No wounds seen anteriorly. Skin temperature appropriate. Not diaphoretic. EYES: Pupils equal and round and reactive. Extraocular motions intact. No scleral icterus. No injection or drainage. Fundi not examined. ENT: Hearing grossly normal. Nose without bleeding or purulent drainage. Oral mucosae druyish CARDIOVASCULAR: Regular rate and rhythm without murmurs, gallops, or rubs. No JVD. Peripheral pulses symmetric. RESPIRATORY/CHEST: Symmetric, unlabored respirations. Clear to auscultation. Breath sounds equal bilaterally. No wheezes, rales, or rhonchi. GASTROINTESTINAL: Abdomen fairly soft, quit -tender, markedly distended. No hepato-splenomegaly, or palpable masses. No guarding. Bowel sounds not audible Accordeon drain in place LLQ with small amount of purulent drainage GENITOURINARY: Without palpable bladder distension. Flannery catheter in place with clear yellow urine MUSCULOSKELETAL: Extremities without clubbing, cyanosis, + 3 worsening edema. No joint tenderness or effusion noted. No calf tenderness. No mottling or clubbing. NEUROLOGICAL: Awake and alert. Motor and sensory grossly within normal limits. Follows commands. Clear speech. Moves all extremities. PSYCHIATRIC: No obvious anxiety/depression. no apparent hallucinations or other psychotic thought process. 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 anaerobs cont zosyn monitor WBC fu blood clx if develops diarrhea will chk stool for C.diff dw Dr Carlos barker pt Rosalinda Hussein MD May 06, 2017 22:56
[2017-05-06] MEDS: HEPARIN-D5W 25,000 U/250 ML 250 ML IV PRN (23:17)
[2017-05-07] VITALS (17 sets, daily range): BP systolic 109–136; BP diastolic 60–80; PULSE 70–88; RESP 10–27; TEMP 97.8–98.4; O2SAT 98–100
[2017-05-07] MEDS: FAMOTIDINE 20 MG/2 ML VIAL IV PUSH SCH ×2 (04:54→17:59)
[2017-05-07] MEDS: PIPERACIL-TAZO 3.375 GM PREMIX 50 ML IV SCH ×4 (04:54→23:29)
[2017-05-07 05:23] LABS: APTT (PATIENT) 61.2 SEC (24.3-30.1)
[2017-05-07] MEDS: INSULIN ASPART SUPPLEMENTAL SCALE SQ SCH ×4 (06:31→20:52)
--- NOTE | 2017-05-07 07:47 | HHI.CCPN ---
Subjective Remarks/Hospital Course 05/02: 76 years old female who was admitted under Dr. José service for hysterectomy due to Uterine malignancy involving multiple peritoneal surfaces and mesentery including large positive of invasive disease in the sigmoid colon mesentery. S/P Exploratory laparotomy, total abdominal hysterectomy, bilateral salpingo-oophorectomy, extensive lysis of adhesions, omentectomy, open sigmoid resection with primary anastomosis and open appendectomy. 05/02 she was doing fairly well, passing flatus, no BM, however her abdomen was mildly distended, KUB documented large abdominal air and CT showed air and fluid collection in pelvis. Dr. Sims and Dr. Morris planned for IR drainage. 05/03: Resting in bed comfortably. Feculent material being drained from percutaneous drain is by interventional radiology on 05/02. Denies any shortness of breath. She did receive 3 L crystalloid boluses overnight. Awaiting reexploration for perforated viscus. Antibiotics being managed by ID. 05/04: clinically improving, WBC count is trending down was 16.[address] 14[address]. [address] Morris recommending continued conservative management at this time. Patient c/o abdominal pain with exam. L accordion drain 125 ml output in 24 hours 05/05: Patient is a stat she is feeling slightly better pain improving. No labs today. Patient is tachycardic with atrial fibrillation and RVR. Review of her history indicates cardiac dysrhythmia and supra ventricular tachycardia in the past. At home takes carvedilol and verapamil. Not on chronic anticoagulation. Start Cardizem for rate control, increase Coreg to twice a day dosing, consider anticoagulation if persistent. patient requests cardiology consult with Dr. Turcios 05/06: Clinically appears to be improving, abdominal pain improved. But WBC count continues to increase yesterday 16.3 today 19.3. Will check CT abd pelvis STAT to evaluate drainage/rule out worsening of intra-abdominal abscess. Discussed with Dr. Hussein. 05/07: Sleeping comfortably. Tmax 98.1. CT 05/06 noted; no leak, collection is well drained. Objective Vital Signs Date Time Temp Pulse Resp B/P (MAP) Pulse Ox O2 Delivery O2 Flow Rate FiO2 05/07/17 06:00 74 05/07/17 04:00 98.1 24 131/80 (97) 99 05/06/17 20:48 Nasal Cannula 3.00 05/03/17 07:00 21 Intake and Output 05/07/17 05/07/17 05/08/17 08:00 16:00 00:00 Intake Total 1601 ml Output Total 700 ml Balance 901 ml Result Diagram: 05/06/17 0411 05/06/17 1725 Objective Remarks GENERAL: Calm, comfortable. No distress SKIN: Warm and dry. HEAD: Normocephalic. EYES: No scleral icterus. No injection or drainage. NECK: Supple, trachea midline. No obstruction or stridor. CARDIOVASCULAR: Atrial fibrillation with RVR without murmurs or rubs. RESPIRATORY: Breath sounds equal bilaterally. No accessory muscle use. GASTROINTESTINAL: Abdomen soft, tender to palpation, awilda over incision site- lower wound infection. Percutaneous accordion drain noted. MUSCULOSKELETAL: No cyanosis, or edema. Well perfused. NEURO EXAM: By report oriented 3, sleeping now, grossly nonfocal. A/P Assessment and Plan Anastomotic leak with peritonitis - Status post drain placement by IR, now with decreasing drainage, but white count increasing. Concerning for worsening abscess - Check CT of the abdomen and pelvis stat - Discussed with Shannon Ocampo, she will discuss with Dr. Morris. - Continue Zosyn and Diflucan was Dcd 05/05. Infectious disease Dr. Hussein- I have discussed case with her - E Coli, Strep, Haemophilus parainfluenza in abscess culture 05/02. GNR in blood 05/03/17 - Continues afebrile Uterine malignancy - S/P Exploratory laparotomy, total abdominal hysterectomy, bilateral salpingo- oophorectomy, extensive lysis of adhesions, omentectomy, open sigmoid resection with primary anastomosis and open appendectomy. - Followed up by hematology oncology , Scheduling Assistant-onc and general surgery Atrial fibrillation with rapid ventricular response - Patient's history indicates paroxysmal atrial fibrillation was not on anticoagulation - Appreciate consult from spray dyer Dr. Turcios. Transition amiodarone IV to PO 200 mg BID - [id number] score 4, high risk- Continue IV Heparin Hypertension - Hypotension has resolved. Carvedilol and verapamil resumed - IV fluid resuscitation Hyperlipidemia - Atorvastatin Nutrition - Calorie count, check prealbumin Anxiety - Lorazepam when necessary Ulcerative colitis - On mesalamine at home DVT GI prophylaxis - Teds SCDs - Subcutaneous heparin and Pepcid. Recommended therapeutic anticoagulation, patient wants to wait for cardiology input Overall plan: Continue ICU care. Follow WBC. Assess nutrition. Casey Freedman MD May 07, 2017 07:47
[2017-05-07] MEDS: SODIUM CHLORIDE 0.9% FLUSH 10 ML FLUSH IV FLUSH SCH ×2 (09:00→20:18)
[2017-05-07] MEDS: TIMOLOL MALEATE 0.5% OPHT SOLN 5 ML BTL EACH EYE SCH (09:45)
[2017-05-07] MEDS: AMIODARONE 200 MG TAB PO SCH ×2 (09:46→20:18)
[2017-05-07] MEDS: MESALAMINE HD 800 MG DELAYED RELEASE TAB PO SCH ×3 (09:46→17:59)
[2017-05-07] MEDS: CARVEDILOL 6.25 MG TAB PO SCH ×2 (09:47→20:18)
[2017-05-07] MEDS: PRAVASTATIN SOD 20 MG TAB PO SCH (09:47)
[2017-05-07] MEDS: DEXT 5%-NACL 0.9% 1000 ML INJ 1,000 ML IV SCH (09:48)
--- NOTE | 2017-05-07 10:59 | PD.CARD.PN ---
Subjective Subjective Remarks NO COMPLAINTS OF CHEST PAIN OR SOB REMAINS IN SINUS RHYTHM WITH APCs NOW TAKING PO AND PASSING GAS Objective Medications Current Medications Medications (Trade) Dose Ordered Sig/Marsha Route Start Time Stop Time Status Last Admin (Asacol Hd Dr) 800 mg TID PO 04/25/17 18:00 05/07/17 09:46 (Timoptic 0.5% Opth Soln) 1 drop DAILY EACH EYE 04/26/17 09:00 05/07/17 09:45 (Isoptin Sr) 180 mg DAILY PO 04/26/17 09:00 Future Hold 05/02/17 09:07 (Pravachol) 20 mg DAILY PO 04/26/17 09:00 05/07/17 09:47 (NS Flush) 2 ml UNSCH PRN IV FLUSH 04/25/17 16:15 04/27/17 12:28 (NS Flush) 2 ml BID IV FLUSH 04/25/17 21:00 05/06/17 08:20 (Percocet 5-325 Mg) 1 tab Q4H PRN PO 04/25/17 16:15 05/04/17 08:44 (Percocet 5-325 Mg) 2 tab Q4H PRN PO 04/25/17 16:15 05/06/17 06:39 (Benadryl) 25 mg Q6H PRN PO 04/25/17 16:15 (Zofran Inj) 4 mg Q6H PRN IVP 04/25/17 16:15 05/02/17 06:22 (Ativan) 0.25 mg Q8H PRN PO 04/25/17 16:15 05/05/17 18:48 (Tums Chew) 500 mg Q4H PRN PO 04/27/17 19:45 (Duoneb Neb) 1 ampule Q4HR NEB PRN NEB 04/29/17 12:45 (D50w (Vial) Inj) 50 ml UNSCH PRN IV 05/02/17 23:00 (Glucagon Inj) 1 mg UNSCH PRN OTHER 05/02/17 23:00 (NovoLOG SUPPLEMENTAL SCALE) 1 ACHS SLIDING SCALE SQ 05/03/17 07:00 (Pepcid Inj) 20 mg Q12H IV PUSH 05/03/17 06:00 05/07/17 04:54 Dextrose/Sodium Chloride 1,000 ml @ 50 mls/hr Q20H IV 05/03/17 11:00 05/06/17 11:54 Piperacillin Sod/ Tazobactam Sod 50 ml @ 100 mls/hr Q6H IV 05/03/17 17:00 05/17/17 16:59 05/07/17 04:54 Potassium Chloride 100 ml @ 50 mls/hr Q2H PRN IV 05/03/17 19:30 Potassium Chloride 100 ml @ 50 mls/hr Q2H PRN IV 05/03/17 19:30 (K-Lyte Cl Eff) 50 meq UNSCH PRN PO 05/03/17 19:30 Potassium Chloride 100 ml @ 25 mls/hr UNSCH PRN IV 05/03/17 19:30 05/06/17 05:52 Potassium Chloride 100 ml @ 50 mls/hr Q2H PRN IV 05/03/17 19:30 05/06/17 08:35 Magnesium Sulfate 4 gm/Sodium Chloride 100 ml @ 50 mls/hr UNSCH PRN IV 05/03/17 19:30 (Mag-Ox) 800 mg UNSCH PRN PO 05/03/17 19:30 Magnesium Sulfate 2 gm/Sodium Chloride 100 ml @ 50 mls/hr UNSCH PRN IV 05/03/17 19:30 (K-Phos) 2,000 mg Q4H PRN PO 05/03/17 19:30 Sodium Phosphate 30 mmol/Sodium Chloride 250 ml @ 42 mls/hr UNSCH PRN IV 05/03/17 19:30 05/04/17 08:21 (K-Phos) 2,000 mg UNSCH PRN PO/TUBE 05/03/17 19:30 Potassium Phosphate 30 mmol/ Sodium Chloride 260 ml @ 42 mls/hr UNSCH PRN IV 05/03/17 19:30 (Coreg) 6.25 mg Q12H PO 05/05/17 09:00 05/07/17 09:47 Heparin Sodium/ Dextrose 250 ml @ 8.424 mls/ hr TITRATE PRN IV 05/05/17 17:00 05/06/17 23:17 (Cordarone) 200 mg Q12HR PO 05/06/17 09:00 05/07/17 09:46 Vital Signs / I&O Vital Signs Date Time Temp Pulse Resp B/P (MAP) Pulse Ox O2 Delivery O2 Flow Rate FiO2 05/07/17 07:00 97 Nasal Cannula 4.00 05/07/17 07:00 73 05/07/17 07:00 73 05/07/17 06:00 74 05/07/17 04:00 98.1 76 24 131/80 (97) 99 05/07/17 04:00 72 05/07/17 02:00 72 05/07/17 00:00 97.8 72 10 128/65 (86) 99 05/07/17 00:00 72 05/06/17 23:00 74 05/06/17 23:00 74 05/06/17 22:00 76 05/06/17 20:48 98 Nasal Cannula 3.00 05/06/17 20:00 70 05/06/17 20:00 97.7 70 17 126/66 (86) 100 05/06/17 19:00 99 Nasal Cannula 4.00 05/06/17 18:00 72 05/06/17 16:00 97.3 71 12 126/66 (86) 99 05/06/17 16:00 71 05/06/17 16:00 71 05/06/17 15:00 70 05/06/17 14:00 65 05/06/17 12:00 98.3 30 11 115/73 (87) 98 05/06/17 12:00 62 I/O 05/06/17 05/06/17 05/06/17 05/07/17 05/07/17 05/07/17 07:00 15:00 23:00 07:00 15:00 23:00 Intake Total 375 ml 525 ml 1901 ml Output Total 445 ml 610 ml 700 ml Balance -70 ml -85 ml 1201 ml Intake Oral 360 ml 480 ml 360 ml IV Total 15 ml 45 ml 1541 ml Output Urine Total 425 ml 600 ml 650 ml Drainage Total 20 ml 10 ml 50 ml # Bowel Movements 0 Physical Exam NAD FLAT JVD LUNGS CLEAR REGULAR RATE AND RHYTHM, 1-2/6 LLSB SYSTOLIC MURMUR ABD SOFT EXTR WITHOUT EDEMA Laboratory Laboratory Tests Test 05/06/17 11:10 05/06/17 17:25 05/06/17 22:02 05/07/17 04:47 Activated Partial Thromboplast Time 61.6 SEC 44.1 SEC 61.2 SEC Potassium Level 3.9 MEQ/L Imaging Laboratory Tests Test 05/05/17 11:08 05/05/17 18:25 05/06/17 00:39 05/06/17 04:11 White Blood Count 15.5 TH/MM3 (4.0-11.0) 16.3 TH/MM3 (4.0-11.0) 19.3 TH/MM3 (4.0-11.0) Red Blood Count 3.72 MIL/MM3 (4.00-5.30) 3.63 MIL/MM3 (4.00-5.30) Hemoglobin 10.2 GM/DL (11.6-15.3) 11.2 GM/DL (11.6-15.3) 10.1 GM/DL (11.6-15.3) Hematocrit 31.6 % (35.0-46.0) 34.2 % (35.0-46.0) 30.1 % (35.0-46.0) Platelet Count 489 TH/MM3 (150-450) 507 TH/MM3 (150-450) Neutrophils (%) (Auto) 84.1 % (16.0-70.0) 80.5 % (16.0-70.0) Lymphocytes (%) (Auto) 8.0 % (9.0-44.0) Neutrophils # (Auto) 13.1 TH/MM3 (1.8-7.7) 15.5 TH/MM3 (1.8-7.7) Neutrophils % (Manual) 74 % (16-70) 73 % (16-70) Lymphocytes % 8 % (9-44) Neutrophils # (Manual) 13.5 TH/MM3 (1.8-7.7) 14.5 TH/MM3 (1.8-7.7) Metamyelocytes 4 % (0-1) Myelocytes 3 % (0-0) 2 % (0-0) Promyelocytes 1 % (0-0) Platelet Estimate HIGH (NORMAL) Ovalocytes 1+ (NORMAL) 1+ (NORMAL) Acanthocytes OCC (NORMAL) Blood Urea Nitrogen 6 MG/DL (7-18) 6 MG/DL (7-18) Creatinine 0.38 MG/DL (0.50-1.00) 0.33 MG/DL (0.50-1.00) Total Protein 5.1 GM/DL (6.4-8.2) 4.9 GM/DL (6.4-8.2) Albumin 1.1 GM/DL (3.4-5.0) 1.0 GM/DL (3.4-5.0) Calcium Level 7.3 MG/DL (8.5-10.1) 7.3 MG/DL (8.5-10.1) Chloride Level 112 MEQ/L (98-107) 111 MEQ/L (98-107) Carbon Dioxide Level 20.6 MEQ/L (21.0-32.0) 20.5 MEQ/L (21.0-32.0) Protein Corrected Calcium 8.4 MG/DL (8.5-10.1) Troponin I LESS THAN 0.02 NG/ML Prothrombin Time 11.9 SEC (9.8-11.6) Activated Partial Thromboplast Time 34.1 SEC (24.3-30.1) 56.9 SEC (24.3-30.1) Monocytes # (Auto) 1.1 TH/MM3 (0-0.9) Eosinophils # (Auto) 0.5 TH/MM3 (0-0.4) Eosinophils % 5 % (0-4) Nucleated Red Blood Cells 1 /100 WBC (0-0) Potassium Level 3.4 MEQ/L (3.5-5.1) Test 05/06/17 11:10 05/06/17 17:25 05/06/17 22:02 05/07/17 04:47 Activated Partial Thromboplast Time 61.6 SEC (24.3-30.1) 44.1 SEC (24.3-30.1) 61.2 SEC (24.3-30.1) Assessment and Plan Assessment and Plan POST-OP PAROXYSMAL ATRIAL FIBRILLATION. REMAINS IN SINUS RHYTHM NEGATIVE TROPONIN FOR ACS HTN CONTROLLED BRADYCARDIA, ASYMPTOMATIC S/P HYSTERECTOMY, COLON RESECTION, BILAT OOPHRECTOMY PLAN: [facility] MEDS REVIEWED, CONTINUE SAME DC IVF, AVOID VOLUME OVERLOAD CONTINUE IV HEPARIN START ORAL ANTICOAG. WHEN OK WITH SURGERY. KEEP K+ > 4.5 AND Mg >2.0 OK TO TRANSFER TO TELEMETRY FLOOR. Jorge Turcios MD May 07, 2017 10:59
[2017-05-07] MEDS: oxyCODONE/ACETAMINOPHEN 5 MG/325 MG TAB PO PRN ×2 (15:50→20:22)
--- NOTE | 2017-05-07 16:38 | HHI.IDPN ---
Subjective Subjective Remarks doing well OOB in a chair on NC O2 she had normal appearing BM today co BLE edema Antibiotics zosyn Allergies: Coded Allergies: ciprofloxacin (Verified Allergy, Unknown, 05/06/17) doxycycline (Verified Allergy, Unknown, 05/06/17) Objective . Vital Signs Date Time Temp Pulse Resp B/P (MAP) Pulse Ox O2 Delivery O2 Flow Rate FiO2 05/07/17 15:00 78 05/07/17 14:00 78 05/07/17 12:42 98 Nasal Cannula 2.00 05/07/17 12:00 70 05/07/17 12:00 98.2 70 20 134/60 (84) 99 05/07/17 10:00 88 05/07/17 08:00 77 05/07/17 08:00 98.4 77 24 136/62 (86) 99 05/07/17 07:00 97 Nasal Cannula 4.00 05/07/17 07:00 73 05/07/17 07:00 73 05/07/17 06:00 74 05/07/17 04:00 98.1 76 24 131/80 (97) 99 05/07/17 04:00 72 05/07/17 02:00 72 05/07/17 00:00 97.8 72 10 128/65 (86) 99 05/07/17 00:00 72 05/06/17 23:00 74 05/06/17 23:00 74 05/06/17 22:00 76 05/06/17 20:48 98 Nasal Cannula 3.00 05/06/17 20:00 70 05/06/17 20:00 97.7 70 17 126/66 (86) 100 05/06/17 19:00 99 Nasal Cannula 4.00 05/06/17 18:00 72 . Laboratory Tests Test 05/05/17 18:25 05/06/17 04:11 White Blood Count 16.3 TH/MM3 19.3 TH/MM3 Red Blood Count 4.11 MIL/MM3 3.63 MIL/MM3 Hemoglobin 11.2 GM/DL 10.1 GM/DL Hematocrit 34.2 % 30.1 % Mean Corpuscular Volume 83.3 FL 82.9 FL Mean Corpuscular Hemoglobin 27.3 PG 27.8 PG Mean Corpuscular Hemoglobin Concent 32.7 % 33.5 % Red Cell Distribution Width 16.3 % 16.6 % Platelet Count 507 TH/MM3 408 TH/MM3 Mean Platelet Volume 7.3 FL 7.3 FL Neutrophils (%) (Auto) 80.5 % Lymphocytes (%) (Auto) 10.7 % Monocytes (%) (Auto) 5.6 % Eosinophils (%) (Auto) 2.5 % Basophils (%) (Auto) 0.7 % Neutrophils # (Auto) 15.5 TH/MM3 Lymphocytes # (Auto) 2.1 TH/MM3 Monocytes # (Auto) 1.1 TH/MM3 Eosinophils # (Auto) 0.5 TH/MM3 Basophils # (Auto) 0.1 TH/MM3 CBC Comment AUTO DIFF Differential Total Cells Counted 100 Neutrophils % (Manual) 73 % Lymphocytes % 18 % Monocytes % 2 % Eosinophils % 5 % Neutrophils # (Manual) 14.5 TH/MM3 Myelocytes 2 % Nucleated Red Blood Cells 1 /100 WBC Differential Comment FINAL DIFF MANUAL Platelet Estimate NORMAL Platelet Morphology Comment NORMAL Ovalocytes 1+ Laboratory Tests Test 05/06/17 04:11 05/06/17 17:25 Blood Urea Nitrogen 6 MG/DL Creatinine 0.33 MG/DL Random Glucose 104 MG/DL Total Protein 4.9 GM/DL Albumin 1.0 GM/DL Calcium Level 7.3 MG/DL Magnesium Level 1.8 MG/DL Alkaline Phosphatase 114 U/L Aspartate Amino Transf (AST/SGOT) 34 U/L Alanine Aminotransferase (ALT/SGPT) 15 U/L Total Bilirubin 0.2 MG/DL Sodium Level 142 MEQ/L Potassium Level 3.4 MEQ/L 3.9 MEQ/L Chloride Level 111 MEQ/L Carbon Dioxide Level 20.5 MEQ/L Anion Gap 11 MEQ/L Estimat Glomerular Filtration Rate 193 ML/MIN Protein Corrected Calcium 8.5 MG/DL Imaging Last Impressions Abdomen/Pelvis CT 05/06/17 1229 Signed Impressions: Service Date/Time: Saturday, May 06, 2017 13:06 - CONCLUSION: 1. Interval intraperitoneal drainage catheter placement with decompression of the fluid. Small volume pneumoperitoneum remains. 2. No extravasation of the oral contrast to clearly identify perforation of a hollow viscus. 3. Fistula to the anterior abdominal wall wound from the previous collection that was drained. 4. Bilateral pleural effusions with atelectasis. Conrad Raines Jr., MD Abscess Drainage CT 05/02/17 0000 Signed Impressions: Service Date/Time: Tuesday, May 02, 2017 17:42 - CONCLUSION: Uncomplicated CT guided drainage. Hipolito aTlbot MD Chest X-Ray 05/01/17 0600 Signed Impressions: Service Date/Time: Monday, May 01, 2017 09:44 - CONCLUSION: Persistent large amount of free air identified within the abdomen. Pleural effusions which are slightly decreased in size as compared to the prior exam. Rebekah Quick MD Physical Exam CONSTITUTIONAL/GENERAL: This is an adequately nourished patient, in no apparent distress. Ill appearing but non toxic TUBES/LINES/DRAINS: SKIN: No jaundice, rashes, or lesions. Skin temperature appropriate. Not diaphoretic. EYES: Pupils equal and round and reactive. Extraocular motions intact. No scleral icterus. No injection or drainage. Fundi not examined. CARDIOVASCULAR: Regular rate and rhythm without murmurs, gallops, or rubs. No JVD. Peripheral pulses symmetric. RESPIRATORY/CHEST: Symmetric, unlabored respirations. Clear to auscultation. Breath sounds equal bilaterally. No wheezes, rales, or rhonchi. GASTROINTESTINAL: Abdomen fairly soft, quit -tender, markedly distended. No hepato-splenomegaly, or palpable masses. No guarding. Bowel sounds very activve Accordeon drain in place LLQ with small amount of purulent drainage GENITOURINARY: Without palpable bladder distension. Flannery catheter in place with clear yellow urine MUSCULOSKELETAL: Extremities without clubbing, cyanosis, + 3- 4 worsening edema. No joint tenderness or effusion noted. No calf tenderness. No mottling or clubbing. NEUROLOGICAL: Awake and alert. Motor and sensory grossly within normal limits. Follows commands. Clear speech. Moves all extremities. PSYCHIATRIC: No obvious anxiety/depression. no apparent hallucinations or other psychotic thought process. 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
[2017-05-07] MEDS: ONDANSETRON HCL 4 MG/2 ML VIAL IVP PRN (17:59)
--- NOTE | 2017-05-07 20:08 | HHI.PR ---
Subjective Subjective Notes upset out fistulae Objective Vitals/I&O Vital Signs Date Time Temp Pulse Resp B/P (MAP) Pulse Ox O2 Delivery O2 Flow Rate FiO2 05/07/17 18:00 72 05/07/17 16:00 97.8 24 109/66 (80) 100 05/07/17 12:42 Nasal Cannula 2.00 05/03/17 07:00 21 Labs Laboratory Tests Test 05/06/17 22:02 05/07/17 04:47 Activated Partial Thromboplast Time 44.1 61.2 Date/Time Source Procedure Growth Status 05/03/17 16:35 Blood Peripheral Aerobic Blood Culture - Preliminary NO GROWTH IN 4 DAYS Resulted 05/03/17 16:35 Anaerobic Blood Culture - Preliminary Gram Negative Flako Resulted 05/02/17 17:50 Abscess Abdomen Gram Stain - Final Complete 05/02/17 17:50 Wound Culture - Final Escherichia Coli Strep Not A,B D Complete Cardiovascular: Regular Lungs: Clear Abdomen: Non-distended, Non-tender Extremities: Perfused Narrative Exam no peritonitis, would with stool A/P Assessment and Plan 76yo female s/p Hysterectomy and colon resection, stable. - colocutaneous fistula, continue ostomy, can DC drain if continue to clog and not lucio - OOB, PT - advance diet - d/w family , continue non-op management at this time Blayne Morris MD May 07, 2017 20:08
[2017-05-08] VITALS (15 sets, daily range): BP systolic 89–124; BP diastolic 58–76; PULSE 64–139; RESP 12–37; TEMP 97.8–98.3; O2SAT 92–98
[2017-05-08 04:40] LABS: AUTOMATED NEUTROPHIL # 8.8 TH/MM3 (1.8-7.7); BASOPHIL # 0.1 TH/MM3 (0-0.2); BASOPHIL % 0.4 % (0.0-2.0); EOSINOPHIL # 0.4 TH/MM3 (0-0.4); EOSINOPHIL % 2.9 % (0.0-4.0); LYMPH % 14.3 % (9.0-44.0); LYMPHOCYTE # 1.8 TH/MM3 (1.0-4.8); MEAN CORPUSCULAR HEMOGLOBIN 27.2 PG (27.0-34.0); MEAN CORPUSCULAR HGB CONC 32.7 % (32.0-36.0); MONO % 12.2 % (0.0-8.0); NEUT % 70.2 % (16.0-70.0); PLATELET COUNT 574 TH/MM3 (150-450); RED BLOOD COUNT 3.62 MIL/MM3 (4.00-5.30); RED CELL DISTRIBUTION WIDTH 16.5 % (11.6-17.2); WHITE BLOOD COUNT 12.6 TH/MM3 (4.0-11.0)
[2017-05-08 04:55] LABS: HEMO FLAGS AUTO DIFF
[2017-05-08 04:56] LABS: APTT (PATIENT) 67.4 SEC (24.3-30.1)
[2017-05-08] MEDS: PIPERACIL-TAZO 3.375 GM PREMIX 50 ML IV SCH ×4 (05:08→22:34)
[2017-05-08] MEDS: FAMOTIDINE 20 MG/2 ML VIAL IV PUSH SCH ×2 (05:08→17:46)
[2017-05-08] MEDS: DEXT 5%-NACL 0.9% 1000 ML INJ 1,000 ML IV SCH ×2 (05:28→06:00)
[2017-05-08] MEDS: INSULIN ASPART SUPPLEMENTAL SCALE SQ SCH ×4 (05:28→21:00)
[2017-05-08 05:34] LABS: EOSINOPHILS 3 % (0-4); METAMYELOCYTES 2 % (0-1); MYELOCYTES 2 % (0-0); NEUTROPHIL # MANUAL DIFF 10.7 TH/MM3 (1.8-7.7); POLYS (SEG NEUTROPHILS) 81 % (16-70); WBC DIFF SAMPLE 100
[2017-05-08 05:35] LABS: OVALOCYTES 1+ (NORMAL); PLATELET ESTIMATE SMEAR HIGH (NORMAL); PLATELET MORPHOLOGY NORMAL (NORMAL); SCAN/DIFF FINAL DIFF MANUAL
--- NOTE | 2017-05-08 08:01 | HHI.CCPN ---
Subjective Remarks/Hospital Course 05/02: 76 years old female who was admitted under Dr. José service for hysterectomy due to Uterine malignancy involving multiple peritoneal surfaces and mesentery including large positive of invasive disease in the sigmoid colon mesentery. S/P Exploratory laparotomy, total abdominal hysterectomy, bilateral salpingo-oophorectomy, extensive lysis of adhesions, omentectomy, open sigmoid resection with primary anastomosis and open appendectomy. 05/02 she was doing fairly well, passing flatus, no BM, however her abdomen was mildly distended, KUB documented large abdominal air and CT showed air and fluid collection in pelvis. Dr. Sims and Dr. Morris planned for IR drainage. 05/03: Resting in bed comfortably. Feculent material being drained from percutaneous drain is by interventional radiology on 05/02. Denies any shortness of breath. She did receive 3 L crystalloid boluses overnight. Awaiting reexploration for perforated viscus. Antibiotics being managed by ID. 05/04: clinically improving, WBC count is trending down was 16.8 [address] 14.3. [address] Morris recommending continued conservative management at this time. Patient c/o abdominal pain with exam. L accordion drain 125 ml output in 24 hours 05/05: Patient is a stat she is feeling slightly better pain improving. No labs today. Patient is tachycardic with atrial fibrillation and RVR. Review of her history indicates cardiac dysrhythmia and supra ventricular tachycardia in the past. At home takes carvedilol and verapamil. Not on chronic anticoagulation. Start Cardizem for rate control, increase Coreg to twice a day dosing, consider anticoagulation if persistent. patient requests cardiology consult with Dr. Turcios 05/06: Clinically appears to be improving, abdominal pain improved. But WBC count continues to increase yesterday 16.3 today 19.3. Will check CT abd pelvis STAT to evaluate drainage/rule out worsening of intra-abdominal abscess. Discussed with Dr. Hussein. 05/07: Sleeping comfortably. Tmax 98.1. CT 05/06 noted; no leak, collection is well drained. 05/08: S/P Hysterectomy and sigmoid colon resection for invasive uterine leiomyosarcoma. Tubes, ovaries, appendix removed as well. Course complicated by pre-existing ulcerative colitis and postop anastomotic colon leak. Major issues now are ID and nutritional support. Drs. Sims and Julisa oncologic surgery, Keenan - ID, Karolina - Cardiology. Tmax 98.4, white count declining. Drainage from lower wound continues, collection bag has been placed. Prealbumin 9. Objective Vital Signs Date Time Temp Pulse Resp B/P (MAP) Pulse Ox O2 Delivery O2 Flow Rate FiO2 05/08/17 06:00 72 05/08/17 04:00 97.9 37 113/61 (78) 96 05/07/17 20:28 Nasal Cannula 1.50 Intake and Output 05/08/17 05/08/17 05/09/17 08:00 16:00 00:00 Intake Total 170 ml Output Total 700 ml Balance -530 ml Result Diagram: 05/08/17 0355 05/06/17 1725 Objective Remarks GENERAL: Calm, comfortable. No distress SKIN: Warm and dry. HEAD: Normocephalic. EYES: No conjunctival icterus. No injection or drainage. NECK: Supple, trachea midline. No obstruction or stridor. CARDIOVASCULAR: Atrial fibrillation, without murmurs or rubs. No JVD. RESPIRATORY: Breath sounds equal bilaterally. No accessory muscle use. Clear garcia. GASTROINTESTINAL: Abdomen soft, moderately tender to palpation. Colon drainage from lower end of wound into ostomy bag. MUSCULOSKELETAL: No cyanosis, trace edema. Well perfused. NEURO EXAM: Oriented 3, sleeping now, grossly nonfocal. A/P Assessment and Plan Anastomotic leak with peritonitis - Status post drain placement by IR, now with decreasing drainage, but white count increasing. Concerning for worsening abscess - Check CT of the abdomen and pelvis stat - Discussed with Shannon Ocampo, she will discuss with Dr. Morris. - Continue Zosyn and Diflucan was Dcd 05/05. Infectious disease Dr. Hussein - E Coli, Strep, Haemophilus parainfluenza in abscess culture 05/02. GNR in blood 05/03/17 - Continues afebrile Uterine malignancy - S/P Exploratory laparotomy, total abdominal hysterectomy, bilateral salpingo- oophorectomy, extensive lysis of adhesions, omentectomy, open sigmoid resection with primary anastomosis and open appendectomy. - Followed up by hematology oncology , Recycling Coordinator-onc and general surgery Atrial fibrillation with rapid ventricular response - Patient's history indicates paroxysmal atrial fibrillation was not on anticoagulation - Appreciate consult from special procedures nurse Dr. Turcios. Transition amiodarone IV to PO 200 mg BID - [id number] score 4, high risk- Continue IV Heparin Hypertension - Hypotension has resolved. Carvedilol and verapamil resumed - IV fluid resuscitation Hyperlipidemia - Atorvastatin Nutrition - Calorie count, check prealbumin Anxiety - Lorazepam when necessary Ulcerative colitis - On mesalamine at home DVT GI prophylaxis - Teds SCDs - Pepcid. Recommended therapeutic anticoagulation, patient wants to wait for cardiology input Overall plan: Nutritional support and antibiotics/ID are major care issues at present. Casey Freedman MD May 08, 2017 08:01
[2017-05-08] MEDS: CARVEDILOL 6.25 MG TAB PO SCH (09:32)
[2017-05-08] MEDS: MESALAMINE HD 800 MG DELAYED RELEASE TAB PO SCH ×3 (09:32→17:44)
[2017-05-08] MEDS: AMIODARONE 200 MG TAB PO SCH ×3 (09:32→20:03)
[2017-05-08] MEDS: TIMOLOL MALEATE 0.5% OPHT SOLN 5 ML BTL EACH EYE SCH (09:33)
[2017-05-08] MEDS: PRAVASTATIN SOD 20 MG TAB PO SCH (09:33)
[2017-05-08] MEDS: SODIUM CHLORIDE 0.9% FLUSH 10 ML FLUSH IV FLUSH SCH ×2 (09:33→20:04)
--- NOTE | 2017-05-08 12:13 | HHI.PR ---
Subjective Subjective Notes a.fib, abdominal pain a bit better, stool coming from vagina, denies chest pain Objective Vitals/I&O Vital Signs Date Time Temp Pulse Resp B/P (MAP) Pulse Ox O2 Delivery O2 Flow Rate FiO2 05/08/17 07:00 73 05/08/17 04:00 97.9 37 113/61 (78) 96 05/07/17 20:28 Nasal Cannula 1.50 Labs Laboratory Tests Test 05/08/17 03:55 White Blood Count 12.6 Red Blood Count 3.62 Hemoglobin 9.8 Hematocrit 30.0 Mean Corpuscular Volume 83.0 Mean Corpuscular Hemoglobin 27.2 Mean Corpuscular Hemoglobin Concent 32.7 Red Cell Distribution Width 16.5 Platelet Count 574 Mean Platelet Volume 6.8 Neutrophils (%) (Auto) 70.2 Lymphocytes (%) (Auto) 14.3 Monocytes (%) (Auto) 12.2 Eosinophils (%) (Auto) 2.9 Basophils (%) (Auto) 0.4 Neutrophils # (Auto) 8.8 Lymphocytes # (Auto) 1.8 Monocytes # (Auto) 1.5 Eosinophils # (Auto) 0.4 Basophils # (Auto) 0.1 CBC Comment AUTO DIFF Differential Total Cells Counted 100 Neutrophils % (Manual) 81 Lymphocytes % 9 Monocytes % 3 Eosinophils % 3 Neutrophils # (Manual) 10.7 Metamyelocytes 2 Myelocytes 2 Differential Comment FINAL DIFF MANUAL Platelet Estimate HIGH Platelet Morphology Comment NORMAL Ovalocytes 1+ Activated Partial Thromboplast Time 67.4 Prealbumin 6 Date/Time Source Procedure Growth Status 05/03/17 16:35 Blood Peripheral Aerobic Blood Culture - Final NO GROWTH IN 5 DAYS Complete 05/03/17 16:35 Anaerobic Blood Culture - Final Prevotella Loescheii Complete 05/02/17 17:50 Abscess Abdomen Gram Stain - Final Complete 05/02/17 17:50 Wound Culture - Final Escherichia Coli Strep Not A,B D Complete Cardiovascular: Irregular Abdomen: Other (soft incisional tenderness, ostomy bag over wound, stool coming from vagina , drain in place) A/P Assessment and Plan 76yo s/p Hysterectomy and colon resection, passing flatus, no BM, abdomen mildly distended, cxr with large abdominal air , wbc up, ct with air and abscess s/p ir drain, good uop, colocutaneous fistula, colovaginal fistula PLAN cardio for a.fib and rate control will make npo for now ostomy bag to anterior incision abx drain to leg bag Discussed with Dr. Morris and call to Dr. Villareal gynaecological oncologist also Donn Poon MD May 08, 2017 12:13
--- NOTE | 2017-05-08 12:24 | PD.CARD.PN ---
Subjective Subjective Remarks WENT INTO ATRIAL FIBRILLATION WITH RAPID VENTRICULAR RATE THIS AM NO COMPLAINTS OF CHEST PAIN OR SOB LOWER EXTREMITY EDEMA NOTED SHE REPORTS "STOOL COMING OUT OF MY VAGINA" Objective Medications Current Medications Medications (Trade) Dose Ordered Sig/Marsha Route Start Time Stop Time Status Last Admin (Asacol Hd Dr) 800 mg TID PO 04/25/17 18:00 05/08/17 09:32 (Timoptic 0.5% Opth Soln) 1 drop DAILY EACH EYE 04/26/17 09:00 05/08/17 09:33 (Isoptin Sr) 180 mg DAILY PO 04/26/17 09:00 Future Hold 05/02/17 09:07 (Pravachol) 20 mg DAILY PO 04/26/17 09:00 05/08/17 09:33 (NS Flush) 2 ml UNSCH PRN IV FLUSH 04/25/17 16:15 04/27/17 12:28 (NS Flush) 2 ml BID IV FLUSH 04/25/17 21:00 05/08/17 09:33 (Percocet 5-325 Mg) 1 tab Q4H PRN PO 04/25/17 16:15 05/07/17 15:50 (Percocet 5-325 Mg) 2 tab Q4H PRN PO 04/25/17 16:15 05/07/17 20:22 (Benadryl) 25 mg Q6H PRN PO 04/25/17 16:15 (Zofran Inj) 4 mg Q6H PRN IVP 04/25/17 16:15 05/07/17 17:59 (Ativan) 0.25 mg Q8H PRN PO 04/25/17 16:15 05/05/17 18:48 (Tums Chew) 500 mg Q4H PRN PO 04/27/17 19:45 (Duoneb Neb) 1 ampule Q4HR NEB PRN NEB 04/29/17 12:45 (D50w (Vial) Inj) 50 ml UNSCH PRN IV 05/02/17 23:00 (Glucagon Inj) 1 mg UNSCH PRN OTHER 05/02/17 23:00 (NovoLOG SUPPLEMENTAL SCALE) 1 ACHS SLIDING SCALE SQ 05/03/17 07:00 (Pepcid Inj) 20 mg Q12H IV PUSH 05/03/17 06:00 05/08/17 05:08 Dextrose/Sodium Chloride 1,000 ml @ 50 mls/hr Q20H IV 05/03/17 11:00 05/06/17 11:54 Piperacillin Sod/ Tazobactam Sod 50 ml @ 100 mls/hr Q6H IV 05/03/17 17:00 05/17/17 16:59 05/08/17 05:08 Potassium Chloride 100 ml @ 50 mls/hr Q2H PRN IV 05/03/17 19:30 Potassium Chloride 100 ml @ 50 mls/hr Q2H PRN IV 05/03/17 19:30 (K-Lyte Cl Eff) 50 meq UNSCH PRN PO 05/03/17 19:30 Potassium Chloride 100 ml @ 25 mls/hr UNSCH PRN IV 05/03/17 19:30 05/06/17 05:52 Potassium Chloride 100 ml @ 50 mls/hr Q2H PRN IV 05/03/17 19:30 05/06/17 08:35 Magnesium Sulfate 4 gm/Sodium Chloride 100 ml @ 50 mls/hr UNSCH PRN IV 05/03/17 19:30 (Mag-Ox) 800 mg UNSCH PRN PO 05/03/17 19:30 Magnesium Sulfate 2 gm/Sodium Chloride 100 ml @ 50 mls/hr UNSCH PRN IV 05/03/17 19:30 (K-Phos) 2,000 mg Q4H PRN PO 05/03/17 19:30 Sodium Phosphate 30 mmol/Sodium Chloride 250 ml @ 42 mls/hr UNSCH PRN IV 05/03/17 19:30 05/04/17 08:21 (K-Phos) 2,000 mg UNSCH PRN PO/TUBE 05/03/17 19:30 Potassium Phosphate 30 mmol/ Sodium Chloride 260 ml @ 42 mls/hr UNSCH PRN IV 05/03/17 19:30 (Coreg) 6.25 mg Q12H PO 05/05/17 09:00 05/08/17 09:32 Heparin Sodium/ Dextrose 250 ml @ 8.424 mls/ hr TITRATE PRN IV 05/05/17 17:00 05/06/17 23:17 (Cordarone) 200 mg Q12HR PO 05/06/17 09:00 05/08/17 09:32 Vital Signs / I&O Vital Signs Date Time Temp Pulse Resp B/P (MAP) Pulse Ox O2 Delivery O2 Flow Rate FiO2 05/08/17 07:00 73 05/08/17 06:00 72 05/08/17 04:00 97.9 86 37 113/61 (78) 96 05/08/17 04:00 74 05/08/17 02:00 74 05/08/17 00:00 76 05/08/17 00:00 98.3 76 12 124/76 (92) 98 05/07/17 23:00 78 05/07/17 22:00 74 05/07/17 20:28 98 Nasal Cannula 1.50 05/07/17 20:00 97.9 84 27 129/67 (87) 100 05/07/17 20:00 84 05/07/17 19:00 100 Nasal Cannula 3.00 05/07/17 18:00 72 05/07/17 16:00 97.8 72 24 109/66 (80) 100 05/07/17 16:00 72 05/07/17 15:00 78 05/07/17 14:00 78 05/07/17 12:42 98 Nasal Cannula 2.00 05/07/17 12:00 70 05/07/17 12:00 98.2 70 20 134/60 (84) 99 I/O 05/07/17 05/07/17 05/07/17 05/08/17 05/08/17 05/08/17 06:59 14:59 22:59 06:59 14:59 22:59 Intake Total 1901 ml 901 ml 220 ml Output Total 700 ml 1010 ml 700 ml Balance 1201 ml -109 ml -480 ml Intake Oral 360 ml 540 ml 120 ml IV Total 1541 ml 361 ml 100 ml Output Urine Total 650 ml 1000 ml 700 ml Drainage Total 50 ml 10 ml # Bowel Movements 2 2 Physical Exam NAD FLAT JVD LUNGS CLEAR IRREGULAR RATE AND RHYTHM, 1-2/6 LLSB SYSTOLIC MURMUR ABD SOFT LOWER EXTR WITH 3+ EDEMA BILAT Laboratory Laboratory Tests Test 05/08/17 03:55 White Blood Count 12.6 TH/MM3 Red Blood Count 3.62 MIL/MM3 Hemoglobin 9.8 GM/DL Hematocrit 30.0 % Mean Corpuscular Volume 83.0 FL Mean Corpuscular Hemoglobin 27.2 PG Mean Corpuscular Hemoglobin Concent 32.7 % Red Cell Distribution Width 16.5 % Platelet Count 574 TH/MM3 Mean Platelet Volume 6.8 FL Neutrophils (%) (Auto) 70.2 % Lymphocytes (%) (Auto) 14.3 % Monocytes (%) (Auto) 12.2 % Eosinophils (%) (Auto) 2.9 % Basophils (%) (Auto) 0.4 % Neutrophils # (Auto) 8.8 TH/MM3 Lymphocytes # (Auto) 1.8 TH/MM3 Monocytes # (Auto) 1.5 TH/MM3 Eosinophils # (Auto) 0.4 TH/MM3 Basophils # (Auto) 0.1 TH/MM3 CBC Comment AUTO DIFF Differential Total Cells Counted 100 Neutrophils % (Manual) 81 % Lymphocytes % 9 % Monocytes % 3 % Eosinophils % 3 % Neutrophils # (Manual) 10.7 TH/MM3 Metamyelocytes 2 % Myelocytes 2 % Differential Comment FINAL DIFF MANUAL Platelet Estimate HIGH Platelet Morphology Comment NORMAL Ovalocytes 1+ Activated Partial Thromboplast Time 67.4 SEC Prealbumin 6 MG/DL Assessment and Plan Assessment and Plan RECURRENT POST-OP PAROXYSMAL ATRIAL FIBRILLATION. 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 CONSIDER GASTROGRAFIN ENEMA VS. EXPL LAP KEEP K+ > 4.0 Discussed Condition With DAUGHTER Jorge Turcios MD May 08, 2017 12:24
[2017-05-08] MEDS: HEPARIN-D5W 25,000 U/250 ML 250 ML IV PRN (12:25)
[2017-05-08] MEDS ORDERED: VERAPAMIL HCL 5 MG/2 ML VIAL IV PUSH ONE (12:45)
[2017-05-08] MEDS: FUROSEMIDE 40 MG/4 ML VIAL IV PUSH SCH (13:41)
[2017-05-08] MEDS: METOPROLOL TARTRATE 25 MG TAB PO SCH ×2 (14:33→20:04)
[2017-05-08] MEDS: oxyCODONE/ACETAMINOPHEN 5 MG/325 MG TAB PO PRN (20:03)
[2017-05-08] MEDS: VERAPAMIL HCL 40 MG TAB PO SCH (22:34)
[2017-05-09] VITALS (15 sets, daily range): BP systolic 113–135; BP diastolic 58–73; PULSE 58–92; RESP 12–22; TEMP 97.6–98.1; O2SAT 94–98
[2017-05-09] MEDS: DEXT 5%-NACL 0.9% 1000 ML INJ 1,000 ML IV SCH (02:00)
[2017-05-09] MEDS: PIPERACIL-TAZO 3.375 GM PREMIX 50 ML IV SCH ×4 (04:52→22:05)
[2017-05-09] MEDS: FAMOTIDINE 20 MG/2 ML VIAL IV PUSH SCH ×2 (04:53→17:30)
[2017-05-09] MEDS: VERAPAMIL HCL 40 MG TAB PO SCH ×3 (04:53→22:00)
[2017-05-09] MEDS: INSULIN ASPART SUPPLEMENTAL SCALE SQ SCH ×4 (05:52→21:00)
[2017-05-09 07:11] LABS: AUTOMATED NEUTROPHIL # 6.2 TH/MM3 (1.8-7.7); BASOPHIL # 0.1 TH/MM3 (0-0.2); BASOPHIL % 0.8 % (0.0-2.0); EOSINOPHIL # 0.3 TH/MM3 (0-0.4); EOSINOPHIL % 3.1 % (0.0-4.0); HEMATOCRIT 30.8 % (35.0-46.0); HEMO FLAGS DIFF FINAL; LYMPH % 18.7 % (9.0-44.0); LYMPHOCYTE # 1.9 TH/MM3 (1.0-4.8); MEAN CELL VOLUME 82.6 FL (80.0-100.0); MEAN CORPUSCULAR HGB CONC 32.7 % (32.0-36.0); MONO % 15.9 % (0.0-8.0); NEUT % 61.5 % (16.0-70.0); PLATELET COUNT 609 TH/MM3 (150-450); RED BLOOD COUNT 3.73 MIL/MM3 (4.00-5.30); RED CELL DISTRIBUTION WIDTH 16.2 % (11.6-17.2)
[2017-05-09 07:27] LABS: APTT (PATIENT) 56.9 SEC (24.3-30.1)
[2017-05-09 07:39] LABS: BICARBONATE 25.8 MEQ/L (21.0-32.0)
[2017-05-09 07:48] LABS: POTASSIUM 2.9 MEQ/L (3.5-5.1)
[2017-05-09] MEDS: POTASSIUM CHLOR 20 MEQ PREMIX 100 ML IV PRN ×3 (08:46→12:30)
[2017-05-09] MEDS: TIMOLOL MALEATE 0.5% OPHT SOLN 5 ML BTL EACH EYE SCH (09:00)
[2017-05-09] MEDS: SODIUM CHLORIDE 0.9% FLUSH 10 ML FLUSH IV FLUSH SCH ×2 (09:00→21:00)
[2017-05-09] MEDS: FUROSEMIDE 40 MG/4 ML VIAL IV PUSH SCH (09:00)
--- NOTE | 2017-05-09 09:10 | HHI.PR ---
Subjective Remarks Patient seen and examined this morning. Her vitals are stable. I've been no fevers. She is saturating 97% on 1 L nasal cannula. States room is cold. Objective Vital Signs Date Time Temp Pulse Resp B/P (MAP) Pulse Ox O2 Delivery O2 Flow Rate FiO2 05/09/17 07:36 97 Nasal Cannula 1.00 05/09/17 06:00 62 05/09/17 04:00 98.0 60 12 135/58 (83) 97 05/09/17 04:00 60 05/09/17 02:00 78 05/09/17 00:00 60 05/09/17 00:00 97.8 60 15 126/63 (84) 97 05/08/17 23:00 90 05/08/17 22:00 64 05/08/17 20:37 98 Nasal Cannula 1.50 05/08/17 20:00 84 05/08/17 20:00 97.8 84 30 123/58 (79) 97 05/08/17 19:00 97 Nasal Cannula 3.00 05/08/17 15:00 130 05/08/17 14:00 128 05/08/17 13:48 98 Nasal Cannula 1.50 05/08/17 12:00 129 05/08/17 12:00 97.9 129 31 89/62 (71) 98 05/08/17 10:00 139 I/O 05/08/17 05/08/17 05/08/17 05/09/17 05/09/17 05/09/17 07:00 15:00 23:00 07:00 15:00 23:00 Intake Total 220 ml 329 ml Output Total 700 ml 675 ml Balance -480 ml -346 ml Intake Oral 120 ml 120 ml IV Total 100 ml 209 ml Output Urine Total 700 ml 400 ml Drainage Total 275 ml # Bowel Movements 2 2 Result Diagram: 05/09/1730 05/09/17 0630 Imaging Last Impressions Abdomen/Pelvis CT 05/06/17 1229 Signed Impressions: Service Date/Time: Saturday, May 06, 2017 13:06 - CONCLUSION: 1. Interval intraperitoneal drainage catheter placement with decompression of the fluid. Small volume pneumoperitoneum remains. 2. No extravasation of the oral contrast to clearly identify perforation of a hollow viscus. 3. Fistula to the anterior abdominal wall wound from the previous collection that was drained. 4. Bilateral pleural effusions with atelectasis. Conrad Raines Jr., MD Abscess Drainage CT 05/02/17 0000 Signed Impressions: Service Date/Time: Tuesday, May 02, 2017 17:42 - CONCLUSION: Uncomplicated CT guided drainage. Hipolito Talbot MD Chest X-Ray 05/01/17 0600 Signed Impressions: Service Date/Time: Monday, May 01, 2017 09:44 - CONCLUSION: Persistent large amount of free air identified within the abdomen. Pleural effusions which are slightly decreased in size as compared to the prior exam. Rebekah Quick MD Procedures X Lap for abdominal hysterectomy with BSO, omentectomy and small bowel resection with reanastomosis. Objective Remarks GENERAL: nad SKIN: Warm and dry. HEAD: Normocephalic. EYES: No scleral icterus. No injection or drainage. NECK: Supple, trachea midline. No JVD or lymphadenopathy. CARDIOVASCULAR: rhythm sounds regular, rate is < 100, ?systolic murmur RESPIRATORY: Breath sounds equal bilaterally. No accessory muscle use. GASTROINTESTINAL: Abdomen soft and tender. Ostomy bag over abdominal incision, gas and stool in bag. MUSCULOSKELETAL: Lower extremity pitting edema, legs diffusely tender to palpation A/P Problem List: (1) HTN (hypertension) ICD Code: I10 - Essential (primary) hypertension (2) HLD (hyperlipidemia) ICD Code: E78.5 - Hyperlipidemia, unspecified (3) Atrial fibrillation with RVR ICD Code: I48.91 - Unspecified atrial fibrillation (4) Uterine cancer ICD Code: C55 - Malignant neoplasm of uterus, part unspecified (5) Endometrial cancer ICD Code: C54.1 - Malignant neoplasm of endometrium (6) Postoperative state ICD Code: Z98.890 - Other specified postprocedural states Assessment and Plan This is a 76-year-old female patient with a 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 Course is uncomplicated due to her pre-existing ulcerative colitis and post anastomic colon leak. Anastomotic leak with peritonitis - Status post strain by IR, due to worsening leukocytosis concern is for abscess. 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 nonsurgical management - Surgeons involved: Dr. Morris, Dr. Poon, Dr. Saucedo and Dr. Sims - Infectious disease ([facility]) is following - blood cultures 05/03: Prevotella loeschelli - abscess culture 05/02: e.coli, strep not A, B, D, haemophilus parainfluenze - Currently on Zosyn - Antibiotic history: Diflucan DC 05/05 Uterine Malignancy - S/P Exploratory laparotomy, total abdominal hysterectomy, bilateral salpingo- oophorectomy, extensive lysis of adhesions, omentectomy, open sigmoid resection with primary anastomosis and open appendectomy. - Followed up by hematology oncology , [facility] and general surgery (Dr. Alexandra ha and Dr. Sims) AFib with RVR - History of paroxysmal A. fib - Has been evaluated by ship mate Dr. Turcios: went into A-Fb with RVR again on 05/08, amiodarone increased to 400 mg PO BID, verapamil 40 mg PO q8, metoprolol tartrate 25 mg BID, lasix 4o mg IV daily, keep K > 4, CHADS VASC 4 cont heparin Hypertension - Continue carvedilol. See above. HLD - Continue atorvastatin Anxiety - Ativan when necessary Ulcerative Colitis - On mesalamine at home HypoK - repleated, goal K> 4 DVT prophy - on heparin drip Discharge Planning No D/C plain at this time. Further workup is underway. Debora Hunter MD May 09, 2017 09:10
[2017-05-09] MEDS ORDERED: BUPIVACAINE LIPOSOME PF 1.3% 20 ML VIAL ONE (09:17)
--- NOTE | 2017-05-09 09:53 | PD.CARD.PN ---
Subjective Subjective Remarks NO COMPLAINTS OF CHEST PAIN OR SOB TELEMETRY SHOWS SINUS RHYTHM LESS LEG EDEMA NOTED SHE REPORTS TO BE GOING TO SURGERY THIS AFTERNOON Objective Medications Current Medications Medications (Trade) Dose Ordered Sig/Marsha Route Start Time Stop Time Status Last Admin (Asacol Hd Dr) 800 mg TID PO 04/25/17 18:00 05/08/17 17:44 (Timoptic 0.5% Opth Soln) 1 drop DAILY EACH EYE 04/26/17 09:00 05/08/17 09:33 (Pravachol) 20 mg DAILY PO 04/26/17 09:00 05/08/17 09:33 (NS Flush) 2 ml UNSCH PRN IV FLUSH 04/25/17 16:15 04/27/17 12:28 (NS Flush) 2 ml BID IV FLUSH 04/25/17 21:00 05/08/17 09:33 (Percocet 5-325 Mg) 1 tab Q4H PRN PO 04/25/17 16:15 05/07/17 15:50 (Percocet 5-325 Mg) 2 tab Q4H PRN PO 04/25/17 16:15 05/08/17 20:03 (Benadryl) 25 mg Q6H PRN PO 04/25/17 16:15 (Zofran Inj) 4 mg Q6H PRN IVP 04/25/17 16:15 05/07/17 17:59 (Ativan) 0.25 mg Q8H PRN PO 04/25/17 16:15 05/05/17 18:48 (Tums Chew) 500 mg Q4H PRN PO 04/27/17 19:45 (Duoneb Neb) 1 ampule Q4HR NEB PRN NEB 04/29/17 12:45 (D50w (Vial) Inj) 50 ml UNSCH PRN IV 05/02/17 23:00 (Glucagon Inj) 1 mg UNSCH PRN OTHER 05/02/17 23:00 (NovoLOG SUPPLEMENTAL SCALE) 1 ACHS SLIDING SCALE SQ 05/03/17 07:00 (Pepcid Inj) 20 mg Q12H IV PUSH 05/03/17 06:00 05/09/17 04:53 Dextrose/Sodium Chloride 1,000 ml @ 50 mls/hr Q20H IV 05/03/17 11:00 05/06/17 11:54 Piperacillin Sod/ Tazobactam Sod 50 ml @ 100 mls/hr Q6H IV 05/03/17 17:00 05/17/17 16:59 05/09/17 04:52 Potassium Chloride 100 ml @ 50 mls/hr Q2H PRN IV 05/03/17 19:30 Potassium Chloride 100 ml @ 50 mls/hr Q2H PRN IV 05/03/17 19:30 05/09/17 08:46 (K-Lyte Cl Eff) 50 meq UNSCH PRN PO 05/03/17 19:30 Potassium Chloride 100 ml @ 25 mls/hr UNSCH PRN IV 05/03/17 19:30 05/06/17 05:52 Potassium Chloride 100 ml @ 50 mls/hr Q2H PRN IV 05/03/17 19:30 05/06/17 08:35 Magnesium Sulfate 4 gm/Sodium Chloride 100 ml @ 50 mls/hr UNSCH PRN IV 05/03/17 19:30 (Mag-Ox) 800 mg UNSCH PRN PO 05/03/17 19:30 Magnesium Sulfate 2 gm/Sodium Chloride 100 ml @ 50 mls/hr UNSCH PRN IV 05/03/17 19:30 (K-Phos) 2,000 mg Q4H PRN PO 05/03/17 19:30 Sodium Phosphate 30 mmol/Sodium Chloride 250 ml @ 42 mls/hr UNSCH PRN IV 05/03/17 19:30 05/04/17 08:21 (K-Phos) 2,000 mg UNSCH PRN PO/TUBE 05/03/17 19:30 Potassium Phosphate 30 mmol/ Sodium Chloride 260 ml @ 42 mls/hr UNSCH PRN IV 05/03/17 19:30 Heparin Sodium/ Dextrose 250 ml @ 8.424 mls/ hr TITRATE PRN IV 05/05/17 17:00 05/08/17 12:25 (Isoptin) 40 mg Q8HR PO 05/08/17 14:00 05/09/17 04:53 (Cordarone) 400 mg Q12HR PO 05/08/17 12:45 05/08/17 20:03 (Lasix Inj) 40 mg DAILY IV PUSH 05/08/17 12:45 05/08/17 13:41 (Lopressor) 25 mg Q12HR PO 05/08/17 12:45 05/08/17 20:04 Vital Signs / I&O Vital Signs Date Time Temp Pulse Resp B/P (MAP) Pulse Ox O2 Delivery O2 Flow Rate FiO2 05/09/17 07:36 97 Nasal Cannula 1.00 05/09/17 06:00 62 05/09/17 04:00 98.0 60 12 135/58 (83) 97 05/09/17 04:00 60 05/09/17 02:00 78 05/09/17 00:00 60 05/09/17 00:00 97.8 60 15 126/63 (84) 97 05/08/17 23:00 90 05/08/17 22:00 64 05/08/17 20:37 98 Nasal Cannula 1.50 05/08/17 20:00 84 05/08/17 20:00 97.8 84 30 123/58 (79) 97 05/08/17 19:00 97 Nasal Cannula 3.00 05/08/17 15:00 130 05/08/17 14:00 128 05/08/17 13:48 98 Nasal Cannula 1.50 05/08/17 12:00 129 05/08/17 12:00 97.9 129 31 89/62 (71) 98 05/08/17 10:00 139 I/O 05/08/17 05/08/17 05/08/17 05/09/17 05/09/17 05/09/17 07:00 15:00 23:00 07:00 15:00 23:00 Intake Total 220 ml 329 ml Output Total 700 ml 675 ml Balance -480 ml -346 ml Intake Oral 120 ml 120 ml IV Total 100 ml 209 ml Output Urine Total 700 ml 400 ml Drainage Total 275 ml # Bowel Movements 2 2 Physical Exam NAD FLAT JVD LUNGS CLEAR REGULAR RATE AND RHYTHM, 1-2/6 LLSB SYSTOLIC MURMUR ABD SOFT LOWER EXTR WITH 2+ EDEMA BILAT Laboratory Laboratory Tests Test 05/09/17 06:30 White Blood Count 10.0 TH/MM3 Red Blood Count 3.73 MIL/MM3 Hemoglobin 10.1 GM/DL Hematocrit 30.8 % Mean Corpuscular Volume 82.6 FL Mean Corpuscular Hemoglobin 27.0 PG Mean Corpuscular Hemoglobin Concent 32.7 % Red Cell Distribution Width 16.2 % Platelet Count 609 TH/MM3 Mean Platelet Volume 6.8 FL Neutrophils (%) (Auto) 61.5 % Lymphocytes (%) (Auto) 18.7 % Monocytes (%) (Auto) 15.9 % Eosinophils (%) (Auto) 3.1 % Basophils (%) (Auto) 0.8 % Neutrophils # (Auto) 6.2 TH/MM3 Lymphocytes # (Auto) 1.9 TH/MM3 Monocytes # (Auto) 1.6 TH/MM3 Eosinophils # (Auto) 0.3 TH/MM3 Basophils # (Auto) 0.1 TH/MM3 CBC Comment DIFF FINAL Differential Comment Activated Partial Thromboplast Time 56.9 SEC Blood Urea Nitrogen 3 MG/DL Creatinine 0.39 MG/DL Random Glucose 100 MG/DL Calcium Level 7.9 MG/DL Sodium Level 143 MEQ/L Potassium Level 2.9 MEQ/L Chloride Level 109 MEQ/L Carbon Dioxide Level 25.8 MEQ/L Anion Gap 8 MEQ/L Estimat Glomerular Filtration Rate 159 ML/MIN Assessment and Plan Assessment and Plan RECURRENT POST-OP PAROXYSMAL ATRIAL FIBRILLATION. BACK IN SINUS RHYTHM NEGATIVE TROPONIN FOR ACS HTN CONTROLLED UTERINE MALIGNANCY, S/P HYSTERECTOMY, COLON RESECTION, BILAT OOPHORECTOMY, OMENTUM RESECTION ANASTOMOTIC LEAK COLO-VAGINAL FISTULA VOLUME OVERLOAD/LOWER EXTREMITY EDEMA, IMPROVED HYPOKALEMIA PLAN: MEDICATIONS REVIEWED, CONTINUE SAME AVOID VOLUME OVERLOAD START SPIRONOLACTONE 25 MG QD RESTART IV HEPARIN POST-OP WHEN OK WITH SURGERY. Jorge Turcios MD May 09, 2017 09:53
[2017-05-09] MEDS: MESALAMINE HD 800 MG DELAYED RELEASE TAB PO SCH ×3 (09:59→18:00)
[2017-05-09] MEDS: METOPROLOL TARTRATE 25 MG TAB PO SCH ×2 (09:59→22:51)
[2017-05-09] MEDS: AMIODARONE 200 MG TAB PO SCH ×2 (09:59→22:51)
[2017-05-09] MEDS: PRAVASTATIN SOD 20 MG TAB PO SCH (09:59)
[2017-05-09] MEDS: SPIRONOLACTONE 25 MG TAB PO SCH (10:00)
[2017-05-09] MEDS ORDERED: SODIUM CHLORIDE 0.9% 20 ML VIAL ONE (10:25)
[2017-05-09] MEDS ORDERED: ceFAZolin INJ 1,000 MG VIAL ONE (10:25)
[2017-05-09] MEDS ORDERED: ePHEDrine/NS 25 MG/5 ML SYR IV ONE (10:50)
[2017-05-09] MEDS ORDERED: PROPOFOL 200 MG/20 ML AMP IV ONE (10:50)
[2017-05-09] MEDS ORDERED: NEOSTIGMINE METHYLSULFATE 10 MG/10 ML VIAL IV PUSH ONE (10:50)
[2017-05-09] MEDS ORDERED: ONDANSETRON HCL 4 MG/2 ML VIAL IV PUSH ONE (10:50)
[2017-05-09] MEDS ORDERED: HYDROmorphone HCL PF 2 MG/ML VIAL ONE (13:34)
[2017-05-09] MEDS ORDERED: MIDAZOLAM HCL 2 MG/2 ML VIAL ONE (13:37)
[2017-05-09] MEDS ORDERED: DO NOT ADM ANY ANTICOAGULANT DRUGS PRN (14:54)
[2017-05-09] MEDS ORDERED: D5-NS + KCL 20 MEQ INJ 1,000 ML ONE (15:14)
[2017-05-09] MEDS ORDERED: NALOXONE HCL 0.4 MG/ML AMP IV PRN (15:15)
[2017-05-09] MEDS ORDERED: *morphine SULFATE 8 MG/ML PERIprocedure ONLY ONE (15:27)
[2017-05-09] MEDS: PCA - TOTAL MG DILAUDID DELIVERED PER SHIFT OTHER SCH ×2 (15:30→22:00)
[2017-05-09] MEDS: HYDROmorphone HCL PCA 6 MG/30 ML IV SCH (15:37)
[2017-05-09] MEDS ORDERED: POTASSIUM CHLORIDE INJ 20 MEQ in DEXT 5%-NACL 0.9% 1000 ML INJ 1,000 ML IV SCH (16:00)
[2017-05-09] MEDS ORDERED: SODIUM CHLORIDE 0.9% FLUSH 10 ML FLUSH IV FLUSH PRN (19:30)
--- NOTE | 2017-05-09 20:06 | RADRPT ---
EXAM DATE/TIME: 05/09/2017 19:19 [place] COMPARISON: CHEST PA & LAT, April 29, 2017, 9:24. CHEST PA & LAT, May 01, 2017, 9:44. INDICATIONS : PICC line placement MEDICAL HISTORY : Cardiovascular disease. Hypertension. Colitis SURGICAL HISTORY : Tubal ligation. ENCOUNTER: Subsequent ACUITY: 1 week PAIN SCORE: Non-responsive. LOCATION: Bilateral chest FINDINGS: A single AP portable semierect view of the chest was obtained and demonstrates interval placement rig ht-sided PICC line with the tip projected over the superior vena cava. A nasogastric tube is in place with the tip in the stomach. Hazy opacity is now noted in both lungs left greater than right. The co stophrenic angles are blunted. The heart size appears at the upper limits of normal. The bony thorax is intact multiple overlying electrocardiogram leads. CONCLUSION: 1. Interval placement of a right-sided PICC line and nasogastric tube. 2. Hazy opacity in both lungs most characteristic of posterior layering effusions left greater than r ight. Lupillo Currie MD on May 09, 2017 at 20:02 Board Certified Radiologist. This report was verified electronically.
[2017-05-10] VITALS (17 sets, daily range): BP systolic 113–137; BP diastolic 58–68; PULSE 61–77; RESP 12–24; TEMP 97.4–98.7; O2SAT 93–99
[2017-05-10] MEDS: D5-NS + KCL 20 MEQ INJ 1,000 ML IV SCH ×3 (01:55→22:35)
[2017-05-10 05:28] LABS: AUTOMATED NEUTROPHIL # 22.8 TH/MM3 (1.8-7.7); BASOPHIL % 0.1 % (0.0-2.0); HEMATOCRIT 31.6 % (35.0-46.0); HEMO FLAGS DIFF FINAL; LYMPHOCYTE # 1.6 TH/MM3 (1.0-4.8); MEAN CELL VOLUME 82.7 FL (80.0-100.0); MEAN CORPUSCULAR HEMOGLOBIN 26.7 PG (27.0-34.0); MEAN CORPUSCULAR HGB CONC 32.3 % (32.0-36.0); MONO % 6.1 % (0.0-8.0); NEUT % 87.8 % (16.0-70.0); PLATELET COUNT 632 TH/MM3 (150-450); RED BLOOD COUNT 3.82 MIL/MM3 (4.00-5.30); RED CELL DISTRIBUTION WIDTH 16.6 % (11.6-17.2)
[2017-05-10] MEDS: PIPERACIL-TAZO 3.375 GM PREMIX 50 ML IV SCH ×4 (05:32→22:35)
[2017-05-10] MEDS: FAMOTIDINE 20 MG/2 ML VIAL IV PUSH SCH ×2 (05:32→18:06)
[2017-05-10] MEDS: VERAPAMIL HCL 40 MG TAB PO SCH ×3 (05:33→21:18)
[2017-05-10 05:44] LABS: BICARBONATE 25.2 MEQ/L (21.0-32.0); POTASSIUM 4.4 MEQ/L (3.5-5.1)
[2017-05-10] MEDS: PCA - TOTAL MG DILAUDID DELIVERED PER SHIFT OTHER SCH ×3 (05:59→22:00)
[2017-05-10] MEDS: INSULIN ASPART SUPPLEMENTAL SCALE SQ SCH ×4 (06:43→21:00)
[2017-05-10] MEDS: ONDANSETRON HCL 4 MG/2 ML VIAL IVP PRN (07:34)
[2017-05-10] MEDS: MESALAMINE HD 800 MG DELAYED RELEASE TAB PO SCH ×3 (07:56→18:00)
[2017-05-10] MEDS: FUROSEMIDE 40 MG/4 ML VIAL IV PUSH SCH (08:38)
[2017-05-10] MEDS: AMIODARONE 200 MG TAB PO SCH ×2 (08:38→21:17)
[2017-05-10] MEDS: METOPROLOL TARTRATE 25 MG TAB PO SCH ×2 (08:38→21:17)
[2017-05-10] MEDS: PRAVASTATIN SOD 20 MG TAB PO SCH (08:38)
[2017-05-10] MEDS: SPIRONOLACTONE 25 MG TAB PO SCH (08:38)
[2017-05-10] MEDS ORDERED: PHENOL 1.4% SOLN 180 ML BTL OROPHARYNG PRN (08:45)
[2017-05-10] MEDS: SODIUM CHLORIDE 0.9% FLUSH 10 ML FLUSH IV FLUSH SCH ×3 (09:00→21:19)
[2017-05-10] MEDS: TIMOLOL MALEATE 0.5% OPHT SOLN 5 ML BTL EACH EYE SCH (09:21)
--- NOTE | 2017-05-10 10:09 | MP ---
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 PROCEDURE 1. Reopening of recent laparotomy. 2. Takedown of colocutaneous and colovaginal fistulas and takedown of previous colo-colon anastomosis and placement of end-colostomy with closure of rectal stump. 3. Abdominal washout. 4. Repair/closure of vaginal cuff. 5. Closure of abdominal wall with retention sutures. 6. Midline back placement of 35 cm x 3 cm x 3 cm wound at the midline. ATTENDING SURGEON MD Alexandra [employer] SPECIALIST MD Lewis ANESTHESIA General and regional TAP block. COMPLICATIONS None. BLOOD LOSS 200 cc. FINDINGS Significant inflammation throughout the abdomen due to surgery two weeks ago. A small hole at the tip of the staple line of the sigmoid colon with approximately 2 mm leak with fistulizing to the vaginal cuff repair which had partially broken down into the midline wound which had partially dehisced at the area of the fistula. No other intraabdominal pathology. INDICATIONS FOR PROCEDURE The patient is a 76-year-old female who had undergone a radical hysterectomy and sigmoid resection two weeks ago for a leiomyosarcoma. The patient initially did well following the surgery, however, she developed increasing white blood cell count and free air on imaging. CT scan did show a pelvic abscess, possible secondary sign of a leak. A CT guided drain was placed and initially she responded well to nonoperative management with CT-guided drainage and antibiotics. Unfortunately the patient did develop, over the last 48 hours, decreasing drainage from her drain as well as colocutaneous fistula to the wound and a colovaginal fascia to the vaginal cuff. After discussion with the patient and a daughter about the clinical situation and options including continued nonoperative management versus reexploration and takedown of the anastomosis and fistula, they did elect to proceed with surgery. The risks, benefits and alternatives were discussed with the patient and daughter including risk of further surgical complications like fistula, wound dehiscence, recurrent infections and significant risk involved with late reoperation after a previous laparotomy. They agreed to the risks and decided to proceed with surgery. I also discussed this with Dr. Lewis MD, who saw the patient as a second opinion and felt the patient would benefit from reoperation as well. PROCEDURE The patient was taken from the intensive care unit down to the operating room, placed in a supine position, placed under general endotracheal anesthesia. The patient's abdomen was prepped and draped after the bandages and the CT-guided drainage was removed. Time-out was performed. The patient's previous incision was reopened from the skin up to the midline and all our previous PDS sutures were completely removed. We were greeted with some purulent material, some feculence and material from the pelvis. We were able to easily lyse the adhesions from the bowel off of the abdominal wall. There was a small enterotomy at the patient's dehiscence area taking this down, which was approximately 2 mm. This was closed completely once we had mobilized the bowel proximal and distal with two layers of 3-0 silk sutures. This was a very tiny, pinhole type enterotomy and this was repaired with good tissue of 3-0 silks primary and followed by Lembert sutures. This was widely patent at that site. We placed a Bookwalter retractor. We again washed out the abdomen including the pelvis. We were able to easily isolate the previous anastomosis as we were able to enter the space with the previous infection and get around distal to the anastomosis. We placed a contour stapler around the distal colon which was about the area where the splaying of the tinea would be, proximal to the rectum. We fired the stapler, had excellent staple line at our distal stump. We were able to mobilize the anastomosis and the descending colon up into our wound. At this point in time we turned attention towards closure. We irrigated out the abdomen with several liters of warm saline. All suctioning drainage was clear. We returned the bowel to normal anatomic position. We placed a 19-Nepali round Can drain looped in the pelvis through a separate stab incision in the right lower quadrant. We sutured this in place with a nylon suture. We made a circular incision on the left of the abdomen with the Bovie electrocautery and divided a cruciate incision through the rectus sheath to spread the rectus muscles and open the posterior rectus sheath. We passed the previous anastomosis of ascending colon out of the patient through the colostomy without difficulty. We did repair the vaginal cuff with three interrupted 2-0 Vicryl sutures and this again was completely intact after our repair. We closed the midline fascia with a single #1 looped PDS suture followed by eight internal retention sutures. The fascia was friable and weakened but this held quite well and we had good primary closure of the abdominal fascia and rectus muscles. We then placed a VAC dressing on the wound in the midline. We had good suction and no leak on our VAC dressing. We placed a bulb to QUENTIN suction. We matured out ostomy after we used Bovie electrocautery to resect the anastomosis completely. We took the proximal descending colon and Brooked this as much as possible. We were limited by the length of immobilization we could performed due to the inflammation in the abdomen and without mobilizing the splenic flexure, but we did have good mucosa up at our skin. We sewed this in place with a 3-0 Vicryl running as well as interrupted sutures. New ostomy appliance was applied. At this point in time the patient was discontinued from the anesthesia, taken to the PACU in stable addition. OF NOTE, the patient did undergo TAP block as well for regional anesthesia. Myself and Dr. Saucedo were present and scrubbed for the entire procedure. No apparent complications. All counts were correct and the patient tolerated the procedure well. MD NICOL Quevdeo/GISELLA /3:20 PM /9:41 AM
--- NOTE | 2017-05-10 10:29 | HHI.PR ---
Subjective Subjective Notes Resting in bed Awaiting arrival of niece who is a Nurse today Daughter at bedside Objective Vitals/I&O Vital Signs Date Time Temp Pulse Resp B/P (MAP) Pulse Ox O2 Delivery O2 Flow Rate FiO2 05/10/17 08:00 98 Nasal Cannula 4.00 05/10/17 06:00 67 05/10/17 05:59 20 05/10/17 04:00 98.7 126/65 (85) Labs Laboratory Tests Test 05/10/17 05:00 White Blood Count 26.0 Red Blood Count 3.82 Hemoglobin 10.2 Hematocrit 31.6 Mean Corpuscular Volume 82.7 Mean Corpuscular Hemoglobin 26.7 Mean Corpuscular Hemoglobin Concent 32.3 Red Cell Distribution Width 16.6 Platelet Count 632 Mean Platelet Volume 6.6 Neutrophils (%) (Auto) 87.8 Lymphocytes (%) (Auto) 6.0 Monocytes (%) (Auto) 6.1 Eosinophils (%) (Auto) 0.0 Basophils (%) (Auto) 0.1 Neutrophils # (Auto) 22.8 Lymphocytes # (Auto) 1.6 Monocytes # (Auto) 1.6 Eosinophils # (Auto) 0.0 Basophils # (Auto) 0.0 CBC Comment DIFF FINAL Differential Comment Blood Urea Nitrogen 4 Creatinine 0.40 Random Glucose 159 Calcium Level 7.5 Sodium Level 143 Potassium Level 4.4 Chloride Level 112 Carbon Dioxide Level 25.2 Anion Gap 6 Estimat Glomerular Filtration Rate 155 Date/Time Source Procedure Growth Status 05/03/17 16:35 Blood Peripheral Aerobic Blood Culture - Final NO GROWTH IN 5 DAYS Complete 05/03/17 16:35 Anaerobic Blood Culture - Final Prevotella Loescheii Complete 05/02/17 17:50 Abscess Abdomen Gram Stain - Final Complete 05/02/17 17:50 Wound Culture - Final Escherichia Coli Strep Not A,B D Complete Cardiovascular: Regular Lungs: Clear Abdomen: Other (midline wound vac in place with good seal; QUENTIN with SS fluid; colostomy with pink stoma---no ouput ) Extremities: Other (see below) Narrative Exam LEFT wrist edema BLE edema A/P Assessment and Plan 76 year old female s/p POD1 ex lap and colostomy; s/p exploratory laparotomy, total abdominal hysterectomy, bilateral salpingo-oophorectomy, extensive lysis of adhesions, omentectomy, open sigmoid resection with primary anastomosis and open appendectomy -NGT to LIWS -NPO -OOB and tolerated--with assistance -Colostomy teaching -Monitor labs -Continue routine QUENTIN care Attending Statement The exam, history, and the medical decision-making described in the above note were completed with the assistance of the mid-level provider. I reviewed and agree with the findings presented. I attest that I had a [id number] encounter with the patient on the same day, and personally performed and documented my assessment and findings in the medical record. Abdominal exam: stable postop exam, soft, non-tender Shannon Ocampo May 10, 2017 10:29 Blayne Morris MD Jun 07, 2017 23:05
[2017-05-10] MEDS: BENZOCAINE 6 MG/MENTHOL 10 MG LOZENGE BUCCAL PRN ×2 (11:48→18:39)
--- NOTE | 2017-05-10 11:55 | PD.WCN.NOT ---
Wound Consult Description: Consult for Ostomy Management/Wound Vac on midline/End Colostomy Communicated with: ERICH Melchor Additional Information: Spoke with ERICH Melchor regarding wound VAC that was placed on 05/09/17. Wound VAC does not need to be changed today POD #1 Ostomy Type: Colostomy Date of Surgery: May 09, 2017 Gillian Wong [facility] May 10, 2017 11:54
--- NOTE | 2017-05-10 14:14 | HHI.PR ---
Subjective Remarks Follow up for peritonitis, uterine malignancy, atrial fibrillation. Patient is currently doing well. NG tube in place. Denies any chest pain, shortness of breath, fever or chills. Currently on nasal cannula. Objective Vitals Vital Signs Date Time Temp Pulse Resp B/P (MAP) Pulse Ox O2 Delivery O2 Flow Rate FiO2 05/10/17 12:00 68 05/10/17 12:00 98.1 68 15 113/58 (76) 97 05/10/17 10:00 72 05/10/17 08:00 98.1 66 12 114/63 (80) 99 05/10/17 08:00 98 Nasal Cannula 4.00 05/10/17 07:01 69 05/10/17 07:00 68 05/10/17 06:00 67 05/10/17 05:59 20 05/10/17 04:00 73 05/10/17 04:00 98.7 73 12 126/65 (85) 99 05/10/17 02:00 72 05/10/17 00:00 66 05/10/17 00:00 98.0 66 12 116/62 (80) 98 05/09/17 23:00 73 05/09/17 22:00 70 05/09/17 22:00 12 05/09/17 20:24 98 Nasal Cannula 4.00 05/09/17 20:00 73 05/09/17 20:00 97.6 73 12 113/73 (86) 98 Arterial Line 05/09/17 19:00 98 Nasal Cannula 4.00 05/09/17 18:00 72 05/09/17 16:00 98.1 92 19 114/65 (81) 94 05/09/17 16:00 72 05/09/17 15:50 97.2 66 12 123/63 (83) 97 Nasal Cannula 4 130/58 (82) 05/09/17 15:45 66 16 119/63 (81) 97 Nasal Cannula 4 05/09/17 15:37 14 05/09/17 15:30 67 16 119/56 (77) 96 Nasal Cannula 4 124/56 (78) 05/09/17 15:15 66 14 115/58 (77) 96 Nasal Cannula 4 05/09/17 15:00 58 05/09/17 15:00 69 13 106/59 (75) 94 Nasal Cannula 4 118/56 (76) 05/09/17 14:54 97.6 68 15 107/59 (75) 94 Nasal Cannula 4 111/52 (71) I/O 05/09/17 05/09/17 05/09/17 05/10/17 05/10/17 05/10/17 07:00 15:00 23:00 07:00 15:00 23:00 Intake Total 329 ml 2250 ml 100 ml 1684 ml 725 ml Output Total 675 ml 450 ml 130 ml 775 ml Balance -346 ml 1800 ml -30 ml 909 ml 725 ml Intake Oral 120 ml 0 ml IV Total 209 ml 150 ml 100 ml 1684 ml 725 ml Other 2100 ml Output Urine Total 400 ml 50 ml 350 ml Gastric Drainage Total 5 ml 125 ml Drainage Total 275 ml 75 ml 300 ml Estimated Blood Loss 250 ml Other 200 ml # Bowel Movements 2 0 Result Diagram: 05/10/17 0500 05/10/17 0500 Imaging Last Impressions Chest X-Ray 05/09/17 0000 Signed Impressions: Service Date/Time: Tuesday, May 09, 2017 19:19 - CONCLUSION: 1. Interval placement of a right-sided PICC line and nasogastric tube. 2. Hazy opacity in both lungs most characteristic of posterior layering effusions left greater than right. Lupillo Currie MD Abdomen/Pelvis CT 05/06/17 1229 Signed Impressions: Service Date/Time: Saturday, May 06, 2017 13:06 - CONCLUSION: 1. Interval intraperitoneal drainage catheter placement with decompression of the fluid. Small volume pneumoperitoneum remains. 2. No extravasation of the oral contrast to clearly identify perforation of a hollow viscus. 3. Fistula to the anterior abdominal wall wound from the previous collection that was drained. 4. Bilateral pleural effusions with atelectasis. Conrad Raines Jr., MD Abscess Drainage CT 05/02/17 0000 Signed Impressions: Service Date/Time: Tuesday, May 02, 2017 17:42 - CONCLUSION: Uncomplicated CT guided drainage. Hipolito Talbot MD Objective Remarks GENERAL: Alert, oriented 3, NAD. SKIN: Warm and dry. HEAD: Normocephalic. EYES: No scleral icterus. No injection or drainage. NECK: Supple, trachea midline. No JVD or lymphadenopathy. CARDIOVASCULAR: Regular rate and rhythm without murmurs, gallops, or rubs. RESPIRATORY: Breath sounds equal bilaterally. No accessory muscle use. GASTROINTESTINAL: Abdomen soft, non-tender, nondistended. MUSCULOSKELETAL: No cyanosis, or edema. BACK: Nontender without obvious deformity. No CVA tenderness. 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 Course is uncomplicated due to her pre-existing ulcerative colitis and post anastomic colon leak. Anastomotic leak with peritonitis - Status post drainage by IR, due to worsening leukocytosis concern is for abscess. 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 - Surgeons involved: Dr. Morris, Dr. Poon, Dr. Saucedo and Dr. Sims - Infectious disease ([facility]) is following - blood cultures 05/03: Prevotella loeschelli - abscess culture 05/02: e.coli, strep not A, B, D, haemophilus parainfluenze - Currently on Zosyn. Will obtain CBC in the AM on 05/11/2017. - Antibiotic history: Diflucan DC 05/05 Uterine Malignancy - S/P Exploratory laparotomy, total abdominal hysterectomy, bilateral salpingo- oophorectomy, extensive lysis of adhesions, omentectomy, open sigmoid resection with primary anastomosis and open appendectomy. - Followed up by hematology oncology , [employer]-onc and general surgery (Dr. Morris all and Dr. Sims) AFib with RVR - History of paroxysmal A. fib - Has been evaluated by risk compliance manager Dr. Turcios: went into A-Fb with RVR again on 05/08, amiodarone 200 mg PO BID, verapamil 40 mg PO q8, metoprolol tartrate 25 mg BID, lasix 4o mg IV daily, keep K > 4, CHADS VASC 4 cont heparin HLD - Continue pravastatin 20 mg daily. Anxiety - Ativan when necessary Ulcerative Colitis - On mesalamine at home HypoK - Replaced, goal K> 4 Full code. Heparin dripMana Galindo DO May 10, 2017 14:14
--- NOTE | 2017-05-10 16:44 | PD.CARD.PN ---
Subjective Subjective Remarks TOLERATED SURGERY WELL NO COMPLAINTS OF CHEST PAIN OR SOB REMAINS IN SINUS RHYTHM Objective Medications Current Medications Medications (Trade) Dose Ordered Sig/Marsha Route Start Time Stop Time Status Last Admin (Asacol Hd Dr) 800 mg TID PO 04/25/17 18:00 05/09/17 09:59 (Timoptic 0.5% Opth Soln) 1 drop DAILY EACH EYE 04/26/17 09:00 05/10/17 09:21 (Pravachol) 20 mg DAILY PO 04/26/17 09:00 05/10/17 08:38 (NS Flush) 2 ml UNSCH PRN IV FLUSH 04/25/17 16:15 04/27/17 12:28 (NS Flush) 2 ml BID IV FLUSH 04/25/17 21:00 05/08/17 09:33 (Percocet 5-325 Mg) 1 tab Q4H PRN PO 04/25/17 16:15 05/07/17 15:50 (Percocet 5-325 Mg) 2 tab Q4H PRN PO 04/25/17 16:15 05/08/17 20:03 (Benadryl) 25 mg Q6H PRN PO 04/25/17 16:15 (Zofran Inj) 4 mg Q6H PRN IVP 04/25/17 16:15 05/10/17 07:34 (Ativan) 0.25 mg Q8H PRN PO 04/25/17 16:15 05/05/17 18:48 (Tums Chew) 500 mg Q4H PRN PO 04/27/17 19:45 (Duoneb Neb) 1 ampule Q4HR NEB PRN NEB 04/29/17 12:45 (D50w (Vial) Inj) 50 ml UNSCH PRN IV 05/02/17 23:00 (Glucagon Inj) 1 mg UNSCH PRN OTHER 05/02/17 23:00 (NovoLOG SUPPLEMENTAL SCALE) 1 ACHS SLIDING SCALE SQ 05/03/17 07:00 (Pepcid Inj) 20 mg Q12H IV PUSH 05/03/17 06:00 05/10/17 05:32 Piperacillin Sod/ Tazobactam Sod 50 ml @ 100 mls/hr Q6H IV 05/03/17 17:00 05/17/17 16:59 05/10/17 11:26 Potassium Chloride 100 ml @ 50 mls/hr Q2H PRN IV 05/03/17 19:30 Potassium Chloride 100 ml @ 50 mls/hr Q2H PRN IV 05/03/17 19:30 05/09/17 12:30 (K-Lyte Cl Eff) 50 meq UNSCH PRN PO 05/03/17 19:30 Potassium Chloride 100 ml @ 25 mls/hr UNSCH PRN IV 05/03/17 19:30 05/06/17 05:52 Potassium Chloride 100 ml @ 50 mls/hr Q2H PRN IV 05/03/17 19:30 05/06/17 08:35 Magnesium Sulfate 4 gm/Sodium Chloride 100 ml @ 50 mls/hr UNSCH PRN IV 05/03/17 19:30 (Mag-Ox) 800 mg UNSCH PRN PO 05/03/17 19:30 Magnesium Sulfate 2 gm/Sodium Chloride 100 ml @ 50 mls/hr UNSCH PRN IV 05/03/17 19:30 (K-Phos) 2,000 mg Q4H PRN PO 05/03/17 19:30 Sodium Phosphate 30 mmol/Sodium Chloride 250 ml @ 42 mls/hr UNSCH PRN IV 05/03/17 19:30 05/04/17 08:21 (K-Phos) 2,000 mg UNSCH PRN PO/TUBE 05/03/17 19:30 Potassium Phosphate 30 mmol/ Sodium Chloride 260 ml @ 42 mls/hr UNSCH PRN IV 05/03/17 19:30 Heparin Sodium/ Dextrose 250 ml @ 8.424 mls/ hr TITRATE PRN IV 05/05/17 17:00 05/08/17 12:25 (Isoptin) 40 mg Q8HR PO 05/08/17 14:00 05/10/17 05:33 (Cordarone) 400 mg Q12HR PO 05/08/17 12:45 05/10/17 08:38 (Lasix Inj) 40 mg DAILY IV PUSH 05/08/17 12:45 05/10/17 08:38 (Lopressor) 25 mg Q12HR PO 05/08/17 12:45 05/10/17 08:38 (Aldactone) 25 mg DAILY PO 05/09/17 10:00 05/10/17 08:38 (Narcan Inj) 0.4 mg UNSCH PRN IV 05/09/17 15:15 (Dilaudid CT TECHNICIAN Inj) 6 mg UNSCH IV 05/09/17 15:15 05/09/17 15:37 CT TECHNICIAN Dosage Infused (Pha) 1 Q8HR OTHER 05/09/17 15:30 05/10/17 14:00 (NS Flush) See Protocol DAILY IV FLUSH 05/10/17 09:00 05/10/17 09:19 (NS Flush) See Protocol UNSCH PRN IV FLUSH 05/09/17 19:30 (Heparin Central Flush) See Protocol DAILY IV FLUSH 05/10/17 09:00 05/10/17 09:19 (Heparin Central Flush) See Protocol UNSCH PRN IV FLUSH 05/09/17 19:30 (NS Flush) UNSCH PRN IV FLUSH 05/09/17 19:30 Potassium Chloride/Dextrose/ Sod Cl 1,000 ml @ 100 mls/hr Q10H IV 05/10/17 02:00 05/10/17 12:33 (Chloraseptic [place]) 2 spray Q2H PRN OROPHARYNG 05/10/17 08:45 (Chloraseptic Willian) 1 lozenge UNSCH PRN BUCCAL 05/10/17 09:30 05/10/17 11:48 Vital Signs / I&O Vital Signs Date Time Temp Pulse Resp B/P (MAP) Pulse Ox O2 Delivery O2 Flow Rate FiO2 05/10/17 15:00 68 05/10/17 14:00 68 05/10/17 14:00 18 05/10/17 12:00 68 05/10/17 12:00 98.1 68 15 113/58 (76) 97 05/10/17 10:00 72 05/10/17 08:00 98.1 66 12 114/63 (80) 99 05/10/17 08:00 98 Nasal Cannula 4.00 05/10/17 07:01 69 05/10/17 07:00 68 05/10/17 06:00 67 05/10/17 05:59 20 05/10/17 04:00 73 05/10/17 04:00 98.7 73 12 126/65 (85) 99 05/10/17 02:00 72 05/10/17 00:00 66 05/10/17 00:00 98.0 66 12 116/62 (80) 98 05/09/17 23:00 73 05/09/17 22:00 70 05/09/17 22:00 12 05/09/17 20:24 98 Nasal Cannula 4.00 05/09/17 20:00 73 05/09/17 20:00 97.6 73 12 113/73 (86) 98 Arterial Line 05/09/17 19:00 98 Nasal Cannula 4.00 05/09/17 18:00 72 I/O 05/09/17 05/09/17 05/09/17 05/10/17 05/10/17 05/10/17 07:00 15:00 23:00 07:00 15:00 23:00 Intake Total 329 ml 2250 ml 100 ml 1684 ml 725 ml 301 ml Output Total 675 ml 450 ml 130 ml 775 ml Balance -346 ml 1800 ml -30 ml 909 ml 725 ml 301 ml Intake Oral 120 ml 0 ml IV Total 209 ml 150 ml 100 ml 1684 ml 725 ml 301 ml Other 2100 ml Output Urine Total 400 ml 50 ml 350 ml Gastric Drainage Total 5 ml 125 ml Drainage Total 275 ml 75 ml 300 ml Estimated Blood Loss 250 ml Other 200 ml # Bowel Movements 2 0 Physical Exam NAD FLAT JVD LUNGS CLEAR REGULAR RATE AND RHYTHM, 1-2/6 LLSB SYSTOLIC MURMUR ABD SOFT LOWER EXTR WITH 2+ EDEMA BILAT Laboratory Laboratory Tests Test 05/10/17 05:00 White Blood Count 26.0 TH/MM3 Red Blood Count 3.82 MIL/MM3 Hemoglobin 10.2 GM/DL Hematocrit 31.6 % Mean Corpuscular Volume 82.7 FL Mean Corpuscular Hemoglobin 26.7 PG Mean Corpuscular Hemoglobin Concent 32.3 % Red Cell Distribution Width 16.6 % Platelet Count 632 TH/MM3 Mean Platelet Volume 6.6 FL Neutrophils (%) (Auto) 87.8 % Lymphocytes (%) (Auto) 6.0 % Monocytes (%) (Auto) 6.1 % Eosinophils (%) (Auto) 0.0 % Basophils (%) (Auto) 0.1 % Neutrophils # (Auto) 22.8 TH/MM3 Lymphocytes # (Auto) 1.6 TH/MM3 Monocytes # (Auto) 1.6 TH/MM3 Eosinophils # (Auto) 0.0 TH/MM3 Basophils # (Auto) 0.0 TH/MM3 CBC Comment DIFF FINAL Differential Comment Blood Urea Nitrogen 4 MG/DL Creatinine 0.40 MG/DL Random Glucose 159 MG/DL Calcium Level 7.5 MG/DL Sodium Level 143 MEQ/L Potassium Level 4.4 MEQ/L Chloride Level 112 MEQ/L Carbon Dioxide Level 25.2 MEQ/L Anion Gap 6 MEQ/L Estimat Glomerular Filtration Rate 155 ML/MIN Imaging Vital Signs Date Time Temp Pulse Resp B/P (MAP) Pulse Ox O2 Delivery O2 Flow Rate FiO2 05/10/17 15:00 68 05/10/17 14:00 68 05/10/17 14:00 18 05/10/17 12:00 68 05/10/17 12:00 98.1 68 15 113/58 (76) 97 05/10/17 10:00 72 05/10/17 08:00 98.1 66 12 114/63 (80) 99 05/10/17 08:00 98 Nasal Cannula 4.00 05/10/17 07:01 69 05/10/17 07:00 68 05/10/17 06:00 67 05/10/17 05:59 20 05/10/17 04:00 73 05/10/17 04:00 98.7 73 12 126/65 (85) 99 05/10/17 02:00 72 05/10/17 00:00 66 05/10/17 00:00 98.0 66 12 116/62 (80) 98 05/09/17 23:00 73 05/09/17 22:00 70 05/09/17 22:00 12 05/09/17 20:24 98 Nasal Cannula 4.00 05/09/17 20:00 73 05/09/17 20:00 97.6 73 12 113/73 (86) 98 Arterial Line 05/09/17 19:00 98 Nasal Cannula 4.00 05/09/17 18:00 72 Assessment and Plan Assessment and Plan RECURRENT POST-OP PAROXYSMAL ATRIAL FIBRILLATION. BACK IN SINUS RHYTHM NEGATIVE TROPONIN FOR ACS HTN CONTROLLED UTERINE MALIGNANCY, S/P HYSTERECTOMY, COLON RESECTION, BILAT OOPHORECTOMY, OMENTUM RESECTION ANASTOMOTIC LEAK, REPAIRED COLO-VAGINAL FISTULA, REPAIRED VOLUME OVERLOAD/LOWER EXTREMITY EDEMA, IMPROVED HYPOKALEMIA, RESOLVED PLAN: MEDICATIONS REVIEWED, CONTINUE SAME WILL DECREASE AMIODARONE 200 MG BID RESTART IV HEPARIN POST-OP WHEN OK WITH SURGERY. Jorge Turcios MD May 10, 2017 16:44
--- NOTE | 2017-05-10 17:30 | HHI.IDPN ---
Subjective Subjective Remarks sp ex lap and colostomy; VAC placement yday Doing OK afebrile off pressors no fever Antibiotics zosyn Allergies: Coded Allergies: ciprofloxacin (Verified Allergy, Unknown, 05/06/17) doxycycline (Verified Allergy, Unknown, 05/06/17) Objective . Vital Signs Date Time Temp Pulse Resp B/P (MAP) Pulse Ox O2 Delivery O2 Flow Rate FiO2 05/10/17 16:00 76 05/10/17 16:00 98.0 76 24 131/63 (85) 94 05/10/17 15:00 68 05/10/17 14:00 68 05/10/17 14:00 18 05/10/17 12:00 68 05/10/17 12:00 98.1 68 15 113/58 (76) 97 05/10/17 10:00 72 05/10/17 08:00 98.1 66 12 114/63 (80) 99 05/10/17 08:00 98 Nasal Cannula 4.00 05/10/17 07:01 69 05/10/17 07:00 68 05/10/17 06:00 67 05/10/17 05:59 20 05/10/17 04:00 73 05/10/17 04:00 98.7 73 12 126/65 (85) 99 05/10/17 02:00 72 05/10/17 00:00 66 05/10/17 00:00 98.0 66 12 116/62 (80) 98 05/09/17 23:00 73 05/09/17 22:00 70 05/09/17 22:00 12 05/09/17 20:24 98 Nasal Cannula 4.00 05/09/17 20:00 73 05/09/17 20:00 97.6 73 12 113/73 (86) 98 Arterial Line 05/09/17 19:00 98 Nasal Cannula 4.00 05/09/17 18:00 72 05/10/17 05/10/17 05/11/17 14:59 22:59 06:59 Intake Total 725 ml 301 ml Balance 725 ml 301 ml IV Total 725 ml 301 ml . Laboratory Tests Test 05/09/17 06:30 05/10/17 05:00 White Blood Count 10.0 TH/MM3 26.0 TH/MM3 Red Blood Count 3.73 MIL/MM3 3.82 MIL/MM3 Hemoglobin 10.1 GM/DL 10.2 GM/DL Hematocrit 30.8 % 31.6 % Mean Corpuscular Volume 82.6 FL 82.7 FL Mean Corpuscular Hemoglobin 27.0 PG 26.7 PG Mean Corpuscular Hemoglobin Concent 32.7 % 32.3 % Red Cell Distribution Width 16.2 % 16.6 % Platelet Count 609 TH/MM3 632 TH/MM3 Mean Platelet Volume 6.8 FL 6.6 FL Neutrophils (%) (Auto) 61.5 % 87.8 % Lymphocytes (%) (Auto) 18.7 % 6.0 % Monocytes (%) (Auto) 15.9 % 6.1 % Eosinophils (%) (Auto) 3.1 % 0.0 % Basophils (%) (Auto) 0.8 % 0.1 % Neutrophils # (Auto) 6.2 TH/MM3 22.8 TH/MM3 Lymphocytes # (Auto) 1.9 TH/MM3 1.6 TH/MM3 Monocytes # (Auto) 1.6 TH/MM3 1.6 TH/MM3 Eosinophils # (Auto) 0.3 TH/MM3 0.0 TH/MM3 Basophils # (Auto) 0.1 TH/MM3 0.0 TH/MM3 CBC Comment DIFF FINAL DIFF FINAL Differential Comment Laboratory Tests Test 05/09/17 06:30 05/10/17 05:00 Blood Urea Nitrogen 3 MG/DL 4 MG/DL Creatinine 0.39 MG/DL 0.40 MG/DL Random Glucose 100 MG/DL 159 MG/DL Calcium Level 7.9 MG/DL 7.5 MG/DL Sodium Level 143 MEQ/L 143 MEQ/L Potassium Level 2.9 MEQ/L 4.4 MEQ/L Chloride Level 109 MEQ/L 112 MEQ/L Carbon Dioxide Level 25.8 MEQ/L 25.2 MEQ/L Anion Gap 8 MEQ/L 6 MEQ/L Estimat Glomerular Filtration Rate 159 ML/MIN 155 ML/MIN Imaging Last Impressions Chest X-Ray 05/09/17 0000 Signed Impressions: Service Date/Time: Tuesday, May 09, 2017 19:19 - CONCLUSION: 1. Interval placement of a right-sided PICC line and nasogastric tube. 2. Hazy opacity in both lungs most characteristic of posterior layering effusions left greater than right. Lupillo Currie MD Abdomen/Pelvis CT 05/06/17 1229 Signed Impressions: Service Date/Time: Saturday, May 06, 2017 13:06 - CONCLUSION: 1. Interval intraperitoneal drainage catheter placement with decompression of the fluid. Small volume pneumoperitoneum remains. 2. No extravasation of the oral contrast to clearly identify perforation of a hollow viscus. 3. Fistula to the anterior abdominal wall wound from the previous collection that was drained. 4. Bilateral pleural effusions with atelectasis. Conrad Raines Jr., MD Abscess Drainage CT 05/02/17 0000 Signed Impressions: Service Date/Time: Tuesday, May 02, 2017 17:42 - CONCLUSION: Uncomplicated CT guided drainage. Hipolito Talbot MD Physical Exam CONSTITUTIONAL/GENERAL: This is an adequately nourished patient, in no apparent distress. Ill appearing but non toxic TUBES/LINES/DRAINS: SKIN: No jaundice, rashes, or lesions. Skin temperature appropriate. Not diaphoretic. EYES: Pupils equal and round and reactive. Extraocular motions intact. No scleral icterus. No injection or drainage. Fundi not examined. CARDIOVASCULAR: Regular rate and rhythm without murmurs, gallops, or rubs. No JVD. Peripheral pulses symmetric. RESPIRATORY/CHEST: Symmetric, unlabored respirations. Clear to auscultation. Breath sounds equal bilaterally. No wheezes, rales, or rhonchi. GASTROINTESTINAL: Abdomen fairly soft, not much distended. No odor VAC in place with serosang dc Stoma pink QUENTIN in place with sertosang dc GENITOURINARY: Without palpable bladder distension. Flannery catheter in place with clear yellow urine MUSCULOSKELETAL: Extremities without clubbing, cyanosis, + improved BLE edema. No joint tenderness or effusion noted. No calf tenderness. No mottling or clubbing. NEUROLOGICAL: Awake and alert. Motor and sensory grossly within normal limits. Follows commands. Clear speech. Moves all extremities. PSYCHIATRIC: No obvious anxiety/depression. no apparent hallucinations or other psychotic thought process. 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 post op cont zosyn fu WBC: if post op should go down rapidly dw RN dw pt Keenan,Rosalinda A. MD May 10, 2017 17:30
[2017-05-10] MEDS: CALCIUM CARBONATE 500 MG CHEWABLE TAB PO PRN ×2 (18:37→21:18)
[2017-05-11] VITALS (16 sets, daily range): BP systolic 117–159; BP diastolic 63–79; PULSE 64–100; RESP 11–27; TEMP 97.4–98.7; O2SAT 95–100
[2017-05-11] MEDS: oxyCODONE/ACETAMINOPHEN 5 MG/325 MG TAB PO PRN ×2 (04:41→13:47)
[2017-05-11] MEDS: FAMOTIDINE 20 MG/2 ML VIAL IV PUSH SCH ×2 (04:41→18:00)
[2017-05-11] MEDS: PIPERACIL-TAZO 3.375 GM PREMIX 50 ML IV SCH ×4 (04:41→22:05)
[2017-05-11] MEDS: VERAPAMIL HCL 40 MG TAB PO SCH ×3 (04:41→21:28)
[2017-05-11] MEDS: PCA - TOTAL MG DILAUDID DELIVERED PER SHIFT OTHER SCH ×2 (04:42→22:00)
[2017-05-11 04:55] LABS: AUTOMATED NEUTROPHIL # 23.5 TH/MM3 (1.8-7.7); BASOPHIL % 0.1 % (0.0-2.0); EOSINOPHIL % 0.1 % (0.0-4.0); HEMATOCRIT 29.6 % (35.0-46.0); LYMPH % 8.8 % (9.0-44.0); LYMPHOCYTE # 2.6 TH/MM3 (1.0-4.8); MEAN CELL VOLUME 82.8 FL (80.0-100.0); MEAN CORPUSCULAR HEMOGLOBIN 27.5 PG (27.0-34.0); MEAN CORPUSCULAR HGB CONC 33.2 % (32.0-36.0); MONO % 10.5 % (0.0-8.0); NEUT % 80.5 % (16.0-70.0); PLATELET COUNT 619 TH/MM3 (150-450); RED BLOOD COUNT 3.57 MIL/MM3 (4.00-5.30); RED CELL DISTRIBUTION WIDTH 16.2 % (11.6-17.2); WHITE BLOOD COUNT 29.1 TH/MM3 (4.0-11.0)
[2017-05-11 04:59] LABS: HEMO FLAGS AUTO DIFF
[2017-05-11] MEDS: INSULIN ASPART SUPPLEMENTAL SCALE SQ SCH ×4 (07:00→21:00)
[2017-05-11] MEDS: FUROSEMIDE 40 MG/4 ML VIAL IV PUSH SCH (08:32)
[2017-05-11] MEDS: AMIODARONE 200 MG TAB PO SCH ×2 (08:33→21:28)
[2017-05-11] MEDS: SPIRONOLACTONE 25 MG TAB PO SCH (08:33)
[2017-05-11] MEDS: PRAVASTATIN SOD 20 MG TAB PO SCH (08:33)
[2017-05-11] MEDS: METOPROLOL TARTRATE 25 MG TAB PO SCH ×2 (08:33→21:29)
[2017-05-11] MEDS: TIMOLOL MALEATE 0.5% OPHT SOLN 5 ML BTL EACH EYE SCH (09:00)
[2017-05-11] MEDS: MESALAMINE HD 800 MG DELAYED RELEASE TAB PO SCH ×3 (09:00→18:00)
[2017-05-11 09:21] LABS: BANDS 2 % (0-6); EOSINOPHILS 1 % (0-4); MYELOCYTES 1 % (0-0); NEUTROPHIL # MANUAL DIFF 25.6 TH/MM3 (1.8-7.7); PLATELET ESTIMATE SMEAR HIGH (NORMAL); PLATELET MORPHOLOGY NORMAL (NORMAL); POLYS (SEG NEUTROPHILS) 85 % (16-70); SCAN/DIFF FINAL DIFF MANUAL; WBC DIFF SAMPLE 100
[2017-05-11 09:22] LABS: OVALOCYTES 1+ (NORMAL)
--- NOTE | 2017-05-11 10:01 | PD.ONC.PN ---
Subjective Subjective Remarks Foot Doctor/Onc pt is resting in bed with granddaughter at bedside states the WILLOW MACHINE TENDER was stopped because it makes her too confused she pulled out her PICC like last evening. Patient tells me that the Percocet 5/325mg help to control her pain was up OOB to chair yesterday for a couple of hours she does not want SNF for rehab once OK to be discharged she would like HH nursing/wound care/PT/OT she does have a lot of family support as well. Objective Data Date Time Temp Pulse Resp B/P (MAP) Pulse Ox O2 Delivery O2 Flow Rate FiO2 05/11/17 08:19 98 Nasal Cannula 4.00 05/11/17 06:00 86 05/11/17 05:41 13 05/11/17 04:42 14 05/11/17 04:00 82 05/11/17 04:00 98.6 82 17 159/73 (101) 95 05/11/17 02:00 68 05/11/17 00:00 100 05/11/17 00:00 97.4 64 11 117/68 (84) 99 05/10/17 23:00 66 05/10/17 22:00 61 05/10/17 22:00 65 05/10/17 22:00 22 05/10/17 21:02 98 Nasal Cannula 4.00 05/10/17 20:00 97.4 74 24 137/68 (91) 93 05/10/17 20:00 74 05/10/17 19:00 99 Nasal Cannula 4.00 05/10/17 18:11 4.00 05/10/17 18:00 77 05/10/17 16:00 76 05/10/17 16:00 98.0 76 24 131/63 (85) 94 05/10/17 15:00 68 05/10/17 14:00 68 05/10/17 14:00 18 05/10/17 12:00 68 05/10/17 12:00 98.1 68 15 113/58 (76) 97 05/10/17 10:00 72 05/11/17 05/11/17 05/11/17 07:00 15:00 23:00 Intake Total 732 ml Output Total 860 ml Balance -128 ml Result Diagram: 05/11/17 0340 05/10/17 0500 Laboratory Results Laboratory Tests Test 05/11/17 03:40 White Blood Count 29.1 TH/MM3 Red Blood Count 3.57 MIL/MM3 Hemoglobin 9.8 GM/DL Hematocrit 29.6 % Mean Corpuscular Volume 82.8 FL Mean Corpuscular Hemoglobin 27.5 PG Mean Corpuscular Hemoglobin Concent 33.2 % Red Cell Distribution Width 16.2 % Platelet Count 619 TH/MM3 Mean Platelet Volume 7.0 FL Neutrophils (%) (Auto) 80.5 % Lymphocytes (%) (Auto) 8.8 % Monocytes (%) (Auto) 10.5 % Eosinophils (%) (Auto) 0.1 % Basophils (%) (Auto) 0.1 % Neutrophils # (Auto) 23.5 TH/MM3 Lymphocytes # (Auto) 2.6 TH/MM3 Monocytes # (Auto) 3.0 TH/MM3 Eosinophils # (Auto) 0.0 TH/MM3 Basophils # (Auto) 0.0 TH/MM3 CBC Comment AUTO DIFF Differential Total Cells Counted 100 Neutrophils % (Manual) 85 % Band Neutrophils % 2 % Lymphocytes % 8 % Monocytes % 3 % Eosinophils % 1 % Neutrophils # (Manual) 25.6 TH/MM3 Myelocytes 1 % Differential Comment FINAL DIFF MANUAL Platelet Estimate HIGH Platelet Morphology Comment NORMAL Ovalocytes 1+ Administered Medications Medications (Trade) Dose Ordered Sig/Marsha Route PRN Reason Start Time Stop Time Status Last Admin Dose Admin Mesalamine (Asacol Hd Dr) 800 mg TID PO 04/25/17 18:00 05/09/17 09:59 [facility] drop DAILY EACH EYE 04/26/17 09:00 05/10/17 09:21 Pravastatin Sodium (Pravachol) 20 mg DAILY PO 04/26/17 09:00 05/11/17 08:33 Sodium Chloride (NS Flush) 2 ml UNSCH PRN IV FLUSH FLUSH AFTER USING IV ACCESS 04/25/17 16:15 04/27/17 12:28 Sodium Chloride (NS Flush) 2 ml BID IV FLUSH 04/25/17 21:00 05/10/17 21:19 Oxycodone/ Acetaminophen (Percocet 5-325 Mg) 1 tab Q4H PRN PO PAIN SCALE 1 TO 5 04/25/17 16:15 05/11/17 04:41 Oxycodone/ Acetaminophen (Percocet 5-325 Mg) 2 tab Q4H PRN PO PAIN SCALE 6 TO 10 04/25/17 16:15 05/08/17 20:03 Ondansetron HCl (Zofran Inj) 4 mg Q6H PRN IVP NAUSEA OR VOMITING 04/25/17 16:15 05/10/17 07:34 Lorazepam (Ativan) 0.25 mg Q8H PRN PO ANXIETY 04/25/17 16:15 05/05/17 18:48 Calcium Carbonate (Tums Chew) 500 mg Q4H PRN PO HEARTBURN 04/27/17 19:45 05/10/17 21:18 Famotidine (Pepcid Inj) 20 mg Q12H IV PUSH 05/03/17 06:00 05/11/17 04:41 Piperacillin Sod/ Tazobactam Sod 50 ml @ 100 mls/hr Q6H IV 05/03/17 17:00 05/17/17 16:59 05/11/17 04:41 Potassium Chloride 100 ml @ 50 mls/hr Q2H PRN IV For Potassium 2.8 - 3.2 mEq/L 05/03/17 19:30 05/09/17 12:30 Potassium Chloride 100 ml @ 25 mls/hr UNSCH PRN IV For Potassium 3.3 - 3.5 mEq/L 05/03/17 19:30 05/06/17 05:52 Potassium Chloride 100 ml @ 50 mls/hr Q2H PRN IV For Potassium 3.3 - 3.5 mEq/L 05/03/17 19:30 05/06/17 08:35 Sodium Phosphate 30 mmol/Sodium Chloride 250 ml @ 42 mls/hr UNSCH PRN IV For Phosphorus < 2.5 mg/dL 05/03/17 19:30 05/04/17 08:21 Heparin Sodium/ Dextrose 250 ml @ 8.424 mls/ hr TITRATE PRN IV Coagulation management 05/05/17 17:00 05/08/17 12:25 Verapamil HCl (Isoptin) 40 mg Q8HR PO 05/08/17 14:00 05/11/17 04:41 Furosemide (Lasix Inj) 40 mg DAILY IV PUSH 05/08/17 12:45 05/11/17 08:32 Metoprolol Tartrate (Lopressor) 25 mg Q12HR PO 05/08/17 12:45 05/11/17 08:33 Spironolactone (Aldactone) 25 mg DAILY PO 05/09/17 10:00 05/11/17 08:33 Hydromorphone HCl (Dilaudid WILLOW MACHINE TENDER Inj) 6 mg UNSCH IV 05/09/17 15:15 05/09/17 15:37 WILLOW MACHINE TENDER Dosage Infused (Pha) 1 Q8HR OTHER 05/09/17 15:30 05/11/17 04:42 Sodium Chloride (NS Flush) See Protocol DAILY IV FLUSH 05/10/17 09:00 05/10/17 09:19 Heparin Sodium (Porcine) (Heparin Central Flush) See Protocol DAILY IV FLUSH 05/10/17 09:00 05/10/17 09:19 Potassium Chloride/Dextrose/ Sod Cl 1,000 ml @ 100 mls/hr Q10H IV 05/10/17 02:00 05/10/17 22:35 Benzocaine/Menthol (Chloraseptic Willian) 1 lozenge UNSCH PRN BUCCAL sore throat 05/10/17 09:30 05/10/17 18:39 Amiodarone HCl (Cordarone) 200 mg Q12HR PO 05/10/17 21:00 05/11/17 08:33 Objective Remarks GENERAL: frail HEAD: Normocephalic. EYES: No scleral icterus. No injection or drainage. CARDIOVASCULAR: Regular rate and rhythm NEUROLOGICAL: No obvious focal deficit. Awake, alert, and oriented x3. PSYCHIATRIC: Appropriate mood and affect; insight and judgment normal. Assessment/Plan Problem List: (1) Postoperative state ICD Codes: Z98.890 - Other specified postprocedural states Plan: POD #16 s/p XLap hyst with BSO, omentectomy with sigmoid resection and reanastomosis anastomotic leak POD #2 for Reopening of recent laparotomy. Takedown of colocutaneous and colovaginal fistulas and takedown of previous colo-colon anastomosis and placement of end-colostomy with closure of rectal stump. Abdominal washout. Repair/closure of vaginal cuff. Closure of abdominal wall. Wound VAC to midline wound and colostomy wound care following replace PICC line to start TPN OOB to chair and physical therapy ID following: PREVOTELLA LOESCHEII bactermnmia -beta lac neg...continue abx per ID abscess culture 05/02: e.coli, strep not A, B, D, haemophilus parainfluenze afib with RVR, currently in NSR cardiology following oral amiodarone Plan 1. The patient and her daughter are apprehensive about being discharged today. 2. She reported some bleeding, therefore we will keep her 1 more day and check a CBC in a.m. 3. Will discuss with physical therapy to come see the patient today. 4. Dr. Platt has discussed with Dr. Sims and he is agrees. The exam, history, and the medical decision-making described in the above note were completed with the assistance of the mid-level provider. I reviewed and agree with the findings presented. I attest that I had a [id number] encounter with the patient on the same day, and personally performed and documented my assessment and findings in the medical record. she is frail, on oxygen and not ambulatory. will hold on discharge, proceed with physical therapy , check cbc plat in am and reevaluate in AM. Jalil Olivo May 11, 2017 10:01
--- NOTE | 2017-05-11 11:05 | HHI.PR ---
Subjective Remarks Follow up for peritonitis, uterine malignancy, atrial fibrillation. Patient is doing well. No acute concerns. Denies any chest pain, SOB, fever, chills. NG tube in place and draining some. Wound vac in place with very minimal drainage. Granddaughter at bedside. Objective Vitals Vital Signs Date Time Temp Pulse Resp B/P (MAP) Pulse Ox O2 Delivery O2 Flow Rate FiO2 05/11/17 08:19 98 Nasal Cannula 4.00 05/11/17 06:00 86 05/11/17 05:41 13 05/11/17 04:42 14 05/11/17 04:00 82 05/11/17 04:00 98.6 82 17 159/73 (101) 95 05/11/17 02:00 68 05/11/17 00:00 100 05/11/17 00:00 97.4 64 11 117/68 (84) 99 05/10/17 23:00 66 05/10/17 22:00 61 05/10/17 22:00 65 05/10/17 22:00 22 05/10/17 21:02 98 Nasal Cannula 4.00 05/10/17 20:00 97.4 74 24 137/68 (91) 93 05/10/17 20:00 74 05/10/17 19:00 99 Nasal Cannula 4.00 05/10/17 18:11 4.00 05/10/17 18:00 77 05/10/17 16:00 76 05/10/17 16:00 98.0 76 24 131/63 (85) 94 05/10/17 15:00 68 05/10/17 14:00 68 05/10/17 14:00 18 05/10/17 12:00 68 05/10/17 12:00 98.1 68 15 113/58 (76) 97 I/O 05/10/17 05/10/17 05/10/17 05/11/17 05/11/17 05/11/17 06:59 14:59 22:59 06:59 14:59 22:59 Intake Total 1684 ml 725 ml 301 ml 732 ml Output Total 775 ml 2050 ml 860 ml Balance 909 ml 725 ml -1749 ml -128 ml IV Total 1684 ml 725 ml 301 ml 732 ml Output Urine Total 350 ml 2050 ml 550 ml Gastric Drainage Total 125 ml 150 ml Drainage Total 300 ml 160 ml # Bowel Movements 0 0 0 Result Diagram: 05/11/17 0340 05/10/17 0500 Imaging Last Impressions Chest X-Ray 05/11/17 0000 Signed Impressions: Service Date/Time: Thursday, May 11, 2017 14:41 - CONCLUSION: Left PICC line catheter tip at the cavoatrial junction. Conrad King MD Abdomen/Pelvis CT 05/11/17 0000 Signed Impressions: Service Date/Time: Thursday, May 11, 2017 10:14 - CONCLUSION: No residual fluid about the lower pelvic drain. Moderate size bilateral pleural effusions and compressive atelectasis, stable. New left lower quadrant hernia/stoma containing a loop of bowel. Conrad King MD Abscess Drainage CT 05/02/17 0000 Signed Impressions: Service Date/Time: Tuesday, May 02, 2017 17:42 - CONCLUSION: Uncomplicated CT guided drainage. Hipolito Talbot MD Objective Remarks GENERAL: Alert, oriented 3, NAD. SKIN: Warm and dry. HEAD: Normocephalic. EYES: No scleral icterus. No injection or drainage. NECK: Supple, trachea midline. No JVD or lymphadenopathy. CARDIOVASCULAR: Regular rate and rhythm without murmurs, gallops, or rubs. RESPIRATORY: Breath sounds equal bilaterally. No accessory muscle use. GASTROINTESTINAL: Abdomen soft, non-tender, nondistended. MUSCULOSKELETAL: No cyanosis, or edema. BACK: Nontender without obvious deformity. No CVA tenderness. 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 Course is uncomplicated due to her pre-existing ulcerative colitis and post anastomic colon leak. Anastomotic leak with peritonitis - Status post drainage by IR, due to worsening leukocytosis concern is for abscess. 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 - Surgeons involved: Dr. Morris, Dr. Poon, Dr. Saucedo and Dr. Sims - Infectious disease ([place]) is following - blood cultures 05/03: Prevotella loeschelli - abscess culture 05/02: e.coli, strep not A, B, D, haemophilus parainfluenze - Currently on Zosyn. CBC indicates elevation of WBC, 26K --> 29K. - Antibiotic history: Diflucan DC 05/05 Bilateral pleural effusion - If WBC does not improve in the next 1-2 days, consider diagnostic and therapeutic thoracentesis to rule out empyema. - Continue supplemental O2 to keep O2 sat > 90%. Uterine Malignancy - S/P Exploratory laparotomy, total abdominal hysterectomy, bilateral salpingo- oophorectomy, extensive lysis of adhesions, omentectomy, open sigmoid resection with primary anastomosis and open appendectomy. - Followed up by hematology oncology , Surface Water Technician-onc and general surgery (Dr. Alexandra ha and Dr. Sims) AFib with RVR - History of paroxysmal A. fib - Has been evaluated by singing messenger Dr. Turcios: went into A-Fb with RVR again on 05/08, amiodarone 200 mg PO BID, verapamil 40 mg PO q8, metoprolol tartrate 25 mg BID, lasix 4o mg IV daily, keep K > 4, CHADS VASC 4 cont heparin HLD - Continue pravastatin 20 mg daily. Anxiety - Ativan when necessary Ulcerative Colitis - On mesalamine at home Hypokalemia - Replaced, goal K> 4 - Patient can likely be transferred to the med/surg floor. However, patient is not ready for discharge yet. Full code. Heparin drip. Mana Goel DO May 11, 2017 11:05
[2017-05-11] MEDS: SODIUM CHLORIDE 0.9% FLUSH 10 ML FLUSH IV FLUSH SCH ×3 (11:41→21:00)
[2017-05-11] MEDS: D5-NS + KCL 20 MEQ INJ 1,000 ML IV SCH ×2 (11:42→19:07)
--- NOTE | 2017-05-11 11:59 | PD.WCN.NOT ---
Wound Consult Description: Consult for Ostomy Management/Wound Vac on midline/End Colostomy Communicated with: Patient Patients granddaughter Additional Information: Patient seen on [address] [place] [address] for ostomy assessment and visualization of wound VAC dressing Neg Pressure Wound Therapy Wound Location Wound Location: Midline abdomen Additonal Information Wound VAC working properly with orders to change Tuesday, , Tuesday Ostomy Type: Colostomy Surgeon: Blayne Morris MD Date of Surgery: May 09, 2017 Educated patient on: Stoma Colostomy output Shape and color of stoma Function of stoma Appliances including barrier and pouch Additional information Patient seen on [address] [place] [address] for ostomy teaching after patient returned to room from CT. Patient states that she will not remember what she is being taught. It was explained to the patient that creative services writer would be seeing her every day Tuesday through Tuesday for teaching and that we would be going over this again tomorrow. Stoma is noted to the left side of abdomen. Stoma is pink, edematous, round, moist with mucus noted to stoma, lumen noted at 5 o'clock and functioning with pink clear liquid noted in pouch with minimal air in pouch. Stoma measures 1 1/2" at this time, appropriate appliance would be to use 2 1/4 ". Gillian Wong [facility] May 11, 2017 11:59
--- NOTE | 2017-05-11 13:56 | HHI.PR ---
Subjective Subjective Notes Resting in bed Granddaughter at bedside ---said Mrs. Gaytan had a rough night with hallucinations and pulled her PICC line out Objective Vitals/I&O Vital Signs Date Time Temp Pulse Resp B/P (MAP) Pulse Ox O2 Delivery O2 Flow Rate FiO2 05/11/17 12:00 98.7 77 17 119/79 (92) 100 05/11/17 08:19 Nasal Cannula 4.00 Labs Laboratory Tests Test 05/11/17 03:40 White Blood Count 29.1 Red Blood Count 3.57 Hemoglobin 9.8 Hematocrit 29.6 Mean Corpuscular Volume 82.8 Mean Corpuscular Hemoglobin 27.5 Mean Corpuscular Hemoglobin Concent 33.2 Red Cell Distribution Width 16.2 Platelet Count 619 Mean Platelet Volume 7.0 Neutrophils (%) (Auto) 80.5 Lymphocytes (%) (Auto) 8.8 Monocytes (%) (Auto) 10.5 Eosinophils (%) (Auto) 0.1 Basophils (%) (Auto) 0.1 Neutrophils # (Auto) 23.5 Lymphocytes # (Auto) 2.6 Monocytes # (Auto) 3.0 Eosinophils # (Auto) 0.0 Basophils # (Auto) 0.0 CBC Comment AUTO DIFF Differential Total Cells Counted 100 Neutrophils % (Manual) 85 Band Neutrophils % 2 Lymphocytes % 8 Monocytes % 3 Eosinophils % 1 Neutrophils # (Manual) 25.6 Myelocytes 1 Differential Comment FINAL DIFF MANUAL Platelet Estimate HIGH Platelet Morphology Comment NORMAL Ovalocytes 1+ Date/Time Source Procedure Growth Status 05/03/17 16:35 Blood Peripheral Aerobic Blood Culture - Final NO GROWTH IN 5 DAYS Complete 05/03/17 16:35 Anaerobic Blood Culture - Final Prevotella Loescheii Complete 05/02/17 17:50 Abscess Abdomen Gram Stain - Final Complete 05/02/17 17:50 Wound Culture - Final Escherichia Coli Strep Not A,B D Complete Cardiovascular: Regular Lungs: Clear Abdomen: Other (abdomen less distended today; minimally tender; colostomy in place with pink stoma; midline incision with wound vac in place ) Extremities: Other (see below) Narrative Exam LEFT wrist edema BLE edema A/P Assessment and Plan 76 year old female s/p POD1 ex lap and colostomy; s/p exploratory laparotomy, total abdominal hysterectomy, bilateral salpingo-oophorectomy, extensive lysis of adhesions, omentectomy, open sigmoid resection with primary anastomosis and open appendectomy -Plan to replace PICC today and start TPN tonight -NGT to LIWS -NPO -OOB and tolerated--with assistance -Colostomy teaching -Monitor labs --WBC elevated today -Continue routine QUENTIN care Attending Statement The exam, history, and the medical decision-making described in the above note were completed with the assistance of the mid-level provider. I reviewed and agree with the findings presented. I attest that I had a [id number] encounter with the patient on the same day, and personally performed and documented my assessment and findings in the medical record. Abdominal exam: stable postop, s/p abdominal washout/colostomy for enterocutaneous fistula Shannon Ocampo May 11, 2017 13:56 Blayne Morris MD Jun 07, 2017 23:14
--- NOTE | 2017-05-11 15:30 | RADRPT ---
EXAM DATE/TIME: 05/11/2017 14:41 [facility] COMPARISON: CHEST SINGLE AP, May 09, 2017, 19:19. INDICATIONS : Post picc placement. MEDICAL HISTORY : Cardiovascular disease. Hypertension colitis SURGICAL HISTORY : None. ENCOUNTER: Initial ACUITY: 3 days PAIN SCORE: 0/10 LOCATION: Bilateral chest FINDINGS: Interval removal of right PICC line and placement of left PICC line with tip projected at the cavoatr ial junction. No evidence pneumothorax. Hazy opacity in the mid and lower lungs bilaterally charact eristic of pleural effusions, stable from prior. Possible consolidative infiltrates in the left lowe r lung with loss of delineation of the left hemidiaphragm. The heart is normal in size. CONCLUSION: Left PICC line catheter tip at the cavoatrial junction. Conrad King MD on May 11, 2017 at 15:28 Board Certified Radiologist. This report was verified electronically.
[2017-05-11] MEDS ORDERED: SODIUM CHLORIDE 0.9% FLUSH 10 ML FLUSH IV FLUSH PRN (16:15)
--- NOTE | 2017-05-11 16:52 | RADRPT ---
EXAM DATE/TIME: 05/11/2017 10:14 [facility] COMPARISON: CT ABDOMEN & PELVIS W/O CONTRAST, May 06, 2017, 13:06. INDICATIONS : Pelvic abscess, evaluate drain ORAL CONTRAST: No oral contrast ingested. RADIATION DOSE: 9.96 CTDIvol (mGy) MEDICAL HISTORY : Hypertension. SURGICAL HISTORY : Tubal ligation. ENCOUNTER: Subsequent ACUITY: 3 days PAIN SCALE: Non-responsive LOCATION: pelvis TECHNIQUE: Volumetric scanning of the abdomen and pelvis was performed. Using automated exposure control and ad justment of the mA and/or kV according to patient size, radiation dose was kept as low as reasonably achievable to obtain optimal diagnostic quality images. DICOM format image data is available electro nically for review and comparison. FINDINGS: Right pelvic drain close to the dependent pelvis. No residual fluid seen about the drain. Loops of small and large bowel are normal in dimension. There is stoma in the left lower quadrant through the abdominal wall, correlating to the location of the prior drain containing fat and a loop of bowel. Flannery catheter in the urinary bladder. No evidence of hydronephrosis there no calcified renal stones . Moderate-sized bilateral pleural effusions similar in size to prior. There is associated consolid ation and atelectasis in the adjacent lower lungs. Gastric tube tip projects within the stomach. Th ere are a few flecks of gas in the nondependent peritoneum. CONCLUSION: No residual fluid about the lower pelvic drain. Moderate size bilateral pleural effusions and compre ssive atelectasis, stable. New left lower quadrant hernia/stoma containing a loop of bowel. Conrad King MD on May 11, 2017 at 16:41 Board Certified Radiologist. This report was verified electronically.
--- NOTE | 2017-05-11 17:39 | HHI.IDPN ---
Subjective Subjective Remarks doing well WBC going up no fever CT showed no IAA. B/l pleural effusions Antibiotics zosyn Allergies: Coded Allergies: ciprofloxacin (Verified Allergy, Unknown, 05/06/17) doxycycline (Verified Allergy, Unknown, 05/06/17) Objective . Vital Signs Date Time Temp Pulse Resp B/P (MAP) Pulse Ox O2 Delivery O2 Flow Rate FiO2 05/11/17 12:00 98.7 77 17 119/79 (92) 100 05/11/17 12:00 77 05/11/17 10:00 80 05/11/17 08:19 98 Nasal Cannula 4.00 05/11/17 08:00 98.0 75 27 129/68 (88) 97 05/11/17 08:00 75 05/11/17 07:00 99 Nasal Cannula 3.00 05/11/17 07:00 75 05/11/17 06:00 86 05/11/17 05:41 13 05/11/17 04:42 14 05/11/17 04:00 82 05/11/17 04:00 98.6 82 17 159/73 (101) 95 05/11/17 02:00 68 05/11/17 00:00 100 05/11/17 00:00 97.4 64 11 117/68 (84) 99 05/10/17 23:00 66 05/10/17 22:00 61 05/10/17 22:00 65 05/10/17 22:00 22 05/10/17 21:02 98 Nasal Cannula 4.00 05/10/17 20:00 97.4 74 24 137/68 (91) 93 05/10/17 20:00 74 05/10/17 19:00 99 Nasal Cannula 4.00 05/10/17 18:11 4.00 05/10/17 18:00 77 05/11/17 05/11/17 05/12/17 15:00 23:00 07:00 Intake Total 1000 ml Balance 1000 ml IV Total 1000 ml . Laboratory Tests Test 05/10/17 05:00 05/11/17 03:40 White Blood Count 26.0 TH/MM3 29.1 TH/MM3 Red Blood Count 3.82 MIL/MM3 3.57 MIL/MM3 Hemoglobin 10.2 GM/DL 9.8 GM/DL Hematocrit 31.6 % 29.6 % Mean Corpuscular Volume 82.7 FL 82.8 FL Mean Corpuscular Hemoglobin 26.7 PG 27.5 PG Mean Corpuscular Hemoglobin Concent 32.3 % 33.2 % Red Cell Distribution Width 16.6 % 16.2 % Platelet Count 632 TH/MM3 619 TH/MM3 Mean Platelet Volume 6.6 FL 7.0 FL Neutrophils (%) (Auto) 87.8 % 80.5 % Lymphocytes (%) (Auto) 6.0 % 8.8 % Monocytes (%) (Auto) 6.1 % 10.5 % Eosinophils (%) (Auto) 0.0 % 0.1 % Basophils (%) (Auto) 0.1 % 0.1 % Neutrophils # (Auto) 22.8 TH/MM3 23.5 TH/MM3 Lymphocytes # (Auto) 1.6 TH/MM3 2.6 TH/MM3 Monocytes # (Auto) 1.6 TH/MM3 3.0 TH/MM3 Eosinophils # (Auto) 0.0 TH/MM3 0.0 TH/MM3 Basophils # (Auto) 0.0 TH/MM3 0.0 TH/MM3 CBC Comment DIFF FINAL AUTO DIFF Differential Comment FINAL DIFF MANUAL Differential Total Cells Counted 100 Neutrophils % (Manual) 85 % Band Neutrophils % 2 % Lymphocytes % 8 % Monocytes % 3 % Eosinophils % 1 % Neutrophils # (Manual) 25.6 TH/MM3 Myelocytes 1 % Platelet Estimate HIGH Platelet Morphology Comment NORMAL Ovalocytes 1+ Laboratory Tests Test 05/10/17 05:00 Blood Urea Nitrogen 4 MG/DL Creatinine 0.40 MG/DL Random Glucose 159 MG/DL Calcium Level 7.5 MG/DL Sodium Level 143 MEQ/L Potassium Level 4.4 MEQ/L Chloride Level 112 MEQ/L Carbon Dioxide Level 25.2 MEQ/L Anion Gap 6 MEQ/L Estimat Glomerular Filtration Rate 155 ML/MIN Imaging Last Impressions Chest X-Ray 05/11/17 0000 Signed Impressions: Service Date/Time: Thursday, May 11, 2017 14:41 - CONCLUSION: Left PICC line catheter tip at the cavoatrial junction. Conrad King MD Abdomen/Pelvis CT 05/06/17 1229 Signed Impressions: Service Date/Time: Saturday, May 06, 2017 13:06 - CONCLUSION: 1. Interval intraperitoneal drainage catheter placement with decompression of the fluid. Small volume pneumoperitoneum remains. 2. No extravasation of the oral contrast to clearly identify perforation of a hollow viscus. 3. Fistula to the anterior abdominal wall wound from the previous collection that was drained. 4. Bilateral pleural effusions with atelectasis. Conrad Raines Jr., MD Abscess Drainage CT 05/02/17 0000 Signed Impressions: Service Date/Time: Tuesday, May 02, 2017 17:42 - CONCLUSION: Uncomplicated CT guided drainage. Hipolito Talbot MD Physical Exam CONSTITUTIONAL/GENERAL: This is an adequately nourished patient, in no apparent distress. Ill appearing but non toxic TUBES/LINES/DRAINS: SKIN: No jaundice, rashes, or lesions. Skin temperature appropriate. Not diaphoretic. EYES: Pupils equal and round and reactive. Extraocular motions intact. No scleral icterus. No injection or drainage. Fundi not examined. CARDIOVASCULAR: Regular rate and rhythm without murmurs, gallops, or rubs. No JVD. Peripheral pulses symmetric. RESPIRATORY/CHEST: Symmetric, unlabored respirations. Clear to auscultation. Breath sounds equal bilaterally. No wheezes, rales, or rhonchi. GASTROINTESTINAL: Minimal BS VAC in place with serosang dc Stoma pink with small amount of serosang dc QUENTIN in place with sertosang dc GENITOURINARY: Without palpable bladder distension. Flannery catheter in place with clear yellow urine MUSCULOSKELETAL: Extremities without clubbing, cyanosis, prominetn 3-4+ BLE edema. No joint tenderness or effusion noted. No calf tenderness. No mottling or clubbing. NEUROLOGICAL: Awake and alert. Motor and sensory grossly within normal limits. Follows commands. Clear speech. Moves all extremities. PSYCHIATRIC: No obvious anxiety/depression. no apparent hallucinations or other psychotic thought process. 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 post op - cont to increase: rickie post op cont zosyn fu WBC: if post op should go down rapidly OK for PICC for TPN BC in case of fever dw RN Rosalinda Yousif pt, MD May 11, 2017 17:39
[2017-05-11] MEDS: CLINIMIX E 4.25/25 2000 mL- >42 mls/hr IV-CENTRAL SCH ×3 (19:21)
[2017-05-11] MEDS: FAT EMULSION 20% INJ 250 ML (Daily over 8 hours) IV-CENTRAL SCH (19:21)
[2017-05-12] VITALS (14 sets, daily range): BP systolic 115–131; BP diastolic 60–82; PULSE 62–82; RESP 16–23; TEMP 97.8–98.8; O2SAT 95–97
[2017-05-12 00:43] LABS: AUTOMATED NEUTROPHIL # 18.8 TH/MM3 (1.8-7.7); BASOPHIL # 0.1 TH/MM3 (0-0.2); BASOPHIL % 0.4 % (0.0-2.0); EOSINOPHIL # 0.4 TH/MM3 (0-0.4); EOSINOPHIL % 1.8 % (0.0-4.0); HEMATOCRIT 25.4 % (35.0-46.0); HEMO FLAGS DIFF FINAL; LYMPH % 8.1 % (9.0-44.0); LYMPHOCYTE # 1.9 TH/MM3 (1.0-4.8); MEAN CORPUSCULAR HEMOGLOBIN 27.9 PG (27.0-34.0); MEAN CORPUSCULAR HGB CONC 33.7 % (32.0-36.0); MONO % 8.3 % (0.0-8.0); NEUT % 81.4 % (16.0-70.0); PLATELET COUNT 473 TH/MM3 (150-450); RED BLOOD COUNT 3.06 MIL/MM3 (4.00-5.30); RED CELL DISTRIBUTION WIDTH 16.5 % (11.6-17.2); WHITE BLOOD COUNT 23.1 TH/MM3 (4.0-11.0)
[2017-05-12] MEDS: D5-NS + KCL 20 MEQ INJ 1,000 ML IV SCH (04:00)
[2017-05-12] MEDS: PIPERACIL-TAZO 3.375 GM PREMIX 50 ML IV SCH ×4 (04:09→21:38)
[2017-05-12] MEDS: PCA - TOTAL MG DILAUDID DELIVERED PER SHIFT OTHER SCH ×2 (05:05→21:39)
[2017-05-12] MEDS: VERAPAMIL HCL 40 MG TAB PO SCH ×3 (05:06→21:38)
[2017-05-12] MEDS: FAMOTIDINE 20 MG/2 ML VIAL IV PUSH SCH ×2 (05:06→18:51)
[2017-05-12] MEDS: oxyCODONE/ACETAMINOPHEN 5 MG/325 MG TAB PO PRN ×4 (05:52→22:44)
[2017-05-12] MEDS: INSULIN ASPART SUPPLEMENTAL SCALE SQ SCH ×4 (06:13→21:00)
--- NOTE | 2017-05-12 08:13 | PD.ONC.PN ---
Subjective Subjective Remarks quality control lab tech/onc progress note pt is sleeping granddaughter at bedside stating pt just got Percocet. She states that Mrs. Gaytan had a much better night last night. no n/v pain controlled with Percocet PICC line placed and TPN started NG tube to LIWS Objective Data Date Time Temp Pulse Resp B/P (MAP) Pulse Ox O2 Delivery O2 Flow Rate FiO2 05/12/17 07:18 96 Nasal Cannula 2.00 05/12/17 06:52 16 05/12/17 06:00 74 05/12/17 04:00 78 05/12/17 04:00 97.9 82 18 131/76 (94) 97 05/12/17 02:00 80 05/12/17 00:00 98.0 72 17 121/71 (88) 95 05/12/17 00:00 72 05/11/17 22:00 70 05/11/17 21:55 96 Nasal Cannula 2.00 05/11/17 20:00 72 05/11/17 20:00 97 Nasal Cannula 2.00 05/11/17 20:00 97.9 72 18 117/63 (81) 97 05/11/17 18:00 73 05/11/17 16:00 98.0 79 27 118/68 (85) 95 05/11/17 16:00 71 05/11/17 15:00 71 05/11/17 14:00 77 05/11/17 12:00 98.7 77 17 119/79 (92) 100 05/11/17 12:00 77 05/11/17 10:00 80 05/11/17 08:19 98 Nasal Cannula 4.00 05/12/17 05/12/17 05/12/17 07:00 15:00 23:00 Intake Total 1296 ml Output Total 1115 ml Balance 181 ml Result Diagram: 05/12/17 0020 05/10/17 0500 Laboratory Results Laboratory Tests Test 05/12/17 00:20 White Blood Count 23.1 TH/MM3 Red Blood Count 3.06 MIL/MM3 Hemoglobin 8.6 GM/DL Hematocrit 25.4 % Mean Corpuscular Volume 83.0 FL Mean Corpuscular Hemoglobin 27.9 PG Mean Corpuscular Hemoglobin Concent 33.7 % Red Cell Distribution Width 16.5 % Platelet Count 473 TH/MM3 Mean Platelet Volume 6.9 FL Neutrophils (%) (Auto) 81.4 % Lymphocytes (%) (Auto) 8.1 % Monocytes (%) (Auto) 8.3 % Eosinophils (%) (Auto) 1.8 % Basophils (%) (Auto) 0.4 % Neutrophils # (Auto) 18.8 TH/MM3 Lymphocytes # (Auto) 1.9 TH/MM3 Monocytes # (Auto) 1.9 TH/MM3 Eosinophils # (Auto) 0.4 TH/MM3 Basophils # (Auto) 0.1 TH/MM3 CBC Comment DIFF FINAL Differential Comment Imaging Studies Last Impressions Chest X-Ray 05/11/17 0000 Signed Impressions: Service Date/Time: Thursday, May 11, 2017 14:41 - CONCLUSION: Left PICC line catheter tip at the cavoatrial junction. Conrad King MD Abdomen/Pelvis CT 05/11/17 0000 Signed Impressions: Service Date/Time: Thursday, May 11, 2017 10:14 - CONCLUSION: No residual fluid about the lower pelvic drain. Moderate size bilateral pleural effusions and compressive atelectasis, stable. New left lower quadrant hernia/stoma containing a loop of bowel. Conrad King MD Abscess Drainage CT 05/02/17 0000 Signed Impressions: Service Date/Time: Tuesday, May 02, 2017 17:42 - CONCLUSION: Uncomplicated CT guided drainage. Hipolito Talbot MD Administered Medications Medications (Trade) Dose Ordered Sig/Marsha Route PRN Reason Start Time Stop Time Status Last Admin Dose Admin Mesalamine (Asacol Hd Dr) 800 mg TID PO 04/25/17 18:00 05/09/17 09:59 Timolol Maleate (Timoptic 0.5% Opth Soln) 1 drop DAILY EACH EYE 04/26/17 09:00 05/10/17 09:21 Pravastatin Sodium (Pravachol) 20 mg DAILY PO 04/26/17 09:00 05/11/17 08:33 Sodium Chloride (NS Flush) 2 ml UNSCH PRN IV FLUSH FLUSH AFTER USING IV ACCESS 04/25/17 16:15 04/27/17 12:28 Sodium Chloride (NS Flush) 2 ml BID IV FLUSH 04/25/17 21:00 05/11/17 11:42 Oxycodone/ Acetaminophen (Percocet 5-325 Mg) 1 tab Q4H PRN PO PAIN SCALE 1 TO 5 04/25/17 16:15 05/12/17 05:52 Oxycodone/ Acetaminophen (Percocet 5-325 Mg) 2 tab Q4H PRN PO PAIN SCALE 6 TO 10 04/25/17 16:15 05/08/17 20:03 Ondansetron HCl (Zofran Inj) 4 mg Q6H PRN IVP NAUSEA OR VOMITING 04/25/17 16:15 05/10/17 07:34 Lorazepam (Ativan) 0.25 mg Q8H PRN PO ANXIETY 04/25/17 16:15 05/05/17 18:48 Calcium Carbonate (Tums Chew) 500 mg Q4H PRN PO HEARTBURN 04/27/17 19:45 05/10/17 21:18 Insulin Aspart (NovoLOG SUPPLEMENTAL SCALE) 1 ACHS SLIDING SCALE SQ 05/03/17 07:00 05/12/17 06:13 Famotidine (Pepcid Inj) 20 mg Q12H IV PUSH 05/03/17 06:00 05/12/17 05:06 Piperacillin Sod/ Tazobactam Sod 50 ml @ 100 mls/hr Q6H IV 05/03/17 17:00 05/17/17 16:59 05/12/17 04:09 Potassium Chloride 100 ml @ 50 mls/hr Q2H PRN IV For Potassium 2.8 - 3.2 mEq/L 05/03/17 19:30 05/09/17 12:30 Potassium Chloride 100 ml @ 25 mls/hr UNSCH PRN IV For Potassium 3.3 - 3.5 mEq/L 05/03/17 19:30 05/06/17 05:52 Potassium Chloride 100 ml @ 50 mls/hr Q2H PRN IV For Potassium 3.3 - 3.5 mEq/L 05/03/17 19:30 05/06/17 08:35 Sodium Phosphate 30 mmol/Sodium Chloride 250 ml @ 42 mls/hr UNSCH PRN IV For Phosphorus < 2.5 mg/dL 05/03/17 19:30 05/04/17 08:21 Heparin Sodium/ Dextrose 250 ml @ 8.424 mls/ hr TITRATE PRN IV Coagulation management 05/05/17 17:00 05/08/17 12:25 Verapamil HCl (Isoptin) 40 mg Q8HR PO 05/08/17 14:00 05/12/17 05:06 Furosemide (Lasix Inj) 40 mg DAILY IV PUSH 05/08/17 12:45 05/11/17 08:32 Metoprolol Tartrate (Lopressor) 25 mg Q12HR PO 05/08/17 12:45 05/11/17 21:29 Spironolactone (Aldactone) 25 mg DAILY PO 05/09/17 10:00 05/11/17 08:33 Hydromorphone HCl (Dilaudid FORM SETTER SUPERVISOR Inj) 6 mg UNSCH IV 05/09/17 15:15 05/09/17 15:37 FORM SETTER SUPERVISOR Dosage Infused (Pha) 1 Q8HR OTHER 05/09/17 15:30 05/11/17 04:42 Sodium Chloride (NS Flush) See Protocol DAILY IV FLUSH 05/10/17 09:00 05/11/17 11:41 Heparin Sodium (Porcine) (Heparin Central Flush) See Protocol DAILY IV FLUSH 05/10/17 09:00 05/10/17 09:19 Potassium Chloride/Dextrose/ Sod Cl 1,000 ml @ 100 mls/hr Q10H IV 05/10/17 02:00 05/11/17 19:07 Benzocaine/Menthol (Chloraseptic Willian) 1 lozenge UNSCH PRN BUCCAL sore throat 05/10/17 09:30 05/10/17 18:39 Amiodarone HCl (Cordarone) 200 mg Q12HR PO 05/10/17 21:00 05/11/17 21:28 Multivitamins 10 ml/Folic Acid 1 mg/Amino Acids/ Electrolytes/ Dextrose 2,010.2 ml @ 83 mls/hr Q24H IV-CENTRAL 05/11/17 20:00 05/11/17 19:21 Fat Emulsion Intravenous 250 ml @ 31.25 mls/ hr Q24H IV-CENTRAL 05/11/17 20:00 05/11/17 19:21 Objective Remarks GENERAL: frail HEAD: Normocephalic. NG tube CARDIOVASCULAR: Regular rate and rhythm NEUROLOGICAL: pt sleeping Assessment/Plan Problem List: (1) Postoperative state Plan: POD #17 s/p XLap hyst with BSO, omentectomy with sigmoid resection and reanastomosis POD #3 for Reopening of recent laparotomy. Takedown of colocutaneous and colovaginal fistulas and takedown of previous colo-colon anastomosis and placement of end-colostomy with closure of rectal stump. Abdominal washout. Repair/closure of vaginal cuff. Closure of abdominal wall. Wound VAC to midline wound and colostomy wound care following general surgery....NG tube to LIWS continue per general surgery PICC line replaced TPN started OOB to chair and physical therapy ID following: PREVOTELLA LOESCHEII bactermnmia WBCs appear to be coming down -beta lac neg...continue abx per ID abscess culture 05/02: e.coli, strep not A, B, D, haemophilus parainfluenze afib with RVR, currently in NSR cardiology following oral amiodarone Plan 1. The patient and her daughter are apprehensive about being discharged today. 2. She reported some bleeding, therefore we will keep her 1 more day and check a CBC in a.m. 3. Will discuss with physical therapy to come see the patient today. 4. Dr. Platt has discussed with Dr. Sims and he is agrees. The exam, history, and the medical decision-making described in the above note were completed with the assistance of the mid-level provider. I reviewed and agree with the findings presented. I attest that I had a [id number] encounter with the patient on the same day, and personally performed and documented my assessment and findings in the medical record. she is frail, on oxygen and not ambulatory. will hold on discharge, proceed with physical therapy , check cbc plat in am and reevaluate in AM. Jalil Olivo May 12, 2017 08:13
[2017-05-12] MEDS: MESALAMINE HD 800 MG DELAYED RELEASE TAB PO SCH ×3 (09:00→18:00)
[2017-05-12] MEDS: TIMOLOL MALEATE 0.5% OPHT SOLN 5 ML BTL EACH EYE SCH (09:59)
[2017-05-12] MEDS: SODIUM CHLORIDE 0.9% FLUSH 10 ML FLUSH IV FLUSH SCH ×4 (10:00→21:38)
[2017-05-12] MEDS: AMIODARONE 200 MG TAB PO SCH ×2 (10:02→21:38)
[2017-05-12] MEDS: FUROSEMIDE 40 MG/4 ML VIAL IV PUSH SCH (10:02)
[2017-05-12] MEDS: SPIRONOLACTONE 25 MG TAB PO SCH (10:02)
[2017-05-12] MEDS: METOPROLOL TARTRATE 25 MG TAB PO SCH ×2 (10:03→21:38)
[2017-05-12] MEDS: PRAVASTATIN SOD 20 MG TAB PO SCH (10:08)
--- NOTE | 2017-05-12 10:47 | HHI.PR ---
Subjective Subjective Notes Resting in bed Niece at bedside Objective Vitals/I&O Vital Signs Date Time Temp Pulse Resp B/P (MAP) Pulse Ox O2 Delivery O2 Flow Rate FiO2 05/12/17 07:18 96 Nasal Cannula 2.00 05/12/17 06:52 16 05/12/17 06:00 74 05/12/17 04:00 97.9 131/76 (94) Labs Laboratory Tests Test 05/12/17 00:20 White Blood Count 23.1 Red Blood Count 3.06 Hemoglobin 8.6 Hematocrit 25.4 Mean Corpuscular Volume 83.0 Mean Corpuscular Hemoglobin 27.9 Mean Corpuscular Hemoglobin Concent 33.7 Red Cell Distribution Width 16.5 Platelet Count 473 Mean Platelet Volume 6.9 Neutrophils (%) (Auto) 81.4 Lymphocytes (%) (Auto) 8.1 Monocytes (%) (Auto) 8.3 Eosinophils (%) (Auto) 1.8 Basophils (%) (Auto) 0.4 Neutrophils # (Auto) 18.8 Lymphocytes # (Auto) 1.9 Monocytes # (Auto) 1.9 Eosinophils # (Auto) 0.4 Basophils # (Auto) 0.1 CBC Comment DIFF FINAL Differential Comment Date/Time Source Procedure Growth Status 05/03/17 16:35 Blood Peripheral Aerobic Blood Culture - Final NO GROWTH IN 5 DAYS Complete 05/03/17 16:35 Anaerobic Blood Culture - Final Prevotella Loescheii Complete 05/02/17 17:50 Abscess Abdomen Gram Stain - Final Complete 05/02/17 17:50 Wound Culture - Final Escherichia Coli Strep Not A,B D Complete Cardiovascular: Regular Lungs: Clear Abdomen: Other (midline incisino with Wound Vac in place---good seal; cololstomy with pink stoma--liquid stool present in bag; abdomen mildly tender; QUENTIN with SS drainage ) Extremities: Other (see below ) Narrative Exam LEFT wrist edema ---- improved BLE edema A/P Assessment and Plan 76 year old female s/p POD3 ex lap and colostomy; s/p exploratory laparotomy, total abdominal hysterectomy, bilateral salpingo-oophorectomy, extensive lysis of adhesions, omentectomy, open sigmoid resection with primary anastomosis and open appendectomy -Continue PICC and TPN -Clamp NGT; connect to LIWS if n/v occur -Start sips of clear liquids -OOB and tolerated--with assistance; PT following -Colostomy teaching -Wound Vac change today -Monitor labs --WBC trending down -Continue routine QUENTIN care Attending Statement The exam, history, and the medical decision-making described in the above note were completed with the assistance of the mid-level provider. I reviewed and agree with the findings presented. I attest that I had a [id number] encounter with the patient on the same day, and personally performed and documented my assessment and findings in the medical record. Abdominal exam: stable postop, wound clean/intact VAC dressing, ostomy pink/ viable Shannon Ocampo May 12, 2017 10:47 Blayne Morris MD Jun 07, 2017 23:18
--- NOTE | 2017-05-12 15:36 | PD.WCN.NOT ---
Wound Consult Description: Received consult for wound VAC dressing change to midline abdominal incision Communicated with: ERICH Wetzel and HERON Vance Neg Pressure Wound Therapy Wound Location Wound Location: Midline abdomen Wound Description Length: ~35 cm Width: ~3cm Depth: ~3cm Wound bed appearance: Wound bed presents with ~50% red tissue, ~30% adipose tissue and ~20% white tissue. Also noted ~6 sutures in wound bed. Wound drainage is minimal and sero- sanguinous without odor. Periwound appearance: Unremarkable Settings Suction: 125 mmHg, Continuous Intensity: Low Other Information: Windowpaned, Mushroomed Foam type: Black Number of pieces: 2 Additonal Information Patient seen on [address] [place] [address] for wound VAC dressing change.Dressing changed with the assistance of Shannon Ocampo and keno writer/runner. Abdominal binder removed to reveal wound VAC dressing in place to midline incision. Removed drape in place using adhesive remover to reveal granufoam stapled to wound margins of incision.Staple removal kit used to remove granufoam dressing from wound bed. Cleansed wound with normal saline.Applied oil emulsion gauze over sutures in wound bed. Skin prep applied to periwound before window paning incision with VAC drape.Applied single strip of granufoam to incision line, with one additional small piece at proximal end of incision. Mushroom cap of granufoam was then applied with Sensi trac pad to proximal end of incision.Stoma paste applied to crevices in periwound to help seal dressing. All granufoam was then covered with VAC drape to seal.Patient tolerated dressing change fairly with some complaints of pain during dressing removal and placement of the sponge.Percocet pain medication was given prior to dressing change. Next dressing change is due on Tuesday05/14/2017. Ostomy Type: Colostomy Surgeon: Blayne Morris MD Date of Surgery: May 09, 2017 Therese Orozco May 12, 2017 15:36
--- NOTE | 2017-05-12 18:04 | PD.CARD.PN ---
Subjective Subjective Remarks CONTINUES TO DO WELL REMAINS IN SINUS RHYTHM NO COMPLAINTS OF CHEST PAIN OR SOB Objective Medications Current Medications Medications (Trade) Dose Ordered Sig/Marsha Route Start Time Stop Time Status Last Admin (Asacol Hd Dr) 800 mg TID PO 04/25/17 18:00 05/09/17 09:59 (Timoptic 0.5% Opth Soln) 1 drop DAILY EACH EYE 04/26/17 09:00 05/12/17 09:59 (Pravachol) 20 mg DAILY PO 04/26/17 09:00 05/12/17 10:08 (NS Flush) 2 ml UNSCH PRN IV FLUSH 04/25/17 16:15 04/27/17 12:28 (NS Flush) 2 ml BID IV FLUSH 04/25/17 21:00 05/12/17 10:01 (Percocet 5-325 Mg) 1 tab Q4H PRN PO 04/25/17 16:15 05/12/17 13:10 (Percocet 5-325 Mg) 2 tab Q4H PRN PO 04/25/17 16:15 05/08/17 20:03 (Benadryl) 25 mg Q6H PRN PO 04/25/17 16:15 (Zofran Inj) 4 mg Q6H PRN IVP 04/25/17 16:15 05/10/17 07:34 (Ativan) 0.25 mg Q8H PRN PO 04/25/17 16:15 05/05/17 18:48 (Tums Chew) 500 mg Q4H PRN PO 04/27/17 19:45 05/10/17 21:18 (Duoneb Neb) 1 ampule Q4HR NEB PRN NEB 04/29/17 12:45 (D50w (Vial) Inj) 50 ml UNSCH PRN IV 05/02/17 23:00 (Glucagon Inj) 1 mg UNSCH PRN OTHER 05/02/17 23:00 (NovoLOG SUPPLEMENTAL SCALE) 1 ACHS SLIDING SCALE SQ 05/03/17 07:00 05/12/17 11:14 (Pepcid Inj) 20 mg Q12H IV PUSH 05/03/17 06:00 05/12/17 05:06 Piperacillin Sod/ Tazobactam Sod 50 ml @ 100 mls/hr Q6H IV 05/03/17 17:00 05/17/17 16:59 05/12/17 10:08 Potassium Chloride 100 ml @ 50 mls/hr Q2H PRN IV 05/03/17 19:30 Potassium Chloride 100 ml @ 50 mls/hr Q2H PRN IV 05/03/17 19:30 05/09/17 12:30 (K-Lyte Cl Eff) 50 meq UNSCH PRN PO 05/03/17 19:30 Potassium Chloride 100 ml @ 25 mls/hr UNSCH PRN IV 05/03/17 19:30 05/06/17 05:52 Potassium Chloride 100 ml @ 50 mls/hr Q2H PRN IV 05/03/17 19:30 05/06/17 08:35 Magnesium Sulfate 4 gm/Sodium Chloride 100 ml @ 50 mls/hr UNSCH PRN IV 05/03/17 19:30 (Mag-Ox) 800 mg UNSCH PRN PO 05/03/17 19:30 Magnesium Sulfate 2 gm/Sodium Chloride 100 ml @ 50 mls/hr UNSCH PRN IV 05/03/17 19:30 (K-Phos) 2,000 mg Q4H PRN PO 05/03/17 19:30 Sodium Phosphate 30 mmol/Sodium Chloride 250 ml @ 42 mls/hr UNSCH PRN IV 05/03/17 19:30 05/04/17 08:21 (K-Phos) 2,000 mg UNSCH PRN PO/TUBE 05/03/17 19:30 Potassium Phosphate 30 mmol/ Sodium Chloride 260 ml @ 42 mls/hr UNSCH PRN IV 05/03/17 19:30 Heparin Sodium/ Dextrose 250 ml @ 8.424 mls/ hr TITRATE PRN IV 05/05/17 17:00 05/08/17 12:25 (Isoptin) 40 mg Q8HR PO 05/08/17 14:00 05/12/17 13:10 (Lasix Inj) 40 mg DAILY IV PUSH 05/08/17 12:45 05/12/17 10:02 (Lopressor) 25 mg Q12HR PO 05/08/17 12:45 05/12/17 10:03 (Aldactone) 25 mg DAILY PO 05/09/17 10:00 05/12/17 10:02 (Narcan Inj) 0.4 mg UNSCH PRN IV 05/09/17 15:15 (Dilaudid TRANSCRIPT EVALUATOR Inj) 6 mg UNSCH IV 05/09/17 15:15 05/09/17 15:37 TRANSCRIPT EVALUATOR Dosage Infused (Pha) 1 Q8HR OTHER 05/09/17 15:30 05/11/17 04:42 (NS Flush) See Protocol DAILY IV FLUSH 05/10/17 09:00 05/12/17 10:01 (NS Flush) See Protocol UNSCH PRN IV FLUSH 05/09/17 19:30 (Heparin Central Flush) See Protocol DAILY IV FLUSH 05/10/17 09:00 05/10/17 09:19 (Heparin Central Flush) See Protocol UNSCH PRN IV FLUSH 05/09/17 19:30 (NS Flush) UNSCH PRN IV FLUSH 05/09/17 19:30 (Chloraseptic [place]) 2 spray Q2H PRN OROPHARYNG 05/10/17 08:45 (Chloraseptic Willian) 1 lozenge UNSCH PRN BUCCAL 05/10/17 09:30 05/10/17 18:39 (Cordarone) 200 mg Q12HR PO 05/10/17 21:00 05/12/17 10:02 Multivitamins 10 ml/Folic Acid 1 mg/Amino Acids/ Electrolytes/ Dextrose 2,010.2 ml @ 83 mls/hr Q24H IV-CENTRAL 05/11/17 20:00 05/11/17 19:21 Fat Emulsion Intravenous 250 ml @ 31.25 mls/ hr Q24H IV-CENTRAL 05/11/17 20:00 05/11/17 19:21 (NS Flush) See Protocol DAILY IV FLUSH 05/12/17 09:00 05/12/17 10:00 (NS Flush) See Protocol UNSCH PRN IV FLUSH 05/11/17 16:15 (Heparin Central Flush) See Protocol DAILY IV FLUSH 05/12/17 09:00 (Heparin Central Flush) See Protocol UNSCH PRN IV FLUSH 05/11/17 16:15 (NS Flush) UNSCH PRN IV FLUSH 05/11/17 16:15 Vital Signs / I&O Vital Signs Date Time Temp Pulse Resp B/P (MAP) Pulse Ox O2 Delivery O2 Flow Rate FiO2 05/12/17 14:00 68 05/12/17 12:00 69 05/12/17 12:00 97.8 69 23 115/60 (78) 97 05/12/17 10:00 67 05/12/17 08:00 97.8 75 16 125/63 (83) 97 05/12/17 08:00 75 05/12/17 07:18 96 Nasal Cannula 2.00 05/12/17 07:00 97 Nasal Cannula 2.00 05/12/17 06:52 16 05/12/17 06:00 74 05/12/17 04:00 78 05/12/17 04:00 97.9 82 18 131/76 (94) 97 05/12/17 02:00 80 05/12/17 00:00 98.0 72 17 121/71 (88) 95 05/12/17 00:00 72 05/11/17 22:00 70 05/11/17 21:55 96 Nasal Cannula 2.00 05/11/17 20:00 72 05/11/17 20:00 97 Nasal Cannula 2.00 05/11/17 20:00 97.9 72 18 117/63 (81) 97 05/11/17 18:00 73 I/O 05/11/17 05/11/17 05/11/17 05/12/17 05/12/17 05/12/17 07:00 15:00 23:00 07:00 15:00 23:00 Intake Total 782 ml 1000 ml 732 ml 1346 ml 520 ml Output Total 860 ml 2990 ml 1115 ml Balance -78 ml 1000 ml -2258 ml 231 ml 520 ml IV Total 782 ml 1000 ml 732 ml 265 ml 520 ml TPN/PPN 831 ml Lipid 250 ml Output Urine Total 550 ml 2800 ml 1000 ml Gastric Drainage Total 150 ml 25 ml 20 ml Drainage Total 160 ml 165 ml 95 ml # Bowel Movements 0 0 0 Physical Exam NAD FLAT JVD LUNGS CLEAR REGULAR RATE AND RHYTHM, 1-2/6 LLSB SYSTOLIC MURMUR ABD SOFT LOWER EXTR WITH 2+ EDEMA BILAT Laboratory Laboratory Tests Test 05/12/17 00:20 White Blood Count 23.1 TH/MM3 Red Blood Count 3.06 MIL/MM3 Hemoglobin 8.6 GM/DL Hematocrit 25.4 % Mean Corpuscular Volume 83.0 FL Mean Corpuscular Hemoglobin 27.9 PG Mean Corpuscular Hemoglobin Concent 33.7 % Red Cell Distribution Width 16.5 % Platelet Count 473 TH/MM3 Mean Platelet Volume 6.9 FL Neutrophils (%) (Auto) 81.4 % Lymphocytes (%) (Auto) 8.1 % Monocytes (%) (Auto) 8.3 % Eosinophils (%) (Auto) 1.8 % Basophils (%) (Auto) 0.4 % Neutrophils # (Auto) 18.8 TH/MM3 Lymphocytes # (Auto) 1.9 TH/MM3 Monocytes # (Auto) 1.9 TH/MM3 Eosinophils # (Auto) 0.4 TH/MM3 Basophils # (Auto) 0.1 TH/MM3 CBC Comment DIFF FINAL Differential Comment Assessment and Plan Assessment and Plan RECURRENT POST-OP PAROXYSMAL ATRIAL FIBRILLATION. BACK IN SINUS RHYTHM NEGATIVE TROPONIN FOR ACS HTN CONTROLLED UTERINE MALIGNANCY, S/P HYSTERECTOMY, COLON RESECTION, BILAT OOPHORECTOMY, OMENTUM RESECTION ANASTOMOTIC LEAK, REPAIRED COLO-VAGINAL FISTULA, REPAIRED VOLUME OVERLOAD/LOWER EXTREMITY EDEMA, REMAINS HYPOKALEMIA, RESOLVED PLAN: MEDICATIONS REVIEWED, CONTINUE SAME RESTART IV HEPARIN POST-OP WHEN OK WITH SURGERY. OK TO START WARFARIN 5 MG QD WHEN OK WITH SURGERY GOAL INR 2-3 I=Os NEGATIVE FLUID BALANCE SBP AND CREATININE TOLERATES. Jorge Turcios MD May 12, 2017 18:04
--- NOTE | 2017-05-12 19:30 | HHI.PR ---
Subjective Remarks Follow up for peritonitis, uterine malignancy, atrial fibrillation. Patient is currently doing well, resting in bed. She is on TPN. Has been afebrile. Objective Vitals Vital Signs Date Time Temp Pulse Resp B/P (MAP) Pulse Ox O2 Delivery O2 Flow Rate FiO2 05/12/17 18:00 69 05/12/17 16:00 62 05/12/17 16:00 98.0 69 22 123/82 (96) 96 05/12/17 14:00 68 05/12/17 12:00 69 05/12/17 12:00 97.8 69 23 115/60 (78) 97 05/12/17 10:00 67 05/12/17 08:00 97.8 75 16 125/63 (83) 97 05/12/17 08:00 75 05/12/17 07:18 96 Nasal Cannula 2.00 05/12/17 07:00 97 Nasal Cannula 2.00 05/12/17 06:52 16 05/12/17 06:00 74 05/12/17 04:00 78 05/12/17 04:00 97.9 82 18 131/76 (94) 97 05/12/17 02:00 80 05/12/17 00:00 98.0 72 17 121/71 (88) 95 05/12/17 00:00 72 05/11/17 22:00 70 05/11/17 21:55 96 Nasal Cannula 2.00 05/11/17 20:00 72 05/11/17 20:00 97 Nasal Cannula 2.00 05/11/17 20:00 97.9 72 18 117/63 (81) 97 I/O 05/11/17 05/11/17 05/11/17 05/12/17 05/12/17 05/12/17 07:00 15:00 23:00 07:00 15:00 23:00 Intake Total 782 ml 1000 ml 732 ml 1346 ml 520 ml Output Total 860 ml 2990 ml 1115 ml 4020 ml Balance -78 ml 1000 ml -2258 ml 231 ml 520 ml -4020 ml IV Total 782 ml 1000 ml 732 ml 265 ml 520 ml TPN/PPN 831 ml Lipid 250 ml Output Urine Total 550 ml 2800 ml 1000 ml 3900 ml Stool Total 35 ml Gastric Drainage Total 150 ml 25 ml 20 ml 0 ml Drainage Total 160 ml 165 ml 95 ml 85 ml # Bowel Movements 0 0 0 Result Diagram: 05/12/17 0020 05/10/17 0500 Imaging Last Impressions Chest X-Ray 05/11/17 0000 Signed Impressions: Service Date/Time: Thursday, May 11, 2017 14:41 - CONCLUSION: Left PICC line catheter tip at the cavoatrial junction. Conrad King MD Abdomen/Pelvis CT 05/11/17 0000 Signed Impressions: Service Date/Time: Thursday, May 11, 2017 10:14 - CONCLUSION: No residual fluid about the lower pelvic drain. Moderate size bilateral pleural effusions and compressive atelectasis, stable. New left lower quadrant hernia/stoma containing a loop of bowel. Conrad King MD Abscess Drainage CT 05/02/17 0000 Signed Impressions: Service Date/Time: Tuesday, May 02, 2017 17:42 - CONCLUSION: Uncomplicated CT guided drainage. Hipolito Talbot MD Objective Remarks GENERAL: Alert, oriented 3, NAD. SKIN: Warm and dry. HEAD: Normocephalic. EYES: No scleral icterus. No injection or drainage. NECK: Supple, trachea midline. No JVD or lymphadenopathy. CARDIOVASCULAR: Regular rate and rhythm without murmurs, gallops, or rubs. RESPIRATORY: Breath sounds equal bilaterally. No accessory muscle use. GASTROINTESTINAL: Abdomen soft, non-tender, nondistended. MUSCULOSKELETAL: No cyanosis, or edema. BACK: Nontender without obvious deformity. No CVA tenderness. 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 Course is uncomplicated due to her pre-existing ulcerative colitis and post anastomic colon leak. Anastomotic leak with peritonitis - Status post drainage by IR, due to worsening leukocytosis concern is for abscess. 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 - Surgeons involved: Dr. Morris, Dr. Poon, Dr. Saucedo and Dr. Sims - Infectious disease ([facility]) is following - blood cultures 05/03: Prevotella loeschelli - abscess culture 05/02: e.coli, strep not A, B, D, haemophilus parainfluenze - Currently on Zosyn. CBC indicates WBC, 26K --> 29K --> 23K. - Antibiotic history: Diflucan DC 05/05 Bilateral pleural effusion - Continue supplemental O2 to keep O2 sat > 90%. Uterine Malignancy - S/P Exploratory laparotomy, total abdominal hysterectomy, bilateral salpingo- oophorectomy, extensive lysis of adhesions, omentectomy, open sigmoid resection with primary anastomosis and open appendectomy. - Followed up by hematology oncology , Vice Chairman-onc and general surgery (Dr. Alexandra ha and Dr. Sims) AFib with RVR - History of paroxysmal A. fib - Has been evaluated by receiving specialist Dr. Turcios: went into A-Fb with RVR again on 05/08, amiodarone 200 mg PO BID, verapamil 40 mg PO q8, metoprolol tartrate 25 mg BID, lasix 4o mg IV daily, keep K > 4, CHADS VASC 4 cont heparin Will discuss with Surgery to see if we can start Warfarin to transition from Heparin. HLD - Continue pravastatin 20 mg daily. Anxiety - Ativan when necessary Ulcerative Colitis - On mesalamine at home Hypokalemia - Replaced, goal K> 4 Full code. Heparin drip. Mana Goel DO May 12, 2017 19:29
[2017-05-12] MEDS: CLINIMIX E 4.25/25 2000 mL- >42 mls/hr IV-CENTRAL SCH ×3 (21:39)
[2017-05-12] MEDS: FAT EMULSION 20% INJ 250 ML (Daily over 8 hours) IV-CENTRAL SCH (21:39)
[2017-05-13] VITALS (13 sets, daily range): BP systolic 94–125; BP diastolic 58–70; PULSE 65–76; RESP 14–22; TEMP 96.8–98.1; O2SAT 93–99
[2017-05-13] MEDS: PIPERACIL-TAZO 3.375 GM PREMIX 50 ML IV SCH ×4 (05:53→23:00)
[2017-05-13] MEDS: VERAPAMIL HCL 40 MG TAB PO SCH ×3 (05:53→23:46)
[2017-05-13] MEDS: FAMOTIDINE 20 MG/2 ML VIAL IV PUSH SCH ×2 (05:53→17:33)
[2017-05-13] MEDS: PCA - TOTAL MG DILAUDID DELIVERED PER SHIFT OTHER SCH ×3 (05:53→22:00)
[2017-05-13] MEDS: LORazepam 0.5 MG TAB PO PRN ×2 (06:34→22:14)
[2017-05-13] MEDS: INSULIN ASPART SUPPLEMENTAL SCALE SQ SCH ×4 (06:48→21:00)
[2017-05-13] MEDS: TIMOLOL MALEATE 0.5% OPHT SOLN 5 ML BTL EACH EYE SCH (08:48)
[2017-05-13] MEDS: SODIUM CHLORIDE 0.9% FLUSH 10 ML FLUSH IV FLUSH SCH ×4 (08:49→21:00)
[2017-05-13] MEDS: FUROSEMIDE 40 MG/4 ML VIAL IV PUSH SCH (08:49)
[2017-05-13] MEDS: SPIRONOLACTONE 25 MG TAB PO SCH (08:50)
[2017-05-13] MEDS: METOPROLOL TARTRATE 25 MG TAB PO SCH ×2 (08:50→22:13)
[2017-05-13] MEDS: MESALAMINE HD 800 MG DELAYED RELEASE TAB PO SCH ×3 (08:50→17:33)
[2017-05-13] MEDS: PRAVASTATIN SOD 20 MG TAB PO SCH (08:50)
[2017-05-13] MEDS: AMIODARONE 200 MG TAB PO SCH ×2 (08:50→22:12)
--- NOTE | 2017-05-13 10:37 | HHI.PR ---
Subjective Subjective Notes Resting in bed Was up to chair for 2-3 hours yesterday Objective Vitals/I&O Vital Signs Date Time Temp Pulse Resp B/P (MAP) Pulse Ox O2 Delivery O2 Flow Rate FiO2 05/13/17 08:09 97 Nasal Cannula 2.00 05/13/17 08:00 71 05/13/17 08:00 98.1 20 107/60 (76) Labs Date/Time Source Procedure Growth Status 05/03/17 16:35 Blood Peripheral Aerobic Blood Culture - Final NO GROWTH IN 5 DAYS Complete 05/03/17 16:35 Anaerobic Blood Culture - Final Prevotella Loescheii Complete 05/02/17 17:50 Abscess Abdomen Gram Stain - Final Complete 05/02/17 17:50 Wound Culture - Final Escherichia Coli Strep Not A,B D Complete Cardiovascular: Regular Lungs: Clear Abdomen: Other (midline incision--- wound vac in place with good seal; QUENTIN with SS fluid; colostomy in place with liquid stool in bag; minimally tender ) Extremities: Other (see below ) Narrative Exam LEFT wrist edema ---- improved BLE edema A/P Assessment and Plan 76 year old female s/p POD4 ex lap and colostomy; s/p exploratory laparotomy, total abdominal hysterectomy, bilateral salpingo-oophorectomy, extensive lysis of adhesions, omentectomy, open sigmoid resection with primary anastomosis and open appendectomy -Continue PICC and TPN -Continue clear liquids -OOB and tolerated--with assistance; PT following -Colostomy teaching -Wound Vac change tomorrow---pain medication available -Labs tomorrow -Continue routine QUENTIN care -Transfer to N Attending Statement The exam, history, and the medical decision-making described in the above note were completed with the assistance of the mid-level provider. I reviewed and agree with the findings presented. I attest that I had a [id number] encounter with the patient on the same day, and personally performed and documented my assessment and findings in the medical record. Abdominal exam: stable, no peritonitis, ostomy pink viable pain ok, OOB with PT/OT Shannon Ocampo May 13, 2017 10:37 Blayne Morris MD Jun 07, 2017 23:23
--- NOTE | 2017-05-13 13:31 | PD.WCN.NOT ---
Wound Consult Description: Received consult for wound VAC dressing change to midline abdominal incision Consult placed for Ostomy Management per Dr Morris Communicated with: Patient Recommendation: Observe staff open, empty, and close pouch Practice opening and closing pouch provided in Colostomy kit Practice attaching barrier to pouch provided in Colostomy kit Write down any questions you may have for log getter to answer on Tuesday Additional Information: Patient seen on [address] [place] [address] for ostomy and appliance assessment. Ostomy Type: Colostomy Surgeon: Blayne Morris MD Date of Surgery: May 09, 2017 Complete: Starter [facility] ([facility] Education materials ([facility] with education materials and practice wafer and pouches), Rx (Left on chart) Educated patient on: Stoma color and size Effluent Peristomal skin care Emptying effluent from pouch when 1/3-1/2 full How to open and close practice pouch provided in kit How to attach practice barrier to practice pouch provided in kit Writing questions down for health science writer to answer on Tuesday05/17/17 Potential foods that can cause blockages [email or web address] for swim suit options Additional information Patient seen on [facility] for left lower sided colostomy and appliance assessment. Patient states that she read the booklet left for her yesterday and has a few questions that were answered. Pouch was removed from low pressure adaptor for patient and health science writer to assess stoma and measure for wafer size to be obtained for next appliance change. Stoma is red, round, edematous, moist, functioning with green soft effluent noted to pouch with lumen at 5 o'clock. Barrier is intact and noted without leaks. Stoma measures between 1 1/2" and 1 3 /4". 2 appliances in size 2 1/4" were ordered from [facility]. [facility]. Script left on chart for wafer and pouch sizes with order numbers. Patient to be followed up on Tuesday05/17/17 for further teaching and possible appliance change. Gillian Wong [facility] May 13, 2017 13:31
[2017-05-13] MEDS: oxyCODONE/ACETAMINOPHEN 5 MG/325 MG TAB PO PRN (15:14)
--- NOTE | 2017-05-13 20:58 | HHI.PR ---
Subjective Remarks Follow up for peritonitis, uterine malignancy, atrial fibrillation. Patient is doing much better today. NG Tube out. Granddaughter at bedside. No fever, chills. Objective Vitals Vital Signs Date Time Temp Pulse Resp B/P (MAP) Pulse Ox O2 Delivery O2 Flow Rate FiO2 05/13/17 18:00 68 05/13/17 16:00 97.9 67 20 105/60 (75) 95 05/13/17 16:00 67 05/13/17 14:00 68 05/13/17 12:00 66 05/13/17 12:00 98.1 76 22 94/59 (71) 93 05/13/17 10:00 67 05/13/17 08:09 97 Nasal Cannula 2.00 05/13/17 08:00 71 05/13/17 08:00 98.1 71 20 107/60 (76) 99 05/13/17 07:00 99 Nasal Cannula 2.00 05/13/17 06:00 73 05/13/17 04:00 97.8 69 15 125/65 (85) 97 05/13/17 04:00 69 05/13/17 02:00 65 05/13/17 00:00 65 05/13/17 00:00 97.8 65 14 112/58 (76) 97 05/12/17 23:44 17 05/12/17 22:00 71 05/12/17 21:41 97 Nasal Cannula 2.00 I/O 05/12/17 05/12/17 05/12/17 05/13/17 05/13/17 05/13/17 07:00 15:00 23:00 07:00 15:00 23:00 Intake Total 1346 ml 520 ml 1227 ml 1032 ml Output Total 1115 ml 4020 ml 1530 ml 3380 ml Balance 231 ml 520 ml -4020 ml -303 ml -2348 ml IV Total 265 ml 520 ml 98 ml 100 ml TPN/PPN 831 ml 879 ml 932 ml Lipid 250 ml 250 ml Output Urine Total 1000 ml 3900 ml 1450 ml 3250 ml Stool Total 35 ml 50 ml 100 ml Gastric Drainage Total 20 ml 0 ml Drainage Total 95 ml 85 ml 30 ml 30 ml # Bowel Movements 0 Result Diagram: 05/12/17 0020 05/10/17 0500 Imaging Last Impressions Chest X-Ray 05/11/17 0000 Signed Impressions: Service Date/Time: Thursday, May 11, 2017 14:41 - CONCLUSION: Left PICC line catheter tip at the cavoatrial junction. Conrad King MD Abdomen/Pelvis CT 05/11/17 0000 Signed Impressions: Service Date/Time: Thursday, May 11, 2017 10:14 - CONCLUSION: No residual fluid about the lower pelvic drain. Moderate size bilateral pleural effusions and compressive atelectasis, stable. New left lower quadrant hernia/stoma containing a loop of bowel. Conrad King MD Abscess Drainage CT 05/02/17 0000 Signed Impressions: Service Date/Time: Tuesday, May 02, 2017 17:42 - CONCLUSION: Uncomplicated CT guided drainage. Hipolito Talbot MD Objective Remarks GENERAL: Alert, oriented 3, NAD. SKIN: Warm and dry. HEAD: Normocephalic. EYES: No scleral icterus. No injection or drainage. NECK: Supple, trachea midline. No JVD or lymphadenopathy. CARDIOVASCULAR: Regular rate and rhythm without murmurs, gallops, or rubs. RESPIRATORY: Breath sounds equal bilaterally. No accessory muscle use. GASTROINTESTINAL: Abdomen soft, non-tender, nondistended. MUSCULOSKELETAL: No cyanosis, or edema. BACK: Nontender without obvious deformity. No CVA tenderness. 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 Course is uncomplicated due to her pre-existing ulcerative colitis and post anastomic colon leak. Anastomotic leak with peritonitis - Status post drainage by IR, due to worsening leukocytosis concern is for abscess. 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 - Surgeons involved: Dr. Morris, Dr. Poon, Dr. Saucedo and Dr. Sims - Infectious disease ([facility]) is following - blood cultures 05/03: Prevotella loeschelli - abscess culture 05/02: e.coli, strep not A, B, D, haemophilus parainfluenze - Currently on Zosyn. CBC indicates WBC, 26K --> 29K --> 23K. - Antibiotic history: Diflucan DC 05/05 Bilateral pleural effusion - Continue supplemental O2 to keep O2 sat > 90%. Uterine Malignancy - S/P Exploratory laparotomy, total abdominal hysterectomy, bilateral salpingo- oophorectomy, extensive lysis of adhesions, omentectomy, open sigmoid resection with primary anastomosis and open appendectomy. - Followed up by hematology oncology , Head And Neck Surgeon-onc and general surgery (Dr. Alexandra ha and Dr. Sims) AFib with RVR - History of paroxysmal A. fib - Has been evaluated by newspaper editor managing Dr. Turcios: went into A-Fb with RVR again on 05/08, amiodarone 200 mg PO BID, verapamil 40 mg PO q8, metoprolol tartrate 25 mg BID, lasix 4o mg IV daily, keep K > 4, CHADS VASC 3-4. - Given patient's [id number] score of 3 to 4, it would be reasonable to wait for oral anti-coagulation. - Bridging with SQ Lovenox or heparin drip may not be necessary. - Bridging would be okay if she had higher [id number] score. - When patient is able to tolerate oral intake, I would advocate for Apixaban 5mg BID. HLD - Continue pravastatin 20 mg daily. Anxiety - Ativan when necessary Ulcerative Colitis - On mesalamine at home Hypokalemia - Replaced, goal K> 4 Full code. Currently patient is not on heparin drip. We will start heparin SQ for DVT prophylaxis on 05/14/2017. Discussed with patient's family members, RN, General surgery. Mana Goel DO May 13, 2017 20:58
[2017-05-13] MEDS: FAT EMULSION 20% INJ 250 ML (Daily over 8 hours) IV-CENTRAL SCH (22:10)
[2017-05-13] MEDS: CLINIMIX E 4.25/25 2000 mL- >42 mls/hr IV-CENTRAL SCH ×3 (22:10)
[2017-05-14] VITALS (10 sets, daily range): BP systolic 102–155; BP diastolic 57–74; PULSE 69–84; RESP 16–18; TEMP 96.7–97.7; O2SAT 93–95
[2017-05-14] MEDS: PIPERACIL-TAZO 3.375 GM PREMIX 50 ML IV SCH ×4 (05:42→22:39)
[2017-05-14] MEDS: PCA - TOTAL MG DILAUDID DELIVERED PER SHIFT OTHER SCH ×3 (05:42→20:34)
[2017-05-14] MEDS: VERAPAMIL HCL 40 MG TAB PO SCH ×3 (05:42→20:34)
[2017-05-14] MEDS: FAMOTIDINE 20 MG/2 ML VIAL IV PUSH SCH ×2 (06:09→18:08)
[2017-05-14] MEDS: INSULIN ASPART SUPPLEMENTAL SCALE SQ SCH ×4 (06:12→20:32)
[2017-05-14 06:21] LABS: AUTOMATED NEUTROPHIL # 14.4 TH/MM3 (1.8-7.7); BASOPHIL # 0.2 TH/MM3 (0-0.2); BASOPHIL % 0.8 % (0.0-2.0); EOSINOPHIL # 0.7 TH/MM3 (0-0.4); EOSINOPHIL % 3.7 % (0.0-4.0); HEMATOCRIT 26.5 % (35.0-46.0); LYMPH % 10.3 % (9.0-44.0); MEAN CELL VOLUME 83.2 FL (80.0-100.0); MEAN CORPUSCULAR HEMOGLOBIN 26.6 PG (27.0-34.0); MONO % 10.7 % (0.0-8.0); NEUT % 74.5 % (16.0-70.0); PLATELET COUNT 532 TH/MM3 (150-450); RED BLOOD COUNT 3.19 MIL/MM3 (4.00-5.30); RED CELL DISTRIBUTION WIDTH 16.7 % (11.6-17.2); WHITE BLOOD COUNT 19.4 TH/MM3 (4.0-11.0)
[2017-05-14 06:23] LABS: HEMO FLAGS AUTO DIFF
[2017-05-14 06:58] LABS: ALT (GPT) 11 U/L (10-53); ANION GAP 7 MEQ/L (5-15); AST (GOT) 14 U/L (15-37); BICARBONATE 29.8 MEQ/L (21.0-32.0); BLOOD UREA NITROGEN 10 MG/DL (7-18); CHLORIDE 104 MEQ/L (98-107); GLOMERULAR FILTRATION RATE 150 ML/MIN (>89); POTASSIUM 3.5 MEQ/L (3.5-5.1); SODIUM (NA) 141 MEQ/L (136-145)
[2017-05-14 07:01] LABS: ALKALINE PHOSPHATASE 65 U/L (45-117); TOTAL BILIRUBIN ADULT 0.1 MG/DL (0.2-1.0)
--- NOTE | 2017-05-14 08:03 | PD.CARD.PN ---
Subjective Subjective Remarks CONTINUES TO REMAIN STABLE NO COMPLAINTS OF CHEST PAIN OR SOB HAS SOME ABDOMINAL DISCOMFORT REMAINS IN SINUS RHYTHM Objective Medications Current Medications Medications (Trade) Dose Ordered Sig/Marsha Route Start Time Stop Time Status Last Admin (Asacol Hd Dr) 800 mg TID PO 04/25/17 18:00 05/13/17 17:33 (Timoptic 0.5% Opth Soln) 1 drop DAILY EACH EYE 04/26/17 09:00 05/13/17 08:48 (Pravachol) 20 mg DAILY PO 04/26/17 09:00 05/13/17 08:50 (NS Flush) 2 ml UNSCH PRN IV FLUSH 04/25/17 16:15 04/27/17 12:28 (NS Flush) 2 ml BID IV FLUSH 04/25/17 21:00 05/13/17 21:00 (Percocet 5-325 Mg) 1 tab Q4H PRN PO 04/25/17 16:15 05/12/17 22:44 (Percocet 5-325 Mg) 2 tab Q4H PRN PO 04/25/17 16:15 05/13/17 15:14 (Benadryl) 25 mg Q6H PRN PO 04/25/17 16:15 (Zofran Inj) 4 mg Q6H PRN IVP 04/25/17 16:15 05/10/17 07:34 (Ativan) 0.25 mg Q8H PRN PO 04/25/17 16:15 05/13/17 22:14 (Tums Chew) 500 mg Q4H PRN PO 04/27/17 19:45 05/10/17 21:18 (Duoneb Neb) 1 ampule Q4HR NEB PRN NEB 04/29/17 12:45 (D50w (Vial) Inj) 50 ml UNSCH PRN IV 05/02/17 23:00 (Glucagon Inj) 1 mg UNSCH PRN OTHER 05/02/17 23:00 (NovoLOG SUPPLEMENTAL SCALE) 1 ACHS SLIDING SCALE SQ 05/03/17 07:00 05/12/17 11:14 (Pepcid Inj) 20 mg Q12H IV PUSH 05/03/17 06:00 05/14/17 06:09 Piperacillin Sod/ Tazobactam Sod 50 ml @ 100 mls/hr Q6H IV 05/03/17 17:00 05/17/17 16:59 05/14/17 05:42 Potassium Chloride 100 ml @ 50 mls/hr Q2H PRN IV 05/03/17 19:30 Potassium Chloride 100 ml @ 50 mls/hr Q2H PRN IV 05/03/17 19:30 05/09/17 12:30 (K-Lyte Cl Eff) 50 meq UNSCH PRN PO 05/03/17 19:30 Potassium Chloride 100 ml @ 25 mls/hr UNSCH PRN IV 05/03/17 19:30 05/06/17 05:52 Potassium Chloride 100 ml @ 50 mls/hr Q2H PRN IV 05/03/17 19:30 05/06/17 08:35 Magnesium Sulfate 4 gm/Sodium Chloride 100 ml @ 50 mls/hr UNSCH PRN IV 05/03/17 19:30 (Mag-Ox) 800 mg UNSCH PRN PO 05/03/17 19:30 Magnesium Sulfate 2 gm/Sodium Chloride 100 ml @ 50 mls/hr UNSCH PRN IV 05/03/17 19:30 (K-Phos) 2,000 mg Q4H PRN PO 05/03/17 19:30 Sodium Phosphate 30 mmol/Sodium Chloride 250 ml @ 42 mls/hr UNSCH PRN IV 05/03/17 19:30 05/04/17 08:21 (K-Phos) 2,000 mg UNSCH PRN PO/TUBE 05/03/17 19:30 Potassium Phosphate 30 mmol/ Sodium Chloride 260 ml @ 42 mls/hr UNSCH PRN IV 05/03/17 19:30 Heparin Sodium/ Dextrose 250 ml @ 8.424 mls/ hr TITRATE PRN IV 05/05/17 17:00 05/08/17 12:25 (Isoptin) 40 mg Q8HR PO 05/08/17 14:00 05/14/17 05:42 (Lasix Inj) 40 mg DAILY IV PUSH 05/08/17 12:45 05/13/17 08:49 (Lopressor) 25 mg Q12HR PO 05/08/17 12:45 05/13/17 22:13 (Aldactone) 25 mg DAILY PO 05/09/17 10:00 05/13/17 08:50 (Narcan Inj) 0.4 mg UNSCH PRN IV 05/09/17 15:15 (Dilaudid NURSE OB Inj) 6 mg UNSCH IV 05/09/17 15:15 05/09/17 15:37 NURSE OB Dosage Infused (Pha) 1 Q8HR OTHER 05/09/17 15:30 05/11/17 04:42 (NS Flush) See Protocol DAILY IV FLUSH 05/10/17 09:00 05/13/17 08:49 (NS Flush) See Protocol UNSCH PRN IV FLUSH 05/09/17 19:30 (Heparin Central Flush) See Protocol DAILY IV FLUSH 05/10/17 09:00 05/13/17 08:49 (Heparin Central Flush) See Protocol UNSCH PRN IV FLUSH 05/09/17 19:30 (NS Flush) UNSCH PRN IV FLUSH 05/09/17 19:30 (Chloraseptic [place]) 2 spray Q2H PRN OROPHARYNG 05/10/17 08:45 (Chloraseptic [place]) 1 lozenge UNSCH PRN BUCCAL 05/10/17 09:30 05/10/17 18:39 (Cordarone) 200 mg Q12HR PO 05/10/17 21:00 05/13/17 22:12 Multivitamins 10 ml/Folic Acid 1 mg/Amino Acids/ Electrolytes/ Dextrose 2,010.2 ml @ 83 mls/hr Q24H IV-CENTRAL 05/11/17 20:00 05/13/17 22:10 Fat Emulsion Intravenous 250 ml @ 31.25 mls/ hr Q24H IV-CENTRAL 05/11/17 20:00 05/13/17 22:10 (NS Flush) See Protocol DAILY IV FLUSH 05/12/17 09:00 05/13/17 08:49 (NS Flush) See Protocol UNSCH PRN IV FLUSH 05/11/17 16:15 (Heparin Central Flush) See Protocol DAILY IV FLUSH 05/12/17 09:00 (Heparin Central Flush) See Protocol UNSCH PRN IV FLUSH 05/11/17 16:15 (NS Flush) UNSCH PRN IV FLUSH 05/11/17 16:15 (Morphine Inj) 2 mg Q6HR PRN IV PUSH 05/12/17 19:30 Vital Signs / I&O Vital Signs Date Time Temp Pulse Resp B/P (MAP) Pulse Ox O2 Delivery O2 Flow Rate FiO2 05/14/17 04:00 96.9 84 16 155/74 (101) 93 05/14/17 00:05 97.7 75 16 112/57 (75) 94 05/13/17 22:02 97 Nasal Cannula 2.00 05/13/17 20:00 96.8 73 16 124/70 (88) 94 05/13/17 18:00 68 05/13/17 16:00 97.9 67 20 105/60 (75) 95 05/13/17 16:00 67 05/13/17 14:00 68 05/13/17 12:00 66 05/13/17 12:00 98.1 76 22 94/59 (71) 93 05/13/17 10:00 67 05/13/17 08:09 97 Nasal Cannula 2.00 05/13/17 08:00 71 05/13/17 08:00 98.1 71 20 107/60 (76) 99 I/O 05/13/17 05/13/17 05/13/17 05/14/17 05/14/17 05/14/17 07:00 15:00 23:00 07:00 15:00 23:00 Intake Total 1227 ml 1032 ml Output Total 1530 ml 3380 ml 1200 ml Balance -303 ml -2348 ml -1200 ml IV Total 98 ml 100 ml TPN/PPN 879 ml 932 ml Lipid 250 ml Output Urine Total 1450 ml 3250 ml 1200 ml Stool Total 50 ml 100 ml Drainage Total 30 ml 30 ml Physical Exam NAD FLAT JVD LUNGS CLEAR REGULAR RATE AND RHYTHM, 1-2/6 LLSB SYSTOLIC MURMUR ABD SOFT LOWER EXTR WITH 1+ EDEMA BILAT Laboratory Laboratory Tests Test 05/14/17 06:00 White Blood Count 19.4 TH/MM3 Red Blood Count 3.19 MIL/MM3 Hemoglobin 8.5 GM/DL Hematocrit 26.5 % Mean Corpuscular Volume 83.2 FL Mean Corpuscular Hemoglobin 26.6 PG Mean Corpuscular Hemoglobin Concent 32.0 % Red Cell Distribution Width 16.7 % Platelet Count 532 TH/MM3 Mean Platelet Volume 6.6 FL Neutrophils (%) (Auto) 74.5 % Lymphocytes (%) (Auto) 10.3 % Monocytes (%) (Auto) 10.7 % Eosinophils (%) (Auto) 3.7 % Basophils (%) (Auto) 0.8 % Neutrophils # (Auto) 14.4 TH/MM3 Lymphocytes # (Auto) 2.0 TH/MM3 Monocytes # (Auto) 2.1 TH/MM3 Eosinophils # (Auto) 0.7 TH/MM3 Basophils # (Auto) 0.2 TH/MM3 CBC Comment AUTO DIFF Blood Urea Nitrogen 10 MG/DL Creatinine 0.41 MG/DL Random Glucose 112 MG/DL Total Protein 5.2 GM/DL Albumin 1.2 GM/DL Calcium Level 7.9 MG/DL Alkaline Phosphatase 65 U/L Aspartate Amino Transf (AST/SGOT) 14 U/L Alanine Aminotransferase (ALT/SGPT) 11 U/L Total Bilirubin 0.1 MG/DL Sodium Level 141 MEQ/L Potassium Level 3.5 MEQ/L Chloride Level 104 MEQ/L Carbon Dioxide Level 29.8 MEQ/L Anion Gap 7 MEQ/L Estimat Glomerular Filtration Rate 150 ML/MIN Prealbumin 14 MG/DL Assessment and Plan Assessment and Plan RECURRENT POST-OP PAROXYSMAL ATRIAL FIBRILLATION. BACK IN SINUS RHYTHM NEGATIVE TROPONIN FOR ACS HTN CONTROLLED UTERINE MALIGNANCY, S/P HYSTERECTOMY, COLON RESECTION, BILAT OOPHORECTOMY, OMENTUM RESECTION ANASTOMOTIC LEAK, REPAIRED COLO-VAGINAL FISTULA, REPAIRED VOLUME OVERLOAD/LOWER EXTREMITY EDEMA, REMAINS HYPOKALEMIA, RESOLVED PLAN: MEDICATIONS REVIEWED, CONTINUE SAME START LOVENOX SQ 0.5 MG/KG Q12HRS FOR BOTH DVT PROPHOLAXIS WITH HX MALIGNANCY AND HIGH [id number] SCORE. START NOAC WHEN OK WITH SURGERY I=Os NEGATIVE FLUID BALANCE SBP AND CREATININE TOLERATES. WILL SIGN OFF. PLEASE CALL WITH ANY QUESTIONS Jorge Turcios MD May 14, 2017 08:03
[2017-05-14] MEDS ORDERED: AMIODARONE 200 MG TAB PO SCH (09:00)
[2017-05-14] MEDS: SODIUM CHLORIDE 0.9% FLUSH 10 ML FLUSH IV FLUSH SCH ×4 (09:00→20:31)
[2017-05-14] MEDS: TIMOLOL MALEATE 0.5% OPHT SOLN 5 ML BTL EACH EYE SCH (09:00)
[2017-05-14] MEDS: SPIRONOLACTONE 25 MG TAB PO SCH (09:00)
[2017-05-14 09:21] LABS: BANDS 4 % (0-6); EOSINOPHILS 4 % (0-4); MYELOCYTES 1 % (0-0); NEUTROPHIL # MANUAL DIFF 14.2 TH/MM3 (1.8-7.7); OVALOCYTES 1+ (NORMAL); PLATELET ESTIMATE SMEAR HIGH (NORMAL); PLATELET MORPHOLOGY NORMAL (NORMAL); POLYS (SEG NEUTROPHILS) 68 % (16-70); SCAN/DIFF FINAL DIFF MANUAL; WBC DIFF SAMPLE 100
[2017-05-14] MEDS: AMIODARONE 200 MG TAB PO SCH (09:38)
[2017-05-14] MEDS: METOPROLOL TARTRATE 25 MG TAB PO SCH ×2 (09:38→20:13)
[2017-05-14] MEDS: PRAVASTATIN SOD 20 MG TAB PO SCH (09:38)
[2017-05-14] MEDS: MESALAMINE HD 800 MG DELAYED RELEASE TAB PO SCH ×3 (09:38→18:00)
[2017-05-14] MEDS: FUROSEMIDE 40 MG/4 ML VIAL IV PUSH SCH (09:39)
--- NOTE | 2017-05-14 09:47 | HHI.PR ---
Subjective Remarks Follow up for peritonitis, uterine malignancy, atrial fibrillation. Patient is currently doing well. Granddaughter is at bedside. Patient has no acute concerns. No fever or chills. Objective Vitals Vital Signs Date Time Temp Pulse Resp B/P (MAP) Pulse Ox O2 Delivery O2 Flow Rate FiO2 05/14/17 08:00 96.9 78 16 132/68 (89) 94 05/14/17 04:00 96.9 84 16 155/74 (101) 93 05/14/17 00:05 97.7 75 16 112/57 (75) 94 05/13/17 22:02 97 Nasal Cannula 2.00 05/13/17 20:00 96.8 73 16 124/70 (88) 94 05/13/17 18:00 68 05/13/17 16:00 97.9 67 20 105/60 (75) 95 05/13/17 16:00 67 05/13/17 14:00 68 05/13/17 12:00 66 05/13/17 12:00 98.1 76 22 94/59 (71) 93 05/13/17 10:00 67 I/O 05/13/17 05/13/17 05/13/17 05/14/17 05/14/17 05/14/17 06:59 14:59 22:59 06:59 14:59 22:59 Intake Total 1227 ml 1032 ml Output Total 1530 ml 3380 ml 1350 ml Balance -303 ml -2348 ml -1350 ml IV Total 98 ml 100 ml TPN/PPN 879 ml 932 ml Lipid 250 ml Output Urine Total 1450 ml 3250 ml 1200 ml Stool Total 50 ml 100 ml Drainage Total 30 ml 30 ml 150 ml Result Diagram: 05/14/17 0600 05/14/17 0600 Imaging Last Impressions Chest X-Ray 05/11/17 0000 Signed Impressions: Service Date/Time: Thursday, May 11, 2017 14:41 - CONCLUSION: Left PICC line catheter tip at the cavoatrial junction. Conrad King MD Abdomen/Pelvis CT 05/11/17 0000 Signed Impressions: Service Date/Time: Thursday, May 11, 2017 10:14 - CONCLUSION: No residual fluid about the lower pelvic drain. Moderate size bilateral pleural effusions and compressive atelectasis, stable. New left lower quadrant hernia/stoma containing a loop of bowel. Conrad King MD Abscess Drainage CT 05/02/17 0000 Signed Impressions: Service Date/Time: Tuesday, May 02, 2017 17:42 - CONCLUSION: Uncomplicated CT guided drainage. Hipolito Talbot MD Objective Remarks GENERAL: Alert, oriented 3, NAD. SKIN: Warm and dry. HEAD: Normocephalic. EYES: No scleral icterus. No injection or drainage. NECK: Supple, trachea midline. No JVD or lymphadenopathy. CARDIOVASCULAR: Regular rate and rhythm without murmurs, gallops, or rubs. RESPIRATORY: Breath sounds equal bilaterally. No accessory muscle use. GASTROINTESTINAL: Abdomen soft, non-tender, nondistended. MUSCULOSKELETAL: No cyanosis, or edema. BACK: Nontender without obvious deformity. No CVA tenderness. 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 Course is uncomplicated due to her pre-existing ulcerative colitis and post anastomic colon leak. Anastomotic leak with peritonitis - Status post drainage by IR, due to worsening leukocytosis concern is for abscess. 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 - Surgeons involved: Dr. Morris, Dr. Poon, Dr. Saucedo and Dr. Sims - Infectious disease ([facility]) is following - blood cultures 05/03: Prevotella loeschelli - abscess culture 05/02: e.coli, strep not A, B, D, haemophilus parainfluenze - Currently on Zosyn. CBC indicates WBC, 26K --> 29K --> 23K --> 19.4K. - Antibiotic history: Diflucan DC 05/05 Bilateral pleural effusion - Continue supplemental O2 to keep O2 sat > 90%. Uterine Malignancy - S/P Exploratory laparotomy, total abdominal hysterectomy, bilateral salpingo- oophorectomy, extensive lysis of adhesions, omentectomy, open sigmoid resection with primary anastomosis and open appendectomy. - Followed up by hematology oncology , [facility]-onc and general surgery (Dr. Alexandra ha and Dr. Sims) AFib with RVR - History of paroxysmal A. fib - Has been evaluated by parking line painter Dr. Turcios: went into A-Fb with RVR again on 05/08, amiodarone 200 mg PO BID, verapamil 40 mg PO q8, metoprolol tartrate 25 mg BID, lasix 4o mg IV daily, keep K > 4, CHADS VASC 3-4. - Given patient's [id number] score of 3 to 4, it would be reasonable to wait for oral anti-coagulation without bridging with heparin/Lovenox. - Cardiology started on Lovenox 40mg SQ Q12hrs on 05/14/2017. The plan is to switch to oral when patient is able to tolerate PO diet better. HLD - Continue pravastatin 20 mg daily. Anxiety - Ativan when necessary Ulcerative Colitis - On mesalamine at home Hypokalemia - Replaced, goal K> 4 Full code. Lovenox 40mg SQ Q12hrs. Mana Goel DO May 14, 2017 09:47
--- NOTE | 2017-05-14 10:09 | HHI.PR ---
Subjective Subjective Notes feels ok, watching TV with family, no emesis, mild nausea, ostomy working, worried about VAC change today Objective Vitals/I&O Vital Signs Date Time Temp Pulse Resp B/P (MAP) Pulse Ox O2 Delivery O2 Flow Rate FiO2 05/14/17 08:00 96.9 78 16 132/68 (89) 94 05/13/17 22:02 Nasal Cannula 2.00 Labs Laboratory Tests Test 05/14/17 06:00 White Blood Count 19.4 Red Blood Count 3.19 Hemoglobin 8.5 Hematocrit 26.5 Mean Corpuscular Volume 83.2 Mean Corpuscular Hemoglobin 26.6 Mean Corpuscular Hemoglobin Concent 32.0 Red Cell Distribution Width 16.7 Platelet Count 532 Mean Platelet Volume 6.6 Neutrophils (%) (Auto) 74.5 Lymphocytes (%) (Auto) 10.3 Monocytes (%) (Auto) 10.7 Eosinophils (%) (Auto) 3.7 Basophils (%) (Auto) 0.8 Neutrophils # (Auto) 14.4 Lymphocytes # (Auto) 2.0 Monocytes # (Auto) 2.1 Eosinophils # (Auto) 0.7 Basophils # (Auto) 0.2 CBC Comment AUTO DIFF Differential Total Cells Counted 100 Neutrophils % (Manual) 68 Band Neutrophils % 4 Lymphocytes % 14 Monocytes % 9 Eosinophils % 4 Neutrophils # (Manual) 14.2 Myelocytes 1 Differential Comment FINAL DIFF MANUAL Platelet Estimate HIGH Platelet Morphology Comment NORMAL Ovalocytes 1+ Blood Urea Nitrogen 10 Creatinine 0.41 Random Glucose 112 Total Protein 5.2 Albumin 1.2 Calcium Level 7.9 Alkaline Phosphatase 65 Aspartate Amino Transf (AST/SGOT) 14 Alanine Aminotransferase (ALT/SGPT) 11 Total Bilirubin 0.1 Sodium Level 141 Potassium Level 3.5 Chloride Level 104 Carbon Dioxide Level 29.8 Anion Gap 7 Estimat Glomerular Filtration Rate 150 Prealbumin 14 Date/Time Source Procedure Growth Status 05/03/17 16:35 Blood Peripheral Aerobic Blood Culture - Final NO GROWTH IN 5 DAYS Complete 05/03/17 16:35 Anaerobic Blood Culture - Final Prevotella Loescheii Complete 05/02/17 17:50 Abscess Abdomen Gram Stain - Final Complete 05/02/17 17:50 Wound Culture - Final Escherichia Coli Strep Not A,B D Complete Cardiovascular: Regular Lungs: Clear Abdomen: Non-distended, Post-op tenderness, BS normal Narrative Exam ostomy viable with stool output and gas, drains clear, VAC intact A/P Assessment and Plan POD5 exp lap colostomy doing well added small dose morphine for VAC change family wants to leave on sips of clears Osbaldo Shah MD May 14, 2017 10:09
[2017-05-14] MEDS ORDERED: MORPHINE SULFATE 4 MG/ML INJ IV PUSH ONE ×2 (10:15)
[2017-05-14] MEDS: ENOXAPARIN SODIUM 40 MG/0.4 ML SYRINGE SQ SCH ×2 (10:20→20:13)
[2017-05-14] MEDS ORDERED: MORPHINE SULFATE 4 MG/ML INJ IV PUSH PRN (11:00)
[2017-05-14] MEDS: ONDANSETRON HCL 4 MG/2 ML VIAL IVP PRN (12:16)
[2017-05-14] MEDS: MORPHINE SULFATE 4 MG/ML INJ IV PUSH PRN (16:57)
[2017-05-14] MEDS ORDERED: PROCHLORPERAZINE 25 MG SUPP RECTAL PRN (17:15)
[2017-05-14] MEDS: METOCLOPRAMIDE HCL 10 MG/2 ML VIAL IV PUSH PRN (17:56)
[2017-05-14] MEDS: FAT EMULSION 20% INJ 250 ML (Daily over 8 hours) IV-CENTRAL SCH (20:31)
[2017-05-14] MEDS: CLINIMIX E 4.25/25 2000 mL- >42 mls/hr IV-CENTRAL SCH ×3 (20:32)
[2017-05-14] MEDS: oxyCODONE/ACETAMINOPHEN 5 MG/325 MG TAB PO PRN (21:29)
[2017-05-15] VITALS (7 sets, daily range): BP systolic 114–147; BP diastolic 55–73; PULSE 69–82; RESP 16–18; TEMP 95.4–97; O2SAT 94–97
[2017-05-15] MEDS: METOCLOPRAMIDE HCL 10 MG/2 ML VIAL IV PUSH PRN (02:20)
[2017-05-15] MEDS: CALCIUM CARBONATE 500 MG CHEWABLE TAB PO PRN (02:55)
[2017-05-15] MEDS: PIPERACIL-TAZO 3.375 GM PREMIX 50 ML IV SCH ×4 (04:57→23:00)
[2017-05-15] MEDS: FAMOTIDINE 20 MG/2 ML VIAL IV PUSH SCH ×2 (04:57→17:02)
[2017-05-15] MEDS: VERAPAMIL HCL 40 MG TAB PO SCH ×4 (04:57→23:00)
[2017-05-15] MEDS: PCA - TOTAL MG DILAUDID DELIVERED PER SHIFT OTHER SCH ×3 (04:57→14:55)
[2017-05-15] MEDS: INSULIN ASPART SUPPLEMENTAL SCALE SQ SCH ×4 (05:03→21:00)
--- NOTE | 2017-05-15 08:07 | HHI.PR ---
Subjective Remarks Follow up for peritonitis, uterine malignancy, atrial fibrillation. Patient complains of nausea since her wound VAC and colostomy bag were exchanged. No fever or chills. She does not have an appetite to eat. Objective Vitals Vital Signs Date Time Temp Pulse Resp B/P (MAP) Pulse Ox O2 Delivery O2 Flow Rate FiO2 05/15/17 04:00 95.4 78 17 147/70 (95) 95 05/15/17 00:00 96.7 72 17 114/55 (74) 94 05/14/17 20:00 96.7 71 17 124/60 (81) 94 05/14/17 19:59 69 05/14/17 16:00 97.7 73 17 118/59 (78) 95 05/14/17 14:49 94 21 05/14/17 12:00 96.9 72 18 102/57 (72) 95 05/14/17 10:00 72 05/14/17 09:30 72 05/14/17 09:30 Room Air I/O 05/14/17 05/14/17 05/14/17 05/15/17 05/15/17 05/15/17 07:00 15:00 23:00 07:00 15:00 23:00 Intake Total 2050 ml 1020 ml Output Total 1350 ml 600 ml 30 ml Balance -1350 ml 1450 ml 990 ml Intake Oral 800 ml IV Total 1250 ml 1020 ml Output Urine Total 1200 ml 600 ml Drainage Total 150 ml 0 ml 30 ml # Bowel Movements 0 Result Diagram: 05/14/17 0600 05/14/17 0600 Imaging Last Impressions Chest X-Ray 05/11/17 0000 Signed Impressions: Service Date/Time: Thursday, May 11, 2017 14:41 - CONCLUSION: Left PICC line catheter tip at the cavoatrial junction. Conrad King MD Abdomen/Pelvis CT 05/11/17 0000 Signed Impressions: Service Date/Time: Thursday, May 11, 2017 10:14 - CONCLUSION: No residual fluid about the lower pelvic drain. Moderate size bilateral pleural effusions and compressive atelectasis, stable. New left lower quadrant hernia/stoma containing a loop of bowel. Conrad King MD Abscess Drainage CT 05/02/17 0000 Signed Impressions: Service Date/Time: Tuesday, May 02, 2017 17:42 - CONCLUSION: Uncomplicated CT guided drainage. Hipolito Talbot MD Objective Remarks GENERAL: Alert, oriented 3, NAD. SKIN: Warm and dry. HEAD: Normocephalic. EYES: No scleral icterus. No injection or drainage. NECK: Supple, trachea midline. No JVD or lymphadenopathy. CARDIOVASCULAR: Regular rate and rhythm without murmurs, gallops, or rubs. RESPIRATORY: Breath sounds equal bilaterally. No accessory muscle use. GASTROINTESTINAL: Abdomen soft, non-tender, nondistended. MUSCULOSKELETAL: No cyanosis, or edema. BACK: Nontender without obvious deformity. No CVA tenderness. 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 Course is uncomplicated due to her pre-existing ulcerative colitis and post anastomic colon leak. Anastomotic leak with peritonitis - Status post drainage by IR, due to worsening leukocytosis concern is for abscess. 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 - Surgeons involved: Dr. Morris, Dr. Poon, Dr. Saucedo and Dr. Sims - Infectious disease ([facility]) is following - blood cultures 05/03: Prevotella loeschelli - abscess culture 05/02: e.coli, strep not A, B, D, haemophilus parainfluenze - Currently on Zosyn. CBC indicates WBC, 26K --> 29K --> 23K --> 19.4K. - Antibiotic history: Diflucan DC 05/05 - We'll continue Zofran and Reglan for nausea/vomiting. Bilateral pleural effusion - Continue supplemental O2 to keep O2 sat > 90%. Uterine Malignancy - S/P Exploratory laparotomy, total abdominal hysterectomy, bilateral salpingo- oophorectomy, extensive lysis of adhesions, omentectomy, open sigmoid resection with primary anastomosis and open appendectomy. - Followed up by hematology oncology , [facility]-onc and general surgery (Dr. Morris all and Dr. Sims) AFib with RVR - History of paroxysmal A. fib - Has been evaluated by cnc milling machine operator Dr. Turcios: went into A-Fb with RVR again on 05/08, amiodarone 200 mg PO BID, verapamil 40 mg PO q8, metoprolol tartrate 25 mg BID, lasix 4o mg IV daily, keep K > 4, CHADS VASC 3-4. - Given patient's [id number] score of 3 to 4, it would be reasonable to wait for oral anti-coagulation without bridging with heparin/Lovenox. - Cardiology started on Lovenox 40mg SQ Q12hrs on 05/14/2017. The plan is to switch to oral when patient is able to tolerate PO diet better. HLD - Continue pravastatin 20 mg daily. Anxiety - Ativan when necessary Ulcerative Colitis - On mesalamine at home Hypokalemia - Replaced, goal K> 4 Full code. Lovenox 40mg SQ Q12hrs. Mana Goel DO May 15, 2017 08:07
[2017-05-15] MEDS: METOPROLOL TARTRATE 25 MG TAB PO SCH ×2 (09:00→20:55)
[2017-05-15] MEDS: MESALAMINE HD 800 MG DELAYED RELEASE TAB PO SCH ×3 (09:00→17:03)
[2017-05-15] MEDS: SODIUM CHLORIDE 0.9% FLUSH 10 ML FLUSH IV FLUSH SCH ×4 (09:00→20:55)
[2017-05-15] MEDS: TIMOLOL MALEATE 0.5% OPHT SOLN 5 ML BTL EACH EYE SCH (09:00)
[2017-05-15] MEDS: AMIODARONE 200 MG TAB PO SCH (09:00)
[2017-05-15] MEDS: PRAVASTATIN SOD 20 MG TAB PO SCH (09:00)
[2017-05-15] MEDS: SPIRONOLACTONE 25 MG TAB PO SCH (09:00)
[2017-05-15] MEDS: FUROSEMIDE 40 MG/4 ML VIAL IV PUSH SCH (09:00)
[2017-05-15] MEDS: ENOXAPARIN SODIUM 40 MG/0.4 ML SYRINGE SQ SCH ×2 (10:18→20:54)
--- NOTE | 2017-05-15 10:43 | HHI.PR ---
Subjective Subjective Notes DAILY PROGRESS NOTE FOR SURGICAL ATTENDING, DR. COMPA BROUSSARD I feel little nauseous Daughter at bedside Objective Vitals/I&O Vital Signs Date Time Temp Pulse Resp B/P (MAP) Pulse Ox O2 Delivery O2 Flow Rate FiO2 05/15/17 08:00 96.0 79 16 147/70 (95) 96 05/14/17 14:49 21 05/14/17 09:30 Room Air 05/13/17 22:02 2.00 Labs Date/Time Source Procedure Growth Status 05/03/17 16:35 Blood Peripheral Aerobic Blood Culture - Final NO GROWTH IN 5 DAYS Complete 05/03/17 16:35 Anaerobic Blood Culture - Final Prevotella Loescheii Complete 05/02/17 17:50 Abscess Abdomen Gram Stain - Final Complete 05/02/17 17:50 Wound Culture - Final Escherichia Coli Strep Not A,B D Complete Radiology Last Impressions Chest X-Ray 05/11/17 0000 Signed Impressions: Service Date/Time: Thursday, May 11, 2017 14:41 - CONCLUSION: Left PICC line catheter tip at the cavoatrial junction. Conrad King MD Abdomen/Pelvis CT 05/11/17 0000 Signed Impressions: Service Date/Time: Thursday, May 11, 2017 10:14 - CONCLUSION: No residual fluid about the lower pelvic drain. Moderate size bilateral pleural effusions and compressive atelectasis, stable. New left lower quadrant hernia/stoma containing a loop of bowel. Conrad King MD Abscess Drainage CT 05/02/17 0000 Signed Impressions: Service Date/Time: Tuesday, May 02, 2017 17:42 - CONCLUSION: Uncomplicated CT guided drainage. Hipolito Talbot MD Cardiovascular: Regular Lungs: Clear Abdomen: Other (VAC in placeOstomy pink with air in bag), Post-op tenderness Extremities: SCD's on Narrative Exam QUENTIN in place A/P Assessment and Plan 76 year old female s/p POD4 ex lap and colostomy; s/p exploratory laparotomy, total abdominal hysterectomy, bilateral salpingo-oophorectomy, extensive lysis of adhesions, omentectomy, open sigmoid resection with primary anastomosis and open appendectomy Complaints of nausea -Continue PICC and TPN -Continue clear liquids -OOB and tolerated--with assistance; PT following -Colostomy teaching -Wound Vac changed yesterday -Continue routine QUENTIN care Change Zofran to 8 mg Attending Statement NOTE FOR SURGICAL ATTENDING, DR. COMPA BROUSSARD I attest that I had a [id number] encounter with the patient on the same day, and personally performed and documented my assessment and findings in the medical record. The following services were provided during this hospital visit: Chart data review, vital sign assessments/reviewing monitor data Review of consultations notes if present. Medication orders/review and/or management Ordering and/or reviewing lab tests Ordering and/or interpreting/reviewing x-rays and/or diagnostic studies Care of the patient and discussion of the patient with the care team Documentation time To help prompt me to consider important information that might be impacting today's encounter and assessment, information from prior notes written by myself or my colleagues may have been "brought forward/copy and pasted" into today's note. Compa Broussard MD May 15, 2017 10:43
[2017-05-15] MEDS ORDERED: PROMETHAZINE HCL SYRUP 6.25 MG/5 ML CUP PO PRN (11:00)
[2017-05-15] MEDS: oxyCODONE/ACETAMINOPHEN 5 MG/325 MG TAB PO PRN (11:31)
[2017-05-15] MEDS: FAT EMULSION 20% INJ 250 ML (Daily over 8 hours) IV-CENTRAL SCH (20:51)
[2017-05-15] MEDS: CLINIMIX E 4.25/25 2000 mL- >42 mls/hr IV-CENTRAL SCH ×3 (20:53)
[2017-05-15] MEDS: LORazepam 0.5 MG TAB PO PRN (22:59)
[2017-05-16] VITALS (9 sets, daily range): BP systolic 80–134; BP diastolic 45–92; PULSE 60–77; RESP 16–20; TEMP 96–98; O2SAT 95–99
[2017-05-16] MEDS: VERAPAMIL HCL 40 MG TAB PO SCH ×3 (04:30→23:51)
[2017-05-16] MEDS: PIPERACIL-TAZO 3.375 GM PREMIX 50 ML IV SCH ×4 (04:30→21:27)
[2017-05-16] MEDS: PCA - TOTAL MG DILAUDID DELIVERED PER SHIFT OTHER SCH ×4 (04:31→20:15)
[2017-05-16] MEDS: FAMOTIDINE 20 MG/2 ML VIAL IV PUSH SCH ×2 (04:31→17:08)
[2017-05-16] MEDS: INSULIN ASPART SUPPLEMENTAL SCALE SQ SCH ×4 (04:35→21:00)
[2017-05-16] MEDS: SODIUM CHLORIDE 0.9% FLUSH 10 ML FLUSH IV FLUSH SCH ×4 (07:05→21:00)
[2017-05-16] MEDS: SPIRONOLACTONE 25 MG TAB PO SCH (08:31)
[2017-05-16] MEDS: TIMOLOL MALEATE 0.5% OPHT SOLN 5 ML BTL EACH EYE SCH (08:31)
[2017-05-16] MEDS: FUROSEMIDE 40 MG/4 ML VIAL IV PUSH SCH (08:32)
[2017-05-16] MEDS: AMIODARONE 200 MG TAB PO SCH (08:33)
[2017-05-16] MEDS: PRAVASTATIN SOD 20 MG TAB PO SCH (08:35)
[2017-05-16] MEDS: METOPROLOL TARTRATE 25 MG TAB PO SCH ×2 (08:35→20:14)
[2017-05-16] MEDS: ENOXAPARIN SODIUM 40 MG/0.4 ML SYRINGE SQ SCH ×2 (08:40→21:22)
[2017-05-16] MEDS: MESALAMINE HD 800 MG DELAYED RELEASE TAB PO SCH ×3 (08:48→17:52)
[2017-05-16] MEDS: HYDROmorphone HCL PCA 6 MG/30 ML IV SCH (08:49)
[2017-05-16] MEDS ORDERED: ALPRAZolam 0.5 MG TAB PO PRN (10:45)
[2017-05-16] MEDS: ONDANSETRON HCL 4 MG/2 ML VIAL IV PRN (11:32)
--- NOTE | 2017-05-16 12:28 | HHI.PR ---
Subjective Remarks Follow up for peritonitis, uterine malignancy, atrial fibrillation. Patient is doing well. No fever, chills. However, her BP has been low today - with systolic around 80s. Denies any CP, dizziness, lightheadedness. Objective Vitals Vital Signs Date Time Temp Pulse Resp B/P (MAP) Pulse Ox O2 Delivery O2 Flow Rate FiO2 05/16/17 12:00 97.0 60 16 80/45 (57) 97 05/16/17 08:52 64 05/16/17 08:52 64 05/16/17 08:34 96.4 67 20 118/56 (76) 96 05/16/17 04:00 97.1 72 18 117/58 (77) 97 05/16/17 00:00 97.7 72 19 126/59 (81) 96 05/15/17 20:00 97.0 72 18 116/57 (76) 96 05/15/17 16:00 96.1 69 16 134/66 (88) 96 I/O 05/15/17 05/15/17 05/15/17 05/16/17 05/16/17 05/16/17 07:00 15:00 23:00 07:00 15:00 23:00 Intake Total 1020 ml 1100 ml 480 ml Output Total 30 ml 105 ml 5800 ml 600 ml Balance 990 ml -105 ml -4700 ml -120 ml Intake Oral 1100 ml 480 ml IV Total 1020 ml Output Urine Total 5600 ml 600 ml Stool Total 200 ml Drainage Total 30 ml 105 ml # Bowel Movements 0 Result Diagram: 05/14/17 0600 05/14/17 0600 Imaging Last Impressions Chest X-Ray 05/11/17 0000 Signed Impressions: Service Date/Time: Thursday, May 11, 2017 14:41 - CONCLUSION: Left PICC line catheter tip at the cavoatrial junction. Conrad King MD Abdomen/Pelvis CT 05/11/17 0000 Signed Impressions: Service Date/Time: Thursday, May 11, 2017 10:14 - CONCLUSION: No residual fluid about the lower pelvic drain. Moderate size bilateral pleural effusions and compressive atelectasis, stable. New left lower quadrant hernia/stoma containing a loop of bowel. Conrad King MD Abscess Drainage CT 05/02/17 0000 Signed Impressions: Service Date/Time: Tuesday, May 02, 2017 17:42 - CONCLUSION: Uncomplicated CT guided drainage. Hipolito Talbot MD Objective Remarks GENERAL: Alert, oriented 3, NAD. SKIN: Warm and dry. HEAD: Normocephalic. EYES: No scleral icterus. No injection or drainage. NECK: Supple, trachea midline. No JVD or lymphadenopathy. CARDIOVASCULAR: Regular rate and rhythm without murmurs, gallops, or rubs. RESPIRATORY: Breath sounds equal bilaterally. No accessory muscle use. GASTROINTESTINAL: Abdomen soft, non-tender, nondistended. MUSCULOSKELETAL: No cyanosis, or edema. BACK: Nontender without obvious deformity. No CVA tenderness. 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 Course is uncomplicated due to her pre-existing ulcerative colitis and post anastomic colon leak. Anastomotic leak with peritonitis - Status post drainage by IR, due to worsening leukocytosis concern is for abscess. 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 - Surgeons involved: Dr. Morris, Dr. Poon, Dr. Saucedo and Dr. Sims - Infectious disease ([facility]) is following - blood cultures 05/03: Prevotella loeschelli - abscess culture 05/02: e.coli, strep not A, B, D, haemophilus parainfluenze - Currently on Zosyn. CBC indicates WBC, 26K --> 29K --> 23K --> 19.4K. - Antibiotic history: Diflucan DC 05/05 - We'll continue Zofran and Reglan for nausea/vomiting. Bilateral pleural effusion - Continue supplemental O2 to keep O2 sat > 90%. Uterine Malignancy - S/P Exploratory laparotomy, total abdominal hysterectomy, bilateral salpingo- oophorectomy, extensive lysis of adhesions, omentectomy, open sigmoid resection with primary anastomosis and open appendectomy. - Followed up by hematology oncology , [facility] Administrator-onc and general surgery (Dr. Morris all and Dr. Molpus) AFib with RVR - History of paroxysmal A. fib - Has been evaluated by ship self defense system mk1 operator Dr. Turcios: went into A-Fb with RVR again on 05/08, amiodarone 200 mg PO BID, verapamil 40 mg PO q8, metoprolol tartrate 25 mg BID, keep K > 4, CHADS VASC 3-4. - Given patient's [id number] score of 3 to 4, it would be reasonable to wait for oral anti-coagulation without bridging with heparin/Lovenox. - Cardiology started on Lovenox 40mg SQ Q12hrs on 05/14/2017. The plan is to switch to oral when patient is able to tolerate PO diet better. Hypotension - Patient has been on Lasix 40mg IV Qday and Spironolactone 25mg Qday. - EF is 60-65%. No clinical evidence of heart failure. - Will d/c Lasix and Spironolactone for now. - Will also give NS 500 cc bolus. - In the coming days, if needed, we can start lasix low dose PO. HLD - Continue pravastatin 20 mg daily. Anxiety - Ativan when necessary Ulcerative Colitis - On mesalamine at home Hypokalemia - Replaced, goal K> 4 Full code. Lovenox 40mg SQ Q12hrs. Discussed with RN, patient's daughter. Mana Goel DO May 16, 2017 12:28 pm
[2017-05-16] MEDS ORDERED: SODIUM CHLORID 0.9% 500 ML INJ 500 ML IV ONE (12:30)
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
[2017-05-16] MEDS ORDERED: ALPRAZolam 0.25 MG TAB PO PRN (18:45)
--- NOTE | 2017-05-16 19:52 | HHI.PR ---
Subjective Subjective Notes feels better, wants to eat regular diet Objective Vitals/I&O Vital Signs Date Time Temp Pulse Resp B/P (MAP) Pulse Ox O2 Delivery O2 Flow Rate FiO2 05/16/17 17:52 95 21 05/16/17 16:00 98.0 66 18 108/56 (73) 05/14/17 09:30 Room Air 05/13/17 22:02 2.00 Labs Date/Time Source Procedure Growth Status 05/03/17 16:35 Blood Peripheral Aerobic Blood Culture - Final NO GROWTH IN 5 DAYS Complete 05/03/17 16:35 Anaerobic Blood Culture - Final Prevotella Loescheii Complete 05/02/17 17:50 Abscess Abdomen Gram Stain - Final Complete 05/02/17 17:50 Wound Culture - Final Escherichia Coli Strep Not A,B D Complete Radiology Last Impressions Chest X-Ray 05/11/17 0000 Signed Impressions: Service Date/Time: Thursday, May 11, 2017 14:41 - CONCLUSION: Left PICC line catheter tip at the cavoatrial junction. Conrad King MD Abdomen/Pelvis CT 05/11/17 0000 Signed Impressions: Service Date/Time: Thursday, May 11, 2017 10:14 - CONCLUSION: No residual fluid about the lower pelvic drain. Moderate size bilateral pleural effusions and compressive atelectasis, stable. New left lower quadrant hernia/stoma containing a loop of bowel. Conrad King MD Abscess Drainage CT 05/02/17 0000 Signed Impressions: Service Date/Time: Tuesday, May 02, 2017 17:42 - CONCLUSION: Uncomplicated CT guided drainage. Hipolito Talbot MD Cardiovascular: Regular Lungs: Clear Abdomen: Non-distended, Post-op tenderness Extremities: No edema, Perfused Narrative Exam no peritonitis, ostomy pink, viable A/P Assessment and Plan 76yo female s/p Hysterectomy and colon resection, s/p takeback for fistula and ostomy placement, stable. - advance diet - rehab Blayne Morris MD May 16, 2017 19:52
[2017-05-16] MEDS: FAT EMULSION 20% INJ 250 ML (Daily over 8 hours) IV-CENTRAL SCH (21:21)
[2017-05-16] MEDS: CLINIMIX E 4.25/25 2000 mL- >42 mls/hr IV-CENTRAL SCH ×3 (21:21)
[2017-05-17] VITALS (11 sets, daily range): BP systolic 104–131; BP diastolic 52–67; PULSE 68–78; RESP 17–22; TEMP 95.1–97.2; O2SAT 96–97
[2017-05-17] MEDS: PIPERACIL-TAZO 3.375 GM PREMIX 50 ML IV SCH ×2 (05:51→12:18)
[2017-05-17] MEDS: VERAPAMIL HCL 40 MG TAB PO SCH ×3 (05:51→20:59)
[2017-05-17] MEDS: FAMOTIDINE 20 MG/2 ML VIAL IV PUSH SCH ×2 (05:52→17:30)
[2017-05-17] MEDS: INSULIN ASPART SUPPLEMENTAL SCALE SQ SCH ×4 (05:55→20:58)
[2017-05-17] MEDS: SODIUM CHLORIDE 0.9% FLUSH 10 ML FLUSH IV FLUSH SCH ×4 (09:00→20:56)
[2017-05-17] MEDS: TIMOLOL MALEATE 0.5% OPHT SOLN 5 ML BTL EACH EYE SCH (09:00)
[2017-05-17] MEDS: MESALAMINE HD 800 MG DELAYED RELEASE TAB PO SCH ×3 (09:09→20:02)
[2017-05-17] MEDS: ENOXAPARIN SODIUM 40 MG/0.4 ML SYRINGE SQ SCH ×2 (09:09→20:58)
[2017-05-17] MEDS: AMIODARONE 200 MG TAB PO SCH (09:09)
[2017-05-17] MEDS: PRAVASTATIN SOD 20 MG TAB PO SCH (09:09)
[2017-05-17] MEDS: METOPROLOL TARTRATE 25 MG TAB PO SCH ×2 (09:09→20:57)
[2017-05-17 13:00] LABS: HEMATOCRIT 25.9 % (35.0-46.0); MEAN CELL VOLUME 84.7 FL (80.0-100.0); MEAN CORPUSCULAR HEMOGLOBIN 28.9 PG (27.0-34.0); MEAN CORPUSCULAR HGB CONC 34.1 % (32.0-36.0); PLATELET COUNT 459 TH/MM3 (150-450); RED BLOOD COUNT 3.06 MIL/MM3 (4.00-5.30); RED CELL DISTRIBUTION WIDTH 16.6 % (11.6-17.2); REVIEW FLAG FINAL; WHITE BLOOD COUNT 12.2 TH/MM3 (4.0-11.0)
--- NOTE | 2017-05-17 13:10 | HHI.PR ---
Subjective Subjective Notes Resting in bed Daughter and Granddaughter at bedside Objective Vitals/I&O Vital Signs Date Time Temp Pulse Resp B/P (MAP) Pulse Ox O2 Delivery O2 Flow Rate FiO2 05/17/17 12:44 68 05/17/17 12:00 97.2 17 107/55 (72) 96 05/16/17 17:52 21 05/14/17 09:30 Room Air 05/13/17 22:02 2.00 Labs Laboratory Tests Test 05/17/17 12:40 White Blood Count 12.2 Red Blood Count 3.06 Hemoglobin 8.8 Hematocrit 25.9 Mean Corpuscular Volume 84.7 Mean Corpuscular Hemoglobin 28.9 Mean Corpuscular Hemoglobin Concent 34.1 Red Cell Distribution Width 16.6 Platelet Count 459 Mean Platelet Volume 7.5 Date/Time Source Procedure Growth Status 05/03/17 16:35 Blood Peripheral Aerobic Blood Culture - Final NO GROWTH IN 5 DAYS Complete 05/03/17 16:35 Anaerobic Blood Culture - Final Prevotella Loescheii Complete 05/02/17 17:50 Abscess Abdomen Gram Stain - Final Complete 05/02/17 17:50 Wound Culture - Final Escherichia Coli Strep Not A,B D Complete Radiology Last Impressions Chest X-Ray 05/11/17 0000 Signed Impressions: Service Date/Time: Thursday, May 11, 2017 14:41 - CONCLUSION: Left PICC line catheter tip at the cavoatrial junction. Conrad King MD Abdomen/Pelvis CT 05/11/17 0000 Signed Impressions: Service Date/Time: Thursday, May 11, 2017 10:14 - CONCLUSION: No residual fluid about the lower pelvic drain. Moderate size bilateral pleural effusions and compressive atelectasis, stable. New left lower quadrant hernia/stoma containing a loop of bowel. Conrad King MD Abscess Drainage CT 05/02/17 0000 Signed Impressions: Service Date/Time: Tuesday, May 02, 2017 17:42 - CONCLUSION: Uncomplicated CT guided drainage. Hipolito Talbot MD Cardiovascular: Regular Lungs: Clear Abdomen: Other (midline incision with Wound Vac in place ---good seal; QUENTIN with thick drainage ) Extremities: No edema A/P Assessment and Plan 76 year old female s/p ex lap and colostomy; s/p exploratory laparotomy, total abdominal hysterectomy, bilateral salpingo-oophorectomy, extensive lysis of adhesions, omentectomy, open sigmoid resection with primary anastomosis and open appendectomy -Continue PICC and TPN -Full liquids -OOB and tolerated--with assistance; PT following -Continue colostomy teaching -Wound Vac change today -Continue routine QUENTIN care -CM consult for rehab placement Attending Statement The exam, history, and the medical decision-making described in the above note were completed with the assistance of the mid-level provider. I reviewed and agree with the findings presented. I attest that I had a [id number] encounter with the patient on the same day, and personally performed and documented my assessment and findings in the medical record. Abdominal exam: stable postop exam, wound clean/intact VAC functioning Shannon Ocampo May 17, 2017 13:10 Blayne Morris MD Jun 07, 2017 23:32
--- NOTE | 2017-05-17 13:29 | HHI.PR ---
Subjective Remarks Follow up for peritonitis, uterine malignancy, atrial fibrillation. Patient is doing well. No fever, chills. Daughter, granddaughter at bedside. Objective Vitals Vital Signs Date Time Temp Pulse Resp B/P (MAP) Pulse Ox O2 Delivery O2 Flow Rate FiO2 05/17/17 12:44 68 05/17/17 12:00 97.2 69 17 107/55 (72) 96 05/17/17 10:53 78 05/17/17 08:17 76 05/17/17 08:17 76 05/17/17 08:00 95.9 77 17 131/67 (88) 96 05/17/17 04:00 96.1 75 20 122/60 (80) 97 05/17/17 00:00 96.2 77 20 115/52 (73) 96 05/16/17 20:00 96.0 66 20 110/58 (75) 98 05/16/17 17:52 95 21 05/16/17 16:00 98.0 66 18 108/56 (73) 95 I/O 05/16/17 05/16/17 05/16/17 05/17/17 05/17/17 05/17/17 07:00 15:00 23:00 07:00 15:00 23:00 Intake Total 580 ml 1350 ml 540 ml Output Total 640 ml 3455 ml 520 ml Balance -60 ml -2105 ml 20 ml Intake Oral 480 ml 1300 ml 240 ml IV Total 100 ml 50 ml 300 ml Output Urine Total 600 ml 3275 ml 450 ml Stool Total 150 ml Drainage Total 40 ml 30 ml 70 ml Result Diagram: 05/17/17 1240 05/14/17 0600 Imaging Last Impressions Chest X-Ray 05/11/17 0000 Signed Impressions: Service Date/Time: Thursday, May 11, 2017 14:41 - CONCLUSION: Left PICC line catheter tip at the cavoatrial junction. Conrad King MD Abdomen/Pelvis CT 05/11/17 0000 Signed Impressions: Service Date/Time: Thursday, May 11, 2017 10:14 - CONCLUSION: No residual fluid about the lower pelvic drain. Moderate size bilateral pleural effusions and compressive atelectasis, stable. New left lower quadrant hernia/stoma containing a loop of bowel. Conrad King MD Abscess Drainage CT 05/02/17 0000 Signed Impressions: Service Date/Time: Tuesday, May 02, 2017 17:42 - CONCLUSION: Uncomplicated CT guided drainage. Hipolito Talbot MD Objective Remarks GENERAL: Alert, oriented 3, NAD. SKIN: Warm and dry. HEAD: Normocephalic. EYES: No scleral icterus. No injection or drainage. NECK: Supple, trachea midline. No JVD or lymphadenopathy. CARDIOVASCULAR: Regular rate and rhythm without murmurs, gallops, or rubs. RESPIRATORY: Breath sounds equal bilaterally. No accessory muscle use. GASTROINTESTINAL: Abdomen soft, non-tender, nondistended. MUSCULOSKELETAL: No cyanosis, or edema. BACK: Nontender without obvious deformity. No CVA tenderness. 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 Course is uncomplicated due to her pre-existing ulcerative colitis and post anastomic colon leak. Anastomotic leak with peritonitis - Status post drainage by IR, due to worsening leukocytosis concern is for abscess. 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 - Surgeons involved: Dr. Morris, Dr. Poon, Dr. Saucedo and Dr. Sims - Infectious disease ([facility]) is following - blood cultures 05/03: Prevotella loeschelli - abscess culture 05/02: e.coli, strep not A, B, D, haemophilus parainfluenze - Currently on Zosyn. CBC indicates WBC, 26K --> 29K --> 23K --> 19.4K --> 12.4K on 05/17/2017. - Antibiotic history: Diflucan DC 05/05 - We'll continue Zofran and Reglan for nausea/vomiting. Bilateral pleural effusion - Continue supplemental O2 to keep O2 sat > 90%. Uterine Malignancy - S/P Exploratory laparotomy, total abdominal hysterectomy, bilateral salpingo- oophorectomy, extensive lysis of adhesions, omentectomy, open sigmoid resection with primary anastomosis and open appendectomy. - Followed up by hematology oncology , Room Designer-onc and general surgery (Dr. Alexandra ha and Dr. Sims) AFib with RVR - History of paroxysmal A. fib - Has been evaluated by marine insurance claim examiner Dr. Turcios: went into A-Fb with RVR again on 05/08, amiodarone 200 mg PO BID, verapamil 40 mg PO q8, metoprolol tartrate 25 mg BID, keep K > 4, CHADS VASC 3-4. - Given patient's [id number] score of 3 to 4, it would be reasonable to wait for oral anti-coagulation without bridging with heparin/Lovenox. - Cardiology started on Lovenox 40mg SQ Q12hrs on 05/14/2017. The plan is to switch to oral when patient is able to tolerate PO diet better. Hypotension - Patient has been on Lasix 40mg IV Qday and Spironolactone 25mg Qday. - EF is 60-65%. No clinical evidence of heart failure. - We discontinued Lasix and Spironolactone on 05/16/2017. - Hypotension resolved. HLD - Continue pravastatin 20 mg daily. Anxiety - Ativan when necessary Ulcerative Colitis - On mesalamine at home Hypokalemia - Replaced, goal K> 4 Full code. Lovenox 40mg SQ Q12hrs. Discussed with RN, patient's daughter, Granddaughter. Mana Goel DO May 17, 2017 13:29
[2017-05-17] MEDS: PCA - TOTAL MG DILAUDID DELIVERED PER SHIFT OTHER SCH ×2 (13:55→20:59)
[2017-05-17] MEDS: MORPHINE SULFATE 4 MG/ML INJ IV PUSH PRN (14:12)
[2017-05-17] MEDS: oxyCODONE/ACETAMINOPHEN 5 MG/325 MG TAB PO PRN (14:55)
--- NOTE | 2017-05-17 15:42 | PD.WCN.NOT ---
Wound Consult Description: Received consult for wound VAC dressing change to midline abdominal incision Consult placed for Ostomy Management per Dr Morris Communicated with: HERON Ocampo Patient Patient family member RN Recommendation: Change wound VAC as ordered by Dr Morris on Tuesday and Tuesday Observe staff open, empty, and close pouch Practice opening and closing pouch provided in Colostomy kit Practice attaching barrier to pouch provided in Colostomy kit Write down any questions you may have for blacktop paver operator to answer Additional Information: Patient seen on for wound VAC change to midline abdomen and ostomy assessment Neg Pressure Wound Therapy Wound Location Wound Location: Proximal to closed abdominal wound on midline post op incision line. Wound Description Length: ~4cm Width: ~1.5cm Depth: ~1.5cm Wound bed appearance: Wound bed presents with ~70% red granulating tissue, ~10% adipose tissue, ~10% white tissue, and ~10% yellow loosely adherent slough. Also noted 1 suture in wound bed @ 12 o'clock. There is minimal sero-sanguinous drainage in wound bed without odor. Wound margins are open. Periwound is unremarkable with a left sided Colostomy with appliance intact. Periwound appearance: Unremarkable Settings Suction: 125 mmHg, Continuous Intensity: Low Other Information: Bridged (bridged using mushroomed piece granufoam touching proximal and distal wound beds now by closed wound bed ), Mushroomed Foam type: Black Number of pieces: 2 (2 pieces used in wound bed and 1 piece used for trac pad placement) Additonal Information Patient seen on for wound VAC dressing change. Dressing changed with the assistance of Shannon Ocampo and documentation writer. Abdominal binder removed to reveal wound VAC dressing in place to midline incision. Removed drape in place using adhesive remover. All granufoam removed from wound bed. Wound bed cleansed with wound cleanser and gauze. Wound bed is now 2 separate wounds, by closed wound measuring approximately 2 cm. Wound proximal to closed wound bed is measuring ~4cm x 1.5cm x 1.5cm with 100% granulation tissue and 1 suture noted at 12 o'clock. Distal to closed wound bed is wound measuring ~20cm x 2.5cm x 2cm with ~90% granulation tissue, ~10% loosely adherent yellow slough. 1 piece black granufoam applied to proximal wound bed and 1 piece black granufoam applied to distal wound bed and secured with wound VAC drape. Closed wound was covered and protected with drape prior to placing mushroomed black graunfoam down over both wound beds that was used to connect both wounds to the trac pad. Patient tolerated dressing change well with IV medication given prior to dressing change. Next dressing change is due on 05/19/2017. Settings @125mmHg low continuous suction without leaks noted. Wound Location Wound Location: Distal to closed abdominal wound on midline post op incision line. Wound Description Length: ~15cm Width: ~2.5cm Depth: ~2cm Periwound appearance: Unremarkable Ostomy Type: Colostomy Surgeon: Blayne Morris MD Date of Surgery: May 09, 2017 Complete: Starter kit (Verbal consent obtained for [facility] to send kit to patient home), Education materials ([facility] provided to patient with education materials and practice wafer and pouches), Rx (Left on chart) Additional information Stoma is edematous, red, round, functioning with liquid brown effluent noted to pouch. Appliance is intact without leaks and left in place. Gillian Wong [facility] May 17, 2017 15:42
--- NOTE | 2017-05-17 16:18 | HHI.IDPN ---
Subjective Subjective Remarks doing well WBC doiwn no fever increased clody QUENTIN drainage tolerates full liquid diet ok Antibiotics zosyn Allergies: Coded Allergies: ciprofloxacin (Verified Allergy, Unknown, 05/06/17) doxycycline (Verified Allergy, Unknown, 05/06/17) Objective . Vital Signs Date Time Temp Pulse Resp B/P (MAP) Pulse Ox O2 Delivery O2 Flow Rate FiO2 05/17/17 15:16 72 05/17/17 14:19 18 05/17/17 14:16 72 05/17/17 12:44 68 05/17/17 12:00 97.2 69 17 107/55 (72) 96 05/17/17 10:53 78 05/17/17 08:17 76 05/17/17 08:17 76 05/17/17 08:00 95.9 77 17 131/67 (88) 96 05/17/17 04:00 96.1 75 20 122/60 (80) 97 05/17/17 00:00 96.2 77 20 115/52 (73) 96 05/16/17 20:00 96.0 66 20 110/58 (75) 98 05/16/17 17:52 95 21 . Laboratory Tests Test 05/17/17 12:40 White Blood Count 12.2 TH/MM3 Red Blood Count 3.06 MIL/MM3 Hemoglobin 8.8 GM/DL Hematocrit 25.9 % Mean Corpuscular Volume 84.7 FL Mean Corpuscular Hemoglobin 28.9 PG Mean Corpuscular Hemoglobin Concent 34.1 % Red Cell Distribution Width 16.6 % Platelet Count 459 TH/MM3 Mean Platelet Volume 7.5 FL Imaging Last Impressions Chest X-Ray 05/11/17 0000 Signed Impressions: Service Date/Time: Thursday, May 11, 2017 14:41 - CONCLUSION: Left PICC line catheter tip at the cavoatrial junction. Conrad King MD Abdomen/Pelvis CT 05/11/17 0000 Signed Impressions: Service Date/Time: Thursday, May 11, 2017 10:14 - CONCLUSION: No residual fluid about the lower pelvic drain. Moderate size bilateral pleural effusions and compressive atelectasis, stable. New left lower quadrant hernia/stoma containing a loop of bowel. Conrad King MD Abscess Drainage CT 05/02/17 0000 Signed Impressions: Service Date/Time: Tuesday, May 02, 2017 17:42 - CONCLUSION: Uncomplicated CT guided drainage. Hipolito Talbot MD Physical Exam CONSTITUTIONAL/GENERAL: This is an adequately nourished patient, in no apparent distress. TUBES/LINES/DRAINS: SKIN: No jaundice, rashes, or lesions. Skin temperature appropriate. Not diaphoretic. CARDIOVASCULAR: Regular rate and rhythm without murmurs, gallops, or rubs. No JVD. Peripheral pulses symmetric. RESPIRATORY/CHEST: Symmetric, unlabored respirations. Clear to auscultation. Breath sounds equal bilaterally. No wheezes, rales, or rhonchi. GASTROINTESTINAL: + BS VAC removed wound in clean, granulation with few whitish areas Stoma pink with brown stool QUENTIN in place with purulent dc GENITOURINARY: Without palpable bladder distension. Flannery catheter in place with clear yellow urine MUSCULOSKELETAL: Extremities without clubbing, cyanosis, prominetn 3-4+ BLE edema. No joint tenderness or effusion noted. No calf tenderness. No mottling or clubbing. NEUROLOGICAL: Awake and alert. Motor and sensory grossly within normal limits. Follows commands. Clear speech. Moves all extremities. PSYCHIATRIC: No obvious anxiety/depression. no apparent hallucinations or other psychotic thought process. 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 post op - cont to increase: rickie post op complete zosyn monitor WBC monitor QUENTIN output If fever, leukocytposis or worsrnin QUENTIN output will need re CT dw surrgical team mj pt Rosalinda Hussein MD May 17, 2017 16:18
[2017-05-17] MEDS: CLINIMIX E 4.25/25 2000 mL- >42 mls/hr IV-CENTRAL SCH ×3 (20:55)
[2017-05-17] MEDS: FAT EMULSION 20% INJ 250 ML (Daily over 8 hours) IV-CENTRAL SCH (20:56)
[2017-05-17] MEDS: ALPRAZolam 0.5 MG TAB PO PRN (21:00)
[2017-05-18] VITALS: BP 118/58; PULSE 84; RESP 20; TEMP 96; O2SAT 96
[2017-05-18 04:00] VITALS: BP 112/54; PULSE 82; RESP 20; TEMP 96.9; O2SAT 97
[2017-05-18] MEDS: FAMOTIDINE 20 MG/2 ML VIAL IV PUSH SCH ×2 (05:07→17:43)
[2017-05-18] MEDS: PCA - TOTAL MG DILAUDID DELIVERED PER SHIFT OTHER SCH ×3 (05:07→20:58)
[2017-05-18] MEDS: INSULIN ASPART SUPPLEMENTAL SCALE SQ SCH ×5 (05:08→21:00)
[2017-05-18] MEDS: VERAPAMIL HCL 40 MG TAB PO SCH ×3 (05:08→21:00)
[2017-05-18 08:00] VITALS: BP 120/58; PULSE 86; RESP 17; TEMP 96.4; O2SAT 96
[2017-05-18] MEDS: TIMOLOL MALEATE 0.5% OPHT SOLN 5 ML BTL EACH EYE SCH (09:00)
[2017-05-18] MEDS: SODIUM CHLORIDE 0.9% FLUSH 10 ML FLUSH IV FLUSH SCH ×4 (09:00→20:56)
[2017-05-18] MEDS: PRAVASTATIN SOD 20 MG TAB PO SCH (09:00)
[2017-05-18] MEDS: MESALAMINE HD 800 MG DELAYED RELEASE TAB PO SCH ×3 (09:38→15:42)
[2017-05-18] MEDS: AMIODARONE 200 MG TAB PO SCH (09:38)
[2017-05-18] MEDS: METOPROLOL TARTRATE 25 MG TAB PO SCH ×2 (09:38→20:57)
[2017-05-18] MEDS: ENOXAPARIN SODIUM 40 MG/0.4 ML SYRINGE SQ SCH ×2 (09:38→20:58)
--- NOTE | 2017-05-18 09:43 | HHI.PR ---
Subjective Remarks Follow up for peritonitis, uterine malignancy, atrial fibrillation. And is currently doing well. She denies any fever but feels cold in the room. She is urinating a lot. Denies any dysuria or hematuria. Objective Vitals Vital Signs Date Time Temp Pulse Resp B/P (MAP) Pulse Ox O2 Delivery O2 Flow Rate FiO2 05/18/17 08:00 96.4 86 17 120/58 (78) 96 05/18/17 04:00 96.9 82 20 112/54 (73) 97 05/18/17 00:00 96.0 84 20 118/58 (78) 96 05/17/17 20:00 71 05/17/17 20:00 71 05/17/17 20:00 95.9 73 22 104/52 (69) 96 05/17/17 16:00 95.1 70 17 120/58 (78) 96 05/17/17 15:16 72 05/17/17 14:19 18 05/17/17 14:16 72 05/17/17 12:44 68 05/17/17 12:00 97.2 69 17 107/55 (72) 96 05/17/17 10:53 78 I/O 05/17/17 05/17/17 05/17/17 05/18/17 05/18/17 05/18/17 07:00 15:00 23:00 07:00 15:00 23:00 Intake Total 540 ml 2940 ml 2719 ml Output Total 520 ml 1150 ml 875 ml Balance 20 ml 1790 ml 1844 ml Intake Oral 240 ml 940 ml 320 ml IV Total 300 ml 2000 ml 250 ml TPN/PPN 1899 ml Lipid 250 ml Output Urine Total 450 ml 1100 ml 825 ml Stool Total 50 ml 25 ml Drainage Total 70 ml 25 ml Result Diagram: 05/17/17 1240 05/14/17 0600 Imaging Last Impressions Chest X-Ray 05/11/17 0000 Signed Impressions: Service Date/Time: Thursday, May 11, 2017 14:41 - CONCLUSION: Left PICC line catheter tip at the cavoatrial junction. Conrad King MD Abdomen/Pelvis CT 05/11/17 0000 Signed Impressions: Service Date/Time: Thursday, May 11, 2017 10:14 - CONCLUSION: No residual fluid about the lower pelvic drain. Moderate size bilateral pleural effusions and compressive atelectasis, stable. New left lower quadrant hernia/stoma containing a loop of bowel. Conrad King MD Abscess Drainage CT 05/02/17 0000 Signed Impressions: Service Date/Time: Tuesday, May 02, 2017 17:42 - CONCLUSION: Uncomplicated CT guided drainage. Hipolito Talbot MD Objective Remarks GENERAL: Alert, oriented 3, NAD. SKIN: Warm and dry. HEAD: Normocephalic. EYES: No scleral icterus. No injection or drainage. NECK: Supple, trachea midline. No JVD or lymphadenopathy. CARDIOVASCULAR: Regular rate and rhythm without murmurs, gallops, or rubs. RESPIRATORY: Breath sounds equal bilaterally. No accessory muscle use. GASTROINTESTINAL: Abdomen soft, non-tender, nondistended. MUSCULOSKELETAL: No cyanosis, or edema. BACK: Nontender without obvious deformity. No CVA tenderness. 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 Course is uncomplicated due to her pre-existing ulcerative colitis and post anastomic colon leak. Anastomotic leak with peritonitis - Status post drainage by IR, due to worsening leukocytosis concern is for abscess. 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 - Surgeons involved: Dr. Morris, Dr. Poon, Dr. Saucedo and Dr. Sims - Infectious disease ([facility]) is following - blood cultures 05/03: Prevotella loeschelli - abscess culture 05/02: e.coli, strep not A, B, D, haemophilus parainfluenze - Currently on Zosyn. CBC indicates WBC, 26K --> 29K --> 23K --> 19.4K --> 12.4K on 05/17/2017. - Antibiotic history: Diflucan DC 05/05 - We'll continue Zofran and Reglan for nausea/vomiting. Bilateral pleural effusion - Continue supplemental O2 to keep O2 sat > 90%. Uterine Malignancy - S/P Exploratory laparotomy, total abdominal hysterectomy, bilateral salpingo- oophorectomy, extensive lysis of adhesions, omentectomy, open sigmoid resection with primary anastomosis and open appendectomy. - Followed up by hematology oncology , Sr Account Executive-onc and general surgery (Dr. Alexandra ha and Dr. Sims) AFib with RVR - History of paroxysmal A. fib - Has been evaluated by family law legal assistant Dr. Turcios: went into A-Fb with RVR again on 05/08, amiodarone 200 mg PO BID, verapamil 40 mg PO q8, metoprolol tartrate 25 mg BID, keep K > 4, CHADS VASC 3-4. - Given patient's [id number] score of 3 to 4, it would be reasonable to wait for oral anti-coagulation without bridging with heparin/Lovenox. - Cardiology started on Lovenox 40mg SQ Q12hrs on 05/14/2017. The plan is to switch to oral when patient is able to tolerate PO diet better. Hypotension - currently normotensive blood pressure 120/58. - Patient has been on Lasix 40mg IV Qday and Spironolactone 25mg Qday. - EF is 60-65%. No clinical evidence of heart failure. - We discontinued Lasix and Spironolactone on 05/16/2017. - Hypotension resolved. HLD - Continue pravastatin 20 mg daily. - Frequent urination - no clinical symptoms of UTI. However if she develops any symptoms we'll obtain urinalysis. Anxiety - Ativan when necessary Ulcerative Colitis - On mesalamine at home Hypokalemia - Replaced, goal K> 4. Will get CBC, BMP in the AM. Full code. Lovenox 40mg SQ Q12hrs. Discussed with ERICH. Mana Goel DO May 18, 2017 9:43 am
[2017-05-18 10:53] LABS: BACTERIA, URINE RARE /hpf; BLOOD, URINE NEG (NEG); COMMENT (UR) CULT NOT INDICATED; CULTURE IF INDICATED CULT NOT INDICATED; GLUCOSE,URINE NEG (NEG); KETONE, URINE NEG (NEG); NITRITE,URINE NEG (NEG); PH, URINE 7.5 (5.0-8.5); SQUAMOUS EPITHELIAL CELL URINE 1 /hpf (0-5); URINE COLOR YELLOW (YELLW/STRAW)
[2017-05-18 12:00] VITALS: BP 122/56; PULSE 64; RESP 17; TEMP 96.4; O2SAT 98
[2017-05-18] MEDS: ONDANSETRON HCL 4 MG/2 ML VIAL IV PRN (14:16)
--- NOTE | 2017-05-18 14:33 | HHI.PR ---
Subjective Subjective Notes Up to chair No issues overnight; slept much better Wants to talk to [facility] again Objective Vitals/I&O Vital Signs Date Time Temp Pulse Resp B/P (MAP) Pulse Ox O2 Delivery O2 Flow Rate FiO2 05/18/17 12:00 96.4 64 17 122/56 (78) 98 05/16/17 17:52 21 05/14/17 09:30 Room Air Labs Laboratory Tests Test 05/18/17 09:55 Urine Color YELLOW Urine Turbidity HAZY Urine pH 7.5 Urine Specific [place] 1.009 Urine Protein NEG Urine Glucose (UA) NEG Urine Ketones NEG Urine Occult Blood NEG Urine Nitrite NEG Urine Bilirubin NEG Urine Urobilinogen LESS THAN 2.0 Urine Leukocyte Esterase NEG Urine RBC 1 Urine WBC 2 Urine Squamous Epithelial Cells 1 Urine Amorphous Sediment OCC Urine Bacteria RARE Microscopic Urinalysis Comment CULT NOT INDICATED Date/Time Source Procedure Growth Status 05/03/17 16:35 Blood Peripheral Aerobic Blood Culture - Final NO GROWTH IN 5 DAYS Complete 05/03/17 16:35 Anaerobic Blood Culture - Final Prevotella Loescheii Complete 05/02/17 17:50 Abscess Abdomen Gram Stain - Final Complete 05/02/17 17:50 Wound Culture - Final Escherichia Coli Strep Not A,B D Complete Radiology Last Impressions Chest X-Ray 05/11/17 0000 Signed Impressions: Service Date/Time: Thursday, May 11, 2017 14:41 - CONCLUSION: Left PICC line catheter tip at the cavoatrial junction. Conrad King MD Abdomen/Pelvis CT 05/11/17 0000 Signed Impressions: Service Date/Time: Thursday, May 11, 2017 10:14 - CONCLUSION: No residual fluid about the lower pelvic drain. Moderate size bilateral pleural effusions and compressive atelectasis, stable. New left lower quadrant hernia/stoma containing a loop of bowel. Conrad King MD Abscess Drainage CT 05/02/17 0000 Signed Impressions: Service Date/Time: Tuesday, May 02, 2017 17:42 - CONCLUSION: Uncomplicated CT guided drainage. Hipolito Talbot MD Cardiovascular: Regular Lungs: Clear Abdomen: Other (midline incision with Wound Vac in place; QUENTIN with clear drainage; colostomy in place with pink stoma and stool in collection bag) Extremities: No edema A/P Assessment and Plan 76 year old female s/p ex lap and colostomy; s/p exploratory laparotomy, total abdominal hysterectomy, bilateral salpingo-oophorectomy, extensive lysis of adhesions, omentectomy, open sigmoid resection with primary anastomosis and open appendectomy -Continue PICC and TPN -Full liquids -OOB and tolerated--with assistance; PT following -Continue colostomy teaching -Wound Vac change TRSa -Continue routine QUENTIN care ----drainage clear now -ID following--off antibiotics; will monitor for signs of infection -CM consult for rehab placement ---[place] notified Attending Statement The exam, history, and the medical decision-making described in the above note were completed with the assistance of the mid-level provider. I reviewed and agree with the findings presented. I attest that I had a [id number] encounter with the patient on the same day, and personally performed and documented my assessment and findings in the medical record. Abdominal exam: incision clean, VAC in place, ostomy viable/pink with output ok to Dc to rehab Shannon Ocampo May 18, 2017 14:33 Blayne Morris MD Jun 07, 2017 23:38
--- NOTE | 2017-05-18 15:17 | PD.WCN.NOT ---
Wound Consult Description: Consult for Ostomy management and Vac Management Communicated with: Patient RN Recommendation: Change wound VAC as ordered by Dr Morris on Tuesday and Tuesday Observe staff open, empty, and close pouch Practice opening and closing pouch provided in Colostomy kit Practice attaching barrier to pouch provided in Colostomy kit Write down any questions you may have for credit representative to answer Additional Information: Patient seen on [address] [place] [address] for ostomy assessment Ostomy Type: Colostomy Surgeon: Blayne Morris MD Date of Surgery: May 09, 2017 Complete: Starter kit ([facility]), Education materials ([employer] kit provided to patient with education materials and practice wafer and pouches), Rx (Left on chart) Educated patient on: Size and appearance of stoma Type of output (effluent) When to empty pouch How to change pouch Plan for appliance change tomorrow with credit representative Diet Exercise Additional information Patient seen on [address] [place] [address] for ostomy assessment while sitting up in chair. Appliance is intact with minimal liquid effluent noted to pouch. Stoma is red, round, moist, edematous, lumen noted @5 o'clock and functioning with brown/ green liquid effluent. Patient was educated on the plans for ostomy appliance change tomorrow with story writer. Colostomy kit was not in room for educational materials. A new kit without appliances will be given. Patient states that she will have to start learning how to empty and change the pouch and it was explained that we would do it together tomorrow and a mirror would be provided so that she can see. Gillian Wong [facility] May 18, 2017 15:17
[2017-05-18 16:00] VITALS: BP 116/57; PULSE 67; RESP 17; TEMP 96.5; O2SAT 99
[2017-05-18 17:17] LABS: BICARBONATE 23.6 MEQ/L (21.0-32.0); MAGNESIUM 2.4 MG/DL (1.5-2.5); POTASSIUM 4.8 MEQ/L (3.5-5.1)
[2017-05-18 20:00] VITALS: BP 110/56; PULSE 78; PULSE 80; RESP 20; TEMP 97.2; O2SAT 97
[2017-05-18] MEDS: CLINIMIX E 4.25/25 2000 mL- >42 mls/hr IV-CENTRAL SCH ×3 (20:56)
[2017-05-18] MEDS: FAT EMULSION 20% INJ 250 ML (Daily over 8 hours) IV-CENTRAL SCH (20:56)
[2017-05-18] MEDS: ALPRAZolam 0.5 MG TAB PO PRN (22:23)
[2017-05-19] VITALS: BP 138/63; PULSE 84; RESP 20; TEMP 97.4; O2SAT 97
[2017-05-19 04:00] VITALS: BP 139/63; PULSE 92; RESP 20; TEMP 96.7; O2SAT 96
[2017-05-19] MEDS: FAMOTIDINE 20 MG/2 ML VIAL IV PUSH SCH ×2 (04:54→17:15)
[2017-05-19] MEDS: VERAPAMIL HCL 40 MG TAB PO SCH ×3 (04:55→21:33)
[2017-05-19] MEDS: PCA - TOTAL MG DILAUDID DELIVERED PER SHIFT OTHER SCH ×3 (04:55→21:32)
[2017-05-19 08:00] VITALS: BP 133/63; PULSE 83; RESP 18; TEMP 96.9; O2SAT 95
[2017-05-19] MEDS: INSULIN ASPART SUPPLEMENTAL SCALE SQ SCH ×4 (08:00→21:00)
[2017-05-19] MEDS: MESALAMINE HD 800 MG DELAYED RELEASE TAB PO SCH ×3 (08:30→17:15)
[2017-05-19] MEDS: AMIODARONE 200 MG TAB PO SCH (08:30)
[2017-05-19] MEDS: METOPROLOL TARTRATE 25 MG TAB PO SCH ×2 (08:30→21:00)
[2017-05-19] MEDS: ENOXAPARIN SODIUM 40 MG/0.4 ML SYRINGE SQ SCH (08:31)
[2017-05-19] MEDS: PRAVASTATIN SOD 20 MG TAB PO SCH (08:31)
[2017-05-19] MEDS: SODIUM CHLORIDE 0.9% FLUSH 10 ML FLUSH IV FLUSH SCH ×4 (08:33→21:31)
[2017-05-19] MEDS: TIMOLOL MALEATE 0.5% OPHT SOLN 5 ML BTL EACH EYE SCH (08:34)
--- NOTE | 2017-05-19 09:56 | HHI.PR ---
Subjective Remarks Follow up for peritonitis, uterine malignancy, atrial fibrillation. Patient is currently doing well. No fever, chills. Tolerating increasing amount of food by mouth. Still on TPN. She complains of increased urinary frequency. UA was not indicative of infection, however. Objective Vitals Vital Signs Date Time Temp Pulse Resp B/P (MAP) Pulse Ox O2 Delivery O2 Flow Rate FiO2 05/19/17 08:00 96.9 83 18 133/63 (86) 95 05/19/17 04:00 96.7 92 20 139/63 (88) 96 05/19/17 00:00 97.4 84 20 138/63 (88) 97 05/18/17 20:00 78 05/18/17 20:00 78 05/18/17 20:00 97.2 80 20 110/56 (74) 97 05/18/17 16:00 96.5 67 17 116/57 (76) 99 05/18/17 12:00 96.4 64 17 122/56 (78) 98 I/O 05/18/17 05/18/17 05/18/17 05/19/17 05/19/17 05/19/17 07:00 15:00 23:00 07:00 15:00 23:00 Intake Total 2719 ml 1120 ml 1511 ml 120 ml Output Total 875 ml 215 ml 1225 ml 1790 ml Balance 1844 ml -215 ml -105 ml -279 ml 120 ml Intake Oral 320 ml 240 ml 320 ml 120 ml IV Total 250 ml 880 ml TPN/PPN 1899 ml 941 ml Lipid 250 ml 250 ml Output Urine Total 825 ml 175 ml 1150 ml 1750 ml Stool Total 25 ml 0 ml Drainage Total 25 ml 40 ml 75 ml 40 ml # Bowel Movements 0 Result Diagram: 05/17/17 1240 05/18/17 1528 Imaging Last Impressions Chest X-Ray 05/11/17 0000 Signed Impressions: Service Date/Time: Thursday, May 11, 2017 14:41 - CONCLUSION: Left PICC line catheter tip at the cavoatrial junction. Conrad King MD Abdomen/Pelvis CT 05/11/17 0000 Signed Impressions: Service Date/Time: Thursday, May 11, 2017 10:14 - CONCLUSION: No residual fluid about the lower pelvic drain. Moderate size bilateral pleural effusions and compressive atelectasis, stable. New left lower quadrant hernia/stoma containing a loop of bowel. Conrad King MD Abscess Drainage CT 05/02/17 0000 Signed Impressions: Service Date/Time: Tuesday, May 02, 2017 17:42 - CONCLUSION: Uncomplicated CT guided drainage. Hipolito Talbot MD Objective Remarks GENERAL: Alert, oriented 3, NAD. SKIN: Warm and dry. HEAD: Normocephalic. EYES: No scleral icterus. No injection or drainage. NECK: Supple, trachea midline. No JVD or lymphadenopathy. CARDIOVASCULAR: Regular rate and rhythm without murmurs, gallops, or rubs. RESPIRATORY: Breath sounds equal bilaterally. No accessory muscle use. GASTROINTESTINAL: Abdomen soft, non-tender, nondistended. MUSCULOSKELETAL: No cyanosis, or edema. BACK: Nontender without obvious deformity. No CVA tenderness. 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 Course is uncomplicated due to her pre-existing ulcerative colitis and post anastomic colon leak. Anastomotic leak with peritonitis - Status post drainage by IR, due to worsening leukocytosis concern is for abscess. 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 - Surgeons involved: Dr. Morris, Dr. Poon, Dr. Saucedo and Dr. Sims - Infectious disease ([facility]) is following - blood cultures 05/03: Prevotella loeschelli - abscess culture 05/02: e.coli, strep not A, B, D, haemophilus parainfluenze - Currently on Zosyn. CBC indicates WBC, 26K --> 29K --> 23K --> 19.4K --> 12.4K on 05/17/2017. - Antibiotic history: Diflucan DC 05/05 - We'll continue Zofran and Reglan for nausea/vomiting. Bilateral pleural effusion - Continue supplemental O2 to keep O2 sat > 90%. Uterine Malignancy - S/P Exploratory laparotomy, total abdominal hysterectomy, bilateral salpingo- oophorectomy, extensive lysis of adhesions, omentectomy, open sigmoid resection with primary anastomosis and open appendectomy. - Followed up by hematology oncology , Emergency Preparedness Coordinator-onc and general surgery (Dr. Alexandra ha and Dr. Sims) AFib with RVR - History of paroxysmal A. fib - Has been evaluated by button attaching machine operator Dr. Turcios: went into A-Fb with RVR again on 05/08, amiodarone 200 mg PO BID, verapamil 40 mg PO q8, metoprolol tartrate 25 mg BID, keep K > 4, CHADS VASC 3-4. - Given patient's [id number] score of 3 to 4, it would be reasonable to wait for oral anti-coagulation without bridging with heparin/Lovenox. - Cardiology started on Lovenox 40mg SQ Q12hrs on 05/14/2017. The plan is to switch to oral when patient is able to tolerate PO diet better. - If okay with surgery, we can d/c Lovenox and start patient on Apixaban 5mg BID. - Patient's rate is well controlled. For her convenience, we can d/c telemetry. Hypotension - currently normotensive blood pressure 120/58. - Patient has been on Lasix 40mg IV Qday and Spironolactone 25mg Qday. - EF is 60-65%. No clinical evidence of heart failure. - We discontinued Lasix and Spironolactone on 05/16/2017. - Hypotension resolved. HLD - Continue pravastatin 20 mg daily. - Frequent urination - no clinical symptoms of UTI. However if she develops any symptoms we'll obtain urinalysis. Anxiety - Ativan when necessary Ulcerative Colitis - On mesalamine at home Hypokalemia - Replaced, goal K> 4. Full code. Lovenox 40mg SQ Q12hrs. Discussed with RN, Surgery. Patient can be discharged to [facility] or SNF from medical standpoint. Mana Goel DO May 19, 2017 9:56 am
[2017-05-19] MEDS: oxyCODONE/ACETAMINOPHEN 5 MG/325 MG TAB PO PRN (11:34)
[2017-05-19 12:00] VITALS: BP 129/60; PULSE 72; RESP 19; TEMP 97.9; O2SAT 97
--- NOTE | 2017-05-19 13:30 | PD.WCN.NOT ---
Wound Consult Description: Consult for Ostomy management and Vac Management Communicated with: HERON Ocampo RN Recommendation: Change wound VAC as ordered by Dr Morris on Tuesday and Tuesday Observe staff open, empty, and close pouch Practice opening and closing pouch provided in Colostomy kit Practice attaching barrier to pouch provided in Colostomy kit Write down any questions you may have for ditching machine operating engineer to answer Additional Information: Patient seen on for wound VAC change to midline abdomen post op wound. Ostomy appliance changed today 05/19/17 Neg Pressure Wound Therapy Wound Location Wound Location: Superior midline abdominal surgical wound. The one post op surgical wound is now 2 wounds with a closed area the wound beds. Wound Description Length: 3.5cm Width: 0.5cm Depth: 1.1cm Wound bed appearance: Wound bed presents with ~70% red granulating tissue, ~10% adipose tissue, ~10% white tissue, and ~10% yellow loosely adherent slough. Also noted 1 suture in wound bed @ 12 o'clock. There is minimal sero-sanguinous drainage in wound bed without odor. Wound margins are open. Periwound is unremarkable with a left sided Colostomy that was removed with wound VAC dressing change today. Periwound appearance: Unremarkable Settings Suction: 125 mmHg, Continuous Intensity: Low Other Information: Bridged (bridged using mushroomed piece granufoam touching proximal and distal wound beds now by closed wound bed ), Mushroomed Foam type: Black Number of pieces: 1 Additonal Information 1 piece black granufoam was removed from wound bed. Wound was cleansed with NS and gauze and measured above. Periwound was skin prepped with Cavilon spray. 1 piece black granufoam used in wound bed and secured with VAC drape. Wound Location Wound Location: Distal to closed abdominal wound on midline post op incision line. Wound Description Length: 13.5cm Width: 1.5cm Depth: 1.7cm Wound bed appearance: Wound bed presents with ~70% red granulating tissue, ~20% adipose tissue, ~10% yellow loosely adherent slough. Also noted 1 suture in wound bed @ 6 o'clock. There is minimal sero-sanguinous drainage in wound bed without odor. Wound margins are open. Periwound is unremarkable with a left sided Colostomy that was removed with wound VAC dressing change today. Periwound appearance: Unremarkable Settings Suction: 125 mmHg Intensity: Low Other Information: Bridged, Mushroomed Foam type: Black Number of pieces: 1 Additonal Information 1 piece black granufoam was removed from wound bed. Wound was cleansed with NS and gauze and measured above. 1 piece black granufoam was cut to fit wound bed and placed into wound and secured with VAC drape. Small hole cut in drape to allow for mushroomed piece of black granufoam to use for trac pad placement. Wounds were bridged over the closed mid section of the wound bed that was protected with VAC drape prior to trac pad placement. Ostomy Type: Colostomy Surgeon: Blayne Morris MD Date of Surgery: May 09, 2017 Complete: Starter kit (Verbal consent obtained for [facility] to send kit to patient home), Education materials ([employer] kit provided to patient with education materials and practice wafer and pouches), Rx (Left on chart) Educated patient on: When to change ostomy appliance. How to measure stoma How to remove barrier from skin How to cleanse peristomal skin How to mold appliance to fit stoma How to close pouch prior to placing on barrier When to empty effluent from pouch Additional information Patient seen today for Ostomy appliance change. Barrier was removed using adhesive removal wipes. Stoma was visualized and measured 2". Peristomal skin was cleansed with water and a soft cloth. Lumen noted to 5 o'clock was functioning with mucus. Lumen noted at 10 o'clock with minimal brown stool noted. Stoma is pink, moist, round, mucocutaneous junction noted with 1 suture @ 2 o'clock and mucocutaneous separation noted @ 7 o'clock ~0.2cm x 0.4cm. Appliance size 2 1/4" was used and molded to fit stoma. Patient held mirror for visualization while barrier dated today was placed with low pressure adaptor. Patient closed pouch and was assisted in attaching pouch to low pressure adaptor on barrier. Appliance surrounding tape was cut so as not to overlap surgical wound with VAC dressing change today. Gillian Wong [facility] May 19, 2017 13:30
--- NOTE | 2017-05-19 15:52 | HHI.PR ---
Subjective Subjective Notes Up to chair No issues overnight Wants to go [facility] Objective Vitals/I&O Vital Signs Date Time Temp Pulse Resp B/P (MAP) Pulse Ox O2 Delivery O2 Flow Rate FiO2 05/19/17 12:00 97.9 72 19 129/60 (83) 97 05/16/17 17:52 21 Labs Date/Time Source Procedure Growth Status 05/03/17 16:35 Blood Peripheral Aerobic Blood Culture - Final NO GROWTH IN 5 DAYS Complete 05/03/17 16:35 Anaerobic Blood Culture - Final Prevotella Loescheii Complete 05/02/17 17:50 Abscess Abdomen Gram Stain - Final Complete 05/02/17 17:50 Wound Culture - Final Escherichia Coli Strep Not A,B D Complete Radiology Last Impressions Chest X-Ray 05/11/17 0000 Signed Impressions: Service Date/Time: Thursday, May 11, 2017 14:41 - CONCLUSION: Left PICC line catheter tip at the cavoatrial junction. Conrad King MD Abdomen/Pelvis CT 05/11/17 0000 Signed Impressions: Service Date/Time: Thursday, May 11, 2017 10:14 - CONCLUSION: No residual fluid about the lower pelvic drain. Moderate size bilateral pleural effusions and compressive atelectasis, stable. New left lower quadrant hernia/stoma containing a loop of bowel. Conrad King MD Abscess Drainage CT 05/02/17 0000 Signed Impressions: Service Date/Time: Tuesday, May 02, 2017 17:42 - CONCLUSION: Uncomplicated CT guided drainage. Hipolito Talbot MD Cardiovascular: Regular Lungs: Clear Abdomen: Other (Wound Vac removed---wound with good granulation tissue; QUENTIN with clear fluid; Colostomy stoma pink with stool output ) Extremities: No edema A/P Assessment and Plan 76 year old female s/p ex lap and colostomy; s/p exploratory laparotomy, total abdominal hysterectomy, bilateral salpingo-oophorectomy, extensive lysis of adhesions, omentectomy, open sigmoid resection with primary anastomosis and open appendectomy -Advance to soft diet -Will cut TPN in half this afternoon and off tomorrow -OOB and tolerated--with assistance; PT following -Continue colostomy teaching -Wound Vac change TRSa -Continue routine QUENTIN care ----drainage clear now -ID following--off antibiotics; will monitor for signs of infection -Luis Enrique following Attending Statement The exam, history, and the medical decision-making described in the above note were completed with the assistance of the mid-level provider. I reviewed and agree with the findings presented. I attest that I had a [id number] encounter with the patient on the same day, and personally performed and documented my assessment and findings in the medical record. Abdominal exam: stable VAC on OOB ok for rehab when accepted Shannon Ocampo May 19, 2017 15:52 Blayne Morris MD Jun 07, 2017 23:40
[2017-05-19 16:00] VITALS: BP 135/75; PULSE 79; RESP 20; TEMP 96.9; O2SAT 98
[2017-05-19 20:00] VITALS: BP 109/53; PULSE 80; RESP 18; TEMP 96.7; O2SAT 97
[2017-05-19] MEDS: FAT EMULSION 20% INJ 250 ML (Daily over 8 hours) IV-CENTRAL SCH (21:31)
[2017-05-19] MEDS: CLINIMIX E 4.25/25 2000 mL- >42 mls/hr IV-CENTRAL SCH ×3 (21:31)
[2017-05-19] MEDS: APIXABAN 5 MG TABLET PO SCH (21:32)
[2017-05-19] MEDS: ALPRAZolam 0.5 MG TAB PO PRN (21:34)
[2017-05-20] VITALS: BP 130/59; PULSE 84; RESP 18; TEMP 96.6; O2SAT 96
[2017-05-20] MEDS: PCA - TOTAL MG DILAUDID DELIVERED PER SHIFT OTHER SCH ×2 (05:20→14:00)
[2017-05-20] MEDS: FAMOTIDINE 20 MG/2 ML VIAL IV PUSH SCH (05:20)
[2017-05-20] MEDS: VERAPAMIL HCL 40 MG TAB PO SCH ×2 (05:20→14:00)
[2017-05-20] MEDS: SODIUM CHLORIDE 0.9% FLUSH 10 ML FLUSH IV FLUSH PRN (05:21)
[2017-05-20 08:00] VITALS: BP 128/60; PULSE 85; RESP 17; TEMP 97.1; O2SAT 95
[2017-05-20] MEDS: INSULIN ASPART SUPPLEMENTAL SCALE SQ SCH ×3 (08:00→16:46)
[2017-05-20] MEDS: PRAVASTATIN SOD 20 MG TAB PO SCH (09:00)
[2017-05-20] MEDS: MESALAMINE HD 800 MG DELAYED RELEASE TAB PO SCH ×3 (09:20→17:07)
[2017-05-20] MEDS: SODIUM CHLORIDE 0.9% FLUSH 10 ML FLUSH IV FLUSH SCH ×3 (09:20→09:21)
[2017-05-20] MEDS: APIXABAN 5 MG TABLET PO SCH (09:20)
[2017-05-20] MEDS: METOPROLOL TARTRATE 25 MG TAB PO SCH (09:20)
[2017-05-20] MEDS: TIMOLOL MALEATE 0.5% OPHT SOLN 5 ML BTL EACH EYE SCH (09:20)
[2017-05-20] MEDS: AMIODARONE 200 MG TAB PO SCH (09:20)
--- NOTE | 2017-05-20 10:27 | HHI.PR ---
Objective Vitals Vital Signs Date Time Temp Pulse Resp B/P (MAP) Pulse Ox O2 Delivery O2 Flow Rate FiO2 05/20/17 08:00 97.1 85 17 128/60 (82) 95 05/20/17 00:00 96.6 84 18 130/59 (82) 96 05/19/17 20:00 96.7 80 18 109/53 (71) 97 05/19/17 16:00 96.9 79 20 135/75 (95) 98 05/19/17 12:00 97.9 72 19 129/60 (83) 97 I/O 05/19/17 05/19/17 05/19/17 05/20/17 05/20/17 05/20/17 07:00 15:00 23:00 07:00 15:00 23:00 Intake Total 1511 ml 370 ml 1976 ml 749 ml Output Total 1790 ml 655 ml 1180 ml 40 ml Balance -279 ml -285 ml 796 ml 709 ml Intake Oral 320 ml 120 ml 1000 ml IV Total 250 ml 976 ml TPN/PPN 941 ml 499 ml Lipid 250 ml 250 ml Output Urine Total 1750 ml 625 ml 1150 ml Stool Total 0 ml Drainage Total 40 ml 30 ml 30 ml 40 ml # Voids 7 # Bowel Movements 0 Result Diagram: 05/17/17 1240 05/18/17 1528 Objective Remarks GENERAL: Alert, oriented 3, NAD. SKIN: Warm and dry. HEAD: Normocephalic. EYES: No scleral icterus. No injection or drainage. NECK: Supple, trachea midline. No JVD or lymphadenopathy. CARDIOVASCULAR: Regular rate and rhythm without murmurs, gallops, or rubs. RESPIRATORY: Breath sounds equal bilaterally. No accessory muscle use. GASTROINTESTINAL: Abdomen soft, non-tender, nondistended. MUSCULOSKELETAL: No cyanosis, or edema. BACK: Nontender without obvious deformity. No CVA tenderness. 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 Course is uncomplicated due to her pre-existing ulcerative colitis and post anastomic colon leak. Anastomotic leak with peritonitis - Status post drainage by IR, due to worsening leukocytosis concern is for abscess. 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 - Surgeons involved: Dr. Morris, Dr. Poon, Dr. Saucedo and Dr. Sims - Infectious disease ([facility]) is following - blood cultures 05/03: Prevotella loeschelli - abscess culture 05/02: e.coli, strep not A, B, D, haemophilus parainfluenze - Currently on Zosyn. CBC indicates WBC, 26K --> 29K --> 23K --> 19.4K --> 12.4K on 05/17/2017. - Antibiotic history: Diflucan DC 05/05 - We'll continue Zofran and Reglan for nausea/vomiting. Bilateral pleural effusion - Continue supplemental O2 to keep O2 sat > 90%. Uterine Malignancy - S/P Exploratory laparotomy, total abdominal hysterectomy, bilateral salpingo- oophorectomy, extensive lysis of adhesions, omentectomy, open sigmoid resection with primary anastomosis and open appendectomy. - Followed up by hematology oncology , Chief Substation Operator-onc and general surgery (Dr. Morris all and Dr. Sims) AFib with RVR - History of paroxysmal A. fib - Has been evaluated by slack cooper Dr. Turcios: went into A-Fb with RVR again on 05/08, amiodarone 200 mg PO BID, verapamil 40 mg PO q8, metoprolol tartrate 25 mg BID, keep K > 4, CHADS VASC 3-4. - Given patient's [id number] score of 3 to 4, it would be reasonable to wait for oral anti-coagulation without bridging with heparin/Lovenox. - Cardiology started on Lovenox 40mg SQ Q12hrs on 05/14/2017. The plan is to switch to oral when patient is able to tolerate PO diet better. - If okay with surgery, we can d/c Lovenox and start patient on Apixaban 5mg BID. - Patient's rate is well controlled. For her convenience, we can d/c telemetry. Hypotension - currently normotensive blood pressure 120/58. - Patient has been on Lasix 40mg IV Qday and Spironolactone 25mg Qday. - EF is 60-65%. No clinical evidence of heart failure. - We discontinued Lasix and Spironolactone on 05/16/2017. - Hypotension resolved. HLD - Continue pravastatin 20 mg daily. - Frequent urination - no clinical symptoms of UTI. However if she develops any symptoms we'll obtain urinalysis. Anxiety - Ativan when necessary Ulcerative Colitis - On mesalamine at home Hypokalemia - Replaced, goal K> 4. Full code. Lovenox 40mg SQ Q12hrs. Discussed with RN, Surgery. Patient can be discharged to [place] [facility] or SNF from medical standpoint. Mana Goel DO May 20, 2017 10:27
--- NOTE | 2017-05-20 10:48 | HHI.PR ---
Subjective Subjective Notes Eating cereal Slept well; No issues Dr. Sims visited her this morning Objective Vitals/I&O Vital Signs Date Time Temp Pulse Resp B/P (MAP) Pulse Ox O2 Delivery O2 Flow Rate FiO2 05/20/17 08:00 97.1 85 17 128/60 (82) 95 05/16/17 17:52 21 Labs Date/Time Source Procedure Growth Status 05/03/17 16:35 Blood Peripheral Aerobic Blood Culture - Final NO GROWTH IN 5 DAYS Complete 05/03/17 16:35 Anaerobic Blood Culture - Final Prevotella Loescheii Complete 05/02/17 17:50 Abscess Abdomen Gram Stain - Final Complete 05/02/17 17:50 Wound Culture - Final Escherichia Coli Strep Not A,B D Complete Radiology Last Impressions Chest X-Ray 05/11/17 0000 Signed Impressions: Service Date/Time: Thursday, May 11, 2017 14:41 - CONCLUSION: Left PICC line catheter tip at the cavoatrial junction. Conrad King MD Abdomen/Pelvis CT 05/11/17 0000 Signed Impressions: Service Date/Time: Thursday, May 11, 2017 10:14 - CONCLUSION: No residual fluid about the lower pelvic drain. Moderate size bilateral pleural effusions and compressive atelectasis, stable. New left lower quadrant hernia/stoma containing a loop of bowel. Conrad King MD Abscess Drainage CT 05/02/17 0000 Signed Impressions: Service Date/Time: Tuesday, May 02, 2017 17:42 - CONCLUSION: Uncomplicated CT guided drainage. Hipolito Talbot MD Cardiovascular: Regular Lungs: Clear Abdomen: Other (midline abdominal wound vac in place with good seal; colostomy stoma pink--minmal output in bag; QUENTIN with serous fluid; abdomen soft; minimally tender ) Extremities: No edema A/P Assessment and Plan 76 year old female s/p ex lap and colostomy; s/p exploratory laparotomy, total abdominal hysterectomy, bilateral salpingo-oophorectomy, extensive lysis of adhesions, omentectomy, open sigmoid resection with primary anastomosis and open appendectomy -Tolerating soft diet -Turn TPN off this AM -OOB and tolerated--with assistance; PT following -Continue colostomy teaching -Wound Vac change TRSa -Continue routine QUENTIN care ----drainage clear now -ID following--off antibiotics; will monitor for signs of infection -[facility] following -GS clear for DC when arrangements made for Rehab Attending Statement The exam, history, and the medical decision-making described in the above note were completed with the assistance of the mid-level provider. I reviewed and agree with the findings presented. I attest that I had a [id number] encounter with the patient on the same day, and personally performed and documented my assessment and findings in the medical record. tolerating PO well no acute surgical issues Shannon Ocampo May 20, 2017 10:48 Blayne Morris MD Jun 07, 2017 23:41
[2017-05-20 12:00] VITALS: BP 109/57; PULSE 71; RESP 17; TEMP 97.6; O2SAT 97
[2017-05-20] MEDS ORDERED: AMIO200T PO (14:24)
[2017-05-20] MEDS ORDERED: VERA40TA PO (14:24)
[2017-05-20] MEDS ORDERED: ALPR.5 PO (14:24)
[2017-05-20] MEDS ORDERED: IPRASOL NEB (14:24)
[2017-05-20] MEDS ORDERED: APIX5TAB PO (14:24)
[2017-05-20] MEDS ORDERED: METO25TA3 PO (14:24)
[2017-05-20] MEDS ORDERED: PRAV20TA PO (14:28)
--- NOTE | 2017-05-20 14:31 | HHI.DS ---
Discharge Summary Admission Date Apr 25, 2017 at 8:40 am Discharge Date: May 20, 2017 Admitting Diagnosis Uterine malignancy. (1) Endometrial cancer ICD Code: C54.1 - Malignant neoplasm of endometrium Diagnosis: Principal (2) Postoperative state ICD Code: Z98.890 - Other specified postprocedural states Diagnosis: Principal (3) Uterine cancer ICD Code: C55 - Malignant neoplasm of uterus, part unspecified (4) Atrial fibrillation with RVR ICD Code: I48.91 - Unspecified atrial fibrillation Procedures 04/25/2017 PROCEDURE 1. Open sigmoid resection with primary anastomosis. 2. Open appendectomy. PROCEDURE Exploratory laparotomy, total abdominal hysterectomy, bilateral salpingo-oophorectomy, extensive lysis of adhesions, omentectomy, resection of intraperitoneal tumor. 05/09/2017 PROCEDURE 1. Reopening of recent laparotomy. 2. Takedown of colocutaneous and colovaginal fistulas and takedown of previous colo-colon anastomosis and placement of end-colostomy with closure of rectal stump. 3. Abdominal washout. 4. Repair/closure of vaginal cuff. 5. Closure of abdominal wall with retention sutures. 6. Midline back placement of 35 cm x 3 cm x 3 cm wound at the midline. Brief History - From Admission 76 years old female who was admitted under Dr. José service for hysterectomy, she is POD4 Exploratory laparotomy, total abdominal hysterectomy, bilateral salpingo-oophorectomy, extensive lysis of adhesions, omentectomy, open sigmoid resection with primary anastomosis and open appendectomy, hospitalist service requested to see the patient regarding postop hypoxia, patient told me she quit smoking 33 years ago but she smoked for 15 years about one pack every week, patient also stated she saw Dr. Harrison about 5 years ago for what it looks like she had a pneumonia. Patient stated she does have a degree of COPD, but she does not use inhalers. Chest x-ray has been done which showed a large amount of free air in the abdomen which most likely affected the lung. She does have a dry cough, she is on O2 nasal cannula 3 L, no chest pain , tolerable abdominal sources postop, no fever or chills. She has mild leukocytosis 15,000 mostly postop him I discussed with the patient and her daughter at the bedside CBC/BMP: 05/17/17 1240 05/18/17 1528 Significant Findings Laboratory Tests Test 05/18/17 09:55 05/18/17 15:28 Urine Turbidity HAZY (CLEAR) Urine Bacteria RARE /hpf (NONE) Creatinine 0.49 MG/DL (0.50-1.00) Imaging Last Impressions Chest X-Ray 05/11/17 0000 Signed Impressions: Service Date/Time: Thursday, May 11, 2017 14:41 - CONCLUSION: Left PICC line catheter tip at the cavoatrial junction. Conrad King MD Abdomen/Pelvis CT 05/11/17 0000 Signed Impressions: Service Date/Time: Thursday, May 11, 2017 10:14 - CONCLUSION: No residual fluid about the lower pelvic drain. Moderate size bilateral pleural effusions and compressive atelectasis, stable. New left lower quadrant hernia/stoma containing a loop of bowel. Conrad King MD Abscess Drainage CT 05/02/17 0000 Signed Impressions: Service Date/Time: Tuesday, May 02, 2017 17:42 - CONCLUSION: Uncomplicated CT guided drainage. Hipolito Talbot MD PE at Discharge GENERAL: Alert, oriented 3, NAD. SKIN: Warm and dry. HEAD: Normocephalic. EYES: No scleral icterus. No injection or drainage. NECK: Supple, trachea midline. No JVD or lymphadenopathy. CARDIOVASCULAR: Regular rate and rhythm without murmurs, gallops, or rubs. RESPIRATORY: Breath sounds equal bilaterally. No accessory muscle use. GASTROINTESTINAL: Abdomen soft, non-tender, nondistended. MUSCULOSKELETAL: No cyanosis, or edema. BACK: Nontender without obvious deformity. No CVA tenderness. Pt update on day of discharge Patient is doing well. Accepted and insurance approved for [facility]. Discussed with patient's attending Dr. Sims who is okay with hospitalist service discharging patient. I also discussed with patient - she wants to go to [facility]. She will update her daughters. Hospital Course 76 years old female who was admitted under Dr. José service for hysterectomy due to Uterine malignancy involving multiple peritoneal surfaces and mesentery including large positive of invasive disease in the sigmoid colon mesentery. S/P Exploratory laparotomy, total abdominal hysterectomy, bilateral salpingo-oophorectomy, extensive lysis of adhesions, omentectomy, open sigmoid resection with primary anastomosis and open appendectomy. 05/02 she was doing fairly well, passing flatus, no BM, however her abdomen was mildly distended, KUB documented large abdominal air and CT showed air and fluid collection in pelvis. Patient was managed in the ICU from 05/02 - 05/08. Patient developed Afib with RVR, cardiology was consulted. Patient was started on Amiodarone, rate control meds. Anastomotic leak with peritonitis - Status post drainage by IR, due to worsening leukocytosis concern is for abscess. 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 - Surgeons involved: Dr. Morris, Dr. Poon, Dr. Saucedo and Dr. Sims - Infectious disease ([facility]) is following - blood cultures 05/03: Prevotella loeschelli - abscess culture 05/02: e.coli, strep not A, B, D, haemophilus parainfluenze - Currently on Zosyn. CBC indicates WBC, 26K --> 29K --> 23K --> 19.4K --> 12.4K on 05/17/2017. - Antibiotic history: Diflucan DC 05/05 - We'll continue Zofran and Reglan for nausea/vomiting. Bilateral pleural effusion - Continue supplemental O2 to keep O2 sat > 90%. Invasive Uterine leiomyosarcoma - S/P Exploratory laparotomy, total abdominal hysterectomy, bilateral salpingo- oophorectomy, extensive lysis of adhesions, omentectomy, open sigmoid resection with primary anastomosis and open appendectomy. - Followed up by Gynecological oncology , [facility] and general surgery (Dr. Alexandra ha and Dr. Sims) AFib with RVR - History of paroxysmal A. fib - Has been evaluated by stereoptician Dr. Turcios: went into A-Fb with RVR again on 05/08, amiodarone 200 mg PO BID, verapamil 40 mg PO q8, metoprolol tartrate 25 mg BID, keep K > 4, CHADS VASC 3-4. - Cardiology started on Lovenox 40mg SQ Q12hrs on 05/14/2017. - We switched anticoagulation to Apixaban 5mg BID. Hypotension - currently normotensive blood pressure 120/58. - Patient has been on Lasix 40mg IV Qday and Spironolactone 25mg Qday. - EF is 60-65%. No clinical evidence of heart failure. - We discontinued Lasix and Spironolactone on 05/16/2017. - Hypotension resolved. HLD - Continue pravastatin 20 mg daily. Anxiety - Ativan when necessary Ulcerative Colitis - On mesalamine at home Hypokalemia - Replaced, goal K> 4. Full code. Apixaban. On 05/20/2017, I discussed with Dr. Sims who agreed with our plan to discharge patient to [facility]. While patient initially wanted to consider going to [facility] to stay with her daughter, we all thought it would be in the best interest of the patient to receive rehab at [facility]. I discussed with patient again prior to discharge and she agrees with [facility] discharge. Pt Condition on Discharge: Good Discharge Disposition: Rehab Inpatient Discharge Time: > 30 minutes Discharge Instructions DIET: Follow Instructions for: As Tolerated, No Restrictions Activities you can perform: Pelvic Rest Activities to Avoid: Lifting/Bending, Strenuous Activity, Sexual Activity Other Activity Instructions: no lifting/pushing or pulling > 5 pounds Follow up Referrals: Appointment for Follow Up - 2 Weeks with [facility] - 10 Days with Blayne Morris MD New Medications: Oxycodone-Acetaminophen (Percocet) 5-325 mg Tab 1 TAB PO Q4H PRN for PAIN, #24 TAB 0 Refills Alprazolam (Xanax) 0.5 Mg Tab 0.5 MG PO HS PRN for sleep, #30 TAB Amiodarone (Amiodarone) 200 Mg Tab 200 MG PO DAILY for Heart, #30 TAB Apixaban (Eliquis) 5 Mg Tab 5 MG PO BID for Blood Clot Prevention, #60 TAB Ipratropium-Albuterol Neb (Duoneb) 0.5-2.5 Mg/3 Ml Neb 1 AMPULE NEB Q4HR NEB PRN for short of breath for 30 Days, ML Metoprolol Tartrate (Metoprolol Tartrate) 25 Mg Tab 25 MG PO Q12HR for Heart, #60 TAB Pravastatin (Pravachol) 20 Mg Tab 20 MG PO DAILY for Cholesterol Management, #30 TAB Verapamil (Verapamil) 40 Mg Tab 40 MG PO Q8HR for Heart, #90 TAB Continued Medications: Ferrous Sulfate (Ferrous Sulfate) 325 Mg (65 Mg Iron) Tablet 325 MG PO BIDPC for Nutritional Supplement, #60 TAB [address] (Asacol HD) 800 Mg Tab 800 MG PO TID for Ulcerative colitis, TAB 0 Refills Swallow whole. Take on an empty stomach. Timolol Opth Drops (Timolol Opth Drops) 0.5 % Soln 1 DROP EACH EYE DAILY for Glaucoma, BOTTLE 0 Refills Discontinued Medications: Alprazolam (Alprazolam) 0.25 Mg Tab 0.25 MG PO DAILY PRN for ANXIETY, TAB 0 Refills Carvedilol (Carvedilol) 6.25 Mg Tab 6.25 MG PO DAILY, TAB 0 Refills Furosemide (Furosemide) 40 Mg Tab 40 MG PO PRN for edema, TAB 0 Refills Hydrochlorothiazide (Hydrochlorothiazide) 25 Mg Tab 25 MG PO DAILY, TAB 0 Refills Potassium Chloride ER (Potassium Chloride ER) 10 Meq Cap 10 MEQ PO DAILY PRN for edema, CAP 0 Refills Simvastatin (Simvastatin) 10 Mg Tab 10 MG PO DAILY for Cholesterol Management, TAB 0 Refills Verapamil SR (Verapamil SR) 180 Mg Cap 180 MG PO DAILY, CAP 0 Refills Mana Goel DO May 20, 2017 14:31
[2017-05-20 16:00] VITALS: BP 117/59; PULSE 77; RESP 17; TEMP 97.9; O2SAT 95
--- NOTE | 2017-05-20 16:20 | PD.WCN.NOT ---
Wound Consult Description: Wound VAC to midline abdomen Colostomy to left abdomen Communicated with: Patient Recommendation: Change wound VAC as ordered by Dr Morris on Tuesday and Tuesday Observe staff open, empty, and close pouch Practice opening and closing pouch provided in Colostomy kit Practice attaching barrier to pouch provided in Colostomy kit Additional Information: Patient seen on for ostomy assessment. Ostomy Type: Colostomy Surgeon: Blayne Morris MD Date of Surgery: May 09, 2017 Complete: Starter kit ([facility]), Education materials ([employer] kit provided to patient with education materials and practice wafer and pouches), Rx (Left on chart) Educated patient on: Emptying pouch when 1/3-1/2 full Changing appliance every 5-7 days and PRN Peristomal skin care Measuring stoma with each appliance change Additional information Patient seen on for ostomy assessment. Patient is lying comfortably in bed. Wound VAC working properly. Stoma functioning with adequate output and appliance is intact. Patient states that she will be going to rehab tomorrow. Patient has no questions at this time and states that she is learning to deal with it and is ready to start rehab and actually went to the bathroom today independently. Gillian Wong [facility] May 20, 2017 16:20
[2017-05-20] MEDS: oxyCODONE/ACETAMINOPHEN 5 MG/325 MG TAB PO PRN (17:08)
[2017-05-31] MEDS ORDERED: TIMO0.5S30 EACH EYE (14:58)
[2017-05-31] MEDS ORDERED: FERR325T20 PO (14:58)
[2017-05-31] MEDS ORDERED: APIX5TAB PO (14:58)
[2017-05-31] MEDS ORDERED: PRAV20TA PO (14:58)
[2017-05-31] MEDS ORDERED: AMIO200T PO (14:58)
[2017-05-31] MEDS ORDERED: SENN1TAB PO (14:58)
[2017-05-31] MEDS ORDERED: ALPR.25 PO (14:58)
[2017-05-31] MEDS ORDERED: METO25TA3 PO (14:58)
[2017-05-31] MEDS ORDERED: VERA40TA PO (14:58)
[2017-05-31] MEDS ORDERED: FAMO20TA2 PO (14:58)
[2017-05-31] MEDS ORDERED: OXYC1TAB63 PO (14:58)
== END 2017-05-20 17:28 | DRG 739 ==
LOC: HSDI 04-25 08:40 → HOCA 04-25 19:43 → N03A 05-02 22:02 → N07A 05-13 18:30
PROVIDERS: ADMIT Obstetrics & Gynecology Gynecologic Oncology; ATTEND Obstetrics & Gynecology Gynecologic Oncology
PROC: 0UT20ZZ Resection of Bilateral Ovaries, Open Approach (ICD-10-PCS; 2017-04-25)
PROC: 0UT70ZZ Resection of Bilateral Fallopian Tubes, Open Approach (ICD-10-PCS; 2017-04-25)
PROC: 0DBS0ZZ (ICD-10-PCS; 2017-04-25)
PROC: 0DTN0ZZ Resection of Sigmoid Colon, Open Approach (ICD-10-PCS; 2017-04-25)
PROC: 0DTJ0ZZ Resection of Appendix, Open Approach (ICD-10-PCS; 2017-04-25)
PROC: 30233N1 Transfusion of Nonautologous Red Blood Cells into Peripheral Vein, Percutaneous Approach (ICD-10-PCS; 2017-04-25)
PROC: 0UT90ZZ Resection of Uterus, Open Approach (ICD-10-PCS; principal; 2017-04-25 11:41)
PROC: 0UTC0ZZ Resection of Cervix, Open Approach (ICD-10-PCS; 2017-04-25 11:41)
PROC: 0DNW0ZZ Release Peritoneum, Open Approach (ICD-10-PCS; 2017-04-25 11:41)
PROC: 0W9G30Z Drainage of Peritoneal Cavity with Drainage Device, Percutaneous Approach (ICD-10-PCS; 2017-05-02)
PROC: 0D1N0Z4 Bypass Sigmoid Colon to Cutaneous, Open Approach (ICD-10-PCS; 2017-05-09)
PROC: 0UQG0ZZ Repair Vagina, Open Approach (ICD-10-PCS; 2017-05-09)
PROC: 0DQN0ZZ Repair Sigmoid Colon, Open Approach (ICD-10-PCS; 2017-05-09)
PROC: 3E1M38Z Irrigation of Peritoneal Cavity using Irrigating Substance, Percutaneous Approach (ICD-10-PCS; 2017-05-09)
PROC: 3E0T3CZ (ICD-10-PCS; 2017-05-09)
PROC: 02HV33Z Insertion of Infusion Device into Superior Vena Cava, Percutaneous Approach (ICD-10-PCS; 2017-05-09)
PROC: 02HV33Z Insertion of Infusion Device into Superior Vena Cava, Percutaneous Approach (ICD-10-PCS; 2017-05-11)
DX: C54.1 Malignant neoplasm of endometrium (principal); K65.1 Peritoneal abscess; A41.59 Other Gram-negative sepsis; K65.0 Generalized (acute) peritonitis; C78.6 Secondary malignant neoplasm of retroperitoneum and peritoneum; J90 Pleural effusion, not elsewhere classified; K63.2 Fistula of intestine; I95.9 Hypotension, unspecified; K51.90 Ulcerative colitis, unspecified, without complications; N82.3 Fistula of vagina to large intestine; J98.11 Atelectasis; K91.89 Other postprocedural complications and disorders of digestive system; T81.4XXA Infection following a procedure, initial encounter; I48.0 Paroxysmal atrial fibrillation; N73.6 Female pelvic peritoneal adhesions (postinfective); E78.5 Hyperlipidemia, unspecified; I10 Essential (primary) hypertension; F41.9 Anxiety disorder, unspecified; R09.02 Hypoxemia; E87.6 Hypokalemia; Y83.2 Surgical operation with anastomosis, bypass or graft as the cause of abnormal reaction of the patient, or of later complication, without mention of misadventure at the time of the procedure; B95.4 Other streptococcus as the cause of diseases classified elsewhere; B96.89 Other specified bacterial agents as the cause of diseases classified elsewhere; D75.89 Other specified diseases of blood and blood-forming organs; E86.9 Volume depletion, unspecified; E87.70 Fluid overload, unspecified; J44.9 Chronic obstructive pulmonary disease, unspecified; R60.0 Localized edema; B96.20 Unspecified Escherichia coli [E. coli] as the cause of diseases classified elsewhere; Z87.891 Personal history of nicotine dependence
CPT/HCPCS: 36430; 36569; 71010; 71020; 74176; 74177; 75989; 76937; 80048; 80053; 81001; 82040; 82247; 82378; 82948; 83605; 83735; 84075; 84100; 84132; 84134; 84155; 84450; 84460; 84484; 85007; 85025; 85027; 85610; 85730; 86304; 86403; 86850; 86900; 86901; 86920; 87040; 87070; 87077; 87185; 87186; 87205; 87641; 88304; 88305; 88307; 88331; 88341; 88342; 93005; 93306; 94150; C1729; C1765; C9290; J0131; J0282; J0690; J1100; J1170; J1450; J1642; J1644; J1650; J1815; J1885; J1940; J2250; J2270; J2370; J2405; J2543; J2710; J2765; J3010; J3475; J3480; J7030; J7040; J7042; J7050; J7060; J7120; P9016; Q9963; Q9967